=== PATIENT | male | born 1950 | race Hispanic/Latino ===

== ENCOUNTER 2017-11-09 14:18 | Emergency (ER) | payer OTHER ==
--- OUTSIDE RECORDS SUMMARY | 2017-11-09 14:24 | XMS REPORT ---
:1950 [facility] Address [address] [place] [address] [address] [place] [address] Care Team Providers Name Role Phone KYLIE LEY Unavailable Unavailable IDALIA TONY Unavailable Unavailable WILBERT, DINORAH Unavailable Unavailable Problems This patient has no known problems. Allergies, Adverse Reactions, Alerts This patient has no known allergies or adverse reactions. Medications This patient has no known medications. Results Test Description Test Time Test Comments Text Results Atomic Results Result Comments FLOW CYTOMETRY REQUISITION 2017-11-06 16:29:00 Test Item Value Reference Range Comments FLOW CYTOMETRY RESULT POINTER (SHREYAS) (test ezeo=1048) See Separate Report FLOW CYTOMETRY AP CASE # (SHREYAS) (test qast=8821) [id number] FLOW [id number] 11:02:00Flow Cytometry Report Case: [id number] Authorizing Provider: Shashi Awan MD Collected: 11/05/2017 1109 Ordering Location: [facility] Emergency Department Received: 11/05/2017 1307 Pathologist: Shashi Awan MD Specimen: Other PERIPHERAL BLOOD, FLOW CYTOMETRY:- 16% CIRCULATING MYELOBASTS-NO ABERRANT T LYMPHOCYTE POPULATION-NO MONOTYPIC B LYMPHOCYTE POPULATION-SEE COMMENTElectronically signed by Shashi Awan MD on at 11:02 AMFlow cytometric evaluation is performed on a peripheral blood sample from a 66 year old man wit history of MDS with excess blasts undergoing outpatient chemotherapy treatment per notes. Presented to ER on 11/05 from Hematology clinic with low platelets requiring platelet transfusion. Peripheral blood findings demonstrated increased blast warranting flow cytometric evaluation. Results demonstrate 16% circulating myeloblast with a subpopulation aberrantly expressing CD56. There was no evidence of an aberrant B or T lymphocyte process. Patient to follow up with Hematology for continuation of outpatient chemotherapy per EMR notes. [id number] year old man wit history of MDS with excess blasts undergoing outpatient chemotherapyPeripheral bloodCD2, CD3, CD4, CD5, CD7, CD8, CD10, CD11C, CD13, CD14, CD16, CD19, CD20, CD23, CD33, CD34, CD38, CD45, CD56, CD64, CD117, HLA-DR , KAPPA, LAMBDA, cMPO, cCD79a, nTdt, cCD79a, cCD22, cCD3, WO21eFupjuhsi Viability: 87%Abnormal myeloblast population identified (16% oftotal cellularity)POSITIVE: CD45 dim, CD34, CD117, HLA-DR, CD33, CD13(subpopulation), CD56(partial),CD11b(partial), cMPO(dim)NEGATIVE: CD2, CD3, CD4, CD5, CD7, CD8, CD10, CD11C, CD14, CD16, CD19, CD20, CD23,CD38, CD64, CD117, KAPPA, LAMBDA, cCD79a, nTdt, cCD79a, cCD22, cCD3In addition, the followingpopulations are identified:Blasts: As noted above.Lymphocytes: Bright CD45+ lymphocytes comprise 69%of total cells. T cells show a CD4:CD8 ratio of 1.8 and normal davis T cell antigen expression. B cells are polytypic with a kappa:lambda ratio of 1.6.Myeloid/monocytic populations: As identified by CD45 and light scatter characteristics, granulocytes comprise 8% of cells analyzed, and monocytes comprise 3% of total cells.The remaining events analyzed represent nonviable cells, non-hematolymphoid cells, and debrisThese tests were developed and their performance characteristics determined by [employer] They have not been cleared or approved by the U.S. Food and Drug Administration. The FDA has determined that such clearance or approval is not necessary. It should not be regarded as investigational or for research. This laboratory is certified under the Clinical Laboratory Improvement Amendments [id number] ("CLIA") as qualified to perform high-complexity clinical testing.CBC W/PLT COUNT & AUTO [id number] 07:05:00 Test Item Value Reference Range Comments WHITE BLOOD CELL COUNT 2.0 K/ L 3.5-10.5 (BEAKER) (test bgeg=017) RED BLOOD CELL COUNT (BEAKER) 2.65 M/ L 4.63-6.08 (test dbjk=537) HEMOGLOBIN (BEAKER) (test 8.4 GM/DL 13.7-17.5 msvm=802) HEMATOCRIT (BEAKER) (test 26.9 % 40.1-51.0 fbrw=519) MEAN CORPUSCULAR VOLUME 101.5 fL 79.0-92.2 (BEAKER) (test luay=253) MEAN CORPUSCULAR HEMOGLOBIN 31.7 pg 25.7-32.2 (BEAKER) (test sazr=202) MEAN CORPUSCULAR HEMOGLOBIN 31.2 GM/DL 32.3-36.5 CONC (BEAKER) (test lkkg=059) RED CELL DISTRIBUTION WIDTH 17.0 % 11.6-14.4 (BEAKER) (test dnjc=562) PLATELET COUNT (BEAKER) (test 44 K/CU MM 150-450 prtr=857) MEAN PLATELET VOLUME (BEAKER) fL 9.4-12.4 Unable to report due to (test suqc=951) abnormal Platelet population distribution. NUCLEATED RED BLOOD CELLS 2 /100 WBC 0-0 (BEAKER) (test dwgn=002) IMMATURE GRANULOCYTES-RELATIVE 3 % 0-1 PERCENT (BEAKER) (test khxb=3460) (MANUAL DIFFERENTIAL)2017-11-06 07:05:00 Test Item Value Reference Range Comments NEUTROPHILS - REL (DIFF) (BEAKER) (test cnkl=0495) 12 % LYMPHOCYTES - REL (DIFF) (BEAKER) (test xvay=2655) 75 % MONOCYTES - REL (DIFF) (BEAKER) (test xcau=2161) 10 % EOSINOPHILS - REL (DIFF) (BEAKER) (test kntx=9612) 0 % BASOPHILS - REL (DIFF) (BEAKER) (test fjes=3080) 0 % BLASTS - REL (DIFF) (BEAKER) (test fgqw=0566) 3 % 0-0 NEUTROPHILS - ABS (DIFF) (BEAKER) (test hxrp=6292) 0.24 K/ L 1.80-8.00 LYMPHOCYTES - ABS (DIFF) (BEAKER) (test mqlr=0013) 1.50 K/ L 1.48-4.50 MONOCYTES - ABS (DIFF) (BEAKER) (test nttm=7730) 0.20 K/ L 0.00-1.30 EOSINOPHILS - ABS (DIFF) (BEAKER) (test kaue=5823) 0.00 K/ L 0.00-0.50 BASOPHILS - ABS (DIFF) (BEAKER) (test mtfh=4983) 0.00 K/ L 0.00-0.20 BLASTS - ABS (DIFF) (BEAKER) (test kspf=0386) 0.06 K/ L 0.00-0.00 TOTAL COUNTED (BEAKER) (test xvgj=8279) 100 WBC MORPHOLOGY (BEAKER) (test rglh=081) Normal PLT MORPHOLOGY (BEAKER) (test tegp=390) Normal RBC MORPHOLOGY (BEAKER) (test hybj=370) Normal PERIPHERAL BLOOD SMEAR - PATH REVIEW LAB [id number] 16:46:00 Test Item Value Reference Range Comments RBC MORPHOLOGY (BEAKER) Hypochromic,macrocytic (test tnln=2321) anemia with mild anisopoikilocytosis. Occasional dacrocytes, elliptocytes and microcytes identified. Minimal polychromasia. Mild rouleaux formation. WBC MORPHOLOGY (BEAKER) Leukopenia with few blasts (test kqve=1433) identified(4% by differential count). Absolute neutrophilia. Few atypical lymphocytes present. PLT MORPHOLOGY (BEAKER) Marked thrombocytopenia. (test nzmk=5135) No platelet clumping identified. [id number] Shashi Awan MD (BEAKER) (test (electronic edkj=1430) signature) CBC W/PLT COUNT & AUTO [id number] 12:28:00 Test Item Value Reference Range Comments WHITE BLOOD CELL COUNT 2.2 K/ L 3.5-10.5 (BEAKER) (test lwlh=195) RED BLOOD CELL COUNT (BEAKER) 2.28 M/ L 4.63-6.08 (test isyg=861) HEMOGLOBIN (BEAKER) (test 7.1 GM/DL 13.7-17.5 uovn=666) HEMATOCRIT (BEAKER) (test 21.8 % 40.1-51.0 bnmg=792) MEAN CORPUSCULAR VOLUME 95.6 fL 79.0-92.2 (BEAKER) (test lsaq=958) MEAN CORPUSCULAR HEMOGLOBIN 31.1 pg 25.7-32.2 (BEAKER) (test ejka=052) MEAN CORPUSCULAR HEMOGLOBIN 32.6 GM/DL 32.3-36.5 CONC (BEAKER) (test fkgu=173) RED CELL DISTRIBUTION WIDTH 15.1 % 11.6-14.4 (BEAKER) (test qwqf=926) PLATELET COUNT (BEAKER) (test 5 K/CU MM 150-450 rzuz=545) MEAN PLATELET VOLUME (BEAKER) fL 9.4-12.4 Unable to report due to (test odgz=949) abnormal Platelet population distribution. NUCLEATED RED BLOOD CELLS 2 /100 WBC 0-0 (BEAKER) (test bkox=467) IMMATURE GRANULOCYTES-RELATIVE 1 % 0-1 PERCENT (BEAKER) (test aovk=0452) (MANUAL DIFFERENTIAL)2017-11-05 12:28:00 Test Item Value Reference Range Comments NEUTROPHILS - REL (DIFF) 9 % (BEAKER) (test wrdi=2309) LYMPHOCYTES - REL (DIFF) 80 % (BEAKER) (test ymbk=4263) MONOCYTES - REL (DIFF) 1 % (BEAKER) (test tyli=4828) BASOPHILS - REL (DIFF) % Blasts confirmed by (BEAKER) (test giey=5671) Lv BANDS - REL (DIFF) (BEAKER) 1 % 0-10 (test lgor=5906) BLASTS - REL (DIFF) (BEAKER) 4 % 0-0 (test tbry=6351) ATYPICAL LYMPHOCYTE - REL 5 % 0-0 (DIFF) (BEAKER) (test vnyn=480) NEUTROPHILS - ABS (DIFF) 0.20 K/ L 1.80-8.00 (BEAKER) (test sude=7759) LYMPHOCYTES - ABS (DIFF) 1.76 K/ L 1.48-4.50 (BEAKER) (test cage=3441) MONOCYTES - ABS (DIFF) 0.02 K/ L 0.00-1.30 (BEAKER) (test tpni=0055) BANDS-ABS (DIFF) (BEAKER) 0.0 K/ L 0.0-0.8 (test nqti=6229) BLASTS - ABS (DIFF) (BEAKER) 0.09 K/ L 0.00-0.00 (test aauf=1167) ATYPICAL LYMPHOCYTES - ABS 0.11 K/ L 0.00-0.00 (DIFF) (BEAKER) (test xypo=646) TOTAL COUNTED (BEAKER) (test 100 kvku=1438) BANDS + SEGMENTED NEUTROPHILS 0.22 (BEAKER) (test ppvb=1570) MANUAL NRBC PER 100 CELLS 1 /100 WBC 0-0 (BEAKER) (test ucom=0820) WBC MORPHOLOGY (BEAKER) (test Normal ixbq=754) PLT MORPHOLOGY (BEAKER) (test Normal dnqt=334) RBC MORPHOLOGY (BEAKER) (test Normal wwzo=079) [id number] 11:45:00 Test Item Value Reference Range Comments PROTIME (BEAKER) (test ltel=849) 16.7 seconds 11.7-14.7 INR (BEAKER) (test sezz=235) 1.4 <=5.9 PARTIAL THROMBOPLASTIN TIME (BEAKER) (test 41.3 seconds 22.5-36.0 qirg=042) RECOMMENDED COUMADIN/WARFARIN INR THERAPY RANGESSTANDARD DOSE: 2.0 - 3.0 Includes: PROPHYLAXIS forvenous thrombosis, systemic embolization; TREATMENT for venous thrombosis and/or pulmonary embolus.HIGH RISK: Target INR is 2.5-3.5 for patients with mechanical heart valves.HEPATIC FUNCTION [id number] 11:38 :00 Test Item Value Reference Range Comments TOTAL PROTEIN (BEAKER) (test ejmn=708) 8.3 gm/dL 6.0-8.3 ALBUMIN (BEAKER) (test ekxv=4609) 2.9 g/dL 3.5-5.0 BILIRUBIN TOTAL (BEAKER) (test msri=262) 0.7 mg/dL 0.2-1.2 BILIRUBIN DIRECT (BEAKER) (test wrwk=313) 0.4 mg/dL 0.1-0.5 ALKALINE PHOSPHATASE (BEAKER) (test ribi=758) 83 U/L 40-150 AST (SGOT) (BEAKER) (test upss=585) 9 U/L 5-34 ALT (SGPT) (BEAKER) (test wlja=113) 7 U/L 6-55 BASIC METABOLIC [id number] 11:38:00 Test Item Value Reference Range Comments SODIUM (BEAKER) (test 131 meq/L 136-145 hngy=893) POTASSIUM (BEAKER) (test 4.1 meq/L 3.5-5.1 qcyz=791) CHLORIDE (BEAKER) (test 97 meq/L 98-107 swxu=824) CO2 (BEAKER) (test 24 meq/L 22-29 kued=590) BLOOD UREA NITROGEN 12 mg/dL 7-21 (BEAKER) (test hily=084) CREATININE (BEAKER) (test 0.78 mg/dL 0.57-1.25 gtby=494) GLUCOSE RANDOM (BEAKER) 132 mg/dL 70-105 (test erhi=289) CALCIUM (BEAKER) (test 9.1 mg/dL 8.4-10.2 cbwt=479) EGFR (BEAKER) (test 100 mL/min/1.73 sq m ESTIMATED GFR IS NOT nljg=5059) ACCURATE CREATININE CLEARANCE IN PREDICTING GLOMERULAR FILTRATION RATE. ESTIMATED GFR IS NOT APPLICABLE FOR DIALYSIS PATIENTS. AFB CULTURE + [id number] 09:23:00 Test Item Value Reference Range Comments CULTURE (BEAKER) (test No acid-fast bacilli isolated ipdp=8881) in 42 days AFB SMEAR (BEAKER) (test No acid fast bacilli seen ddxm=119) (MANUAL DIFFERENTIAL)2017-08-17 16:00:00 Test Item Value Reference Range Comments NEUTROPHILS - REL (DIFF) (BEAKER) (test dclf=3827) 21 % LYMPHOCYTES - REL (DIFF) (BEAKER) (test xcus=0701) 75 % MONOCYTES - REL (DIFF) (BEAKER) (test bmuk=7343) 4 % NEUTROPHILS - ABS (DIFF) (BEAKER) (test uxvf=9859) 0.34 K/ L 1.80-8.00 LYMPHOCYTES - ABS (DIFF) (BEAKER) (test orry=0877) 1.20 K/ L 1.48-4.50 MONOCYTES - ABS (DIFF) (BEAKER) (test rgdq=6203) 0.06 K/ L 0.00-1.30 TOTAL COUNTED (BEAKER) (test lzni=7578) 100 WBC MORPHOLOGY (BEAKER) (test vjsn=436) Normal PLT MORPHOLOGY (BEAKER) (test zalr=088) Normal RBC MORPHOLOGY (BEAKER) (test sarc=375) Normal CBC W/PLT COUNT & AUTO [id number] 15:25:00 Test Item Value Reference Range Comments WHITE BLOOD CELL COUNT (BEAKER) (test edcn=610) 1.6 K/ L 3.5-10.5 RED BLOOD CELL COUNT (BEAKER) (test wnwv=984) 2.77 M/ L 4.63-6.08 HEMOGLOBIN (BEAKER) (test kwyq=394) 8.3 GM/DL 13.7-17.5 HEMATOCRIT (BEAKER) (test ogws=198) 25.1 % 40.1-51.0 MEAN CORPUSCULAR VOLUME (BEAKER) (test uslz=510) 90.6 fL 79.0-92.2 MEAN CORPUSCULAR HEMOGLOBIN (BEAKER) (test 30.0 pg 25.7-32.2 ygkb=030) MEAN CORPUSCULAR HEMOGLOBIN CONC (BEAKER) (test 33.1 GM/DL 32.3-36.5 ould=608) RED CELL DISTRIBUTION WIDTH (BEAKER) (test 13.5 % 11.6-14.4 wtil=978) PLATELET COUNT (BEAKER) (test oxch=851) 52 K/CU MM 150-450 MEAN PLATELET VOLUME (BEAKER) (test jbge=655) 13.4 fL 9.4-12.4 NUCLEATED RED BLOOD CELLS (BEAKER) (test 0 /100 WBC 0-0 xodj=978) NEUTROPHILS RELATIVE PERCENT (BEAKER) (test 19 % epkp=321) LYMPHOCYTES RELATIVE PERCENT (BEAKER) (test 79 % flhr=417) MONOCYTES RELATIVE PERCENT (BEAKER) (test 2 % lkxm=985) EOSINOPHILS RELATIVE PERCENT (BEAKER) (test 0 % qgrx=463) BASOPHILS RELATIVE PERCENT (BEAKER) (test 0 % kupl=179) NEUTROPHILS ABSOLUTE COUNT (BEAKER) (test 0.30 K/ L 1.78-5.38 eqqd=047) LYMPHOCYTES ABSOLUTE COUNT (BEAKER) (test 1.22 K/ L 1.32-3.57 ivcy=747) MONOCYTES ABSOLUTE COUNT (BEAKER) (test wwdu=780) 0.03 K/ L 0.30-0.82 EOSINOPHILS ABSOLUTE COUNT (BEAKER) (test 0.00 K/ L 0.04-0.54 dggo=248) BASOPHILS ABSOLUTE COUNT (BEAKER) (test bses=264) 0.00 K/ L 0.01-0.08 IMMATURE GRANULOCYTES-RELATIVE PERCENT (BEAKER) 0 % 0-1 (test gkta=7039) RAD, ABDOMEN/KUB, 1 VIEW [id number] 10:03:00Reason for exam:->abdominal painFINAL REPORT CLINICAL HISTORY: abdominal pain TECHNIQUE: Supine abdomen COMPARISON: None IMPRESSION: There is oral contrast in the colon. There are no focal distended loops of small bowel. Free air and air-fluid levels are not seen but cannot be definitively excluded on the supine view. Signed: Jyoti Rhodes MDReport Verified Date/Time: 08/16/2017 10:03:18 Reading Location: [facility] Radiology Reading Room CBC W/PLT COUNT & AUTO [id number] 08:33:00 Test Item Value Reference Range Comments WHITE BLOOD CELL COUNT (BEAKER) (test grxm=961) 1.3 K/ L 3.5-10.5 RED BLOOD CELL COUNT (BEAKER) (test dzcw=740) 2.45 M/ L 4.63-6.08 HEMOGLOBIN (BEAKER) (test yzwk=412) 7.4 GM/DL 13.7-17.5 HEMATOCRIT (BEAKER) (test zbwr=597) 21.8 % 40.1-51.0 MEAN CORPUSCULAR VOLUME (BEAKER) (test xfxb=673) 89.0 fL 79.0-92.2 MEAN CORPUSCULAR HEMOGLOBIN (BEAKER) (test 30.2 pg 25.7-32.2 idmg=236) MEAN CORPUSCULAR HEMOGLOBIN CONC (BEAKER) (test 33.9 GM/DL 32.3-36.5 kror=460) RED CELL DISTRIBUTION WIDTH (BEAKER) (test 13.8 % 11.6-14.4 pozh=475) PLATELET COUNT (BEAKER) (test xgvb=214) 40 K/CU MM 150-450 MEAN PLATELET VOLUME (BEAKER) (test xnoj=700) 13.7 fL 9.4-12.4 NUCLEATED RED BLOOD CELLS (BEAKER) (test 0 /100 WBC 0-0 hlrc=890) IMMATURE GRANULOCYTES-RELATIVE PERCENT (BEAKER) 1 % 0-1 (test dfhw=2974) (MANUAL DIFFERENTIAL)2017-08-16 08:33:00 Test Item Value Reference Range Comments NEUTROPHILS - REL (DIFF) (BEAKER) (test lpmc=4865) 23 % LYMPHOCYTES - REL (DIFF) (BEAKER) (test ledr=8736) 76 % MONOCYTES - REL (DIFF) (BEAKER) (test jvwi=0864) 1 % EOSINOPHILS - REL (DIFF) (BEAKER) (test jpbf=0810) 0 % BASOPHILS - REL (DIFF) (BEAKER) (test nlwl=8738) 0 % NEUTROPHILS - ABS (DIFF) (BEAKER) (test clyn=1526) 0.30 K/ L 1.80-8.00 LYMPHOCYTES - ABS (DIFF) (BEAKER) (test tsbo=8418) 0.99 K/ L 1.48-4.50 MONOCYTES - ABS (DIFF) (BEAKER) (test ywol=0843) 0.01 K/ L 0.00-1.30 EOSINOPHILS - ABS (DIFF) (BEAKER) (test funt=5091) 0.00 K/ L 0.00-0.50 BASOPHILS - ABS (DIFF) (BEAKER) (test mxwn=6472) 0.00 K/ L 0.00-0.20 TOTAL COUNTED (BEAKER) (test xgnm=5244) 100 PLT MORPHOLOGY (BEAKER) (test gzvk=559) Normal RBC MORPHOLOGY (BEAKER) (test ocxz=868) Normal ATYPICAL LYMPHS(BEAKER) (test ppzr=3925) Present [id number] 06:16:00 Test Item Value Reference Range Comments MAGNESIUM (BEAKER) (test lnzn=251) 1.9 mg/dL 1.6-2.6 COMPREHENSIVE METABOLIC [id number] 06:16:00 Test Item Value Reference Range Comments TOTAL PROTEIN (BEAKER) 7.2 gm/dL 6.0-8.3 (test dksx=261) ALBUMIN (BEAKER) (test 2.4 g/dL 3.5-5.0 njlw=3830) ALKALINE PHOSPHATASE 114 U/L 40-150 (BEAKER) (test yvgh=100) BILIRUBIN TOTAL (BEAKER) 1.6 mg/dL 0.2-1.2 (test zffy=930) SODIUM (BEAKER) (test 136 meq/L 136-145 mqml=116) POTASSIUM (BEAKER) (test 4.2 meq/L 3.5-5.1 xlfn=150) CHLORIDE (BEAKER) (test 106 meq/L 98-107 isjw=622) CO2 (BEAKER) (test 21 meq/L 22-29 azkk=958) BLOOD UREA NITROGEN 11 mg/dL 7-21 (BEAKER) (test nnbf=315) CREATININE (BEAKER) (test 0.55 mg/dL 0.57-1.25 bdhc=373) GLUCOSE RANDOM (BEAKER) 92 mg/dL 70-105 (test zthy=395) CALCIUM (BEAKER) (test 8.4 mg/dL 8.4-10.2 jhtg=503) AST (SGOT) (BEAKER) (test 12 U/L 5-34 cwvw=601) ALT (SGPT) (BEAKER) (test 20 U/L 6-55 rmtd=598) EGFR (BEAKER) (test 150 mL/min/1.73 sq ESTIMATED GFR IS NOT ypbz=9798) m ACCURATE CREATININE CLEARANCE IN PREDICTING GLOMERULAR FILTRATION RATE. ESTIMATED GFR IS NOT APPLICABLE FOR DIALYSIS PATIENTS. CLOSTRIDIUM DIFFICILE TOXIN [id number] 15:56:00 Test Item Value Reference Range Comments CLOSTRIDIUM DIFFICILE TOXIN, PCR (BEAKER) (test Detected Not Detected ehok=8348) This qualitative real-time polymerase chain reaction assay detects the tcdB gene , encoded on the C.difficile pathogenicity locus (PaLoc). The product of tcdB, toxin B, is a cytotoxin essential for causing C.difficile-associated disease ( CDAD) and is found in virtually all toxigenic C.difficile.This assay is performed for patients suspected of having either community-acquired or nosocomial CDAD. Accordingly, only symptomatic patients should be tested and formed stools will be rejected unless ileus is present (i.e., specified when ordering). Patients may be colonized with toxigenic C.difficile strains not causing active disease; therefore, clinical correlation is needed when deciding how to manage patients with a positive test result.The assay has not been validated as a test of cure as amplifiable nucleic acid may persist after effective treatment; therefore, follow-up testing of a positive result is not recommended.CBC W/PLT COUNT & AUTO [id number] 10:08:00 Test Item Value Reference Range Comments WHITE BLOOD CELL COUNT (BEAKER) (test yeqj=225) 1.0 K/ L 3.5-10.5 RED BLOOD CELL COUNT (BEAKER) (test xabh=233) 2.47 M/ L 4.63-6.08 HEMOGLOBIN (BEAKER) (test alyz=649) 7.4 GM/DL 13.7-17.5 HEMATOCRIT (BEAKER) (test rviq=515) 21.7 % 40.1-51.0 MEAN CORPUSCULAR VOLUME (BEAKER) (test japr=509) 87.9 fL 79.0-92.2 MEAN CORPUSCULAR HEMOGLOBIN (BEAKER) (test 30.0 pg 25.7-32.2 aifg=385) MEAN CORPUSCULAR HEMOGLOBIN CONC (BEAKER) (test 34.1 GM/DL 32.3-36.5 gwrf=396) RED CELL DISTRIBUTION WIDTH (BEAKER) (test 14.0 % 11.6-14.4 xwhr=883) PLATELET COUNT (BEAKER) (test orsa=648) 34 K/CU MM 150-450 MEAN PLATELET VOLUME (BEAKER) (test waju=539) 13.4 fL 9.4-12.4 NUCLEATED RED BLOOD CELLS (BEAKER) (test 0 /100 WBC 0-0 lmla=343) IMMATURE GRANULOCYTES-RELATIVE PERCENT (BEAKER) 0 % 0-1 (test keyc=4809) (MANUAL DIFFERENTIAL)2017-08-15 10:08:00 Test Item Value Reference Range Comments NEUTROPHILS - REL (DIFF) (BEAKER) (test nsuc=8184) 18 % LYMPHOCYTES - REL (DIFF) (BEAKER) (test nwvo=8214) 81 % MONOCYTES - REL (DIFF) (BEAKER) (test egmt=5295) 1 % EOSINOPHILS - REL (DIFF) (BEAKER) (test amve=8168) 0 % BASOPHILS - REL (DIFF) (BEAKER) (test gxdx=6564) 0 % NEUTROPHILS - ABS (DIFF) (BEAKER) (test qjsg=4752) 0.18 K/ L 1.80-8.00 LYMPHOCYTES - ABS (DIFF) (BEAKER) (test ryhi=1834) 0.81 K/ L 1.48-4.50 MONOCYTES - ABS (DIFF) (BEAKER) (test amjw=7512) 0.01 K/ L 0.00-1.30 EOSINOPHILS - ABS (DIFF) (BEAKER) (test kcbs=8970) 0.00 K/ L 0.00-0.50 BASOPHILS - ABS (DIFF) (BEAKER) (test mrle=8861) 0.00 K/ L 0.00-0.20 TOTAL COUNTED (BEAKER) (test fdoo=9549) 100 PLT MORPHOLOGY (BEAKER) (test ojsq=090) Normal RBC MORPHOLOGY (BEAKER) (test rilj=229) Normal ATYPICAL LYMPHS(BEAKER) (test ehml=7993) Present [id number] 06:53:00 Test Item Value Reference Range Comments MAGNESIUM (BEAKER) (test cllc=948) 1.9 mg/dL 1.6-2.6 BASIC METABOLIC [id number] 06:53:00 Test Item Value Reference Range Comments SODIUM (BEAKER) (test 137 meq/L 136-145 sigu=759) POTASSIUM (BEAKER) (test 4.1 meq/L 3.5-5.1 okhj=751) CHLORIDE (BEAKER) (test 103 meq/L 98-107 qhlk=008) CO2 (BEAKER) (test 25 meq/L 22-29 ttna=470) BLOOD UREA NITROGEN 10 mg/dL 7-21 (BEAKER) (test aikq=710) CREATININE (BEAKER) (test 0.54 mg/dL 0.57-1.25 onac=666) GLUCOSE RANDOM (BEAKER) 107 mg/dL 70-105 (test iqrq=752) CALCIUM (BEAKER) (test 8.3 mg/dL 8.4-10.2 efvk=470) EGFR (BEAKER) (test 153 mL/min/1.73 sq m ESTIMATED GFR IS NOT blwq=7853) ACCURATE CREATININE CLEARANCE IN PREDICTING GLOMERULAR FILTRATION RATE. ESTIMATED GFR IS NOT APPLICABLE FOR DIALYSIS PATIENTS. Specimen slightly ictericOCCULT BLOOD, [id number] 23:02:00 Test Item Value Reference Range Comments FECAL OCCULT BLOOD (BEAKER) (test qvrn=772) Negative Negative URINALYSIS W/ REFLEX URINE [id number] 21:14:00 Test Item Value Reference Range Comments COLOR (BEAKER) (test vgdh=210) Yellow CLARITY (BEAKER) (test ykzx=602) Clear SPECIFIC GRAVITY UA (BEAKER) (test ougy=414) 1.009 1.001-1.035 PH UA (BEAKER) (test danv=459) 7.5 5.0-8.0 PROTEIN UA (BEAKER) (test anoh=523) Negative Negative GLUCOSE UA (BEAKER) (test vmbt=649) Negative Negative KETONES UA (BEAKER) (test szdk=021) 10 mg/dL Negative BILIRUBIN UA (BEAKER) (test ureq=742) Negative Negative BLOOD UA (BEAKER) (test pwon=776) Negative Negative NITRITE UA (BEAKER) (test aguj=509) Negative Negative LEUKOCYTE ESTERASE UA (BEAKER) (test wkhg=946) Negative Negative UROBILINOGEN UA (BEAKER) (test oizy=113) > mg/dL 0.2-1.0 RBC UA (BEAKER) (test uhkn=814) 0 /HPF WBC UA (BEAKER) (test jxrf=472) < /HPF MUCUS (BEAKER) (test xdoo=9597) Rare SQUAMOUS EPITHELIAL (BEAKER) (test bshe=796) < /HPF SOURCE(BEAKER) (test fwxu=9682) CBC W/PLT COUNT & AUTO [id number] 12:16:00 Test Item Value Reference Range Comments WHITE BLOOD CELL COUNT 0.6 K/ L 3.5-10.5 (BEAKER) (test ugjt=464) RED BLOOD CELL COUNT (BEAKER) 2.76 M/ L 4.63-6.08 (test igpv=258) HEMOGLOBIN (BEAKER) (test 8.3 GM/DL 13.7-17.5 toct=540) HEMATOCRIT (BEAKER) (test 23.7 % 40.1-51.0 anpx=504) MEAN CORPUSCULAR VOLUME 85.9 fL 79.0-92.2 Discordant from previous (BEAKER) (test hbzq=113) results. Clinical correlation suggested. MEAN CORPUSCULAR HEMOGLOBIN 30.1 pg 25.7-32.2 (BEAKER) (test fxeg=383) MEAN CORPUSCULAR HEMOGLOBIN 35.0 GM/DL 32.3-36.5 CONC (BEAKER) (test ctcm=052) RED CELL DISTRIBUTION WIDTH 13.5 % 11.6-14.4 (BEAKER) (test brcu=882) PLATELET COUNT (BEAKER) (test 32 K/CU MM 150-450 qfab=260) MEAN PLATELET VOLUME (BEAKER) fL 9.4-12.4 Unable to report due to (test nquk=314) abnormal Platelet population distribution. NUCLEATED RED BLOOD CELLS 5 /100 WBC 0-0 (BEAKER) (test nbos=957) IMMATURE GRANULOCYTES-RELATIVE 0 % 0-1 PERCENT (BEAKER) (test hary=8201) (MANUAL DIFFERENTIAL)2017-08-14 12:16:00 Test Item Value Reference Range Comments NEUTROPHILS - REL (DIFF) (BEAKER) (test ehzz=2436) 30 % LYMPHOCYTES - REL (DIFF) (BEAKER) (test pvqx=1728) 55 % MONOCYTES - REL (DIFF) (BEAKER) (test ixrn=5385) 7 % BANDS - REL (DIFF) (BEAKER) (test vgmg=3892) 8 % 0-10 NEUTROPHILS - ABS (DIFF) (BEAKER) (test whis=4149) 0.18 K/ L 1.80-8.00 LYMPHOCYTES - ABS (DIFF) (BEAKER) (test jhlu=9117) 0.33 K/ L 1.48-4.50 MONOCYTES - ABS (DIFF) (BEAKER) (test vfpb=5946) 0.04 K/ L 0.00-1.30 BANDS-ABS (DIFF) (BEAKER) (test esmu=6469) 0.0 K/ L 0.0-0.8 TOTAL COUNTED (BEAKER) (test pcmo=2149) 100 BANDS + SEGMENTED NEUTROPHILS (BEAKER) (test 0.23 amxt=0212) WBC MORPHOLOGY (BEAKER) (test rrve=507) Normal PLT MORPHOLOGY (BEAKER) (test pggd=191) Normal RBC MORPHOLOGY (BEAKER) (test iblc=393) Normal [id number] 09:26:00 Test Item Value Reference Range Comments MAGNESIUM (BEAKER) (test xrxy=270) 1.5 mg/dL 1.6-2.6 BASIC METABOLIC [id number] 09:26:00 Test Item Value Reference Range Comments SODIUM (BEAKER) (test 135 meq/L 136-145 hesf=317) POTASSIUM (BEAKER) (test 3.0 meq/L 3.5-5.1 ruqh=588) CHLORIDE (BEAKER) (test 95 meq/L 98-107 muzn=217) CO2 (BEAKER) (test 30 meq/L 22-29 aamz=372) BLOOD UREA NITROGEN 10 mg/dL 7-21 (BEAKER) (test jent=056) CREATININE (BEAKER) (test 0.65 mg/dL 0.57-1.25 bzij=011) GLUCOSE RANDOM (BEAKER) 175 mg/dL 70-105 (test kctp=825) CALCIUM (BEAKER) (test 8.4 mg/dL 8.4-10.2 rdof=693) EGFR (BEAKER) (test 124 mL/min/1.73 sq m ESTIMATED GFR IS NOT sfgo=1946) ACCURATE CREATININE CLEARANCE IN PREDICTING GLOMERULAR FILTRATION RATE. ESTIMATED GFR IS NOT APPLICABLE FOR DIALYSIS PATIENTS. Specimen slightly ictericPOCT-GLUCOSE [id number] 23:11:00 Test Item Value Reference Range Comments POC-GLUCOSE METER (BEAKER) 130 mg/dL 70-[address] [facility] [address] [facility] (test btpq=6537) [facility] [id number] [address], BRAIN, WITHOUT [id number] 22:33:00FINAL REPORT CT, BRAIN, WITHOUT CONTRAST INDICATION: "Dizziness" TECHNIQUE: Noncontrast axial imaging was obtained from the vertex to the skull base. Axial images were reconstructed using a bone algorithm. DOSE REDUCTION: Dose modulation, iterative reconstruction, and/or weight-based adjustment of the mA/ kV was utilized to reduce the radiation dose to as low as reasonably achievable. COMPARISON: Head CT 07/17/2017 FINDINGS: Mild global volume loss commensurate with the patient's age.Midline structures and posterior fossa within normal limits.No subacute territorial infarctionor hyperdense thrombus.No acute intracranial hemorrhage.No acute hydrocephalus. Intact calvarium.Symmetric globes.The paranasal sinuses and mastoid air cells are well- aerated. IMPRESSION: No acute intracranial abnormality. Signed: William Romero MDReport Verified Date/Time: 08/13/2017 22:33:56 Reading Location: [address] Ortho Consult Reading Room CBC W/PLT COUNT & AUTO [id number] 22:31 :00 Test Item Value Reference Range Comments WHITE BLOOD CELL COUNT 0.8 K/ L 3.5-10.5 (BEAKER) (test mzwk=534) RED BLOOD CELL COUNT (BEAKER) 1.84 M/ L 4.63-6.08 (test fjzk=249) HEMOGLOBIN (BEAKER) (test 5.5 GM/DL 13.7-17.5 ppiq=986) HEMATOCRIT (BEAKER) (test 16.7 % 40.1-51.0 jvpy=493) MEAN CORPUSCULAR VOLUME 90.8 fL 79.0-92.2 (BEAKER) (test rgxw=723) MEAN CORPUSCULAR HEMOGLOBIN 29.9 pg 25.7-32.2 (BEAKER) (test ggoh=918) MEAN CORPUSCULAR HEMOGLOBIN 32.9 GM/DL 32.3-36.5 CONC (BEAKER) (test qdbn=977) RED CELL DISTRIBUTION WIDTH 13.7 % 11.6-14.4 (BEAKER) (test ehgw=605) PLATELET COUNT (BEAKER) (test 25 K/CU MM 150-450 mbjr=043) MEAN PLATELET VOLUME (BEAKER) fL 9.4-12.4 Unable to report due to (test hmrh=905) abnormal Platelet population distribution. NUCLEATED RED BLOOD CELLS 3 /100 WBC 0-0 (BEAKER) (test vxcn=747) IMMATURE GRANULOCYTES-RELATIVE 0 % 0-1 PERCENT (BEAKER) (test ssuk=6499) (MANUAL DIFFERENTIAL)2017-08-13 22:31:00 Test Item Value Reference Range Comments NEUTROPHILS - REL (DIFF) (BEAKER) (test gkkc=3701) 16 % LYMPHOCYTES - REL (DIFF) (BEAKER) (test cbaf=9564) 74 % MONOCYTES - REL (DIFF) (BEAKER) (test owjg=8489) 4 % EOSINOPHILS - REL (DIFF) (BEAKER) (test jmfa=3987) 2 % METAMYELOCYTES-REL (DIFF) (BEAKER) (test zonb=300) 1 % 0-0 BANDS - REL (DIFF) (BEAKER) (test zqqe=1791) 3 % 0-10 NEUTROPHILS - ABS (DIFF) (BEAKER) (test woxy=1351) 0.13 K/ L 1.80-8.00 LYMPHOCYTES - ABS (DIFF) (BEAKER) (test evnu=7772) 0.59 K/ L 1.48-4.50 MONOCYTES - ABS (DIFF) (BEAKER) (test ilsf=7346) 0.03 K/ L 0.00-1.30 EOSINOPHILS - ABS (DIFF) (BEAKER) (test oglg=4203) 0.02 K/ L 0.00-0.50 METAMYELOCTYES - ABS (DIFF) (BEAKER) (test 0.01 K/ L 0.00-0.00 ttcn=326) BANDS-ABS (DIFF) (BEAKER) (test wkbr=2151) 0.0 K/ L 0.0-0.8 TOTAL COUNTED (BEAKER) (test dkku=7702) 100 BANDS + SEGMENTED NEUTROPHILS (BEAKER) (test 0.15 naao=4249) WBC MORPHOLOGY (BEAKER) (test iftf=540) Normal PLT MORPHOLOGY (BEAKER) (test mlll=932) Normal RBC MORPHOLOGY (BEAKER) (test wvrn=540) Normal CT, [id number] 22:31:00FINAL REPORT HISTORY : Abd pain, fever, abscess suspected Technique: Multipleaxial images of the abdomen and pelvis were performed without the administration of IV contrast fromthe lung bases to the pubic symphysis. This exam was performed according to our departmental dose optimization program which includes automated exposure control , adjustment of the mA and/or kV according to patient size and/or use of iterative reconstructive technique. COMPARISON : 07/10/2017 COMMENT :The lung bases are clear. The visualized liver, spleen, adrenal glands, kidneys, bladder , pancreas, stomach and duodenum are within normal limits. There is no abdominal , retroperitoneal or pelvic lymphadenopathy. There is a small right-sided fat- containing inguinal hernia. No bowel contents are seen within the hernias, however. There is bilateral L5 spondylolysis. There is some grade 1 anterolisthesis of L5 over S1. There is also some significant degenerative disc changes seen most significantly at T12-L1. There is no free fluid or free air in the abdomen or pelvis. No findings of any bowel obstruction. The small bowel is within normal limits. There is colonic diverticulosis. There is a focal segment of colonic wall thickening involving the distal descending and sigmoid colon. Findings are nonspecific and could represent a focal inflammatory versus infectious versus ischemic colitis or diverticulitis. No organized pericolonic fluid collections are seen. Close CT imaging follow-up is advised after treatment to document resolution to exclude the possibility of an underlying mass. Alternatively, colonoscopy can be obtained when clinically feasible. The area is in a similar location but significantly increased as compared to the prior exam. The appendix is visualized and is within normal limits. The prostate gland is enlarged. Some calcifications are seen within the prostate gland. Impression: Marked focal thickening of the distal descending and sigmoid colon. This could represent diverticulitis or a nonspecific focal colitis. No free air is seen. No pericolonic fluid collections are seen. Please see above. Signed: Dwight Austin MDReport Verified Date/Time: 08/13/2017 22:31: 02 Reading Location: [facility] [id number] Consult Reading Room [id number] 18:59:00 Test Item Value Reference Range Comments LIPASE (BEAKER) (test qtkc=645) < U/L 8-78 [id number] 18:57:00 Test Item Value Reference Range Comments MAGNESIUM (BEAKER) (test kgfb=036) 1.7 mg/dL 1.6-2.6 BASIC METABOLIC [id number] 18:57:00 Test Item Value Reference Range Comments SODIUM (BEAKER) (test 133 meq/L 136-145 glch=752) POTASSIUM (BEAKER) (test 3.6 meq/L 3.5-5.1 pjwb=140) CHLORIDE (BEAKER) (test 97 meq/L 98-107 rnif=715) CO2 (BEAKER) (test 27 meq/L 22-29 fjpn=008) BLOOD UREA NITROGEN 10 mg/dL 7-21 (BEAKER) (test juqp=457) CREATININE (BEAKER) (test 0.58 mg/dL 0.57-1.25 kunk=875) GLUCOSE RANDOM (BEAKER) 101 mg/dL 70-105 (test vfal=079) CALCIUM (BEAKER) (test 8.6 mg/dL 8.4-10.2 vxxr=435) EGFR (BEAKER) (test 141 mL/min/1.73 sq m ESTIMATED GFR IS NOT ffsn=6637) ACCURATE CREATININE CLEARANCE IN PREDICTING GLOMERULAR FILTRATION RATE. ESTIMATED GFR IS NOT APPLICABLE FOR DIALYSIS PATIENTS. [id number] 18:57:00 Test Item Value Reference Range Comments AMYLASE (BEAKER) (test hqaj=939) 19 U/L 25-125 PROTHROMBIN [id number] 18:44:00 Test Item Value Reference Range Comments PROTIME (BEAKER) (test tgqy=556) 16.0 seconds 11.7-14.7 INR (BEAKER) (test lqhw=808) 1.3 <=5.9 RECOMMENDED COUMADIN/WARFARIN INR THERAPY RANGESSTANDARD DOSE: 2.0 - 3.0 Includes: PROPHYLAXIS forvenous thrombosis, systemic embolization; TREATMENT for venous thrombosis and/or pulmonary embolus.HIGH RISK: Target INR is 2.5-3.5 for patients with mechanical heart valves.FUNGUS CULTURE + [id number] 10: 15:00 Test Item Value Reference Range Comments CULTURE (BEAKER) (test No fungus isolated in 28 days fjrj=2156) FUNGUS SMEAR (BEAKER) (test No fungi seen ydlq=2148) BONE MARROW [id number] 15:26:00Bone Marrow Pathology Report Case: [id number] Authorizing Provider: Mauro Mukherjee MD Collected: 07/03/2017 2673 Ordering Location: [place] [address] ICU Received: 2016 1601 Pathologist: Amanda Krause MD Specimens: A) - B) - Bone Marrow, Clot: 0.4 x 0.4 x 0.2 cm. C) -Bone Marrow, Core: 1.0 x 0.2 x 0.2 cm. Classical cytogenetic studies show a complex karyotype, including abnormalities of chromosomes 5 and 7, and further support involvement by a high grade myelodysplastic syndrome (see attached report for full details of karyotype). The IPSS-R score is 10 (very high prognostic risk). The [facility] [employer] NGS Hematologic Malignancy Mutation panel does not identify any additional mutations (see attached report). Addendum electronically signed by Amanda Krause MD on 07/29/2017 at 3:26 PMPreliminary result electronically signed by Amanda Krause MD on 07/24/2017 at 1:25 PMBONE MARROW ASPIRATE, CLOT, AND DECALCIFIED BIOPSY:-HYPERCELLULAR MARROW WITH MULTILINEAGE DYSPLASIA AND INCREASED BLASTS-MODERATE TOMARKED INCREASED RETICULIN FIBROSIS-PENDING CYTOGENETIC AND MOLECULAR STUDIES-SEE COMMENT PERIPHERALBLOOD:-PANCYTOPENIA WITH OCCASIONAL CIRCULATING BLASTS Signing Pathologist Direct Phone Line: [phone] signed by Amanda Krause MD on 07/12/2017 at 4:28 PMProminent trilineage dysplasia is noted morphologically. Aspirate smears are inadequate, likely related to the increased marrow fibrosis, however approximately 14% blasts are noted on the touch imprints, and a CD34 immunostain confirms increased blasts, which comprise less than 20% of the marrow cellularity. Flow cytometry was limited by hemodilution, but does reveal a myeloblast phenotype (see [id number]). 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 Classical cytogenetic studies and molecular studies are pending, and will be of interest for further characterization. These will be reported separately, and an addendum will follow. Preliminary findings discussed with Dr. Dillon on 07/10/2017,and final results discussed with Dr. Lopez 2016. [id number]; 43262; 31664 x 2; 79815; 79219 x 2; 38254IbmmqcetntmzBxhb marrowThe specimen is received in three parts all labeled with the patient's information and site. Part A consists of several aspirate smears, including one unstained slide for Iron stain. Part B is received in formalin and consists of several fragments of blood clot measuring 0.4 x 0.4 x 0.2 cm in aggregate, submitted entirely B1. Part C is received in formalin and consists of a fragmented core measuring 1.0 x 0.2 x 0.2 cm, submitted entirely C1 for decalcification.BONE MARROWASPIRATE:QUALITY:Aspirate- InadequateTouch imprint- AdequateMARROW DIFFERENTIAL COUNT: Number of cells counted: 89410 % Blasts 5 % Promyelocytes 11 % Myelocytes/Metamyelocytes 12 % Bands/ Segmentedgranulocytes 1 % Eosinophils and precursors 0 % Basophils and precursors 34 % Erythroid precursors 17 % Lymphocytes 3 % Monocytes3 % Plasma cellsMyeloid: Erythroid Ratio: 1.4 ; DecreasedBlasts:Increased; variably sized with high nuclear:cytoplasmic ratios, fine chromatinErythropoiesis: Left shifted, megaloblastoid with complete maturation, and dyserythropoietic forms Myelopoiesis: Left shifted, complete, and dysplastic with abnormal nuclear segmentation including Pseudo-Pelger Huet forms Megakaryocytes: Present ( hypolobated dysplastic form)Stainable storage iron cannot be assessed based on an iron stain performed onthe aspirate smear due to the lack of adequate particles. There are insufficient erythroid precursors for evaluation of ring sideroblasts. BONE MARROW BIOPSY:Biopsy- AdequateClot- InadequateHypercellular ( 95 %). Cellular composition similar to aspirate smears and touch imprints. Erythropoiesis and myelopoiesis are complete. Megakaryocytes are increased and include many dysplastic forms with hypolobation , wide separation of the nuclear lobes, and/or hyperchromasia. A CD34 immunostain highlights increased blasts, focally in clusters, overall less than 20% of the marrow cellularity. Other: Reticulin stain performed on the biopsy shows a moderate to marked increase in reticulin fibrosis. Bony trabeculae: Focal osteoblastic rimmingStainable iron cannot be assessed based on an iron stain performed on the clot section due to the lack of particles.PERIPHERAL BLOOD:RBCs: Normocytic , increased anisopoikilocytosis WBCs: Occasional Pseudo-Pelguer Huet neutrophils; a few blasts with high nuclear: cytoplasmic ratios, fine chromatin Platelets: DecreasedThe following special studies were performed on this case and the interpretation is incorporated in the diagnostic report above: C1: CD34, reticulinThe immunohistochemistry test was developed and its performance characteristics determined by [facility], Pathology Laboratory. It has not been cleared or approved by the U.S. Food and Drug Administration. The FDA has determined that such clearance or approval is not necessary. The test is used for clinical purposes. It should not be regarded as investigational or forresearch. This laboratory is certified under the Clinical Laboratory Improvement Amendments of 1988 (CLIA-88) as qualified to perform high complexity clinical laboratory testing.(MANUAL DIFFERENTIAL)2017-07-24 12: 07:00 Test Item Value Reference Range Comments NEUTROPHILS - REL (DIFF) (BEAKER) (test 24 % ddkr=3968) LYMPHOCYTES - REL (DIFF) (BEAKER) (test 72 % aeyx=7706) MONOCYTES - REL (DIFF) (BEAKER) (test xjsy=5163) 2 % BANDS - REL (DIFF) (BEAKER) (test owqf=9690) 2 % 0-10 NEUTROPHILS - ABS (DIFF) (BEAKER) (test 0.31 K/ L 1.80-8.00 ygox=9949) LYMPHOCYTES - ABS (DIFF) (BEAKER) (test 0.94 K/ L 1.48-4.50 nlxg=3362) MONOCYTES - ABS (DIFF) (BEAKER) (test gsih=9676) 0.03 K/ L 0.00-1.30 BANDS-ABS (DIFF) (BEAKER) (test yyuk=1864) 0.0 K/ L 0.0-0.8 TOTAL COUNTED (BEAKER) (test ukzm=3185) 50 BANDS + SEGMENTED NEUTROPHILS (BEAKER) (test 0.34 ktdp=9111) MANUAL NRBC PER 100 CELLS (BEAKER) (test 2 /100 WBC 0-0 oymu=9050) PLT MORPHOLOGY (BEAKER) (test bdce=404) Normal RBC MORPHOLOGY (BEAKER) (test ftui=941) Normal ATYPICAL LYMPHS(BEAKER) (test uusb=8658) Present CBC W/PLT COUNT & AUTO [id number] 05:27:00 Test Item Value Reference Range Comments WHITE BLOOD CELL COUNT (BEAKER) (test ldii=714) 1.3 K/ L 3.5-10.5 RED BLOOD CELL COUNT (BEAKER) (test vpoj=505) 2.33 M/ L 4.63-6.08 HEMOGLOBIN (BEAKER) (test mgfu=167) 7.3 GM/DL 13.7-17.5 HEMATOCRIT (BEAKER) (test cjba=086) 22.0 % 40.1-51.0 MEAN CORPUSCULAR VOLUME (BEAKER) (test tjxl=151) 94.4 fL 79.0-92.2 MEAN CORPUSCULAR HEMOGLOBIN (BEAKER) (test 31.3 pg 25.7-32.2 jbrk=660) MEAN CORPUSCULAR HEMOGLOBIN CONC (BEAKER) (test 33.2 GM/DL 32.3-36.5 vgey=755) RED CELL DISTRIBUTION WIDTH (BEAKER) (test 15.3 % 11.6-14.4 xjdo=523) PLATELET COUNT (BEAKER) (test lfvw=273) 40 K/CU MM 150-450 MEAN PLATELET VOLUME (BEAKER) (test jvzw=725) 11.0 fL 9.4-12.4 NUCLEATED RED BLOOD CELLS (BEAKER) (test 2 /100 WBC 0-0 hmlv=803) IMMATURE GRANULOCYTES-RELATIVE PERCENT (BEAKER) 2 % 0-1 (test xunh=4842) CBC W/PLT COUNT & AUTO [id number] 12:57:00 Test Item Value Reference Range Comments WHITE BLOOD CELL COUNT (BEAKER) (test amrl=418) 0.9 K/ L 3.5-10.5 RED BLOOD CELL COUNT (BEAKER) (test suxa=386) 2.39 M/ L 4.63-6.08 HEMOGLOBIN (BEAKER) (test puko=664) 7.4 GM/DL 13.7-17.5 HEMATOCRIT (BEAKER) (test itia=779) 22.5 % 40.1-51.0 MEAN CORPUSCULAR VOLUME (BEAKER) (test lqth=077) 94.1 fL 79.0-92.2 MEAN CORPUSCULAR HEMOGLOBIN (BEAKER) (test 31.0 pg 25.7-32.2 oxlu=995) MEAN CORPUSCULAR HEMOGLOBIN CONC (BEAKER) (test 32.9 GM/DL 32.3-36.5 fbyo=204) RED CELL DISTRIBUTION WIDTH (BEAKER) (test 15.4 % 11.6-14.4 solk=040) PLATELET COUNT (BEAKER) (test ddwl=846) 52 K/CU MM 150-450 MEAN PLATELET VOLUME (BEAKER) (test wanz=363) 10.7 fL 9.4-12.4 NUCLEATED RED BLOOD CELLS (BEAKER) (test 0 /100 WBC 0-0 wedi=447) IMMATURE GRANULOCYTES-RELATIVE PERCENT (BEAKER) 1 % 0-1 (test nhhh=6559) (MANUAL DIFFERENTIAL)2017-07-23 12:57:00 Test Item Value Reference Range Comments NEUTROPHILS - REL (DIFF) (BEAKER) (test 8 % pyjd=6342) LYMPHOCYTES - REL (DIFF) (BEAKER) (test 89 % ygch=9767) MONOCYTES - REL (DIFF) (BEAKER) (test wzje=6852) 3 % EOSINOPHILS - REL (DIFF) (BEAKER) (test 0 % hxia=8879) BASOPHILS - REL (DIFF) (BEAKER) (test yeuf=5513) 0 % NEUTROPHILS - ABS (DIFF) (BEAKER) (test 0.07 K/ L 1.80-8.00 rktb=2296) LYMPHOCYTES - ABS (DIFF) (BEAKER) (test 0.80 K/ L 1.48-4.50 mbuo=4461) MONOCYTES - ABS (DIFF) (BEAKER) (test alrv=7128) 0.03 K/ L 0.00-1.30 EOSINOPHILS - ABS (DIFF) (BEAKER) (test 0.00 K/ L 0.00-0.50 sytz=4696) BASOPHILS - ABS (DIFF) (BEAKER) (test nqrz=9270) 0.00 K/ L 0.00-0.20 TOTAL COUNTED (BEAKER) (test cuim=8035) 100 MANUAL NRBC PER 100 CELLS (BEAKER) (test 2 /100 WBC 0-0 gjkh=6643) PLT MORPHOLOGY (BEAKER) (test ittd=143) Normal RBC MORPHOLOGY (BEAKER) (test aqco=365) Normal ATYPICAL LYMPHS(BEAKER) (test amtc=3770) Present COMPREHENSIVE METABOLIC [id number] 07:47:00 Test Item Value Reference Range Comments TOTAL PROTEIN (BEAKER) 7.9 gm/dL 6.0-8.3 (test khmm=691) ALBUMIN (BEAKER) (test 2.9 g/dL 3.5-5.0 pzqs=5073) ALKALINE PHOSPHATASE 70 U/L 40-150 (BEAKER) (test lpfq=759) BILIRUBIN TOTAL (BEAKER) 0.8 mg/dL 0.2-1.2 (test cdmh=234) SODIUM (BEAKER) (test 135 meq/L 136-145 dlfw=972) POTASSIUM (BEAKER) (test 4.3 meq/L 3.5-5.1 kfdl=465) CHLORIDE (BEAKER) (test 100 meq/L 98-107 utxm=361) CO2 (BEAKER) (test 27 meq/L 22-29 lgzx=114) BLOOD UREA NITROGEN 11 mg/dL 7-21 (BEAKER) (test xjiz=176) CREATININE (BEAKER) (test 0.74 mg/dL 0.57-1.25 znzk=116) GLUCOSE RANDOM (BEAKER) 109 mg/dL 70-105 (test uujq=418) CALCIUM (BEAKER) (test 9.1 mg/dL 8.4-10.2 bncj=339) AST (SGOT) (BEAKER) (test 10 U/L 5-34 baga=523) ALT (SGPT) (BEAKER) (test 9 U/L 6-55 gdof=591) EGFR (BEAKER) (test mL/min/1.73 sq m INSUFFICIENT CLINICAL DATA safm=2313) TO CALCULATE ESTIMATED GFR. CBC W/PLT COUNT & AUTO [id number] 15:48:00 Test Item Value Reference Range Comments WHITE BLOOD CELL COUNT (BEAKER) (test plvf=806) 0.7 K/ L 3.5-10.5 RED BLOOD CELL COUNT (BEAKER) (test zpoh=704) 2.52 M/ L 4.63-6.08 HEMOGLOBIN (BEAKER) (test ybdg=936) 7.8 GM/DL 13.7-17.5 HEMATOCRIT (BEAKER) (test mrms=299) 23.9 % 40.1-51.0 MEAN CORPUSCULAR VOLUME (BEAKER) (test fokn=785) 94.8 fL 79.0-92.2 MEAN CORPUSCULAR HEMOGLOBIN (BEAKER) (test 31.0 pg 25.7-32.2 lcao=747) MEAN CORPUSCULAR HEMOGLOBIN CONC (BEAKER) (test 32.6 GM/DL 32.3-36.5 umrl=148) RED CELL DISTRIBUTION WIDTH (BEAKER) (test 15.7 % 11.6-14.4 ignz=989) PLATELET COUNT (BEAKER) (test ycwi=776) 59 K/CU MM 150-450 MEAN PLATELET VOLUME (BEAKER) (test jezx=122) 10.3 fL 9.4-12.4 NUCLEATED RED BLOOD CELLS (BEAKER) (test 0 /100 WBC 0-0 nnun=821) NEUTROPHILS RELATIVE PERCENT (BEAKER) (test 21 % vgmv=933) LYMPHOCYTES RELATIVE PERCENT (BEAKER) (test 75 % yzmu=138) MONOCYTES RELATIVE PERCENT (BEAKER) (test 3 % qpbo=438) EOSINOPHILS RELATIVE PERCENT (BEAKER) (test 0 % rlfk=553) BASOPHILS RELATIVE PERCENT (BEAKER) (test 0 % aczs=728) NEUTROPHILS ABSOLUTE COUNT (BEAKER) (test 0.14 K/ L 1.78-5.38 iibd=026) LYMPHOCYTES ABSOLUTE COUNT (BEAKER) (test 0.51 K/ L 1.32-3.57 jfew=257) MONOCYTES ABSOLUTE COUNT (BEAKER) (test uiqo=152) 0.02 K/ L 0.30-0.82 EOSINOPHILS ABSOLUTE COUNT (BEAKER) (test 0.00 K/ L 0.04-0.54 sgap=361) BASOPHILS ABSOLUTE COUNT (BEAKER) (test zgsz=765) 0.00 K/ L 0.01-0.08 IMMATURE GRANULOCYTES-RELATIVE PERCENT (BEAKER) 2 % 0-1 (test jcax=3468) CBC W/PLT COUNT & AUTO [id number] 10:48:00 Test Item Value Reference Range Comments WHITE BLOOD CELL COUNT 1.0 K/ L 3.5-10.5 (BEAKER) (test jgya=274) RED BLOOD CELL COUNT (BEAKER) 2.84 M/ L 4.63-6.08 (test fmcx=378) HEMOGLOBIN (BEAKER) (test 8.7 GM/DL 13.7-17.5 awvv=131) HEMATOCRIT (BEAKER) (test 27.1 % 40.1-51.0 mzhn=114) MEAN CORPUSCULAR VOLUME 95.4 fL 79.0-92.2 (BEAKER) (test idgo=441) MEAN CORPUSCULAR HEMOGLOBIN 30.6 pg 25.7-32.2 (BEAKER) (test fqcc=072) MEAN CORPUSCULAR HEMOGLOBIN 32.1 GM/DL 32.3-36.5 CONC (BEAKER) (test eexg=078) RED CELL DISTRIBUTION WIDTH 15.8 % 11.6-14.4 (BEAKER) (test sacc=329) PLATELET COUNT (BEAKER) (test 6 K/CU MM 150-450 oyhv=619) MEAN PLATELET VOLUME (BEAKER) fL 9.4-12.4 Unable to report due to (test kveb=630) abnormal Platelet population distribution. NUCLEATED RED BLOOD CELLS 2 /100 WBC 0-0 (BEAKER) (test fnsn=015) IMMATURE GRANULOCYTES-RELATIVE 1 % 0-1 PERCENT (BEAKER) (test nhsw=9071) (MANUAL DIFFERENTIAL)2017-07-22 10:48:00 Test Item Value Reference Range Comments NEUTROPHILS - REL (DIFF) (BEAKER) (test 11 % hkyh=4975) LYMPHOCYTES - REL (DIFF) (BEAKER) (test 86 % axrz=4711) ATYPICAL LYMPHOCYTE - REL (DIFF) (BEAKER) (test 3 % 0-0 xcvu=772) NEUTROPHILS - ABS (DIFF) (BEAKER) (test 0.11 K/ L 1.80-8.00 qhum=7702) LYMPHOCYTES - ABS (DIFF) (BEAKER) (test 0.86 K/ L 1.48-4.50 zwuj=0165) ATYPICAL LYMPHOCYTES - ABS (DIFF) (BEAKER) (test 0.03 K/ L 0.00-0.00 unny=154) TOTAL COUNTED (BEAKER) (test wwkl=1393) 100 MANUAL NRBC PER 100 CELLS (BEAKER) (test 3 /100 WBC 0-0 demp=6166) WBC MORPHOLOGY (BEAKER) (test hzyr=195) Normal PLT MORPHOLOGY (BEAKER) (test hciq=001) Normal OVALOCYTES (BEAKER) (test qbqy=389) 1+ few POLYCHROMATOPHILLIC RBCS(BEAKER) (test tofz=126) 1+ few COMPREHENSIVE METABOLIC [id number] 08:12:00 Test Item Value Reference Range Comments TOTAL PROTEIN (BEAKER) 7.9 gm/dL 6.0-8.3 Specimen slightly (test wivt=154) hemolyzed ALBUMIN (BEAKER) (test 2.8 g/dL 3.5-5.0 Specimen slightly sntw=4114) hemolyzed ALKALINE PHOSPHATASE 60 U/L 40-150 (BEAKER) (test eqrb=427) BILIRUBIN TOTAL (BEAKER) 0.6 mg/dL 0.2-1.2 Specimen slightly (test vfym=003) hemolyzed SODIUM (BEAKER) (test 133 meq/L 136-145 bwfu=589) POTASSIUM (BEAKER) (test 4.3 meq/L 3.5-5.1 Specimen slightly elvp=831) hemolyzed CHLORIDE (BEAKER) (test 100 meq/L 98-107 lwjy=224) CO2 (BEAKER) (test 22 meq/L 22-29 exyv=010) BLOOD UREA NITROGEN 12 mg/dL 7-21 (BEAKER) (test ebry=293) CREATININE (BEAKER) (test 0.72 mg/dL 0.57-1.25 Specimen slightly imdb=035) hemolyzed GLUCOSE RANDOM (BEAKER) 92 mg/dL 70-105 (test soth=356) CALCIUM (BEAKER) (test 8.9 mg/dL 8.4-10.2 qpni=195) AST (SGOT) (BEAKER) (test 11 U/L 5-34 Specimen slightly duzd=727) hemolyzed ALT (SGPT) (BEAKER) (test 8 U/L 6-55 Specimen slightly oahz=347) hemolyzed EGFR (BEAKER) (test mL/min/1.73 sq m INSUFFICIENT CLINICAL DATA fzmd=8095) TO CALCULATE ESTIMATED GFR. [id number] 07:45:00 Test Item Value Reference Range Comments MAGNESIUM (BEAKER) (test 1.7 mg/dL 1.6-2.6 Specimen slightly hemolyzed ypas=743) [id number] 07:45:00 Test Item Value Reference Range Comments PHOSPHORUS (BEAKER) (test 3.3 mg/dL 2.3-4.7 Specimen slightly hemolyzed rpqp=213) [id number] 07:03:00 Test Item Value Reference Range Comments PROTIME (BEAKER) (test gfyt=738) 14.7 seconds 11.7-14.7 INR (BEAKER) (test tyyo=492) 1.2 <=5.9 PARTIAL THROMBOPLASTIN TIME (BEAKER) (test 34.9 seconds 22.5-36.0 xhoi=596) RECOMMENDED COUMADIN/WARFARIN INR THERAPY RANGESSTANDARD DOSE: 2.0 - 3.0 Includes: PROPHYLAXIS forvenous thrombosis, systemic embolization; TREATMENT for venous thrombosis and/or pulmonary embolus.HIGH RISK: Target INR is 2.5-3.5 for patients with mechanical heart valves.(MANUAL DIFFERENTIAL)2017-07-21 15:53: 00 Test Item Value Reference Range Comments NEUTROPHILS - REL (DIFF) (BEAKER) (test 5 % hyaf=6050) LYMPHOCYTES - REL (DIFF) (BEAKER) (test 87 % rnwo=9145) MONOCYTES - REL (DIFF) (BEAKER) (test ffna=0936) 5 % BASOPHILS - REL (DIFF) (BEAKER) (test kmkj=8457) 1 % METAMYELOCYTES-REL (DIFF) (BEAKER) (test 1 % 0-0 hotp=635) BLASTS - REL (DIFF) (BEAKER) (test sjgw=1121) 1 % 0-0 NEUTROPHILS - ABS (DIFF) (BEAKER) (test 0.06 K/ L 1.80-8.00 gxeb=4314) LYMPHOCYTES - ABS (DIFF) (BEAKER) (test 0.96 K/ L 1.48-4.50 vngu=9739) MONOCYTES - ABS (DIFF) (BEAKER) (test ukxn=9589) 0.06 K/ L 0.00-1.30 BASOPHILS - ABS (DIFF) (BEAKER) (test ibhr=1674) 0.01 K/ L 0.00-0.20 METAMYELOCTYES - ABS (DIFF) (BEAKER) (test 0.01 K/ L 0.00-0.00 hkfg=202) BLASTS - ABS (DIFF) (BEAKER) (test qgtj=5997) 0.01 K/ L 0.00-0.00 TOTAL COUNTED (BEAKER) (test bjqo=8770) 100 MANUAL NRBC PER 100 CELLS (BEAKER) (test 3 /100 WBC 0-0 muax=9894) WBC MORPHOLOGY (BEAKER) (test vlzt=383) Normal PLT MORPHOLOGY (BEAKER) (test jtly=898) Normal RBC MORPHOLOGY (BEAKER) (test otzy=824) Normal CBC W/PLT COUNT & AUTO [id number] 15:50:00 Test Item Value Reference Range Comments WHITE BLOOD CELL COUNT 1.1 K/ L 3.5-10.5 (BEAKER) (test udhd=479) RED BLOOD CELL COUNT (BEAKER) 2.77 M/ L 4.63-6.08 (test pjmk=926) HEMOGLOBIN (BEAKER) (test 8.6 GM/DL 13.7-17.5 uwki=056) HEMATOCRIT (BEAKER) (test 25.9 % 40.1-51.0 cfjo=701) MEAN CORPUSCULAR VOLUME 93.5 fL 79.0-92.2 (BEAKER) (test ymrk=312) MEAN CORPUSCULAR HEMOGLOBIN 31.0 pg 25.7-32.2 (BEAKER) (test bcwv=820) MEAN CORPUSCULAR HEMOGLOBIN 33.2 GM/DL 32.3-36.5 CONC (BEAKER) (test jikp=936) RED CELL DISTRIBUTION WIDTH 15.9 % 11.6-14.4 (BEAKER) (test fjzs=584) PLATELET COUNT (BEAKER) (test 16 K/CU MM 150-450 fmny=024) MEAN PLATELET VOLUME (BEAKER) fL 9.4-12.4 Unable to report due to (test nqen=346) abnormal Platelet population distribution. NUCLEATED RED BLOOD CELLS 4 /100 WBC 0-0 (BEAKER) (test nppp=176) IMMATURE GRANULOCYTES-RELATIVE 0 % 0-1 PERCENT (BEAKER) (test geyn=9929) COMPREHENSIVE METABOLIC [id number] 11:08:00 Test Item Value Reference Range Comments TOTAL PROTEIN (BEAKER) 8.8 gm/dL 6.0-8.3 (test uorp=713) ALBUMIN (BEAKER) (test 3.1 g/dL 3.5-5.0 kvda=4586) ALKALINE PHOSPHATASE 63 U/L 40-150 (BEAKER) (test xncp=838) BILIRUBIN TOTAL (BEAKER) 0.6 mg/dL 0.2-1.2 (test jrfn=688) SODIUM (BEAKER) (test 136 meq/L 136-145 jlnx=067) POTASSIUM (BEAKER) (test 3.6 meq/L 3.5-5.1 uwjs=147) CHLORIDE (BEAKER) (test 103 meq/L 98-107 hqdq=089) CO2 (BEAKER) (test 24 meq/L 22-29 ygcl=830) BLOOD UREA NITROGEN 11 mg/dL 7-21 (BEAKER) (test ypoa=642) CREATININE (BEAKER) (test 0.81 mg/dL 0.57-1.25 rewj=716) GLUCOSE RANDOM (BEAKER) 154 mg/dL 70-105 (test aetd=571) CALCIUM (BEAKER) (test 9.3 mg/dL 8.4-10.2 wowm=762) AST (SGOT) (BEAKER) (test 11 U/L 5-34 xsmd=390) ALT (SGPT) (BEAKER) (test 11 U/L 6-55 czkq=394) EGFR (BEAKER) (test mL/min/1.73 sq m INSUFFICIENT CLINICAL DATA onxo=7825) TO CALCULATE ESTIMATED GFR. [id number] 07:19:00 Test Item Value Reference Range Comments PROTIME (BEAKER) (test gxwn=627) 15.7 seconds 11.7-14.7 INR (BEAKER) (test esay=141) 1.3 <=5.9 PARTIAL THROMBOPLASTIN TIME (BEAKER) (test 32.1 seconds 22.5-36.0 mzpq=231) RECOMMENDED COUMADIN/WARFARIN INR THERAPY RANGESSTANDARD DOSE: 2.0 - 3.0 Includes: PROPHYLAXIS forvenous thrombosis, systemic embolization; TREATMENT for venous thrombosis and/or pulmonary embolus.HIGH RISK: Target INR is 2.5-3.5 for patients with mechanical heart valves.BLOOD [id number] 10:00:00 Test Item Value Reference Range Comments CULTURE (BEAKER) (test czbp=1278) No growth in 5 days BLOOD [id number] 10:00:00 Test Item Value Reference Range Comments CULTURE (BEAKER) (test wyiw=7021) No growth in 5 days FLOW CYTOMETRY [id number] 09:15:00 Test Item Value Reference Range Comments FLOW CYTOMETRY RESULT POINTER (BEAKER) See Separate Report (test nqiv=0294) FLOW CYTOMETRY AP CASE # (BEAKER) (test [id number] mlcc=8686) COMPREHENSIVE METABOLIC [id number] 07:04:00 Test Item Value Reference Range Comments TOTAL PROTEIN (BEAKER) 6.8 gm/dL 6.0-8.3 (test tkqv=298) ALBUMIN (BEAKER) (test 2.4 g/dL 3.5-5.0 qjin=7653) ALKALINE PHOSPHATASE 53 U/L 40-150 (BEAKER) (test ttsu=770) BILIRUBIN TOTAL (BEAKER) 0.5 mg/dL 0.2-1.2 (test hsfd=289) SODIUM (BEAKER) (test 135 meq/L 136-145 busp=336) POTASSIUM (BEAKER) (test 3.8 meq/L 3.5-5.1 dlcx=019) CHLORIDE (BEAKER) (test 105 meq/L 98-107 whbn=358) CO2 (BEAKER) (test 25 meq/L 22-29 fgwn=108) BLOOD UREA NITROGEN 9 mg/dL 7-21 (BEAKER) (test jfiu=546) CREATININE (BEAKER) (test 0.66 mg/dL 0.57-1.25 ebnq=321) GLUCOSE RANDOM (BEAKER) 111 mg/dL 70-105 (test bygo=001) CALCIUM (BEAKER) (test 8.4 mg/dL 8.4-10.2 ctnz=959) AST (SGOT) (BEAKER) (test 12 U/L 5-34 mkua=180) ALT (SGPT) (BEAKER) (test 12 U/L 6-55 wiaq=880) EGFR (BEAKER) (test mL/min/1.73 sq m INSUFFICIENT CLINICAL DATA spcf=0029) TO CALCULATE ESTIMATED GFR. CBC W/PLT COUNT & AUTO [id number] 06:04:00 Test Item Value Reference Range Comments WHITE BLOOD CELL COUNT 1.1 K/ L 3.5-10.5 (BEAKER) (test ijcd=280) RED BLOOD CELL COUNT (BEAKER) 2.45 M/ L 4.63-6.08 (test ooth=681) HEMOGLOBIN (BEAKER) (test 7.8 GM/DL 13.7-17.5 sghe=800) HEMATOCRIT (BEAKER) (test 23.0 % 40.1-51.0 nkjd=968) MEAN CORPUSCULAR VOLUME 93.9 fL 79.0-92.2 (BEAKER) (test hnzl=528) MEAN CORPUSCULAR HEMOGLOBIN 31.8 pg 25.7-32.2 (BEAKER) (test bnup=328) MEAN CORPUSCULAR HEMOGLOBIN 33.9 GM/DL 32.3-36.5 CONC (BEAKER) (test uyxo=810) RED CELL DISTRIBUTION WIDTH 16.8 % 11.6-14.4 (BEAKER) (test gtqn=789) PLATELET COUNT (BEAKER) (test 15 K/CU MM 150-450 vonp=672) MEAN PLATELET VOLUME (BEAKER) fL 9.4-12.4 Unable to report due to (test yqpe=598) abnormal Platelet population distribution. NUCLEATED RED BLOOD CELLS 2 /100 WBC 0-0 (BEAKER) (test ejgp=021) NEUTROPHILS RELATIVE PERCENT 19 % (BEAKER) (test xtba=225) LYMPHOCYTES RELATIVE PERCENT 75 % (BEAKER) (test jssg=538) MONOCYTES RELATIVE PERCENT 6 % (BEAKER) (test kmjv=872) EOSINOPHILS RELATIVE PERCENT 0 % (BEAKER) (test xtno=809) BASOPHILS RELATIVE PERCENT 0 % (BEAKER) (test gnaj=128) NEUTROPHILS ABSOLUTE COUNT 0.21 K/ L 1.78-5.38 (BEAKER) (test monf=785) LYMPHOCYTES ABSOLUTE COUNT 0.82 K/ L 1.32-3.57 (BEAKER) (test bvlr=210) MONOCYTES ABSOLUTE COUNT 0.06 K/ L 0.30-0.82 (BEAKER) (test dxdi=084) EOSINOPHILS ABSOLUTE COUNT 0.00 K/ L 0.04-0.54 (BEAKER) (test bqry=352) BASOPHILS ABSOLUTE COUNT 0.00 K/ L 0.01-0.08 (BEAKER) (test dxue=507) IMMATURE GRANULOCYTES-RELATIVE 1 % 0-1 PERCENT (BEAKER) (test yrdd=5936) CBC W/PLT COUNT & AUTO [id number] 08:52:00 Test Item Value Reference Range Comments WHITE BLOOD CELL COUNT 1.2 K/ L 3.5-10.5 (BEAKER) (test acrp=096) RED BLOOD CELL COUNT (BEAKER) 2.35 M/ L 4.63-6.08 (test neab=754) HEMOGLOBIN (BEAKER) (test 7.3 GM/DL 13.7-17.5 ltsi=756) HEMATOCRIT (BEAKER) (test 22.3 % 40.1-51.0 wvdy=188) MEAN CORPUSCULAR VOLUME 94.9 fL 79.0-92.2 (BEAKER) (test styh=511) MEAN CORPUSCULAR HEMOGLOBIN 31.1 pg 25.7-32.2 (BEAKER) (test bhjw=312) MEAN CORPUSCULAR HEMOGLOBIN 32.7 GM/DL 32.3-36.5 CONC (BEAKER) (test dtsn=343) RED CELL DISTRIBUTION WIDTH 17.3 % 11.6-14.4 (BEAKER) (test ybpb=082) PLATELET COUNT (BEAKER) (test 17 K/CU MM 150-450 yhao=572) MEAN PLATELET VOLUME (BEAKER) fL 9.4-12.4 Unable to report due to (test tegr=264) abnormal Platelet population distribution. NUCLEATED RED BLOOD CELLS 2 /100 WBC 0-0 (BEAKER) (test kley=115) IMMATURE GRANULOCYTES-RELATIVE 1 % 0-1 PERCENT (BEAKER) (test blpa=8230) (MANUAL DIFFERENTIAL)2017-07-18 08:52:00 Test Item Value Reference Range Comments NEUTROPHILS - REL (DIFF) (BEAKER) (test 14 % jzkm=8404) LYMPHOCYTES - REL (DIFF) (BEAKER) (test 74 % lqck=4458) MONOCYTES - REL (DIFF) (BEAKER) (test erut=5599) 2 % EOSINOPHILS - REL (DIFF) (BEAKER) (test 1 % nyxv=5060) BASOPHILS - REL (DIFF) (BEAKER) (test qymq=5423) 1 % METAMYELOCYTES-REL (DIFF) (BEAKER) (test 1 % 0-0 hxbk=249) BANDS - REL (DIFF) (BEAKER) (test nswv=4991) 1 % 0-10 BLASTS - REL (DIFF) (BEAKER) (test qjvz=5178) 6 % 0-0 NEUTROPHILS - ABS (DIFF) (BEAKER) (test 0.17 K/ L 1.80-8.00 ipgz=5579) LYMPHOCYTES - ABS (DIFF) (BEAKER) (test 0.89 K/ L 1.48-4.50 aecv=5398) MONOCYTES - ABS (DIFF) (BEAKER) (test jdjh=0171) 0.02 K/ L 0.00-1.30 EOSINOPHILS - ABS (DIFF) (BEAKER) (test 0.01 K/ L 0.00-0.50 nlpk=1918) BASOPHILS - ABS (DIFF) (BEAKER) (test qyho=6971) 0.01 K/ L 0.00-0.20 METAMYELOCTYES - ABS (DIFF) (BEAKER) (test 0.01 K/ L 0.00-0.00 mfrt=816) BANDS-ABS (DIFF) (BEAKER) (test rfux=6993) 0.0 K/ L 0.0-0.8 BLASTS - ABS (DIFF) (BEAKER) (test ohot=5019) 0.07 K/ L 0.00-0.00 TOTAL COUNTED (BEAKER) (test xkow=2904) 100 BANDS + SEGMENTED NEUTROPHILS (BEAKER) (test 0.18 camz=8694) MANUAL NRBC PER 100 CELLS (BEAKER) (test 2 /100 WBC 0-0 jdlk=8211) PLT MORPHOLOGY (BEAKER) (test vqht=454) Normal ATYPICAL LYMPHS(BEAKER) (test alqc=8838) Present SCHISTOCYTES (BEAKER) (test qbyn=566) 1+ few ANISOCYTOSIS (BEAKER) (test wqmh=639) 1+ few OVALOCYTES (BEAKER) (test acqd=348) 1+ few TEAR DROP CELLS (BEAKER) (test gfis=568) 1+ few COMPREHENSIVE METABOLIC [id number] 07:07:00 Test Item Value Reference Range Comments TOTAL PROTEIN (BEAKER) 6.6 gm/dL 6.0-8.3 (test gotg=072) ALBUMIN (BEAKER) (test 2.4 g/dL 3.5-5.0 ilaz=2732) ALKALINE PHOSPHATASE 43 U/L 40-150 (BEAKER) (test nxum=438) BILIRUBIN TOTAL (BEAKER) 0.5 mg/dL 0.2-1.2 (test hssj=580) SODIUM (BEAKER) (test 135 meq/L 136-145 ozyc=544) POTASSIUM (BEAKER) (test 4.1 meq/L 3.5-5.1 auyt=875) CHLORIDE (BEAKER) (test 105 meq/L 98-107 vltd=643) CO2 (BEAKER) (test 24 meq/L 22-29 huzs=866) BLOOD UREA NITROGEN 10 mg/dL 7-21 (BEAKER) (test kvkd=671) CREATININE (BEAKER) (test 0.64 mg/dL 0.57-1.25 cwma=236) GLUCOSE RANDOM (BEAKER) 97 mg/dL 70-105 (test phqi=123) CALCIUM (BEAKER) (test 8.2 mg/dL 8.4-10.2 oydk=827) AST (SGOT) (BEAKER) (test 12 U/L 5-34 afmi=871) ALT (SGPT) (BEAKER) (test 13 U/L 6-55 tfet=349) EGFR (BEAKER) (test mL/min/1.73 sq m INSUFFICIENT CLINICAL DATA sipn=6110) TO CALCULATE ESTIMATED GFR. CT, BRAIN, WITHOUT [id number] 15:53:00FINAL REPORT CT head without contrast 07/17/2017 3:46 PM CLINICAL HISTORY: headache following a fall 2 weeks ago, pancytopenic TECHNIQUE: Axial noncontrast CT images through the head were obtained. This examination was performed according to our departmental dose optimization program, which includes automated exposure control, adjustment of the mA and/or kV according to patientsize, and/ or use of iterated reconstruction technique. COMPARISON: None available FINDINGS : There isno hemorrhage, extra-axial collection, mass, hydrocephalus, or midline shift. There are rare chronicmicrovascular changes in the supratentorial white matter. There is generalized parenchymal volume loss. The visualized paranasal sinuses and mastoid air cells are well aerated. The skull is intact. 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 IMPRESSION: No intracranial hemorrhageor mass effect. If concern for acute pathology persists, further evaluation with MRI is recommended. Signed: Jacob Villarrealeport Verified Date/Time: 07/17/2017 15:53:13 Reading Location: [facility] Radiology Reading Room CBC W/PLT COUNT & AUTO [id number] 09:35:00 Test Item Value Reference Range Comments WHITE BLOOD CELL COUNT 1.7 K/ L 3.5-10.5 (BEAKER) (test daux=624) RED BLOOD CELL COUNT (BEAKER) 2.47 M/ L 4.63-6.08 (test rynb=824) HEMOGLOBIN (BEAKER) (test 7.6 GM/DL 13.7-17.5 hnnu=128) HEMATOCRIT (BEAKER) (test 22.7 % 40.1-51.0 iwtj=437) MEAN CORPUSCULAR VOLUME 91.9 fL 79.0-92.2 (BEAKER) (test ytzr=776) MEAN CORPUSCULAR HEMOGLOBIN 30.8 pg 25.7-32.2 (BEAKER) (test rlau=671) MEAN CORPUSCULAR HEMOGLOBIN 33.5 GM/DL 32.3-36.5 CONC (BEAKER) (test wkub=292) RED CELL DISTRIBUTION WIDTH 17.5 % 11.6-14.4 (BEAKER) (test rpvu=062) PLATELET COUNT (BEAKER) (test 19 K/CU MM 150-450 rprt=097) MEAN PLATELET VOLUME (BEAKER) fL 9.4-12.4 Unable to report due to (test tcuh=361) abnormal Platelet population distribution. NUCLEATED RED BLOOD CELLS 2 /100 WBC 0-0 (BEAKER) (test losl=853) IMMATURE GRANULOCYTES-RELATIVE 2 % 0-1 PERCENT (BEAKER) (test etpa=6894) (MANUAL DIFFERENTIAL)2017-07-17 09:35:00 Test Item Value Reference Range Comments NEUTROPHILS - REL (DIFF) (BEAKER) (test 26 % omhp=4851) LYMPHOCYTES - REL (DIFF) (BEAKER) (test 57 % buij=6380) MONOCYTES - REL (DIFF) (BEAKER) (test uzxj=4956) 7 % BASOPHILS - REL (DIFF) (BEAKER) (test fryl=8009) 1 % BANDS - REL (DIFF) (BEAKER) (test cssu=5296) 5 % 0-10 BLASTS - REL (DIFF) (BEAKER) (test lvqp=6746) 2 % 0-0 ATYPICAL LYMPHOCYTE - REL (DIFF) (BEAKER) (test 2 % 0-0 fdys=239) NEUTROPHILS - ABS (DIFF) (BEAKER) (test 0.44 K/ L 1.80-8.00 hlwe=7004) LYMPHOCYTES - ABS (DIFF) (BEAKER) (test 0.97 K/ L 1.48-4.50 upjw=9329) MONOCYTES - ABS (DIFF) (BEAKER) (test lfkf=4954) 0.12 K/ L 0.00-1.30 BASOPHILS - ABS (DIFF) (BEAKER) (test feyk=6260) 0.02 K/ L 0.00-0.20 BANDS-ABS (DIFF) (BEAKER) (test onem=9510) 0.1 K/ L 0.0-0.8 BLASTS - ABS (DIFF) (BEAKER) (test titf=3235) 0.03 K/ L 0.00-0.00 ATYPICAL LYMPHOCYTES - ABS (DIFF) (BEAKER) (test 0.03 K/ L 0.00-0.00 grti=358) TOTAL COUNTED (BEAKER) (test jnxh=7201) 100 BANDS + SEGMENTED NEUTROPHILS (BEAKER) (test 0.53 qbap=5841) MANUAL NRBC PER 100 CELLS (BEAKER) (test 2 /100 WBC 0-0 squp=6648) WBC MORPHOLOGY (BEAKER) (test cbyn=310) Normal LARGE PLT(BEAKER) (test zbig=3892) Present SCHISTOCYTES (BEAKER) (test crkp=579) 1+ few OVALOCYTES (BEAKER) (test gwal=784) 1+ few POLYCHROMATOPHILLIC RBCS(BEAKER) (test kwvc=615) 1+ few COMPREHENSIVE METABOLIC [id number] 07:53:00 Test Item Value Reference Range Comments TOTAL PROTEIN (BEAKER) 6.5 gm/dL 6.0-8.3 (test lkxl=663) ALBUMIN (BEAKER) (test 2.3 g/dL 3.5-5.0 amud=7348) ALKALINE PHOSPHATASE 45 U/L 40-150 (BEAKER) (test rlbc=320) BILIRUBIN TOTAL (BEAKER) 0.7 mg/dL 0.2-1.2 (test hsge=949) SODIUM (BEAKER) (test 135 meq/L 136-145 spcj=641) POTASSIUM (BEAKER) (test 3.3 meq/L 3.5-5.1 khld=164) CHLORIDE (BEAKER) (test 103 meq/L 98-107 kbgm=167) CO2 (BEAKER) (test 24 meq/L 22-29 rimq=958) BLOOD UREA NITROGEN 12 mg/dL 7-21 (BEAKER) (test ilpl=200) CREATININE (BEAKER) (test 0.66 mg/dL 0.57-1.25 jnbf=053) GLUCOSE RANDOM (BEAKER) 110 mg/dL 70-105 (test khyk=836) CALCIUM (BEAKER) (test 8.2 mg/dL 8.4-10.2 sgfg=388) AST (SGOT) (BEAKER) (test 17 U/L 5-34 iuxi=885) ALT (SGPT) (BEAKER) (test 19 U/L 6-55 xskb=787) EGFR (BEAKER) (test mL/min/1.73 sq m INSUFFICIENT CLINICAL DATA lohl=1885) TO CALCULATE ESTIMATED GFR. [id number] 07:37:00 Test Item Value Reference Range Comments PHOSPHORUS (BEAKER) (test bydl=434) 2.3 mg/dL 2.3-4.7 [id number] 07:37:00 Test Item Value Reference Range Comments MAGNESIUM (BEAKER) (test hpaw=832) 1.6 mg/dL 1.6-2.6 PROTHROMBIN [id number] 07:05:00 Test Item Value Reference Range Comments PROTIME (BEAKER) (test dwch=376) 15.3 seconds 11.7-14.7 INR (BEAKER) (test yygp=789) 1.2 <=5.9 RECOMMENDED COUMADIN/WARFARIN INR THERAPY RANGESSTANDARD DOSE: 2.0 - 3.0 Includes: PROPHYLAXIS forvenous thrombosis, systemic embolization; TREATMENT for venous thrombosis and/or pulmonary embolus.HIGH RISK: Target INR is 2.5-3.5 for patients with mechanical heart valves.CBC W/PLT COUNT & AUTO [id number] 09:58:00 Test Item Value Reference Range Comments WHITE BLOOD CELL COUNT 1.3 K/ L 3.5-10.5 (BEAKER) (test cemk=687) RED BLOOD CELL COUNT (BEAKER) 2.14 M/ L 4.63-6.08 (test hmqu=283) HEMOGLOBIN (BEAKER) (test 6.8 GM/DL 13.7-17.5 sryh=802) HEMATOCRIT (BEAKER) (test 20.2 % 40.1-51.0 kwis=492) MEAN CORPUSCULAR VOLUME 94.4 fL 79.0-92.2 (BEAKER) (test tbbv=010) MEAN CORPUSCULAR HEMOGLOBIN 31.8 pg 25.7-32.2 (BEAKER) (test vptk=379) MEAN CORPUSCULAR HEMOGLOBIN 33.7 GM/DL 32.3-36.5 CONC (BEAKER) (test ksfo=825) RED CELL DISTRIBUTION WIDTH 16.2 % 11.6-14.4 (BEAKER) (test oojo=329) PLATELET COUNT (BEAKER) (test 22 K/CU MM 150-450 msjg=352) MEAN PLATELET VOLUME (BEAKER) fL 9.4-12.4 Unable to report due to (test asjg=886) abnormal Platelet population distribution. NUCLEATED RED BLOOD CELLS 3 /100 WBC 0-0 (BEAKER) (test jkva=632) IMMATURE GRANULOCYTES-RELATIVE 2 % 0-1 PERCENT (BEAKER) (test vvyn=8733) (MANUAL DIFFERENTIAL)2017-07-16 09:58:00 Test Item Value Reference Range Comments NEUTROPHILS - REL (DIFF) (BEAKER) (test 33 % zvwx=7904) LYMPHOCYTES - REL (DIFF) (BEAKER) (test 46 % myws=4643) MONOCYTES - REL (DIFF) (BEAKER) (test thlw=5525) 6 % BANDS - REL (DIFF) (BEAKER) (test bofu=1199) 13 % 0-10 BLASTS - REL (DIFF) (BEAKER) (test hutg=3347) 2 % 0-0 NEUTROPHILS - ABS (DIFF) (BEAKER) (test 0.43 K/ L 1.80-8.00 jrmy=2024) LYMPHOCYTES - ABS (DIFF) (BEAKER) (test 0.60 K/ L 1.48-4.50 ncjq=5956) MONOCYTES - ABS (DIFF) (BEAKER) (test thzx=5482) 0.08 K/ L 0.00-1.30 BANDS-ABS (DIFF) (BEAKER) (test ecpm=7139) 0.2 K/ L 0.0-0.8 BLASTS - ABS (DIFF) (BEAKER) (test egtb=0619) 0.03 K/ L 0.00-0.00 TOTAL COUNTED (BEAKER) (test ypkz=0226) 100 BANDS + SEGMENTED NEUTROPHILS (BEAKER) (test 0.60 mjfm=9109) MANUAL NRBC PER 100 CELLS (BEAKER) (test 5 /100 WBC 0-0 xxnr=5790) WBC MORPHOLOGY (BEAKER) (test bvyn=050) Normal PLT MORPHOLOGY (BEAKER) (test ziiv=312) Normal SCHISTOCYTES (BEAKER) (test rdmt=532) 1+ few ANISOCYTOSIS (BEAKER) (test kkiv=908) 1+ few POLYCHROMATOPHILLIC RBCS(BEAKER) (test arat=590) 1+ few BASIC METABOLIC [id number] 08:52:00 Test Item Value Reference Range Comments SODIUM (BEAKER) (test 133 meq/L 136-145 pyvo=756) POTASSIUM (BEAKER) (test 3.4 meq/L 3.5-5.1 jnaf=309) CHLORIDE (BEAKER) (test 103 meq/L 98-107 jdok=838) CO2 (BEAKER) (test 21 meq/L 22-29 cxjh=361) BLOOD UREA NITROGEN 9 mg/dL 7-21 (BEAKER) (test skbu=427) CREATININE (BEAKER) (test 0.73 mg/dL 0.57-1.25 nnqm=264) GLUCOSE RANDOM (BEAKER) 115 mg/dL 70-105 (test sdfu=606) CALCIUM (BEAKER) (test 8.0 mg/dL 8.4-10.2 avvw=831) EGFR (BEAKER) (test mL/min/1.73 sq m INSUFFICIENT CLINICAL DATA jite=4660) TO CALCULATE ESTIMATED GFR. [id number] 08:44:00 Test Item Value Reference Range Comments MAGNESIUM (BEAKER) (test kpxx=992) 1.1 mg/dL 1.6-2.6 HEPATIC FUNCTION [id number] 08:44:00 Test Item Value Reference Range Comments TOTAL PROTEIN (BEAKER) (test ndwf=505) 6.5 gm/dL 6.0-8.3 ALBUMIN (BEAKER) (test otpg=0612) 2.4 g/dL 3.5-5.0 BILIRUBIN TOTAL (BEAKER) (test hyqs=198) 1.1 mg/dL 0.2-1.2 BILIRUBIN DIRECT (BEAKER) (test plqj=035) 0.6 mg/dL 0.1-0.5 ALKALINE PHOSPHATASE (BEAKER) (test fwiz=593) 47 U/L 40-150 AST (SGOT) (BEAKER) (test hinw=968) 24 U/L 5-34 ALT (SGPT) (BEAKER) (test ryrz=195) 20 U/L 6-55 CBC W/PLT COUNT & AUTO [id number] 10:19:00 Test Item Value Reference Range Comments WHITE BLOOD CELL COUNT 1.4 K/ L 3.5-10.5 (BEAKER) (test cxcz=400) RED BLOOD CELL COUNT (BEAKER) 2.30 M/ L 4.63-6.08 (test pzpc=713) HEMOGLOBIN (BEAKER) (test 7.2 GM/DL 13.7-17.5 ejsq=869) HEMATOCRIT (BEAKER) (test 22.1 % 40.1-51.0 ojzr=432) MEAN CORPUSCULAR VOLUME 96.1 fL 79.0-92.2 (BEAKER) (test mlfu=071) MEAN CORPUSCULAR HEMOGLOBIN 31.3 pg 25.7-32.2 (BEAKER) (test haat=953) MEAN CORPUSCULAR HEMOGLOBIN 32.6 GM/DL 32.3-36.5 CONC (BEAKER) (test ciyc=884) RED CELL DISTRIBUTION WIDTH 16.3 % 11.6-14.4 (BEAKER) (test llot=118) PLATELET COUNT (BEAKER) (test 30 K/CU MM 150-450 ovfv=900) MEAN PLATELET VOLUME (BEAKER) fL 9.4-12.4 Unable to report due to (test dhmb=776) abnormal Platelet population distribution. NUCLEATED RED BLOOD CELLS 3 /100 WBC 0-0 (BEAKER) (test awke=585) NEUTROPHILS RELATIVE PERCENT 25 % (BEAKER) (test fukf=025) LYMPHOCYTES RELATIVE PERCENT 66 % (BEAKER) (test ciom=536) MONOCYTES RELATIVE PERCENT 7 % (BEAKER) (test sbrr=063) EOSINOPHILS RELATIVE PERCENT 0 % (BEAKER) (test hiyu=071) BASOPHILS RELATIVE PERCENT 0 % (BEAKER) (test xoqz=193) NEUTROPHILS ABSOLUTE COUNT 0.34 K/ L 1.78-5.38 (BEAKER) (test ykfl=823) LYMPHOCYTES ABSOLUTE COUNT 0.90 K/ L 1.32-3.57 (BEAKER) (test ykao=943) MONOCYTES ABSOLUTE COUNT 0.09 K/ L 0.30-0.82 (BEAKER) (test uuvo=440) EOSINOPHILS ABSOLUTE COUNT 0.00 K/ L 0.04-0.54 (BEAKER) (test mnft=288) BASOPHILS ABSOLUTE COUNT 0.00 K/ L 0.01-0.08 (BEAKER) (test uwes=109) IMMATURE GRANULOCYTES-RELATIVE 2 % 0-1 PERCENT (BEAKER) (test dukl=6881) (MANUAL DIFFERENTIAL)2017-07-15 10:19:00 Test Item Value Reference Range Comments TOTAL COUNTED (BEAKER) (test jzjo=3513) WBC MORPHOLOGY (BEAKER) (test fpqo=804) Normal PLT MORPHOLOGY (BEAKER) (test gfkk=824) Normal RBC MORPHOLOGY (BEAKER) (test poaw=370) Normal [id number] 07:26:00 Test Item Value Reference Range Comments MAGNESIUM (BEAKER) (test tojq=491) 1.6 mg/dL 1.6-2.6 BASIC METABOLIC [id number] 07:26:00 Test Item Value Reference Range Comments SODIUM (BEAKER) (test 133 meq/L 136-145 wick=635) POTASSIUM (BEAKER) (test 3.7 meq/L 3.5-5.1 vqbn=680) CHLORIDE (BEAKER) (test 103 meq/L 98-107 gxvl=997) CO2 (BEAKER) (test 23 meq/L 22-29 jnsd=198) BLOOD UREA NITROGEN 8 mg/dL 7-21 (BEAKER) (test utej=963) CREATININE (BEAKER) (test 0.67 mg/dL 0.57-1.25 mqoc=540) GLUCOSE RANDOM (BEAKER) 105 mg/dL 70-105 (test cesf=778) CALCIUM (BEAKER) (test 8.0 mg/dL 8.4-10.2 rgxf=234) EGFR (BEAKER) (test mL/min/1.73 sq m INSUFFICIENT CLINICAL DATA giyt=2157) TO CALCULATE ESTIMATED GFR. BLOOD [id number] 05:02:00 Test Item Value Reference Range Comments CULTURE (BEAKER) (test xoqr=6823) No growth in 5 days BLOOD [id number] 05:02:00 Test Item Value Reference Range Comments CULTURE (BEAKER) (test owgg=2311) No growth in 5 days CBC W/PLT COUNT & AUTO [id number] 04:26:00 Test Item Value Reference Range Comments WHITE BLOOD CELL COUNT 1.3 K/ L 3.5-10.5 (BEAKER) (test btqv=717) RED BLOOD CELL COUNT (BEAKER) 2.45 M/ L 4.63-6.08 (test kuac=310) HEMOGLOBIN (BEAKER) (test 7.9 GM/DL 13.7-17.5 bgaq=550) HEMATOCRIT (BEAKER) (test 22.8 % 40.1-51.0 qbrd=025) MEAN CORPUSCULAR VOLUME 93.1 fL 79.0-92.2 (BEAKER) (test vgsf=483) MEAN CORPUSCULAR HEMOGLOBIN 32.2 pg 25.7-32.2 (BEAKER) (test okfc=375) MEAN CORPUSCULAR HEMOGLOBIN 34.6 GM/DL 32.3-36.5 CONC (BEAKER) (test bzhb=182) RED CELL DISTRIBUTION WIDTH 16.5 % 11.6-14.4 (BEAKER) (test bfhr=407) PLATELET COUNT (BEAKER) (test 33 K/CU MM 150-450 txlu=793) MEAN PLATELET VOLUME (BEAKER) fL 9.4-12.4 Unable to report due to (test wpsh=154) abnormal Platelet population distribution. NUCLEATED RED BLOOD CELLS 2 /100 WBC 0-0 (BEAKER) (test xenl=342) IMMATURE GRANULOCYTES-RELATIVE 1 % 0-1 PERCENT (BEAKER) (test ntgd=5589) (MANUAL DIFFERENTIAL)2017-07-14 04:26:00 Test Item Value Reference Range Comments NEUTROPHILS - REL (DIFF) (BEAKER) (test mfte=9115) 25 % LYMPHOCYTES - REL (DIFF) (BEAKER) (test tudp=3942) 63 % MONOCYTES - REL (DIFF) (BEAKER) (test vfvq=4161) 12 % NEUTROPHILS - ABS (DIFF) (BEAKER) (test ifko=0000) 0.33 K/ L 1.80-8.00 LYMPHOCYTES - ABS (DIFF) (BEAKER) (test prnq=7340) 0.82 K/ L 1.48-4.50 MONOCYTES - ABS (DIFF) (BEAKER) (test xged=8658) 0.16 K/ L 0.00-1.30 TOTAL COUNTED (BEAKER) (test qwtk=4747) 100 PLT MORPHOLOGY (BEAKER) (test cgzz=726) Normal SMUDGE CELLS (BEAKER) (test tooa=7214) Present ANISOCYTOSIS (BEAKER) (test zrna=334) 1+ few MICROCYTES (BEAKER) (test jcjm=641) 1+ few BASIC METABOLIC [id number] 02:41:00 Test Item Value Reference Range Comments SODIUM (BEAKER) (test 133 meq/L 136-145 ogvh=967) POTASSIUM (BEAKER) (test 3.8 meq/L 3.5-5.1 dzkt=700) CHLORIDE (BEAKER) (test 103 meq/L 98-107 hilm=225) CO2 (BEAKER) (test 23 meq/L 22-29 czay=711) BLOOD UREA NITROGEN 8 mg/dL 7-21 (BEAKER) (test hhur=572) CREATININE (BEAKER) (test 0.63 mg/dL 0.57-1.25 ogtb=147) GLUCOSE RANDOM (BEAKER) 97 mg/dL 70-105 (test akru=762) CALCIUM (BEAKER) (test 8.1 mg/dL 8.4-10.2 nsfy=521) EGFR (BEAKER) (test mL/min/1.73 sq m INSUFFICIENT CLINICAL DATA gauc=7123) TO CALCULATE ESTIMATED GFR. [id number] 01:51:00 Test Item Value Reference Range Comments MAGNESIUM (BEAKER) (test wwkw=756) 1.6 mg/dL 1.6-2.6 CBC W/PLT COUNT & AUTO [id number] 10:33:00 Test Item Value Reference Range Comments WHITE BLOOD CELL COUNT 1.5 K/ L 3.5-10.5 (BEAKER) (test wcew=997) RED BLOOD CELL COUNT (BEAKER) 2.43 M/ L 4.63-6.08 (test goff=354) HEMOGLOBIN (BEAKER) (test 7.8 GM/DL 13.7-17.5 xxlt=615) HEMATOCRIT (BEAKER) (test 22.8 % 40.1-51.0 kbog=810) MEAN CORPUSCULAR VOLUME 93.8 fL 79.0-92.2 (BEAKER) (test eudr=467) MEAN CORPUSCULAR HEMOGLOBIN 32.1 pg 25.7-32.2 (BEAKER) (test aywn=453) MEAN CORPUSCULAR HEMOGLOBIN 34.2 GM/DL 32.3-36.5 CONC (BEAKER) (test nger=090) RED CELL DISTRIBUTION WIDTH 17.0 % 11.6-14.4 (BEAKER) (test brwa=366) PLATELET COUNT (BEAKER) (test 31 K/CU MM 150-450 nisj=373) MEAN PLATELET VOLUME (BEAKER) fL 9.4-12.4 Unable to report due to (test ynpu=164) abnormal Platelet population distribution. NUCLEATED RED BLOOD CELLS 1 /100 WBC 0-0 (BEAKER) (test fmds=260) IMMATURE GRANULOCYTES-RELATIVE 1 % 0-1 PERCENT (BEAKER) (test yqyr=2729) (MANUAL DIFFERENTIAL)2017-07-13 10:33:00 Test Item Value Reference Range Comments NEUTROPHILS - REL (DIFF) (BEAKER) (test 25 % uvdb=2474) LYMPHOCYTES - REL (DIFF) (BEAKER) (test 55 % olxi=3048) MONOCYTES - REL (DIFF) (BEAKER) (test jybt=6096) 7 % BANDS - REL (DIFF) (BEAKER) (test zpqg=4330) 13 % 0-10 NEUTROPHILS - ABS (DIFF) (BEAKER) (test 0.38 K/ L 1.80-8.00 fajk=9865) LYMPHOCYTES - ABS (DIFF) (BEAKER) (test 0.83 K/ L 1.48-4.50 frzv=9193) MONOCYTES - ABS (DIFF) (BEAKER) (test oadk=3905) 0.11 K/ L 0.00-1.30 BANDS-ABS (DIFF) (BEAKER) (test tbdk=7813) 0.2 K/ L 0.0-0.8 TOTAL COUNTED (BEAKER) (test ytvw=9309) 100 BANDS + SEGMENTED NEUTROPHILS (BEAKER) (test 0.57 iapt=8701) MANUAL NRBC PER 100 CELLS (BEAKER) (test 1 /100 WBC 0-0 zueu=2364) WBC MORPHOLOGY (BEAKER) (test vmpl=504) Normal PLT MORPHOLOGY (BEAKER) (test piru=412) Normal RBC MORPHOLOGY (BEAKER) (test wose=792) Normal COMPREHENSIVE METABOLIC [id number] 08:55:00 Test Item Value Reference Range Comments TOTAL PROTEIN (BEAKER) 6.1 gm/dL 6.0-8.3 (test lqzk=745) ALBUMIN (BEAKER) (test 2.4 g/dL 3.5-5.0 xdbj=2798) ALKALINE PHOSPHATASE 42 U/L 40-150 (BEAKER) (test ganr=066) BILIRUBIN TOTAL (BEAKER) 0.9 mg/dL 0.2-1.2 (test sgjk=197) SODIUM (BEAKER) (test 135 meq/L 136-145 tljq=700) POTASSIUM (BEAKER) (test 3.6 meq/L 3.5-5.1 teij=096) CHLORIDE (BEAKER) (test 106 meq/L 98-107 henv=495) CO2 (BEAKER) (test 25 meq/L 22-29 xqom=372) BLOOD UREA NITROGEN 8 mg/dL 7-21 (BEAKER) (test fymq=039) CREATININE (BEAKER) (test 0.61 mg/dL 0.57-1.25 ujue=075) GLUCOSE RANDOM (BEAKER) 97 mg/dL 70-105 (test txiy=621) CALCIUM (BEAKER) (test 8.0 mg/dL 8.4-10.2 raui=593) AST (SGOT) (BEAKER) (test 21 U/L 5-34 ekud=837) ALT (SGPT) (BEAKER) (test 13 U/L 6-55 rqea=901) EGFR (BEAKER) (test mL/min/1.73 sq m INSUFFICIENT CLINICAL DATA zrep=[id number]) TO CALCULATE ESTIMATED GFR. PROTHROMBIN [id number] 06:42:00 Test Item Value Reference Range Comments PROTIME (BEAKER) (test zubg=809) 16.0 seconds 11.7-14.7 INR (BEAKER) (test sboh=417) 1.3 <=5.9 RECOMMENDED COUMADIN/WARFARIN INR THERAPY RANGESSTANDARD DOSE: 2.0 - 3.0 Includes: PROPHYLAXIS forvenous thrombosis, systemic embolization; TREATMENT for venous thrombosis and/or pulmonary embolus.HIGH RISK: Target INR is 2.5-3.5 for patients with mechanical heart valves.BONE MARROW [id number] 06:36:00 Test Item Value Reference Range Comments CULTURE (BEAKER) (test ctxr=8180) No growth GRAM STAIN RESULT (BEAKER) (test <1+ WBCs narl=5829) GRAM STAIN RESULT (BEAKER) (test No organisms seen gfzc=72354) ANTI-NUCLEAR ANTIBODY (RANJANA)2017-07-12 14:27:00 Test Item Value Reference Range Comments ANTI-NUCLEAR ANTIBODY (RANJANA) (BEAKER) (test Negative Negative auvj=437) CBC W/PLT COUNT & AUTO [id number] 11:32:00 Test Item Value Reference Range Comments WHITE BLOOD CELL COUNT 1.5 K/ L 3.5-10.5 (BEAKER) (test iqcy=287) RED BLOOD CELL COUNT (BEAKER) 2.43 M/ L 4.63-6.08 (test iqwe=904) HEMOGLOBIN (BEAKER) (test 7.7 GM/DL 13.7-17.5 tkrc=305) HEMATOCRIT (BEAKER) (test 22.3 % 40.1-51.0 yoes=614) MEAN CORPUSCULAR VOLUME 91.8 fL 79.0-92.2 (BEAKER) (test uiel=383) MEAN CORPUSCULAR HEMOGLOBIN 31.7 pg 25.7-32.2 (BEAKER) (test rvoo=676) MEAN CORPUSCULAR HEMOGLOBIN 34.5 GM/DL 32.3-36.5 CONC (BEAKER) (test kxue=000) RED CELL DISTRIBUTION WIDTH 17.2 % 11.6-14.4 (BEAKER) (test onrj=117) PLATELET COUNT (BEAKER) (test 40 K/CU MM 150-450 ejac=606) MEAN PLATELET VOLUME (BEAKER) fL 9.4-12.4 Unable to report due to (test clmg=667) abnormal Platelet population distribution. NUCLEATED RED BLOOD CELLS 3 /100 WBC 0-0 (BEAKER) (test merl=884) IMMATURE GRANULOCYTES-RELATIVE 3 % 0-1 PERCENT (BEAKER) (test iicy=9507) (MANUAL DIFFERENTIAL)2017-07-12 11:32:00 Test Item Value Reference Range Comments NEUTROPHILS - REL (DIFF) (BEAKER) (test mvyc=1772) 45 % LYMPHOCYTES - REL (DIFF) (BEAKER) (test sfjy=7912) 37 % MONOCYTES - REL (DIFF) (BEAKER) (test vcja=0106) 7 % BANDS - REL (DIFF) (BEAKER) (test reot=8053) 9 % 0-10 BLASTS - REL (DIFF) (BEAKER) (test ydoo=5356) 2 % 0-0 NEUTROPHILS - ABS (DIFF) (BEAKER) (test zjls=2328) 0.68 K/ L 1.80-8.00 LYMPHOCYTES - ABS (DIFF) (BEAKER) (test eyas=8150) 0.56 K/ L 1.48-4.50 MONOCYTES - ABS (DIFF) (BEAKER) (test olxe=2722) 0.11 K/ L 0.00-1.30 BANDS-ABS (DIFF) (BEAKER) (test vudm=2687) 0.1 K/ L 0.0-0.8 BLASTS - ABS (DIFF) (BEAKER) (test uydr=6789) 0.03 K/ L 0.00-0.00 TOTAL COUNTED (BEAKER) (test bbwm=8537) 100 BANDS + SEGMENTED NEUTROPHILS (BEAKER) (test 0.81 pfxp=5442) WBC MORPHOLOGY (BEAKER) (test aubj=672) Normal PLT MORPHOLOGY (BEAKER) (test uomz=892) Normal SCHISTOCYTES (BEAKER) (test qmku=187) 1+ few ANISOCYTOSIS (BEAKER) (test xxgi=437) 1+ few POLYCHROMATOPHILLIC RBCS(BEAKER) (test jgxy=787) 1+ few FLOW [id number] 11:18:00Flow Cytometry Report Case: [id number] Authorizing Provider: Diana Dillon MD Collected: 07/10/20171535 Ordering Location: [place] [address] ICU Received: 2016 Pathologist: Amanda Krause MD Specimen: Other BONE MARROW, FLOW CYTOMETRY:-LIMITED BY HEMODILUTION-4% MYELOBLASTS-NO MONOTYPIC B CELL POPULATION -NO ABERRANT T CELL POPULATION-SEE COMMENT As the blast count may be underestimated by peripheral blood hemodilution, these results should be correlated with the morphologic and other features -- see [id number]. 87205ofwcepdwsxsxFeif marrow CD2, CD3, CD4, CD5, CD7, CD8, CD10, CD11c, CD13, CD14, CD16, CD19, CD20, CD23, CD33, CD34, CD38, CD45, CD56, CD64, CD117, HLA-DR , [place], Lambda.Specimen Viability: 89%Myeloblast population identified (4% of total cellularity)POSITIVE: dim CD45, CD34, CD117, HLA-DR, CD13, VU14UCXLSNOX: CD20, CD19, CD10, CD3, CD64, CD16In addition, the following populations are identified:Blasts: The myeloblast population is described aboveLymphocytes: Bright CD45+ lymphocytes comprise 59% of total cells. T cells show a CD4:CD8 ratio of 5.3 and normal davis T cell antigen expression. B cells are polytypic with a kappa:lambda ratio of 1.4. Myeloid/monocytic populations: As identified by CD45 and light scatter characteristics, granulocytes comprise 15% of cells analyzed, and CD14 positive monocytes comprise 4% of total cells. The pattern of maturation based on CD13, and CD16 is compatible with mature granulocytes and a hemodilute aspirate sample. The remaining events analyzed represent nonviable cells, non-hematolymphoid cells, and debrisThese tests were developed and their performance characteristics determined by [employer]. They have not been cleared or approved by the U.S. Food and Drug Administration. The FDA has determined that such clearance or approval is not necessary. It should not be regarded as investigational or for research. This laboratory is certified under the Clinical Laboratory Improvement Amendments of 1988 ("CLIA") as qualified to perform high-complexity clinical testing.HEMOGLOBIN AND [id number] 08: 14:00 Test Item Value Reference Range Comments HEMOGLOBIN (BEAKER) (test owjb=246) 7.9 GM/DL 13.7-17.5 HEMATOCRIT (BEAKER) (test nnvr=437) 22.7 % 40.1-51.0 COMPREHENSIVE METABOLIC [id number] 05:14:00 Test Item Value Reference Range Comments TOTAL PROTEIN (BEAKER) 6.1 gm/dL 6.0-8.3 (test tyzq=791) ALBUMIN (BEAKER) (test 2.4 g/dL 3.5-5.0 vkma=6211) ALKALINE PHOSPHATASE 46 U/L 40-150 (BEAKER) (test rkqn=676) BILIRUBIN TOTAL (BEAKER) 1.1 mg/dL 0.2-1.2 (test tvrc=153) SODIUM (BEAKER) (test 135 meq/L 136-145 dgpn=836) POTASSIUM (BEAKER) (test 3.5 meq/L 3.5-5.1 raat=790) CHLORIDE (BEAKER) (test 105 meq/L 98-107 qnnf=081) CO2 (BEAKER) (test 22 meq/L 22-29 xgrg=690) BLOOD UREA NITROGEN 9 mg/dL 7-21 (BEAKER) (test fled=712) CREATININE (BEAKER) (test 0.62 mg/dL 0.57-1.25 vvjf=001) GLUCOSE RANDOM (BEAKER) 111 mg/dL 70-105 (test sazz=251) CALCIUM (BEAKER) (test 8.2 mg/dL 8.4-10.2 suqj=353) AST (SGOT) (BEAKER) (test 14 U/L 5-34 mttl=962) ALT (SGPT) (BEAKER) (test 10 U/L 6-55 rnob=121) EGFR (BEAKER) (test mL/min/1.73 sq m INSUFFICIENT CLINICAL DATA rqqp=0034) TO CALCULATE ESTIMATED GFR. [id number] 04:50:00 Test Item Value Reference Range Comments PHOSPHORUS (BEAKER) (test pytf=773) 2.2 mg/dL 2.3-4.7 [id number] 04:50:00 Test Item Value Reference Range Comments MAGNESIUM (BEAKER) (test zdfm=841) 1.7 mg/dL 1.6-2.6 HEPATIC FUNCTION [id number] 04:50:00 Test Item Value Reference Range Comments TOTAL PROTEIN (BEAKER) (test ywfd=547) 6.1 gm/dL 6.0-8.3 ALBUMIN (BEAKER) (test pmdz=0508) 2.4 g/dL 3.5-5.0 BILIRUBIN TOTAL (BEAKER) (test xqvs=034) 1.1 mg/dL 0.2-1.2 BILIRUBIN DIRECT (BEAKER) (test efym=382) 0.6 mg/dL 0.1-0.5 ALKALINE PHOSPHATASE (BEAKER) (test qhvz=112) 46 U/L 40-150 AST (SGOT) (BEAKER) (test mqao=996) 14 U/L 5-34 ALT (SGPT) (BEAKER) (test ewfm=259) 10 U/L 6-55 PROTHROMBIN [id number] 04:45:00 Test Item Value Reference Range Comments PROTIME (BEAKER) (test icxh=949) 17.6 seconds 11.7-14.7 INR (BEAKER) (test gnnj=277) 1.5 <=5.9 RECOMMENDED COUMADIN/WARFARIN INR THERAPY RANGESSTANDARD DOSE: 2.0 - 3.0 Includes: PROPHYLAXIS forvenous thrombosis, systemic embolization; TREATMENT for venous thrombosis and/or pulmonary embolus.HIGH RISK: Target INR is 2.5-3.5 for patients with mechanical heart valves.HEMOGLOBIN AND [id number] 23 :30:00 Test Item Value Reference Range Comments HEMOGLOBIN (BEAKER) (test obqs=865) 8.5 GM/DL 13.7-17.5 HEMATOCRIT (BEAKER) (test nnmu=234) 24.0 % 40.1-51.0 [id number] 16:35:00 Test Item Value Reference Range Comments POTASSIUM (BEAKER) (test raiv=789) 3.4 meq/L 3.5-5.1 VANCOMYCIN LEVEL, [id number] 16:17:00 Test Item Value Reference Range Comments VANCOMYCIN TROUGH (BEAKER) (test lsdf=231) 13.7 ug/mL 10.0-20.0 HEMOGLOBIN AND [id number] 15:40:00 Test Item Value Reference Range Comments HEMOGLOBIN (BEAKER) (test ypsz=979) 7.6 GM/DL 13.7-17.5 HEMATOCRIT (BEAKER) (test yasf=401) 21.5 % 40.1-51.0 HEMOGLOBIN AND [id number] 13:00:00 Test Item Value Reference Range Comments HEMOGLOBIN (BEAKER) (test tqwh=249) 7.6 GM/DL 13.7-17.5 HEMATOCRIT (BEAKER) (test dyfg=832) 21.6 % 40.1-51.0 CBC W/PLT COUNT & AUTO [id number] 09:14:00 Test Item Value Reference Range Comments WHITE BLOOD CELL COUNT 1.7 K/ L 3.5-10.5 (BEAKER) (test vsxp=454) RED BLOOD CELL COUNT (BEAKER) 2.36 M/ L 4.63-6.08 (test tnan=232) HEMOGLOBIN (BEAKER) (test 7.6 GM/DL 13.7-17.5 vzyu=397) HEMATOCRIT (BEAKER) (test 21.6 % 40.1-51.0 evbv=955) MEAN CORPUSCULAR VOLUME 91.5 fL 79.0-92.2 (BEAKER) (test ewbf=728) MEAN CORPUSCULAR HEMOGLOBIN 32.2 pg 25.7-32.2 (BEAKER) (test ubfq=606) MEAN CORPUSCULAR HEMOGLOBIN 35.2 GM/DL 32.3-36.5 CONC (BEAKER) (test jmwf=292) RED CELL DISTRIBUTION WIDTH 17.5 % 11.6-14.4 (BEAKER) (test ywat=374) PLATELET COUNT (BEAKER) (test 49 K/CU MM 150-450 dnpe=982) MEAN PLATELET VOLUME (BEAKER) fL 9.4-12.4 Unable to report due to (test fpay=879) abnormal Platelet population distribution. NUCLEATED RED BLOOD CELLS 1 /100 WBC 0-0 (BEAKER) (test bdwb=190) IMMATURE GRANULOCYTES-RELATIVE 1 % 0-1 PERCENT (BEAKER) (test kqbp=9399) (MANUAL DIFFERENTIAL)2017-07-11 09:14:00 Test Item Value Reference Range Comments NEUTROPHILS - REL (DIFF) (BEAKER) (test 18 % jftl=4000) LYMPHOCYTES - REL (DIFF) (BEAKER) (test 54 % oshu=3598) MONOCYTES - REL (DIFF) (BEAKER) (test lqxk=8531) 0 % EOSINOPHILS - REL (DIFF) (BEAKER) (test 0 % ueby=9104) BASOPHILS - REL (DIFF) (BEAKER) (test vefj=2239) 0 % METAMYELOCYTES-REL (DIFF) (BEAKER) (test 4 % 0-0 wvyq=371) MYELOCYTES-REL (DIFF) (BEAKER) (test fdpd=9844) 1 % 0-0 BANDS - REL (DIFF) (BEAKER) (test anue=3278) 22 % 0-10 BLASTS - REL (DIFF) (BEAKER) (test cesr=8634) 1 % 0-0 NEUTROPHILS - ABS (DIFF) (BEAKER) (test 0.31 K/ L 1.80-8.00 kepc=0561) LYMPHOCYTES - ABS (DIFF) (BEAKER) (test 0.92 K/ L 1.48-4.50 djow=9600) MONOCYTES - ABS (DIFF) (BEAKER) (test akrt=6203) 0.00 K/ L 0.00-1.30 EOSINOPHILS - ABS (DIFF) (BEAKER) (test 0.00 K/ L 0.00-0.50 mpmg=6823) BASOPHILS - ABS (DIFF) (BEAKER) (test jrsa=8321) 0.00 K/ L 0.00-0.20 METAMYELOCTYES - ABS (DIFF) (BEAKER) (test 0.07 K/ L 0.00-0.00 ospc=814) BANDS-ABS (DIFF) (BEAKER) (test nneu=5272) 0.4 K/ L 0.0-0.8 BLASTS - ABS (DIFF) (BEAKER) (test qbcq=7239) 0.02 K/ L 0.00-0.00 MYELOCYTES-ABS (DIFF) (BEAKER) (test qrjf=5124) 0.02 K/ L 0.00-0.00 TOTAL COUNTED (BEAKER) (test grab=4417) 100 BANDS + SEGMENTED NEUTROPHILS (BEAKER) (test 0.68 avvt=9724) MANUAL NRBC PER 100 CELLS (BEAKER) (test 3 /100 WBC 0-0 yyyj=0659) PLT MORPHOLOGY (BEAKER) (test lhir=939) Normal DOHLE BODIES (BEAKER) (test ugvz=276) Present TOXIC GRANULATION (BEAKER) (test ygwt=514) Present VACUOLATED NEUTROPHILS (BEAKER) (test ymus=712) Present SCHISTOCYTES (BEAKER) (test nemy=279) 1+ few POLYCHROMATOPHILLIC RBCS(BEAKER) (test svxj=421) 1+ few COMPREHENSIVE METABOLIC [id number] 05:48:00 Test Item Value Reference Range Comments TOTAL PROTEIN (BEAKER) 6.0 gm/dL 6.0-8.3 (test qhxh=792) ALBUMIN (BEAKER) (test 2.4 g/dL 3.5-5.0 cmzi=0596) ALKALINE PHOSPHATASE 43 U/L 40-150 (BEAKER) (test lmbn=814) BILIRUBIN TOTAL (BEAKER) 1.6 mg/dL 0.2-1.2 (test bmel=701) SODIUM (BEAKER) (test 136 meq/L 136-145 iffm=731) POTASSIUM (BEAKER) (test 3.0 meq/L 3.5-5.1 xllg=412) CHLORIDE (BEAKER) (test 106 meq/L 98-107 rfvj=725) CO2 (BEAKER) (test 22 meq/L 22-29 gwpa=519) BLOOD UREA NITROGEN 10 mg/dL 7-21 (BEAKER) (test mhgq=349) CREATININE (BEAKER) (test 0.67 mg/dL 0.57-1.25 czld=774) GLUCOSE RANDOM (BEAKER) 109 mg/dL 70-105 (test pxnh=776) CALCIUM (BEAKER) (test 8.0 mg/dL 8.4-10.2 fwku=730) AST (SGOT) (BEAKER) (test 10 U/L 5-34 fluc=861) ALT (SGPT) (BEAKER) (test 9 U/L 6-55 ahuz=944) EGFR (BEAKER) (test mL/min/1.73 sq m INSUFFICIENT CLINICAL DATA iwtk=5350) TO CALCULATE ESTIMATED GFR. [id number] 05:33:00 Test Item Value Reference Range Comments PHOSPHORUS (BEAKER) (test nbzo=518) 2.4 mg/dL 2.3-4.7 [id number] 05:33:00 Test Item Value Reference Range Comments MAGNESIUM (BEAKER) (test vvrb=945) 2.2 mg/dL 1.6-2.6 HEPATIC FUNCTION [id number] 05:33:00 Test Item Value Reference Range Comments TOTAL PROTEIN (BEAKER) (test klus=375) 6.0 gm/dL 6.0-8.3 ALBUMIN (BEAKER) (test uuto=3848) 2.4 g/dL 3.5-5.0 BILIRUBIN TOTAL (BEAKER) (test cqkf=610) 1.6 mg/dL 0.2-1.2 BILIRUBIN DIRECT (BEAKER) (test ncsq=417) 0.8 mg/dL 0.1-0.5 ALKALINE PHOSPHATASE (BEAKER) (test ercg=945) 43 U/L 40-150 AST (SGOT) (BEAKER) (test fwkr=328) 10 U/L 5-34 ALT (SGPT) (BEAKER) (test kcgt=820) 9 U/L 6-55 PROTHROMBIN [id number] 05:19:00 Test Item Value Reference Range Comments PROTIME (BEAKER) (test oplx=029) 16.2 seconds 11.7-14.7 INR (BEAKER) (test pdar=547) 1.3 <=5.9 RECOMMENDED COUMADIN/WARFARIN INR THERAPY RANGESSTANDARD DOSE: 2.0 - 3.0 Includes: PROPHYLAXIS forvenous thrombosis, systemic embolization; TREATMENT for venous thrombosis and/or pulmonary embolus.HIGH RISK: Target INR is 2.5-3.5 for patients with mechanical heart valves.[id number] 02:10:00 Test Item Value Reference Range Comments FERRITIN (BEAKER) (test zxej=008) 1208 ng/mL 5-275 VITAMIN B12 AND [id number] 01:10:00 Test Item Value Reference Range Comments VITAMIN B12 (BEAKER) (test ssgw=772) 1071 pg/mL 213-816 FOLATE (BEAKER) (test koqi=097) 12.3 ng/mL >=7.0 HEMOGLOBIN AND [id number] 00:35:00 Test Item Value Reference Range Comments HEMOGLOBIN (BEAKER) (test hkda=948) 7.6 GM/DL 13.7-17.5 HEMATOCRIT (BEAKER) (test ygfw=205) 21.5 % 40.1-51.0 IRON, TIBC, % SAT. (WITHOUT FERRITIN)2017-07-11 00:35:00 Test Item Value Reference Range Comments IRON (BEAKER) (test vmfo=095) 56 ug/dL 40-160 TOTAL IRON BINDING CAPACITY (BEAKER) (test 179 ug/dL 250-450 qqea=450) IRON % SATURATION (2) (BEAKER) (test icib=7408) 31 % 20-55 RHEUMATOID FACTOR AB, REFLEX TO [id number] 00:25:00 Test Item Value Reference Range Comments RHEUMATOID FACTOR (BEAKER) (test disy=339) Negative OCCULT BLOOD, [id number] 20:30:00 Test Item Value Reference Range Comments FECAL OCCULT BLOOD (BEAKER) (test oheb=527) Negative Negative BASIC METABOLIC [id number] 19:48:00 Test Item Value Reference Range Comments SODIUM (BEAKER) (test 137 meq/L 136-145 smus=658) POTASSIUM (BEAKER) (test 3.3 meq/L 3.5-5.1 hxnj=519) CHLORIDE (BEAKER) (test 108 meq/L 98-107 sopm=006) CO2 (BEAKER) (test 19 meq/L 22-29 kyvi=694) BLOOD UREA NITROGEN 10 mg/dL 7-21 (BEAKER) (test ypdr=347) CREATININE (BEAKER) (test 0.63 mg/dL 0.57-1.25 zqrs=451) GLUCOSE RANDOM (BEAKER) 100 mg/dL 70-105 (test qfps=146) CALCIUM (BEAKER) (test 8.1 mg/dL 8.4-10.2 ofmx=779) EGFR (BEAKER) (test mL/min/1.73 sq m INSUFFICIENT CLINICAL DATA dcjw=6387) TO CALCULATE ESTIMATED GFR. [id number] 19:46:00 Test Item Value Reference Range Comments MAGNESIUM (BEAKER) (test mpow=407) 1.8 mg/dL 1.6-2.6 HEMOGLOBIN AND [id number] 19:32:00 Test Item Value Reference Range Comments HEMOGLOBIN (BEAKER) (test qweo=197) 8.2 GM/DL 13.7-17.5 HEMATOCRIT (BEAKER) (test ffbw=676) 24.4 % 40.1-51.0 CLOSTRIDIUM DIFFICILE TOXIN [id number] 17:44:00 Test Item Value Reference Range Comments CLOSTRIDIUM DIFFICILE TOXIN, PCR (BEAKER) (test Not Detected Not Detected xwpl=1204) This qualitative real-time polymerase chain reaction assay detects the tcdB gene , encoded on the C.difficile pathogenicity locus (PaLoc). The product of tcdB, toxin B, is a cytotoxin essential for causing C.difficile-associated disease ( CDAD) and is found in virtually all toxigenic C.difficile.This assay is performed for patients suspected of having either community-acquired or nosocomial CDAD. Accordingly, only symptomatic patients should be tested and formed stools will be rejected unless ileus is present (i.e., specified when ordering). Patients may be colonized with toxigenic C.difficile strains not causing active disease; therefore, clinical correlation is needed when deciding how to manage patients with a positive test result.The assay has not been validated as a test of cure as amplifiable nucleic acid may persist after effective treatment; therefore, follow-up testing of a positive result is not recommended.RAD, CHEST, 1 VIEW, NON [id number] 17:19:00Reason for exam:-> neutropenic feverShould this be performed at the bedside?->YesFINAL REPORT EXAM: AP portable chest radiograph HISTORY PROVIDED: Neutropenicfever COMPARISON: None available IMPRESSION:There is bilateral perihilar interstitial indistinctnesscompatible with mild central pulmonary vascular congestion. Minimal bibasilar opacities likely represent subsegmental atelectasis. No pneumothorax or significant pleural fluid is identified. The cardiomediastinal silhouette appears mildly enlarged. No acute osseous abnormality. Signed: Payton Ruth MDReport Verified Date/Time: 2016 17:19:53 Reading Location: [facility] Mammo Reading Room BONE MARROW PROCESS.2017-07-10 16:20 :00 Test Item Value Reference Range Comments ANATOMIC CASE# (SHREYAS) (test wjfk=6136) [id number] ORDERED BY DOCTOR# (SHREYAS) (test tljo=4429) [place] PERFORMED BY DOCTOR# (SHREYAS) (test idhn=6879) [place] CLOT RECEIVED? (SHREYAS) (test ajra=6668) Yes BIOPSY RECEIVED? (BEESTEFANI) (test pqzy=5183) Yes CULTURE RECEIVED? (SHREYAS) (test yiwr=2375) Yes FLOW RECEIVED? (SHREYAS) (test hnpb=9640) Yes CYTOGENICS? (SHREYAS) (test sijx=3896) Yes MOLECULAR GENETICS? (BEESTEFANI) (test lztz=8121) Hold CMV PCR, [id number] 14:56:00 Test Item Value Reference Range Comments CMV VIRAL LOAD - NEGATIVE Negative or below the linear (BEAKER) (test pkag=0336) range of the assay (<375 copies/mL) Cytomegalovirus (CMV) infection can cause significant disease in immunosuppressed patients. However,it is common for CMV to manifest as a limited infection which is of no clinical significance in immunosuppressed patients or in healthy individuals.Viral load measurements are helpful to identify clinical CMV infection and to guide the pre-emptive management of antiviral therapy. For treatment of CMVinfection due to reactivation in transplant recipients, a threshold between 4,000 and 5,000 copies/mL is suggested. For treatment of primary CMV infection, a lower threshold can be used.CMV infection may also be monitored using weekly serial measurements. Serial measurements of CMV DNA viral load canbe evaluated by identifying a 10- fold change, as well as assessing the CMV DNA viral load and the clinical context for each patient.The plasma CMV DNA viral load was detected using quantitative polymerase chain reaction and fluorescent monitoring of a specific hybridized probe. Genetic variation and other factors can affect the accuracy of nucleic acid testing. Therefore, the results should be interpreted in light of clinical data. A negative result may not exclude the presence of CMV disease.This test was developed and its performance characteristics determined by the [facility] Pathology Department, Section of Molecular Pathology. It has not been cleared or approved by the U.S. Food and Drug Administration (FDA), since FDA approval is not required for clinical use of the test. Validation was done as required by The Clinical Laboratory Improvement Amendments of 1988.EBV VIRAL [id number] 14:52:00 Test Item Value Reference Range Comments EBV VIRAL LOAD - NEGATIVE Negative or below the linear (BEAKER) (test rsgp=9086) range of the assay (<500 copies/mL) This assay was performed by real-time PCR for the detection of the Rhiannon-Landa virus (EBV) gene EBNA-1. The test is composed of (1) DNA extraction from patient specimen, and (2) real-time PCR amplification and detection with EBNA-1- specific primers and probes. A well-conserved region of the EBNA-1 gene is targeted, along with an internal control sequence used to confirm PCR amplification. Asymptomatic carriers and viral genetic variation, among other factors, can affect the accuracy of nucleic acid testing; therefore, results should be interpreted in light of clinical data.This test was developedand its performance characteristics determined by the [facility] Pathology Department, Section of Molecular Pathology. It has not been cleared or approved by the U.S. Food and Drug Administration (FDA), since FDA approval is not required for clinical use of the test. Validation was doneas required by The Clinical Laboratory Improvement Amendments of 1988.CT, [id number] 14: 00:00Reason for exam:->abdominal pain What is the patient's sedation requirement?->No SedationFINAL REPORT INDICATION:66- year-old male with abdominal pain. COMPARISON: None. TECHNIQUE: CT of the Abdomen and Pelvis WITH intravenous contrast. Enteric contrast was used. The exam was performed according to our department dose-optimization protocol, which includes automated exposure control, adjustments of mA and kV according to patient size. Iterative reconstructions are also sometimes employed. FINDINGS :In the distal left colon and proximal sigmoid colon and associated with diverticuli is stranding of the pericolic fat representing acute diverticulitis. No wall abscess or extraluminal gas is demonstrated. Stomach and small bowel are unremarkable. Appendix is normal. Small amount of free fluid in the left pelvis is noted. Liver, gallbladder, pancreas, and spleen are unremarkable. Kidneys enhance symmetrically and there is no suspicious renal lesion. There is no hydronephrosis. Bladder is mildly distended and no bladder wall abnormality demonstrated. Prostate gland is mildly enlarged and coarse calcifications of the central gland are noted. Abdominal aorta and IVC areunremarkable. Small fat-containing right inguinal hernias noted. Osseous structures are notable for grade 1 spondylolytic spondylolisthesis at L5-S1 and multilevel disc space and endplate degenerative change severe at T12-L1. Partial imaging of the lower thorax is unremarkable. IMPRESSION: Acute uncomplicated diverticulitis of the distal left colon and proximal sigmoid colon. Mild prostatomegaly. L5-S1 grade 1 spondylolytic spondylolisthesis and T12-L1 severe endplate degenerative spurring resultingin spinal stenosis. Signed : Vinny Diaz MDReport Verified Date/Time: 07/10/2017 14:00:49 Reading Location: [address] Consult Reading Room HEPATITIS B [id number] 13:16:00 Test Item Value Reference Range Comments HEPATITIS B CORE TOTAL ANTIBODY (BEAKER) (test Nonreactive Nonreactive txml=524) HEPATITIS B SURFACE ANTIBODY (BEAKER) (test < mIU/mL <8.0 mjss=296) HEPATITIS B SURFACE ANTIGEN (2) (BEAKER) (test Nonreactive Nonreactive yuwd=3545) HEPATITIS C [id number] 12:20:00 Test Item Value Reference Range Comments HEPATITIS C ANTIBODY (BEAKER) (test nxoh=702) Nonreactive Nonreactive HIV-1 ANTIGEN WITH HIV-1/2 [id number] 12:20:00 Test Item Value Reference Range Comments HIV-1 ANTIGEN WITH HIV 1\\T\\2 ANTIBODY (2) Nonreactive Nonreactive (BEAKER) (test ksaq=0114) LACTIC ACID, VENOUS, WHOLE [id number] 12:09:00 Test Item Value Reference Range Comments LACTATE BLOOD VENOUS (2) (BEAKER) (test 1.0 mmol/L 0.5-2.2 bkhv=5962) Effective 12/21/2015: Units/Reference Range ChangeNew: 0.5-2.2 mmol/L Previous: 5 -20 mg/dLCOMPREHENSIVE METABOLIC [id number] 10:11:00 Test Item Value Reference Range Comments TOTAL PROTEIN (BEAKER) 6.4 gm/dL 6.0-8.3 (test vsbl=372) ALBUMIN (BEAKER) (test 2.5 g/dL 3.5-5.0 ncxa=6647) ALKALINE PHOSPHATASE 48 U/L 40-150 (BEAKER) (test cjer=220) BILIRUBIN TOTAL (BEAKER) 1.3 mg/dL 0.2-1.2 (test tici=085) SODIUM (BEAKER) (test 137 meq/L 136-145 udyh=252) POTASSIUM (BEAKER) (test 3.0 meq/L 3.5-5.1 exlm=199) CHLORIDE (BEAKER) (test 107 meq/L 98-107 wrht=671) CO2 (BEAKER) (test 22 meq/L 22-29 skie=398) BLOOD UREA NITROGEN 11 mg/dL 7-21 (BEAKER) (test umdb=518) CREATININE (BEAKER) (test 0.66 mg/dL 0.57-1.25 wryt=770) GLUCOSE RANDOM (BEAKER) 122 mg/dL 70-105 (test knnx=518) CALCIUM (BEAKER) (test 8.0 mg/dL 8.4-10.2 nvcf=975) AST (SGOT) (BEAKER) (test 12 U/L 5-34 jrpe=241) ALT (SGPT) (BEAKER) (test 9 U/L 6-55 uuvf=005) EGFR (BEAKER) (test mL/min/1.73 sq m INSUFFICIENT CLINICAL DATA rmzr=9139) TO CALCULATE ESTIMATED GFR. CBC W/PLT COUNT & AUTO [id number] 10:08:00 Test Item Value Reference Range Comments WHITE BLOOD CELL COUNT 1.9 K/ L 3.5-10.5 (BEAKER) (test pwzt=072) RED BLOOD CELL COUNT (BEAKER) 1.96 M/ L 4.63-6.08 (test xduu=969) HEMOGLOBIN (BEAKER) (test 6.5 GM/DL 13.7-17.5 luvo=508) HEMATOCRIT (BEAKER) (test 18.5 % 40.1-51.0 vyin=245) MEAN CORPUSCULAR VOLUME 94.4 fL 79.0-92.2 (BEAKER) (test lpny=980) MEAN CORPUSCULAR HEMOGLOBIN 33.2 pg 25.7-32.2 (BEAKER) (test fmlj=628) MEAN CORPUSCULAR HEMOGLOBIN 35.1 GM/DL 32.3-36.5 CONC (BEAKER) (test kxsd=158) RED CELL DISTRIBUTION WIDTH 17.5 % 11.6-14.4 (BEAKER) (test kana=972) PLATELET COUNT (BEAKER) (test 36 K/CU MM 150-450 This is a corrected result. hsil=713) Previous result was 23 K/CU MM on 07/10/2017 at 0718 BICYCLE COURIER MEAN PLATELET VOLUME (BEAKER) fL 9.4-12.4 Unable to report due to (test crwo=005) abnormal Platelet population distribution. NUCLEATED RED BLOOD CELLS 3 /100 WBC 0-0 (BEAKER) (test fjeh=512) IMMATURE GRANULOCYTES-RELATIVE 2 % 0-1 PERCENT (BEAKER) (test tfwf=1994) (MANUAL DIFFERENTIAL)2017-07-10 10:08:00 Test Item Value Reference Range Comments NEUTROPHILS - REL (DIFF) (BEAKER) (test 32 % bwyy=5530) LYMPHOCYTES - REL (DIFF) (BEAKER) (test 38 % zzkl=2130) MONOCYTES - REL (DIFF) (BEAKER) (test rwox=4747) 6 % MYELOCYTES-REL (DIFF) (BEAKER) (test apgt=3291) 1 % 0-0 BANDS - REL (DIFF) (BEAKER) (test dneh=3573) 21 % 0-10 BLASTS - REL (DIFF) (BEAKER) (test mytx=6305) 2 % 0-0 NEUTROPHILS - ABS (DIFF) (BEAKER) (test 0.61 K/ L 1.80-8.00 vmlg=8311) LYMPHOCYTES - ABS (DIFF) (BEAKER) (test 0.72 K/ L 1.48-4.50 wdlp=5091) MONOCYTES - ABS (DIFF) (BEAKER) (test vemy=4345) 0.11 K/ L 0.00-1.30 BANDS-ABS (DIFF) (BEAKER) (test lwii=0935) 0.4 K/ L 0.0-0.8 BLASTS - ABS (DIFF) (BEAKER) (test aktg=3418) 0.04 K/ L 0.00-0.00 MYELOCYTES-ABS (DIFF) (BEAKER) (test bfzz=3344) 0.02 K/ L 0.00-0.00 TOTAL COUNTED (BEAKER) (test gdov=4890) 100 BANDS + SEGMENTED NEUTROPHILS (BEAKER) (test 1.01 fskw=2502) MANUAL NRBC PER 100 CELLS (BEAKER) (test 1 /100 WBC 0-0 ilju=9052) VACUOLATED NEUTROPHILS (BEAKER) (test fpyx=181) Present LARGE PLT(BEAKER) (test akad=4856) Present SCHISTOCYTES (BEAKER) (test dllp=464) 1+ few OVALOCYTES (BEAKER) (test vloq=747) 1+ few POLYCHROMATOPHILLIC RBCS(BEAKER) (test uwqo=060) 1+ few TEAR DROP CELLS (BEAKER) (test mtyi=428) 1+ few URIC [id number] 10:02:00 Test Item Value Reference Range Comments URIC ACID (BEAKER) (test mccq=121) 3.1 mg/dL 2.6-7.2 LACTATE DEHYDROGENASE (LDH)2017-07-10 10:02:00 Test Item Value Reference Range Comments LACTATE DEHYDROGENASE (BEAKER) (test sgvr=016) 300 U/L 125-220 [id number] 09:44:00 Test Item Value Reference Range Comments D-DIMER QUANTITATIVE (BEAKER) (test lbcl=415) 3.50 MG/L FEU <0.50 Intended Use: The D-Dimer Assay can be used to aid in the diagnosis of Deep Vein Thrombosis (DVT) and Pulmonary Embolism Disease (PED).In patients with low pre-test probability, various studies concerning STA Liatest D-dimer test have reported that with a cutoff value of 0.50 MG/L FEU, the Negative Predictive Value (NPV) regarding the exclusion of thrombosis is within 95-100% range.PT/ [id number] 09:43:00 Test Item Value Reference Range Comments PROTIME (BEAKER) (test gamu=391) 15.8 seconds 11.7-14.7 INR (BEAKER) (test cqva=626) 1.3 <=5.9 PARTIAL THROMBOPLASTIN TIME (BEAKER) (test 40.7 seconds 22.5-36.0 zaqk=701) RECOMMENDED COUMADIN/WARFARIN INR THERAPY RANGESSTANDARD DOSE: 2.0 - 3.0 Includes: PROPHYLAXIS forvenous thrombosis, systemic embolization; TREATMENT for venous thrombosis and/or pulmonary embolus.HIGH RISK: Target INR is 2.5-3.5 for patients with mechanical heart valves.[id number] 09:42:00 Test Item Value Reference Range Comments FIBRINOGEN LEVEL (BEAKER) (test ulca=756) 562 mg/dl 225-434 RETICULOCYTE [id number] 09:30:00 Test Item Value Reference Range Comments RETICULOCYTE COUNT PCT (BEAKER) (test rrxe=265) 0.6 % 0.5-1.8 BASIC METABOLIC [id number] 09:11:00 Test Item Value Reference Range Comments SODIUM (BEAKER) (test 136 meq/L 136-145 xbtu=720) POTASSIUM (BEAKER) (test 2.9 meq/L 3.5-5.1 pmch=573) CHLORIDE (BEAKER) (test 107 meq/L 98-107 tvtz=644) CO2 (BEAKER) (test 19 meq/L 22-29 frre=165) BLOOD UREA NITROGEN 10 mg/dL 7-21 (BEAKER) (test jenl=310) CREATININE (BEAKER) (test 0.68 mg/dL 0.57-1.25 bevx=881) GLUCOSE RANDOM (BEAKER) 116 mg/dL 70-105 (test xjmh=416) CALCIUM (BEAKER) (test 8.0 mg/dL 8.4-10.2 xihv=515) EGFR (BEAKER) (test mL/min/1.73 sq m INSUFFICIENT CLINICAL DATA yoya=5952) TO CALCULATE ESTIMATED GFR. [id number] 08:57:00 Test Item Value Reference Range Comments PHOSPHORUS (BEAKER) (test syqb=069) 2.3 mg/dL 2.3-4.7 [id number] 08:57:00 Test Item Value Reference Range Comments MAGNESIUM (BEAKER) (test kdro=200) 1.7 mg/dL 1.6-2.6 HEPATIC FUNCTION [id number] 08:57:00 Test Item Value Reference Range Comments TOTAL PROTEIN (BEAKER) (test ldao=004) 6.2 gm/dL 6.0-8.3 ALBUMIN (BEAKER) (test nbvg=0387) 2.5 g/dL 3.5-5.0 BILIRUBIN TOTAL (BEAKER) (test leon=504) 1.4 mg/dL 0.2-1.2 BILIRUBIN DIRECT (BEAKER) (test hjwg=611) 0.6 mg/dL 0.1-0.5 ALKALINE PHOSPHATASE (BEAKER) (test xcae=325) 46 U/L 40-150 AST (SGOT) (BEAKER) (test hhcy=376) 11 U/L 5-34 ALT (SGPT) (BEAKER) (test oylh=603) 9 U/L 6-55 URINALYSIS W/ [id number] 03:15:00 Test Item Value Reference Range Comments COLOR (BEAKER) (test mila=085) Yellow CLARITY (BEAKER) (test zcdx=119) Clear SPECIFIC GRAVITY UA (BEAKER) (test rlos=536) 1.011 1.001-1.035 PH UA (BEAKER) (test fzcm=356) 5.5 5.0-8.0 PROTEIN UA (BEAKER) (test fyzd=611) 30 mg/dL Negative GLUCOSE UA (BEAKER) (test totr=318) Negative Negative KETONES UA (BEAKER) (test euyp=580) Negative Negative BILIRUBIN UA (BEAKER) (test rtun=724) Negative Negative BLOOD UA (BEAKER) (test ieeh=459) Negative Negative NITRITE UA (BEAKER) (test kxcf=988) Negative Negative LEUKOCYTE ESTERASE UA (BEAKER) (test sdlw=262) Negative Negative UROBILINOGEN UA (BEAKER) (test tmrc=527) 0.2 mg/dL 0.2-1.0 RBC UA (BEAKER) (test zdnl=593) 0 /HPF WBC UA (BEAKER) (test yuis=668) 1 /HPF MUCUS (BEAKER) (test epre=7459) Rare SOURCE(BEAKER) (test wink=6115)
[2017-11-09 15:31] LABS: Absolute Lymphocytes (CBC) 0.6 K/uL (0.7-4.9); Absolute Monocytes 0.1 K/uL (0.1-1.3); Absolute Neutrophil 0.2 K/uL (1.8-8.0); Basophils % 0.2 % (0-1.3); Eosinophils % 0.3 % (0-4.4); MCV 93.4 fL (80-100); MPV 10.2 fL (7.6-11.3); Monocytes % 7.8 % (3.3-12.3); RBC Red Blood Cell Count 1.92 M/uL (4.33-5.43)
[2017-11-09 16:18] LABS: Platelet Estimate DECR; Urine White Blood Cell Casts OK
[2017-11-09 16:19] LABS: Blood Morphology Comment NOT SEEN (NOT SEEN)
[2017-11-09] MEDS ORDERED: HYDROCODONE/APAP 7.5/325 MG TAB ONE (16:34)
--- NOTE | 2017-11-09 19:18 | EDPHYS ---
Physician Documentation [facility] Name: Dani Combs Age: 66 yrs Sex: Male : 1950 Arrival Date: 11/09/2017 Time: 14:21 Bed 6 Private MD: ED Physician Adam Duron HPI: 11/09 15:30 This 66 yrs old Male presents to ER via Wheelchair with complaints of Abnormal kb Lab Results, Weakness. 15:32 Pt states "Dr De La Torre told me to come to get a blood transfusion.". Onset: The kb symptoms/episode began/occurred this morning. Severity of symptoms: At their worst the symptoms were moderate in the emergency department the symptoms are unchanged. The patient has experienced similar episodes in the past, multiple times. The patient has been recently seen by a physician:. Historical: - Allergies: 14:30 NKA; hb - Home Meds: 14:30 [place] 7.5-325 mg Oral tab [Active]; hb - PMHx: 14:30 Anemia; Hypertension; Leukemia; Myocardial infarction; hb - Immunization history:: Adult Immunizations up to date. - Social history:: Smoking status: Patient/guardian denies using tobacco. ROS: 15:30 Constitutional: Negative for fever, chills, and weight loss, Cardiovascular: Negative kb for chest pain, palpitations, and edema, Respiratory: Negative for shortness of breath, cough, wheezing, and pleuritic chest pain, Abdomen/GI: Negative for abdominal pain, nausea, vomiting, diarrhea, and constipation, MS/Extremity: Negative for injury and deformity, Skin: Negative for injury, rash, and discoloration, Neuro: Negative for headache, weakness, numbness, tingling, and seizure. Exam: 15:30 Head/Face: Normocephalic, atraumatic. Chest/axilla: Normal chest wall appearance and kb motion. Nontender with no deformity. No lesions are appreciated. Cardiovascular: Regular rate and rhythm with a normal S1 and S2. No gallops, murmurs, or rubs. Normal PMI, no JVD. No pulse deficits. Respiratory: Lungs have equal breath sounds bilaterally, clear to auscultation and percussion. No rales, rhonchi or wheezes noted. No increased work of breathing, no retractions or nasal flaring. Abdomen/GI: Soft, non-tender, with normal bowel sounds. No distension or tympany. No guarding or rebound. No evidence of tenderness throughout. Skin: Warm, dry with normal turgor. Normal color with no rashes, no lesions, and no evidence of cellulitis. MS/ Extremity: Pulses equal, no cyanosis. Neurovascular intact. Full, normal range of motion. Neuro: Awake and alert, GCS 15, oriented to person, place, time, and situation. Cranial nerves II-XII grossly intact. Motor strength 5/5 in all extremities. Sensory grossly intact. Cerebellar exam normal. Normal gait. 15:30 Constitutional: The patient appears alert, awake, pale. Vital Signs: 14:29 BP 103 / 56; Pulse 112; Resp 16; Temp 98; Pulse Ox 97% on R/A; Pain 10/10; hb 16:00 BP 109 / 68; Pulse 95; Resp 16; Pulse Ox 98% on R/A; ph 17:10 BP 111 / 63; Pulse 92; Resp 18; Pulse Ox 99% on R/A; aj 18:00 BP 107 / 64; Pulse 96; Resp 20; Pulse Ox 98% on R/A; ph MDM: 14:38 Patient medically screened. kb 15:25 Data reviewed: vital signs, nurses notes. Data interpreted: Pulse oximetry: on room air kb is 97 %. Interpretation: normal. ED course: Pt states he is here to get a blood transfusion and go home. States he has done this in the past. 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 They asked if he could come to this [facility] to get the transfusions when needed so they didn't have to make the extra trip to [place] and they told them that was ok. Got a call from Dr De La Torre today and told to come have a transfusion because his hgb was low again. . 16:42 ED course: Discussed plan of care with pt. Pt is in agreement. States he just came for kb the transfusion, does not want to stay in the hospital. . ED course: Spoke with Dr De La Torre regarding pt's condition, lab results and recommendation. Dr De La Torre requests that we transfuse PRBCs and PLTs then discharge home to follow up with him for his scheduled chemo. States "if he was at my facility I would transfuse him and send him home as well." . 16:56 Counseling: I had a detailed discussion with the patient and/or guardian regarding: the kb historical points, exam findings, and any diagnostic results supporting the discharge/admit diagnosis, lab results, the need for outpatient follow up, Britt, to return to the emergency department if symptoms worsen or persist or if there are any questions or concerns that arise at home. 18:00 Awaiting: blood transfusion. Refusal of service: The patient/guardian displays adequate snw decision making capability and despite a detailed discussion of alternatives, benefits, risks, and consequences refuses: blood, remaining in this ED. Special discussion: Based on the history and exam findings, there is no indication for further emergent testing or inpatient evaluation. I discussed with the patient/guardian the need to see the primary care provider for further evaluation of the symptoms. 11/09 14:45 Order name: CBC with Diff kb 11/09 14:45 Order name: Type And Screen kb 11/09 15:48 Order name: CBC with Automated Diff; Complete Time: 16:28 EDMS 11/09 16:07 Order name: Type and Screen EDMS 11/09 16:09 Order name: EKG; Complete Time: 16:10 kb 11/09 16:09 Order name: Cardiac monitoring; Complete Time: 19:00 kb 11/09 16:09 Order name: EKG - Nurse/Tech; Complete Time: 18:59 kb 11/09 16:09 Order name: IV Saline Lock; Complete Time: 17:06 kb 11/09 16:09 Order name: Labs collected and sent; Complete Time: 17:06 kb 11/09 16:09 Order name: O2 Per Protocol; Complete Time: 17:06 kb 11/09 16:09 Order name: O2 Sat Monitoring; Complete Time: 17:06 kb 11/09 16:19 Order name: CBC Smear Scan; Complete Time: 16:28 EDMS 11/09 16:23 Order name: Bb Add On bd 11/09 17:03 Order name: Bb Add On bd 11/09 17:41 Order name: Blood Culture EDMS Administered Medications: 16:19 Drug: Hilger (7.5 mg-325 mg) 1 tabs Route: PO; ss 19:03 Follow up: Response: No adverse reaction ph 19:25 Not Given (Patient Refused): Tylenol 650 mg PO once ph Disposition: 11/09/17 19:17 Patient has left against medical advice. Impression: Anemia in neoplastic disease. - Patients states they are going to Home. - Condition is Fair. - Discharge Instructions: Anemia, Nonspecific. Follow up: Private Physician; When: Upon discharge from the Emergency Department; Reason: Recheck today's complaints, Continuance of care, Re-evaluation by your physician. - Problem is an acute exacerbation. - Symptoms are unchanged. Addendum: 11/11/2017 07:57 Co-signature as Attending Physician, Adam Duron MD I agree with the assessment and c crawford plan of care. Signatures: Dispatcher [employer] EDMS Magaly Mccain, FACE WORKER-C FACE WORKER-Adam Varela MD MD cha Therrien, Shelly, FACE WORKER-C FACE WORKER-Collinw Anu Lewis RN RN ss Angella Gilmore RN RN Betty Gudino RN ph Corrections: (The following items were deleted from the chart) 11/09 16:57 16:42 ED course: Spoke with Dr De La Torre regarding pt's condition, lab results and kb recommendation. Dr De La Torre requests that we transfuse PRBCs and PLTs then discharge home to follow up with him. States "if he was at my facility I would transfuse him and send him home as well." . kb
--- NOTE | 2017-11-09 19:18 | ER ---
Nurse's Notes [facility] Name: Dani Combs Age: 66 yrs Sex: Male : 1950 Arrival Date: 11/09/2017 Time: 14:21 Bed 6 Private MD: Diagnosis: Anemia in neoplastic disease Presentation: 11/09 14:28 Presenting complaint: Patient states: Sent by Dr. De La Torre for HGB 6.8, HCT 20.9. hb Transition of care: patient was not received from another setting of care. 14:28 Method Of Arrival: Wheelchair hb 14:28 Onset of symptoms is unknown. hb 14:28 Care prior to arrival: None. hb 14:28 Acuity: RAEGAN 2 hb Historical: - Allergies: 14:30 NKA; hb - Home Meds: 14:30 [place] 7.5-325 mg Oral tab [Active]; hb - PMHx: 14:30 Anemia; Hypertension; Leukemia; Myocardial infarction; hb - Immunization history:: Adult Immunizations up to date. - Social history:: Smoking status: Patient/guardian denies using tobacco. Screenin:22 Abuse screen: Denies threats or abuse. Denies injuries from another. Nutritional ph screening: No deficits noted. Tuberculosis screening: No symptoms or risk factors identified. Fall Risk No fall in past 12 months (0 pts). No secondary diagnosis (0 pts). IV access (20 points). Ambulatory Aid- None/Bed Rest/Nurse Assist (0 pts). Gait- Weak (10 pts.). Mental Status- Oriented to own ability (0 pts). Total Mccarthy Fall Scale indicates Low Risk Score (25-44 pts). Fall prevention measures have been instituted. Side Rails Up X 2 Frequent Obs/Assesments occuring Family Present and informed to notify staff if they need to leave bedside As available Patient and Family Educated on Fall Prevention Program and strategies. Assessment: 14:45 General: Appears in no apparent distress. uncomfortable, slender, Behavior is calm, ph cooperative, appropriate for age, Reports fatigue for >3 days, Denies fever. Pain: Complains of pain in abdomen. Neuro: Level of Consciousness is awake, alert, obeys commands, Oriented to person, place, time, situation, Reports dizziness, general weakness. Cardiovascular: Reports fatigue, lightheadedness, shortness of breath, Denies chest pain, nausea, syncope, vomiting, Capillary refill is sluggish in bilateral fingers Patient's skin is warm and dry. Respiratory: Reports shortness of breath at rest Airway is patent Respiratory effort is even, unlabored, Respiratory pattern is regular, symmetrical. GI: No signs and/or symptoms were reported involving the gastrointestinal system. : No signs and/or symptoms were reported regarding the genitourinary system. Derm: Skin is intact, Skin is dry, Skin is pale, Skin temperature is warm. Musculoskeletal: Circulation, motion, and sensation intact. Range of motion: intact in all extremities. 16:00 Reassessment: Patient appears in no apparent distress at this time. Patient and/or ph family updated on plan of care and expected duration. Pain level reassessed. Patient is alert, oriented x 3, equal unlabored respirations, skin warm/dry/pink. Pt requesting pain medication for abdominal pain r/t hernia, ERP notified, see MAR. 17:28 Reassessment: Patient appears in no apparent distress at this time. Patient and/or ph family updated on plan of care and expected duration. Pain level reassessed. Patient is alert, oriented x 3, equal unlabored respirations, skin warm/dry/pink. Pt resting quietly, awaiting blood and platelets from lab for transfusion, family at bedside. 19:00 Reassessment: Had detailed discussion with patient and family about risks of leaving ss AMA. Pt and family member verbalize understanding of potential risks involved, but still insist that they go to [place] to receive blood transfusion. AMA form signed. Vital Signs: 14:29 BP 103 / 56; Pulse 112; Resp 16; Temp 98; Pulse Ox 97% on R/A; Pain 10/10; hb 16:00 BP 109 / 68; Pulse 95; Resp 16; Pulse Ox 98% on R/A; ph 17:10 BP 111 / 63; Pulse 92; Resp 18; Pulse Ox 99% on R/A; aj 18:00 BP 107 / 64; Pulse 96; Resp 20; Pulse Ox 98% on R/A; ph ED Course: 14:21 Patient arrived in ED. as 14:29 Arm band placed on right wrist. hb 14:36 Triage completed. hb 14:37 Magaly Mccain FNP-C is PHCP. kb 14:37 Adam Duron MD is Attending Physician. kb 15:01 Inserted saline lock: 22 gauge in right forearm, using aseptic technique. Blood ss collected. 17:05 Betty Guidno, RN is Primary Nurse. ph 17:23 Patient has correct armband on for positive identification. Bed in low position. Call ph light in reach. Side rails up X 1. Pulse ox on. NIBP on. Warm blanket given. Pillow given. 17:54 PHCP role handed off by Magaly Mccain FNP-C kb 17:54 Irena Jackson FNP-C is PHCP. kb 19:10 No provider procedures requiring assistance completed. IV discontinued, intact, ss bleeding controlled, No redness/swelling at site. Pressure dressing applied. Administered Medications: 16:19 Drug: [place] (7.5 mg-325 mg) 1 tabs Route: PO; ss 19:03 Follow up: Response: No adverse reaction ph 19:25 Not Given (Patient Refused): Tylenol 650 mg PO once ph Outcome: 19:10 AMA AMA form signed ss 19:10 Condition: good 19:10 Discharge instructions given to patient, family, Instructed on follow up and referral plans. Demonstrated understanding of follow-up care. 19:25 Patient left the ED. ss Signatures: Magaly Mccain FNP-C FNP-Ckb Myers, Amanda, RN RN aj Martinez, Amelia as Smirch, Shelby, RN RN Betty Gudino RN RN ph Baxter, Heather, RN RN hb Corrections: (The following items were deleted from the chart) 14:37 14:28 Acuity: RAEGAN 3 hb hb 16:47 16:46 Reassessment: SPENCER Funes updating pt's mother and father on plan of care. Pt ss in CT at this time. ss
[2017-11-09 19:32] VITALS: TEMP 98
[2017-11-09 19:35] VITALS: BP 111/63; O2SAT 99
== END 2017-11-09 19:25 | disposition left against medical advice (07) ==
LOC: ER 14:18
DX: D61.1 Drug-induced aplastic anemia (principal); D63.8 Anemia in other chronic diseases classified elsewhere; C95.90 Leukemia, unspecified not having achieved remission; I10 Essential (primary) hypertension; I25.2 Old myocardial infarction
CPT/HCPCS: 36415; 85025; 86850; 86900; 86901; 99284

== ENCOUNTER 2017-12-16 15:25 | Emergency (ER) | payer OTHER ==
--- OUTSIDE RECORDS SUMMARY | 2017-12-16 15:28 | XMS REPORT | Clinical Summary ---
:1950 Author Organization [facility] Address [address] [place] [address] Phone Care Team Providers Name Role Phone Unavailable Primary Care Provider Unavailable Allergies No Known Allergies Current Medications Prescription Sig. Disp. Refills Start Date End Date Status pantoprazole Take 40 mg by Active (PROTONIX) 40 MG mouth daily. tablet magnesium oxide Take 400 mg Active (MAG-OX) 400 mg by mouth tablet daily. polyethylene glycol Take 17 g by 510 g 0 11/16/2017 12/16/2017 Active (GLYCOLAX) 17 mouth daily gram/dose powder for 30 days. HYDROcodone-acetami Take 1 tablet 0 09/23/2017 Active nophen (NORCO by mouth 3 7.5-325) 7.5-325 mg (three) times per tablet daily as needed FOR PAIN. albuterol HFA Inhale 1 puff Active (VENTOLIN HFA) 90 by mouth via mcg/actuation inhaler every inhaler 6 (six) hours as needed for Wheezing. losartan (COZAAR) Take 50 mg by 08/02/2017 Discontinued 50 MG tablet mouth daily. prednisoLONE Place 1 drop 07/24/2017 Discontinued acetate (PRED MILD) into the left 0.12 % ophthalmic eye 4 (four) suspension times daily. docusate sodium Take 1 10 capsule 0 07/24/2017 08/02/2017 Discontinued (COLACE) 100 MG capsule (100 capsule mg total) by mouth nightly for 10 days. magnesium oxide Take 1 tablet 10 tablet 0 07/25/2017 08/04/2017 (MAG-OX) 400 mg (400 mg tablet total) by mouth daily for 10 days. dorzolamide-timolol Place 1 drop 10 mL 0 07/24/2017 07/31/2017 (COSOPT) 22.3-6.8 into the left mg/mL ophthalmic eye 2 (two) solution times daily for [address] 1 drop 1 mL 0 07/24/2017 07/31/2017 (XALATAN) 0.005 % into the left ophthalmic solution eye nightly for 7 days. Magic Mouthwash (NO Swish and 200 mL 0 07/24/2017 08/03/2017 steroid) oral spit 10 mLs suspension every 6 (six) hours as needed for up to 10 days. valACYclovir Take 1 tablet 28 tablet 0 07/24/2017 08/07/2017 (VALTREX) 500 MG (500 mg tablet total) by mouth every 12 (twelve) hours for 14 days. levoFLOXacin Take 1 tablet 10 tablet 0 07/25/2017 08/04/2017 (LEVAQUIN) 250 MG (250 mg tablet total) by mouth daily for 10 days. phytonadione, Take 1 tablet 5 tablet 0 07/24/2017 07/24/2017 vitamin K1, (5 mg total) (MEPHYTON) 5 mg by mouth once tablet for 1 dose. pantoprazole Take 1 tablet 14 tablet 0 07/24/2017 08/07/2017 (PROTONIX) 40 MG (40 mg total) tablet by mouth daily for 14 days. valACYclovir Take 500 mg 11/23/2017 Discontinued (VALTREX) 500 MG by mouth. tablet dorzolamide-timolol 1 drop 2 11/29/2017 Discontinued (COSOPT) 22.3-6.8 (two) times mg/mL ophthalmic daily. solution latanoprost 1 drop 11/29/2017 Discontinued (XALATAN) 0.005 % nightly. ophthalmic solution levoFLOXacin Take 250 mg 08/17/2017 Discontinued (LEVAQUIN) 250 MG by mouth tablet daily. LIDOCAINE HCL Take 10 mLs 11/29/2017 Discontinued (MAGIC MOUTHWASH by mouth W/NYSTATIN, WITHOUT every 6 (six) STEROID & hours as BENADRYL,) needed. suspension PHYTONADIONE, VIT Place under 08/17/2017 Discontinued K1, (PHYTONADIONE, the tongue. VITAMIN K1,) 500 mcg Subl acetaminophen Take 2 30 tablet 0 08/17/2017 08/27/2017 (TYLENOL) 325 MG tablets (650 tablet mg total) by mouth every 6 (six) hours as needed for Pain for up to 10 days. ciprofloxacin HCl Take 1 tablet 20 tablet 0 08/17/2017 08/27/2017 (CIPRO) 500 MG (500 mg tablet total) by mouth 2 (two) times daily for 10 days. metroNIDAZOLE Take 1 tablet 30 tablet 0 08/17/2017 08/27/2017 (FLAGYL) 500 MG (500 mg tablet total) by mouth every 8 (eight) hours for 10 days. amoxicillin-clavula Take 1 tablet 10 tablet 0 11/16/2017 11/23/2017 Discontinued sanchez (AUGMENTIN) by mouth 2 875-125 mg per (two) times tablet daily for 5 days. levoFLOXacin Take 1 tablet 10 tablet 0 11/22/2017 11/23/2017 Discontinued (LEVAQUIN) 250 MG (250 mg tablet total) by mouth daily for 10 days. albuterol-ipratropi Inhale 2 1 Inhaler 1 11/16/2017 11/30/2017 um (COMBIVENT puffs by RESPIMAT) 20-100 mouth via mcg/actuation Mist inhaler 4 inhaler (four) times daily for 14 days. levoFLOXacin Take 1 tablet 14 tablet 0 11/23/2017 12/06/2017 Discontinued (LEVAQUIN) 250 MG (250 mg tablet total) by mouth daily for 14 days. valACYclovir Take 1 tablet 30 tablet 0 11/23/2017 12/06/2017 Discontinued (VALTREX) 500 MG (500 mg tablet total) by mouth daily. Hospital, Clinic, or Ordered Dose Route Frequency Start Date End Date Status Other Facility Administered Medication acetaminophen 650 MG Oral Once 12/12/2017 12/12/2017 Ended (TYLENOL) tablet 650 mg diphenhydrAMINE 25 MG Oral Once 12/12/2017 12/12/2017 Discontinued (BENADRYL) capsule 25 mg diphenhydrAMINE 25 MG IV Once 12/12/2017 12/12/2017 Ended (BENADRYL) injection 25 mg diphenhydrAMINE 25 MG IV Once 12/13/2017 12/13/2017 Ended (BENADRYL) injection 25 mg acetaminophen 650 MG Oral Once 12/13/2017 12/13/2017 Ended (TYLENOL) tablet 650 mg Active Problems Problem Noted Date Tachycardia 12/08/2017 Sinus tachycardia 12/06/2017 Gingival bleeding 11/29/2017 MDS (myelodysplastic syndrome), high grade (HCC) 11/29/2017 Hyponatremia 11/22/2017 Hypokalemia 11/22/2017 Thrombocytopenia (HCC) 11/05/2017 Physical deconditioning 11/05/2017 CAD (coronary artery disease) 11/05/2017 Pancytopenia ([facility]LY [facility]) 08/23/2017 Overview: Pancytopenia probably due to history of MDS 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 2016 ([facility]) Neutropenic fever ([facility]) 07/11/2017 Diverticulitis 07/11/2017 GIB (gastrointestinal bleeding) 07/11/2017 Sepsis ([facility]) 07/11/2017 Pancytopenia ([facility]) 07/10/2017 Myelodysplastic syndrome ([facility]) 06/19/2017 Resolved Problems Problem Noted Date Resolved Date 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 07/10/2017 Encounters Date Type Specialty Care Team Description 12/13/2017 Procedure visit Oncology Luis Alberto De La Torre Symptomatic anemia MD Baljinder (Primary Dx) Pura Rueda RN 12/12/2017 Procedure visit Oncology Luis Alberto De La Torre MDS (myelodysplastic MD Baljinder syndrome), high grade Florencio De Anda ([facility]) (Primary Dx) RN 12/06/2017 - Hospital Oncology Meir Hernandez Pancytopenia ([facility]) 12/08/2017 Encounter MD Art (Primary Sterling Noel Dx);Mayelin Kaur MD ([facility]);Physical Gadicherla, deconditioning;Hyponatrem Sommer ia;MDS (myelodysplastic MD Chacorta syndrome), high grade ([facility]);Sinus tachycardia 11/29/2017 - Hospital Cardiology Pallavi Cheung Gingival bleeding 11/30/2017 Encounter MD Art (Primary Gavin, Be Dx);Thrombocytopenia MD Ashwin ([facility]);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 ([facility]);MDS (myelodysplastic syndrome) ([facility]);Myelodysplastic syndrome ([facility]);Pancytopenia ([facility]);Coronary artery disease involving saxman coronary artery of saxman heart without angina pectoris;Physical deconditioning 11/22/2017 - Emergency Oncology Daniel Yo Thrombocytopenia ([facility]) 11/23/2017 MD Antwon (Primary Dx);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, having achieved Kathleen Clinton MD remission, unspecified leukemia type (HCC);Hypokalemia;Anemia, unspecified type;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 (HCC);Coronary artery disease involving saxman coronary artery of saxman heart without angina pectoris;Hyponatremia;Mye lodysplastic syndrome (HCC);Pancytopenia (HCC);Chemotherapy-induce d neutropenia (HCC) 11/11/2017 - Hospital Cardiology Reynolds, Pancytopenia (HCC) 11/16/2017 Encounter Josafat Meyer MD (Primary [facility], Dx);Myelodysplastic MD syndrome (HCC);Coronary Ming, [place] artery disease involving MD Ada saxman coronary artery of saxman heart without angina pectoris;Neutropenic fever (HCC);Thrombocytopenia (HCC);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 (HCC);Febrile neutropenia (HCC);Fatigue, unspecified type;Physical deconditioning 11/11/2017 Orders Only General Internal Medicine 11/05/2017 Emergency Emergency Daniel Yo Thrombocytopenia (HCC) Medicine MD Antwon (Primary Celena, Dx);Myelodysplastic [place], syndrome (HCC);MD Martina unspecified type;Weakness 08/13/2017 - Hospital Oncology Tania Ontiveros Anemia assoc with 08/17/2017 Encounter MD Sara myeloproliferative Gavin, Be disorder txd with MD Ashwin erythropoietin ([facility]) (Primary Dx);Immunosuppressed status (HCC);Left lower quadrant pain;Coronary artery disease involving saxman coronary artery of saxman heart without angina pectoris;History of pancytopenia;Weakness;H/O visual disturbance;MDS (myelodysplastic syndrome) (HCC);Clostridium enterocolitis 08/01/2017 - Hospital Oncology Luis Alberto De La Torre 08/02/2017 Encounter MD Baljinder 08/01/2017 Orders Only Oncology Luis Alberto De La Torre MD 07/10/2017 Outside Orders Lab Robbi Zepeda 07/09/2017 - [facility] Oncology [facility], Acute leukemia not having 07/24/2017 Encounter achieved remission Shiekh ([facility]);Diverticulitis of Deysi Nathaly intestine without MD Kim perforation or abscess Tacho, Marcelino, without bleedingMD unspecified part of [place], intestinal tract;Anemia, MD Isidoro unspecified [place], type;Pancytopenia MD Vi ([facility]);Neutropenic fever ([facility]);Generalized abdominal pain;MDS (myelodysplastic syndrome) ([facility]) after 12/15/2016 Immunizations Name Dates Previously Given Next Due Influenza Three-TIV PF 5+ YR 07/14/2017 Pneumococcal Polysaccharide (Pneumovax) 07/14/2017 Social History Tobacco Use Types Packs/Day Years Used Date Never Smoker Smokeless Tobacco: Never Used Alcohol Use Drinks/Week oz/Week Comments No Sex Assigned at Date Recorded Not on file Last Filed Vital Signs Vital Sign Reading Time Taken Blood Pressure 122/64 12/13/2017 3:02 PM CDT Pulse 113 12/13/2017 3:02 PM CDT Temperature 36.6 C (97.9 F) 12/13/2017 3:02 PM CDT Respiratory Rate 18 12/13/2017 3:02 PM CDT Oxygen Saturation 100% 12/13/2017 3:02 PM CDT Inhaled Oxygen Concentration - - Weight 67.6 kg (149 lb) 12/06/2017 11:20 AM CDT Height 175.3 cm (5' 9") 12/06/2017 11:18 AM CDT Body Mass Index 22 12/06/2017 11:20 AM CDT Plan of Treatment Health Maintenance Due Date Last Done Comments INFLUENZA VACCINE 05/19/2018 07/14/2017 Procedures Procedure Name Priority Date/Time Associated Diagnosis Comments CRITICAL CARE Routine 11/27/2017 12:47 AM Results for this CDT procedure are in the results section. after 12/15/2016 Results TRANSFUSION SERVICE REPORT - SCAN (12/15/2017 5:41 PM)Only the most recent of30 resultswithin the time period is included.Prepare Leuko-Red RBC (2017 11:54 PM)Only the most recent of4 resultswithin the time period is included. Component Value Ref Range CROSSMATCH COMPATIBLE Unit ABO A Pos UNIT NUMBER [id number] Status TRANSFUSED Blood Bank Product RED BLOOD CELLS PRODUCT CODE [id number] Specimen Performing Laboratory Blood [place] Prepare Leuko-Red PLT (12/13/2017 11:54 PM)Only the most recent of6 resultswithin the time period is included. Component Value Ref Range Unit ABO A Pos UNIT NUMBER [id number] Status TRANSFUSED Blood Bank Product PLATELETS PRODUCT CODE E8721I52 Unit ABO A Pos UNIT NUMBER [id number] Status TRANSFUSED Blood Bank Product PLATELETS PRODUCT CODE [id number] Specimen Performing Laboratory Blood [place] Manual Differential (12/12/2017 5:29 PM)Only the most recent of4 resultswithin the time period is included. Component Value Ref Range % Neutros 12 % % Lymphs 70 % % Monos 10 % % Bands 1 0 - 10 % % Blasts 5 (H) 0 - 0 % # Neutros 0.14 (L) 1.78 - 5.38 K/ul # Lymphs 0.84 (L) 1.32 - 3.57 K/ul # Monos 0.12 (L) 0.30 - 0.82 K/uL # Bands 0.01 0.00 - 0.80 K/uL # Blasts 0.06 (H) 0.00 - 0.00 K/uL Total Counted 100 Smudge Cells Present Giant Platelet Present Plasmacytoid Lymphs Present Anisocytosis 1+ few Macrocytes 1+ few Poikilocytes 1+ few Elliptocytes 1+ few Artifact Present Platelet Conc Decreased Specimen [place] [address] Narrative Received comment: User comments: Slide comments: CBC with platelet count + automated diff (12/12/2017 5:29 PM)Only the most recent of37 resultswithin the time period is included. Component Value Ref Range WBC 1.2 (L) 3.5 - 10.5 K/L RBC 2.73 (L) 4.63 - 6.08 M/L Hemoglobin 8.1 (L) 13.7 - 17.5 GM/DL Hematocrit 23.6 (L) 40.1 - 51.0 % MCV 86.4 79.0 - 92.2 fL MCH 29.7 25.7 - 32.2 pg MCHC 34.3 32.3 - 36.5 GM/DL RDW 13.8 11.6 - 14.4 % Platelets 76 (L) 150 - 450 K/CU MM MPV 10.8 9.4 - 12.4 fL nRBC 0 0 - 0 /100 WBC Specimen Performing Laboratory Blood [place] [id number] CBC with platelet count + automated diff (12/12/2017 5:29 PM)Only the most recent of37 resultswithin the time period is included. Specimen Performing Laboratory Blood Narrative The following orders were created for panel order CBC with platelet count + automated diff. Procedure Abnormality Status --------- ------ CBC with platelet count ...[[id number]]AbnormalFinal result Please view results for these tests on the individual orders. Type and screen, automated (For the [facility] Lab Only) (12/12/2017 1:15 PM)Only the most recent of11 resultswithin the time period is included. Component Value Ref Range ABO/RH AUTOMATED (BEAKER) A POSITIVE Ab Scrn NEGATIVE Specimen Performing Laboratory Blood [facility] [address] [address] Prepare Leuko-Red & Irrad RBC (12/08/2017 11:54 PM)Only the most recent of9 resultswithin the time period is included. Component Value Ref Range CROSSMATCH COMPATIBLE Unit ABO A Pos UNIT NUMBER [id number] Status TRANSFUSED Blood Bank Product RED BLOOD CELLS PRODUCT CODE [id number] Specimen Performing Laboratory Other [place] Prepare Leuko-Red & Irrad PLT (12/07/2017 11:55 PM)Only the most recent of6 resultswithin the time period is included. Component Value Ref Range Unit ABO A Pos UNIT NUMBER [id number] Status TRANSFUSED Blood Bank Product PLATELETS PRODUCT CODE [id number] Specimen Performing Laboratory Blood [place] Transfuse Leuko-Red & Irrad RBC (12/07/2017 8:19 PM)Only the most recent of19 resultswithin the time period is included.Manual Differential (12/07/2017 4:33 AM)Only the most recent of33 resultswithin the time period is included. Component Value Ref Range % Neutros (manual) 8 % % Lymphs (manual) 81 % % Monos (manual) 3 % % Bands (manual) 2 0 - 10 % % Blasts (manual) 6 (H) 0 - 0 % # Neutros (manual) 0.04 (L) 1.80 - 8.00 K/L # Lymphs (manual) 0.41 (L) 1.48 - 4.50 K/L # Monos (manual) 0.02 0.00 - 1.30 K/L # Bands (manual) 0.0 0.0 - 0.8 K/L # Blasts (manual) 0.03 (H) 0.00 - 0.00 K/L Total Counted 100 Bands plus Segmented Neutrophils 0.05 WBC Morphology Normal Platelet Morphology Normal Anisocytosis 1+ few Hypochromia 2+ moderate Poikilocytes 1+ few Specimen Performing Laboratory Blood - Arm, [address] [address] PT/aPTT (12/07/2017 4:33 AM)Only the most recent of9 resultswithin the time period is included. Component Value Ref Range Protime 15.9 (H) 11.7 - 14.7 seconds INR 1.3 <=5.9 PTT 44.6 (H) 22.5 - 36.0 seconds Specimen Performing Laboratory Blood - Arm, [address] [address] Narrative RECOMMENDED COUMADIN/WARFARIN INR THERAPY RANGES STANDARD DOSE: 2.0 - 3.0 Includes: PROPHYLAXIS for venous thrombosis, systemic embolization; TREATMENT for venous thrombosis and/or pulmonary embolus. HIGH RISK: Target INR is 2.5-3.5 for patients with mechanical heart valves. Lactic acid, venous, whole blood (12/07/2017 4:33 AM)Only the most recent of2 resultswithin the time period is included. Component Value Ref Range Lactate, Venous 1.0 0.5 - 2.2 mmol/L Specimen Performing Laboratory Blood - Arm, [address] [address] Narrative Effective 12/21/2015: Units/Reference Range Change New: 0.5-2.2 mmol/LPrevious: 5-20 mg/dL Fibrinogen (12/07/2017 4:33 AM)Only the most recent of2 resultswithin the time period is included. Component Value Ref Range Fibrinogen 679 (H) 225 - 434 mg/dl Specimen Performing Laboratory Blood - Arm, [address] [address] D-dimer (12/07/2017 4:33 AM)Only the most recent of2 resultswithin the time period is included. Component Value Ref Range D-Dimer, Quant 1.18 (H) <0.50 MG/L FEU Specimen Performing Laboratory Blood - Arm, [address] [address] Narrative Intended Use: The D-Dimer Assay can be used to aid in the diagnosis of Deep Vein Thrombosis (DVT) and Pulmonary Embolism Disease (PED). In patients with low pre-test probability, various studies concerning STA Liatest D-dimer test have reported that with a cutoff value of 0.50 MG/L FEU, the Negative Predictive Value (NPV) regarding the exclusion of thrombosis is within 95-100% range. Magnesium (12/07/2017 4:33 AM)Only the most recent of20 resultswithin the time period is included. Component Value Ref Range Magnesium 1.5 (L) 1.6 - 2.6 mg/dL Specimen Performing Laboratory Blood - Arm, [address] [address] Hepatic function panel (12/07/2017 4:33 AM)Only the most recent of6 resultswithin the time period is included. Component Value Ref Range Protein, Total 6.3 6.0 - 8.3 gm/dL Albumin 2.3 (L) 3.5 - 5.0 g/dL Total Bilirubin 2.5 (H) 0.2 - 1.2 mg/dL Bilirubin, Direct 1.6 (H) 0.1 - 0.5 mg/dL Alkaline Phosphatase 148 40 - 150 U/L AST 21 5 - 34 U/L ALT 12 6 - 55 U/L Specimen Performing Laboratory Blood - Arm, [address] [address] Narrative Specimen slightly icteric Comprehensive metabolic panel (12/07/2017 4:33 AM)Only the most recent of15 resultswithin the time period is included. Component Value Ref Range Protein, Total 6.3 6.0 - 8.3 gm/dL Albumin 2.3 (L) 3.5 - 5.0 g/dL Alkaline Phosphatase 149 40 - 150 U/L Total Bilirubin 2.5 (H) 0.2 - 1.2 mg/dL Sodium 127 (L) 136 - 145 meq/L Potassium 3.5 3.5 - 5.1 meq/L Chloride 93 (L) 98 - 107 meq/L CO2 26 22 - 29 meq/L BUN 11 7 - 21 mg/dL Creatinine 0.58 0.57 - 1.25 mg/dL Glucose 105 70 - 105 mg/dL Calcium 8.6 8.4 - 10.2 mg/dL AST 21 5 - 34 U/L ALT 12 6 - 55 U/L EGFR 141Comment: ESTIMATED GFR IS NOT ACCURATE mL/min/1.73 sq m CREATININE CLEARANCE IN PREDICTING GLOMERULAR FILTRATION RATE. ESTIMATED GFR IS NOT APPLICABLE FOR DIALYSIS PATIENTS. Specimen Performing Laboratory Blood - Arm, Left [address] [address] Narrative Specimen slightly icteric Transfuse Leuko-Red & Irrad PLT (12/06/2017 5:46 PM)Only the most recent of13 resultswithin the time period is included.POC-Glucose meter (12/06/2017 11: 59 AM)Only the most recent of3 resultswithin the time period is included. Component Value Ref Range POC-Glucose Meter 94Comment: TESTED AT [address] 70 - 110 mg/dL [id number] Specimen Performing Laboratory Blood [address] [address] POC-Lactic Acid, Venous (12/06/2017 11:56 AM)Only the most recent of3 resultswithin the time period is included. Component Value Ref Range POC-Lactic Acid, Venous 1.2Comment: TESTED AT [address] 0.9 - 1.7 mmol/L [facility] [address] Specimen Performing Laboratory Blood [address] [address] Prepare PLT (11/30/2017 11:54 PM) Component Value Ref Range Unit ABO B Pos UNIT NUMBER [id number] Status TRANSFUSED Blood Bank Product PLATELETS PRODUCT CODE [id number] Specimen Performing Laboratory [facility] Basic metabolic panel (11/30/2017 5:43 AM)Only the most recent of17 resultswithin the time period is included. Component Value Ref Range Sodium 133 (L) 136 - 145 meq/L Potassium 4.2 3.5 - 5.1 meq/L Chloride 101 98 - 107 meq/L CO2 24 22 - 29 meq/L BUN 7 7 - 21 mg/dL Creatinine 0.61 0.57 - 1.25 mg/dL Glucose 108 (H) 70 - 105 mg/dL Calcium 8.6 8.4 - 10.2 mg/dL EGFR 133Comment: ESTIMATED GFR IS NOT ACCURATE mL/min/1.73 sq m CREATININE CLEARANCE IN PREDICTING GLOMERULAR FILTRATION RATE. ESTIMATED GFR IS NOT APPLICABLE FOR DIALYSIS PATIENTS. Specimen Performing Laboratory Blood [address] [address] Transfuse Leuko-Red PLT (11/29/2017 6:08 PM)Only the most recent of9 resultswithin the time period is included.ED ECG Interpretation (11/29/2017 4: 27 PM) Narrative Pallavi Cheung MD 11/29/20174:27 PM ECG/EKG Interpretation Date/Time: 11/29/2017 10:19 AM Performed by: PALLAVI CHEUNG Authorized by: PALLAVI CHEUNG The ECG was interpreted by ED physician. This ECG was compared with previous ECG(s).The ECG is interpreted as sinus tachycardia. Rate is tachycardic. Heart rate is 105 BPM. Clarence is normal. Clinical Impression: non-specific ECGECG reviewed and does not meet STEMI criteria. Patient tolerance: Patient tolerated the procedure well with no immediate complications Urine culture (11/29/2017 10:10 AM)Only the most recent of2 resultswithin the time period is included. Component Value Ref Range Result No growth Specimen Performing Laboratory Urine - Urine, Unspecified Source [address] [address] ECG 12 lead (11/29/2017 10:08 AM)Only the most recent of2 resultswithin the time period is included. Specimen Performing Laboratory GE MUSE Narrative Ventricular Rate 105 BPM Atrial Rate 105 BPM P-R Interval 132 ms QRS Duration 84 ms Q-T Interval 332 ms QTC Calculation(Bazett) 438 ms P Clarence 58 degrees R Clarence 52 degrees T Clarence 35 degrees Sinus tachycardia T wave abnormality, consider anterior ischemia Abnormal ECG When compared with ECG of 11-NOV-2017 19:04, T wave inversion now evident in Anterior leads Confirmed by MD LILLIAM, DAYNE Bishop ([id number]) on 11/30/2017 7:43:38 AM Procedure Note Interface, External Ris In - 11/30/2017 7:43 AM CDT Ventricular Rate 105 BPM Atrial Rate 105 BPM P-R Interval 132 ms QRS Duration 84 ms Q-T Interval 332 ms QTC Calculation(Bazett) 438 ms P Clarence 58 degrees R Clarence 52 degrees T Clarence 35 degrees Sinus tachycardia T wave abnormality, consider anterior ischemia Abnormal ECG When compared with ECG of 11-NOV-2017 19:04, T wave inversion now evident in Anterior leads Confirmed by MD LILLIAM, DAYNE Bishop ([id number]) on 11/30/2017 7:43:38 AM Urinalysis w/ Microscopic (11/29/2017 10:02 AM)Only the most recent of3 resultswithin the time period is included. Component Value Ref Range Color, UA Yellow Clarity, UA Clear Specific Adrian, UA 1.029 1.001 - 1.035 pH, UA 6.0 5.0 - 8.0 Protein, UA 30 mg/dL (A) Negative Glucose, UA Negative Negative Ketones, UA Negative Negative Bilirubin, UA Negative Negative Blood, UA Negative Negative Nitrite, UA Negative Negative Leukocytes, UA Negative Negative Urobilinogen, UA 6.0 (H) 0.2 - 1.0 mg/dL RBC, UA <1 /HPF WBC, UA 2 /HPF Mucus Many Specimen Source Urine, Clean Catch Specimen Performing Laboratory Urine - Urine, Clean Catch [address] [address] Peripheral Blood Smear - Path Review (11/29/2017 9:52 AM) Component Value Ref Range Pathologist Review Blasts confirmed. Results discussed with Dr. De La Torre 11/29/2017. Pathologist: Amanda Krause M.D. (electronic signature) Specimen Performing Laboratory Blood - Arm, Right [address] [address] Critical Care (11/27/2017 12:47 AM) Narrative Josafat Javier MD 11/27/2017 12:47 AM Critical Care Performed by: JOSAFAT JAVIER Authorized by: DINORAH ATKINS Total critical care time: 60 minutes Critical care time was exclusive of separately billable procedures and treating other patients and teaching time. Critical care was necessary to treat or prevent imminent or life-threatening deterioration of the following conditions: pancytopenia requiring transfusion. Critical care was time spent personally by me on the following activities: blood draw for specimens, development of treatment plan with patient or surrogate, discussions with consultants, interpretation of cardiac output measurements, evaluation of patient's response to treatment, examination of patient, obtaining history from patient or surrogate, ordering and performing treatments and interventions, ordering and review of radiographic studies, re-evaluation of patient's condition, pulse oximetry, ordering and review of laboratory studies and review of old charts. RHYTHM STRIP - SCAN (11/26/2017 8:51 AM)Only the most recent of4 resultswithin the time period is included.CBC (Hemogram only) (11/23/2017 6:41 AM)Only the most recent of2 resultswithin the time period is included. Component Value Ref Range WBC 1.0 (LL) 3.5 - 10.5 K/L RBC 2.72 (L) 4.63 - 6.08 M/L Hemoglobin 7.9 (L) 13.7 - 17.5 GM/DL Hematocrit 23.8 (L) 40.1 - 51.0 % MCV 87.5 79.0 - 92.2 fL MCH 29.0 25.7 - 32.2 pg MCHC 33.2 32.3 - 36.5 GM/DL RDW 15.5 (H) 11.6 - 14.4 % Platelets 45 (L) 150 - 450 K/CU MM MPV 9.0 (L) 9.4 - 12.4 fL nRBC 2 (H) 0 - 0 /100 WBC Specimen Performing Laboratory Blood - Arm, Left [address] [address] Vancomycin level, trough (11/16/2017 9:43 AM)Only the most recent of4 resultswithin the time period is included. Component Value Ref Range Vancomycin Tr 16.8 10.0 - 20.0 ug/mL Specimen Performing Laboratory Blood - Arm, [address] [address] Narrative Draw immediately prior to next vancomycin dose. Beta-1,3-D-Glucan (11/14/2017 7:27 AM)Only the most recent of2 resultswithin the time period is included. Component Value Ref Range Scan Result Specimen Performing Laboratory Blood - Arm, Right [facility] NON-INTERFACED LAB [address] [place], [place] Aspergillus galactomannan antigen (11/14/2017 5:12 AM) Component Value Ref Range Aspergillus Index Value <0.50 Aspergillus Antigen NOT DETECTED Comment: REFERENCE RANGE: <0.50, NOT DETECTED A negative result does not exclude invasive aspergillosis. Follow-up testing may be indicated for high-risk patients. Specimen Performing Laboratory Blood [facility] [address] [place] [address] Narrative Performing Lab *[facility] [id number] [place] [id number] Antony Miramontes MD Prothrombin time/INR (11/14/2017 5:12 AM)Only the most recent of8 resultswithin the time period is included. Component Value Ref Range Protime 15.5 (H) 11.7 - 14.7 seconds INR 1.2 <=5.9 Specimen [place] [address] Narrative RECOMMENDED COUMADIN/WARFARIN INR THERAPY RANGES STANDARD DOSE: 2.0 - 3.0 Includes: PROPHYLAXIS for venous thrombosis, systemic embolization; TREATMENT for venous thrombosis and/or pulmonary embolus. HIGH RISK: Target INR is 2.5-3.5 for patients with mechanical heart valves. Phosphorus (11/14/2017 5:12 AM)Only the most recent of8 resultswithin the time period is included. Component Value Ref Range Phosphorus 2.4 2.3 - 4.7 mg/dL Specimen Performing Laboratory Blood [place] [id number] CT chest for pulmonary embolus (11/13/2017 8:01 PM) Specimen Performing Laboratory [employer] Narrative FINAL REPORT CT scan of the chest with pulmonary embolism protocol. Clinical History: pulmonary hemorrhage vs infiltarte seen on CT abdome. ? pul infarct. Comparison Study: Chest x-ray dated November 13, [address] scan of the abdomen and pelvis dated November 13, 2017. Technique: Pre-intravenous contrast localization images were acquired followed by contiguous helical slices through the thorax post administration of intravenous contrast using a timed bolus fashion. This exam was performed according to our department dose optimization program which includes automated exposure control, adjustment of the mA and/or kV according to the patient's size and/or use of iterative reconstruction technique. Findings: There is no evidence of pulmonary embolism. The mediastinum is unremarkable with no suspicious masses or adenopathy. The pleural spaces are clear. The visualized portions of the upper abdomen are unremarkable. The tracheobronchial tree is clear with no endobronchial lesions. The pulmonary parenchyma demonstrates multifocal opacities including a 2.3 x 1.7 cm wedge-shaped opacity in the lingula on image 36, 5.0 x 2.3 cm opacity in the right costophrenic angle region, 1.6 cm opacity in the right lung base abutting the right hemidiaphragm on image 41, 1.8 cm nodule in the left lower lobe on image 37, multiple reticulonodular markings in both the lower lobes and the lingula, 7 mm nodule in the right lower lobe on image 32, 5 mm nodule in the left lower lobe on image 28 and two nodules in the left lower lobe on image 29 measuring 7 mm and 4 mm in size. Other scattered nodules are seen throughout. Bone windows demonstrate degenerative changes. IMPRESSION: 1. No evidence of pulmonary embolism 2. Multifocal pulmonary opacities and nodules. This could represent a multifocal pneumonia including an atypical pneumonia. However, close calycle follow-up is recommended to exclude malignancy. Signed: Timothy Malone MD Report Verified Date/Time:11/13/2017 20:27:00 Reading Location: [address] Consult Reading Room Procedure Note Interface, External Ris In - 11/13/2017 8:29 PM CDT FINAL REPORT CT scan of the chest with pulmonary embolism protocol. Clinical History: pulmonary hemorrhage vs infiltarte seen on CT abdome. ? pul infarct. Comparison Study: Chest x-ray dated November 13, [address] scan of the abdomen and pelvis dated November 13, 2017. Technique: Pre-intravenous contrast localization images were acquired followed by contiguous helical slices through the thorax post administration of intravenous contrast using a timed bolus fashion. This exam was performed according to our department dose optimization program which includes automated exposure control, adjustment of the mA and/or kV according to the patient's size and/or use of iterative reconstruction technique. Findings: There is no evidence of pulmonary embolism. The mediastinum is unremarkable with no suspicious masses or adenopathy. The pleural spaces are clear. The visualized portions of the upper abdomen are unremarkable. The tracheobronchial tree is clear with no endobronchial lesions. The pulmonary parenchyma demonstrates multifocal opacities including a 2.3 x 1.7 cm wedge-shaped opacity in the lingula on image 36, 5.0 x 2.3 cm opacity in the right costophrenic angle region, 1.6 cm opacity in the right lung base abutting the right hemidiaphragm on image 41, 1.8 cm nodule in the left lower lobe on image 37, multiple reticulonodular markings in both the lower lobes and the lingula, 7 mm nodule in the right lower lobe on image 32, 5 mm nodule in the left lower lobe on image 28 and two nodules in the left lower lobe on image 29 measuring 7 mm and 4 mm in size. Other scattered nodules are seen throughout. Bone windows demonstrate degenerative changes. IMPRESSION: 1. No evidence of pulmonary embolism 2. Multifocal pulmonary opacities and nodules. This could represent a multifocal pneumonia including an atypical pneumonia. However, close calycle follow-up is recommended to exclude malignancy. Signed: Timothy Malone MD Report Verified Date/Time: 11/13/2017 20:27:00 Reading Location: [id number] Consult Reading Room Respiratory Panel [facility] (11/13/2017 11:06 AM) Component Value Ref Range Human Metapneumovirus Not detected Not detected, Inconclusive Rhinovirus Not detected Not detected, Inconclusive Influenza A Not detected Not detected, Inconclusive Influenza A subtype H1 Not detected Not detected, Inconclusive Influenza A Subtype H3 Not detected Not detected, Inconclusive Influenza A Subtype H1-2009 Not detected Not detected, Inconclusive Influenza B Not detected Not detected, Inconclusive Respiratory Syncytial Virus Not detected Not detected, Inconclusive Parainfluenza Virus 1 Not detected Not detected, Inconclusive Parainfluenza Virus 2 Not detected Not detected, Inconclusive Parainfluenza virus 3 Not detected Not detected, Inconclusive Parainfluenza Virus 4 Not detected Not detected, Inconclusive Adenovirus Not detected Not detected, Inconclusive Coronavirus 229E Not detected Not detected, Inconclusive Coronavirus HKU1 Not detected Not detected, Inconclusive Coronavirus NL63 Not detected Not detected, Inconclusive Coronavirus OC43 Not detected Not detected, Inconclusive Bordetella Pertussis Not detected Not detected, Inconclusive Chlamydophila Pneumoniae Not detected Not detected, Inconclusive Mycoplasma Pneumoniae Not detected Not detected, Inconclusive Specimen Performing Laboratory Nasopharyngeal - Nasopharyngeal Swab [facility] [address] [address] XR chest 1 view portable / bedside (11/13/2017 6:51 AM)Only the most recent of3 resultswithin the time period is included. Specimen Performing Laboratory [facility] Narrative FINAL REPORT Chest one view INDICATION: Neutropenic fever COMPARISON: 11/11/2017 IMPRESSION: Reticulonodular interstitial opacities are slightly increased, including conspicuous 2.8 cm left lower lung nodular opacity. Basilar airspace opacities are mildly increased. Given the history, findings are suspicious for multifocal pneumonitis. Advise short term radiographic follow up or chest CT. There is no pneumothorax or pleural effusion. The cardiac silhouette is enlarged. Osseous degenerative changes are again noted. Signed: Estefania Chicas MD Report Verified Date/Time:11/13/2017 07:11:31 Reading Location: [facility] Radiology Reading Room Procedure Note Interface, External Ris In - 11/13/2017 7:20 AM CDT FINAL REPORT Chest one view INDICATION: Neutropenic fever COMPARISON: 11/11/2017 IMPRESSION: Reticulonodular interstitial opacities are slightly increased, including conspicuous 2.8 cm left lower lung nodular opacity. Basilar airspace opacities are mildly increased. Given the history, findings are suspicious for multifocal pneumonitis. Advise short term radiographic follow up or chest CT. There is no pneumothorax or pleural effusion. The cardiac silhouette is enlarged. Osseous degenerative changes are again noted. Signed: Estefania Chicas MD Report Verified Date/Time: 11/13/2017 07:11:31 Reading Location: [facility] Radiology Reading Room Sputum Culture + Gram Stain (11/13/2017 6:00 AM) Component Value Ref Range Result 3+ Normal respiratory nacho present Gram Stain Result <1+ White blood cells seen Gram Stain Result >25 epithelial cells Gram Stain Result 4+ gram positive cocci in chains, pairs and clusters Specimen Performing Laboratory Sputum - Induced [facility] [address] [address] [address] abdomen/pelvis with IV contrast (11/13/2017 3:16 AM)Only the most recent of2 resultswithin the time period is included. Specimen Performing Laboratory [employer] [facility] Narrative FINAL REPORT EXAMINATION:CT SCAN OF THE ABDOMEN AND PELVIS CLINICAL HISTORY:Abdominal pain, neutropenic fever COMPARISON EXAM: 08/13/2017. TECHNIQUE: Following the administration of IV contrast, axial tomographic images were acquired through the abdomen and pelvis. The exam was performed according to our departmental dose optimization program which includes automated exposure control, adjustment of the mA and/or kV according to patient's size and/or use of iterative reconstructive technique. FINDINGS: New patchy and nodular opacities are noted in both lung bases with a smaller satellite nodules and groundglass opacities in the adjacent lung parenchyma. Findings are concerning for a possible multifocal pneumonia. Although infection is favored, pulmonary infarct/hemorrhage would also be included in the differential diagnosis given the morphology and subpleural distribution. A neoplastic process cannot be excluded. The heart is mildly enlarged. No evidence of a pericardial effusion. The distal esophagus is decompressed. No significant pleural effusion. The liver and spleen demonstrate relatively homogeneous contrast-enhancement. The gallbladder and bile ducts are decompressed. The pancreas is atrophic with fatty infiltration. The adrenal glands are normal in size and shape. No evidence of renal obstruction or nephrolithiasis. There is mild bladder wall thickening as well as mild uroepithelial thickening. The prostate gland is mild to moderately enlarged. The stomach is grossly unremarkable. The loops of small bowel are normal in caliber. The segments of the colon are also normal in caliber. As before, the proximal sigmoid colon demonstrates mild focal wall thickening. Subtle inflammatory changes are again noted in the adjacent mesenteric adipose tissue. Trace fluid is noted in the paracolic gutters, left greater than right. Further characterization of the bowel is limited by the absence of contrast. However no definite evidence of high-grade mechanical bowel obstruction, pneumatosis, pneumoperitoneum or appendicitis. The abdominal aorta is normal in caliber. Contrast also opacifies the mesenteric arteries, renal vessels and the iliac arteries. Evaluation of the portal venous system, IVC and the iliac veins is limited by timing of the contrast bolus. No definite evidence of an acute osseous abnormality. IMPRESSION: Bilateral patchy and nodular basilar lung opacities, new compared with chest CT 08/13/2017 and worrisome for multifocal infection given the provided clinical presentation. Pulmonary infarct -hemorrhage would also be consideration. Neoplastic process cannot be excluded. Dedicated chest CT would be beneficial in further characterization as only the lung bases are imaged on today study. Focal wall thickening of the proximal sigmoid colon is again noted with infiltration of the adjacent soft tissues. Although chronic changes cannot be excluded, an active colitis or diverticulitis should also be considered. A mucosal mass lesion would also be consideration. Consider direct endoscopic visualization if clinically appropriate. Mild bladder wall and uroepithelial thickening, nonspecific and possibly related to chronic changes from the enlarged prostate gland. However a cystitis - pyelitis should also be considered. Correlation with patient's urinalysis recommended. Results discussed with the nurse caring for the patient at time of dictation. She will notify the appropriate on-call clinician. Signed: Binu Edgar MD Report Verified Date/Time:11/13/2017 03:38:59 Reading Location: [address] Reading Room Procedure Note Interface, External Ris In - 11/13/2017 3:41 AM CDT FINAL REPORT EXAMINATION: CT SCAN OF THE ABDOMEN AND PELVIS CLINICAL HISTORY:Abdominal pain, neutropenic fever COMPARISON EXAM: 08/13/2017. TECHNIQUE: Following the administration of IV contrast, axial tomographic images were acquired through the abdomen and pelvis. The exam was performed according to our departmental dose optimization program which includes automated exposure control, adjustment of the mA and/or kV according to patient's size and/or use of iterative reconstructive technique. FINDINGS: New patchy and nodular opacities are noted in both lung bases with a smaller satellite nodules and groundglass opacities in the adjacent lung parenchyma. Findings are concerning for a possible multifocal pneumonia. Although infection is favored, pulmonary infarct/hemorrhage would also be included in the differential diagnosis given the morphology and subpleural distribution. A neoplastic process cannot be excluded. The heart is mildly enlarged. No evidence of a pericardial effusion. The distal esophagus is decompressed. No significant pleural effusion. The liver and spleen demonstrate relatively homogeneous contrast-enhancement. The gallbladder and bile ducts are decompressed. The pancreas is atrophic with fatty infiltration. The adrenal glands are normal in size and shape. No evidence of renal obstruction or nephrolithiasis. There is mild bladder wall thickening as well as mild uroepithelial thickening. The prostate gland is mild to moderately enlarged. The stomach is grossly unremarkable. The loops of small bowel are normal in caliber. The segments of the colon are also normal in caliber. As before, the proximal sigmoid colon demonstrates mild focal wall thickening. Subtle inflammatory changes are again noted in the adjacent mesenteric adipose tissue. Trace fluid is noted in the paracolic gutters, left greater than right. Further characterization of the bowel is limited by the absence of contrast. However no definite evidence of high-grade mechanical bowel obstruction, pneumatosis, pneumoperitoneum or appendicitis. The abdominal aorta is normal in caliber. Contrast also opacifies the mesenteric arteries, renal vessels and the iliac arteries. Evaluation of the portal venous system, IVC and the iliac veins is limited by timing of the contrast bolus. No definite evidence of an acute osseous abnormality. IMPRESSION: Bilateral patchy and nodular basilar lung opacities, new compared with chest CT 08/13/2017 and worrisome for multifocal infection given the provided clinical presentation. Pulmonary infarct -hemorrhage would also be consideration. Neoplastic process cannot be excluded. Dedicated chest CT would be beneficial in further characterization as only the lung bases are imaged on today study. Focal wall thickening of the proximal sigmoid colon is again noted with infiltration of the adjacent soft tissues. Although chronic changes cannot be excluded, an active colitis or diverticulitis should also be considered. A mucosal mass lesion would also be consideration. Consider direct endoscopic visualization if clinically appropriate. Mild bladder wall and uroepithelial thickening, nonspecific and possibly related to chronic changes from the enlarged prostate gland. However a cystitis - pyelitis should also be considered. Correlation with patient's urinalysis recommended. Results discussed with the nurse caring for the patient at time of dictation. She will notify the appropriate on-call clinician. Signed: Binu Edgar MD Report Verified Date/Time: 11/13/2017 03:38:59 Reading Location: [address] Reading Room Transfuse Leuko-Red RBC (11/13/2017 1:04 AM)Only the most recent of3 resultswithin the time period is included.Rapid influenza A&B screen (2017 8:45 PM) Component Value Ref Range Rapid Influenza A Antigen Negative Negative, Inconclusive Rapid influenza B Antigen Negative Negative, Inconclusive Specimen Performing Laboratory Nasal - Nasal Mucosa [address] [address] Blood culture #2 (11/11/2017 8:44 PM)Only the most recent of6 resultswithin the time period is included. Component Value Ref Range Result No growth in 5 days Specimen Performing Laboratory Blood - Arm, Left [address] [address] Hemoglobin and hematocrit (11/11/2017 6:57 PM)Only the most recent of7 resultswithin the time period is included. Component Value Ref Range Hemoglobin 5.2 (LL) 13.7 - 17.5 GM/DL Hematocrit 15.2 (L) 40.1 - 51.0 % Specimen Performing Laboratory Blood [address] [address] Narrative Post transfusion Troponin I (11/11/2017 6:57 PM) Component Value Ref Range Troponin I <0.01 0.00 - 0.03 ng/mL Specimen Performing Laboratory Blood [address] [address] Narrative Troponin I (TnI) levels must be interpreted in the context of the presenting symptoms and the clinical findings. Elevated TnI levels indicate myocardial damage, but are not specific for ischemic heart disease. Elevated TnI levels are seen in patients with other cardiac conditions (including myocarditis and congestive heart failure), and slight TnI elevations occur in patients with other conditions, including sepsis, renal failure, acidosis, acute neurological disease, and persistent tachyarrhythmia. B-type Natriuretic Factor (BNP) (11/11/2017 6:57 PM) Component Value Ref Range BNP 133 (H) 0 - 100 pg/mL Specimen Performing Laboratory Blood [address] [address] Lipase (11/11/2017 6:57 PM)Only the most recent of2 resultswithin the time period is included. Component Value Ref Range Lipase 42 8 - 78 U/L Specimen Performing Laboratory Blood [address] [address] Ammonia (11/11/2017 6:57 PM) Component Value Ref Range Ammonia 23 18 - 72 mol/L Specimen Performing Laboratory Blood [address] [address] EKG-SCANNED (11/07/2017 10:31 AM)Flow Cytometry Requisition (11/05/2017 11:09 AM )Only the most recent of2 resultswithin the time period is included. Component Value Ref Range Flow Cytometry See Separate Report Case # [id number] Specimen Performing Laboratory Blood [address] [address] Peripheral Blood Smear - Path Review (11/05/2017 11:09 AM) Component Value Ref Range RBC Morphology Comment: Hypochromic,macrocytic anemia with mild anisopoikilocytosis. Occasional dacrocytes, elliptocytes and microcytes identified. Minimal polychromasia. Mild rouleaux formation. WBC Morphology Comment: Leukopenia with few blasts identified(4% by differential count). Absolute neutrophilia. Few atypical lymphocytes present. Platelet Morphology Comment: Marked thrombocytopenia. No platelet clumping identified. Pathologist Shashi Awan MD (electronic signature) Specimen Performing Laboratory Blood [address] [address] Flow Cytometry (11/05/2017 11:09 AM)Only the most recent of2 resultswithin the time period is included. Component Value Ref Range Case Report Flow Cytometry Report Case: [id number] Authorizing Provider:Shashi Awan MDCollected: 11/05/2017 1109 Ordering Location: [facility] Received: 11/05/2017 1307 Pathologist: Shashi Awan MD Specimen:Other Flow Interpretation PERIPHERAL BLOOD, FLOW CYTOMETRY: -16% CIRCULATING MYELOBASTS -NO ABERRANT T LYMPHOCYTE POPULATION -NO MONOTYPIC B LYMPHOCYTE POPULATION -SEE COMMENT Flow Interpretation Comment Flow cytometric evaluation is performed on a peripheral blood sample from a 66 year old man wit history of MDS with excess blasts undergoing outpatient chemotherapy treatment per notes. Presented to ER on 11/05/17 from Hematology clinic with low platelets requiring platelet transfusion. Peripheral blood findings demonstrated increased blast warranting flow cytometric evaluation. Results demonstrate 16% circulating myeloblast with a subpopulation aberrantly expressing CD56. There was no evidence of an aberrant B or T lymphocyte process. Patient to follow up with Hematology for continuation of outpatient chemotherapy per EMR notes. CPT Code(s) 35043 CLINICAL HISTORY 66 year old man wit history of MDS with excess blasts undergoing outpatient chemotherapy SPECIMEN SOURCE Peripheral blood CELLULAR BIOMARKER ANALYSIS CD2, CD3, CD4, CD5, CD7, CD8, CD10, CD11C, CD13, CD14, CD16, CD19, CD20, CD23, CD33, CD34, CD38, CD45, CD56, CD64, CD117, HLA-DR, KAPPA, LAMBDA, cMPO, cCD79a, nTdt, cCD79a, cCD22, cCD3, CD11b IMMUNOPHENOTYPIC FINDINGS Specimen Viability: 87% Abnormal myeloblast population identified(16% of total cellularity) POSITIVE: CD45 dim, CD34, CD117, HLA-DR, CD33, CD13(subpopulation), CD56( partial), CD11b(partial), cMPO(dim) NEGATIVE: CD2, CD3, CD4, CD5, CD7, CD8, CD10, CD11C,CD14, CD16, CD19, CD20, CD23,CD38, CD64, CD117, KAPPA, LAMBDA, cCD79a, nTdt, cCD79a, cCD22, cCD3 In addition, the following populations are identified: Blasts: As noted above. Lymphocytes: Bright CD45+ lymphocytes comprise 69% of total cells. T cells show a CD4:CD8 ratio of 1.8 and normal davis T cell antigen expression.B cells are polytypic with a kappa:lambda ratio of 1.6. Myeloid/monocytic populations: As identified by CD45 and light scatter characteristics, granulocytes comprise 8% of cells analyzed, and monocytes comprise 3% of total cells. The remaining events analyzed represent nonviable cells, non-hematolymphoid cells, and debris DISCLAIMER These tests were developed and their performance characteristics determined by [employer] They have not been cleared or approved by the U.S. Food and Drug Administration. The FDA has determined that such clearance or approval is not necessary. It should not be regarded as investigational or for research. This laboratory is certified under the Clinical Laboratory Improvement Amendments of 1988 ("CLIA") as qualified to perform high-complexity clinical testing. Specimen Performing Laboratory Other [facility] [address] [address] XR abdomen / KUB 1 view (08/16/2017 9:46 AM) Specimen Performing Laboratory [facility] Narrative FINAL REPORT CLINICAL HISTORY: abdominal pain TECHNIQUE: Supine abdomen COMPARISON: None IMPRESSION: There is oral contrast in the colon. There are no focal distended loops of small bowel. Free air and air-fluid levels are not seen but cannot be definitively excluded on the supine view. Signed: Jyoti Rhodes MD Report Verified Date/Time:08/16/2017 10:03:18 Reading Location: [facility] [facility] Reading Room Procedure Note Interface, External Ris In - 08/16/2017 10:05 AM MACHINE LEAD BURNER FINAL REPORT CLINICAL HISTORY: abdominal pain TECHNIQUE: Supine abdomen COMPARISON: None IMPRESSION: There is oral contrast in the colon. There are no focal distended loops of small bowel. Free air and air-fluid levels are not seen but cannot be definitively excluded on the supine view. Signed: Jyoti Rhodes MD Report Verified Date/Time: 08/16/2017 10:03:18 Reading Location: [facility] Radiology Reading Room Urinalysis w/Microscopic + Reflex to Culture (08/14/2017 8:57 PM) Component Value Ref Range Color, UA Yellow Clarity, UA Clear Specific Adrian, UA 1.009 1.001 - 1.035 pH, UA 7.5 5.0 - 8.0 Protein, UA Negative Negative Glucose, UA Negative Negative Ketones, UA 10 mg/dL (A) Negative Bilirubin, UA Negative Negative Blood, UA Negative Negative Nitrite, UA Negative Negative Leukocytes, UA Negative Negative Urobilinogen, UA >12.0 (H) 0.2 - 1.0 mg/dL RBC, UA 0 /HPF WBC, UA <1 /HPF Mucus Rare Squam Epithel, UA <1 /HPF Specimen Source Specimen Performing Laboratory Urine - Urine, Clean Catch [address] [address] Clostridium difficile Toxin PCR (08/14/2017 3:15 PM)Only the most recent of2 resultswithin the time period is included. Component Value Ref Range C.Diff Toxin, PCR Detected (A) Not Detected Specimen Performing Laboratory Stool [address] [address] Narrative This qualitative real-time polymerase chain reaction assay detects the tcdB gene, encoded on the C.difficile pathogenicity locus (PaLoc).The product of tcdB , toxin B, is a cytotoxin essential for causing C.difficile-associated disease (CDAD) and is found in virtually all toxigenic C.difficile. This assay is performed for patients suspected of having either community- acquired or nosocomial CDAD.Accordingly, only symptomatic patients should be tested and formed stools will be rejected unless ileus is present (i.e., specified when ordering).Patients may be colonized with toxigenic C.difficile strains not causing active disease; therefore, clinical correlation is needed when deciding how to manage patients with a positive test result. The assay has not been validated as a test of cure as amplifiable nucleic acid may persist after effective treatment; therefore, follow-up testing of a positive result is not recommended. Occult blood, stool (08/14/2017 3:15 PM)Only the most recent of2 resultswithin the time period is included. Component Value Ref Range Occult blood Negative Negative Specimen Performing Laboratory Stool [address] [address] [address] brain without IV contrast (08/13/2017 10:31 PM)Only the most recent of2 resultswithin the time period is included. Specimen Performing Laboratory RIS Narrative FINAL REPORT CT, BRAIN, WITHOUT CONTRAST INDICATION: "Dizziness" TECHNIQUE: Noncontrast axial imaging was obtained from the vertex to the skull base. Axial images were reconstructed using a bone algorithm. DOSE REDUCTION: Dose modulation, iterative reconstruction, and/or weight-based adjustment of the mA/kV was utilized to reduce the radiation dose to as low as reasonably achievable. COMPARISON: Head CT 07/17/2017 FINDINGS: Mild global volume loss commensurate with the patient's age. Midline structures and posterior fossa within normal limits. No subacute territorial infarction or hyperdense thrombus. No acute intracranial hemorrhage. No acute hydrocephalus. Intact calvarium. Symmetric globes. The paranasal sinuses and mastoid air cells are well-aerated. IMPRESSION: No acute intracranial abnormality. Signed: William Romero MD Report Verified Date/Time:08/13/2017 22:33:56 Reading Location: [facility] [id number] Ortho Consult Reading Room Procedure Note Interface, External Ris In - 08/13/2017 10:36 PM MACHINE LEAD BURNER FINAL REPORT CT, BRAIN, WITHOUT CONTRAST INDICATION: "Dizziness" TECHNIQUE: Noncontrast axial imaging was obtained from the vertex to the skull base. Axial images were reconstructed using a bone algorithm. DOSE REDUCTION: Dose modulation, iterative reconstruction, and/or weight-based adjustment of the mA/kV was utilized to reduce the radiation dose to as low as reasonably achievable. COMPARISON: Head CT 07/17/2017 FINDINGS: Mild global volume loss commensurate with the patient's age. Midline structures and posterior fossa within normal limits. No subacute territorial infarction or hyperdense thrombus. No acute intracranial hemorrhage. No acute hydrocephalus. Intact calvarium. Symmetric globes. The paranasal sinuses and mastoid air cells are well-aerated. IMPRESSION: No acute intracranial abnormality. Signed: William Romero MD Report Verified Date/Time: 08/13/2017 22:33:56 Reading Location: [facility] [id number] Ortho Consult Reading Room abdomen/pelvis without iv contrast (08/13/2017 10:31 PM) Specimen Performing Laboratory GE RIS Narrative FINAL REPORT HISTORY : Abd pain, fever, abscess suspected Technique: Multiple axial images of the abdomen and pelvis were performed without the administration of IV contrast from the lung bases to the pubic symphysis. This exam was performed according to our departmental dose optimization program which includes automated exposure control, adjustment of the mA and/or kV according to patient size and/or use of iterative reconstructive technique. COMPARISON : 07/10/2017 COMMENT : The lung bases are clear. The visualized liver, spleen, adrenal glands, kidneys, bladder, pancreas, stomach and duodenum are within normal limits. There is no abdominal, retroperitoneal or pelvic lymphadenopathy. There is a small right-sided fat-containing inguinal hernia. No bowel contents are seen [...] are seen. Please see above. Signed: Dwight Kelly MD Report Verified Date/Time:08/13/2017 22:31:02 Reading Location: [address] Consult Reading Room Procedure Note Interface, External Ris In - 08/13/2017 10:33 PM MACHINE LEAD BURNER FINAL REPORT HISTORY : Abd pain, fever, abscess suspected Technique: Multiple axial images of the abdomen and pelvis were performed without the administration of IV contrast from the lung bases to the pubic symphysis. This exam was performed according to our departmental dose optimization program which includes automated exposure control, adjustment of the mA and/or kV according to patient size and/or use of iterative reconstructive technique. COMPARISON : 07/10/2017 COMMENT : The lung bases are clear. The visualized liver, spleen, adrenal glands, kidneys, bladder, pancreas, stomach and duodenum are within normal limits. There is no abdominal, retroperitoneal or pelvic lymphadenopathy. There is a small right-sided fat-containing inguinal hernia. No bowel contents are seen [...] are seen. Please see above. Signed: Dwight Kelly MD Report Verified Date/Time: 08/13/2017 22:31:02 Reading Location: [address] Consult Reading Room Amylase (08/13/2017 6:10 PM) Component Value Ref Range Amylase 19 (L) 25 - 125 U/L Specimen Performing Laboratory Blood - Arm, Left [address] [address] Potassium (07/11/2017 3:55 PM) Component Value Ref Range Potassium 3.4 (L) 3.5 - 5.1 meq/L Specimen Performing Laboratory Blood - Arm, Right [address] [address] Vitamin B12 and Folate (07/10/2017 7:03 PM) Component Value Ref Range Vitamin B12 1071 (H) 213 - 816 pg/mL Folate 12.3 >=7.0 ng/mL Specimen Performing Laboratory Blood - Arm, [address] [address] Iron, TIBC, % sat. (without ferritin) (07/10/2017 7:03 PM) Component Value Ref Range Iron 56 40 - 160 ug/dL TIBC 179 (L) 250 - 450 ug/dL Iron % Saturation 31 20 - 55 % Specimen Performing Laboratory Blood - Arm, [address] [address] Rheumatoid factor Ab, reflex to titer (07/10/2017 7:03 PM) Component Value Ref Range Rheumatoid Factor Negative Specimen Performing Laboratory Blood - Arm, [address] [address] Anti-Nuclear Antibody (RANJANA) (07/10/2017 7:03 PM) Component Value Ref Range RANJANA Negative Negative Specimen Performing Laboratory Blood - Arm, [address] [address] Ferritin (07/10/2017 7:03 PM) Component Value Ref Range Ferritin 1208 (H) 5 - 275 ng/mL Specimen Performing Laboratory Blood - Arm, [address] [address] Bone Marrow Culture (07/10/2017 4:04 PM) Component Value Ref Range Result No growth Gram Stain Result <1+ WBCs Gram Stain Result No organisms seen Specimen Performing Laboratory Bone Marrow [address] [address] AFB culture + smear (07/10/2017 4:04 PM) Component Value Ref Range Result No acid-fast bacilli isolated in 42 days AFB Smear No acid fast bacilli seen Specimen Performing Laboratory Bone Marrow [address] [address] Chromosomes Cancer Study (07/10/2017 4:04 PM) Component Value Ref Range Scan Result Specimen Performing Laboratory [facility] [address] [facility] [place] [address] Virus culture (07/10/2017 4:04 PM) Specimen Performing Laboratory Bone Marrow [address] [address] Narrative See Scanned Results. Fungus culture + smear (07/10/2017 4:04 PM) Component Value Ref Range Result No fungus isolated in 28 days Fungus Smear No fungi seen Specimen Performing Laboratory Bone Marrow [address] [address] Biopsy Bone Marrow (07/10/2017 3:30 PM) Component Value Ref Range Anatomic Case# [id number] Ordering Physician Escudier Performing Physician Escudier Clot Rec'd? Yes Biopsy Rec'd? Yes Rec'd for Culture? Yes Rec'd for Flow? Yes Rec'd for Cytogenetics? Yes Rec'd for Molecular Genetics? Hold Specimen Performing Laboratory Bone Marrow [address] [address] EBV Viral Load (07/10/2017 9:16 AM) Component Value Ref Range EBV Viral Load Negative or below the linear range of the assay (<500 copies/mL) Specimen Performing Laboratory Blood [address] [address] Narrative This assay was performed by real-time PCR for the detection of the Rhiannon- Landa virus (EBV) gene EBNA-1.The test is composed of (1) DNA extraction [...] be interpreted in light of clinical data. This test was developed and its performance characteristics determined by the [facility] Pathology Department, Section of Molecular Pathology. It has not been cleared or approved by the U.S. Food and Drug Administration (FDA), since FDA approval is not required for clinical use of the test. Validation was done as required by The Clinical Laboratory Improvement Amendments of 1988. HIV-1 Antigen with HIV-1/2 Antibody (07/10/2017 9:16 AM) Component Value Ref Range HIV-1 Antigen with HIV 1&2 Antibody Nonreactive Nonreactive Specimen Performing Laboratory Blood [address] [address] Hepatitis B Panel (07/10/2017 9:16 AM) Component Value Ref Range Hep B Core Total Ab Nonreactive Nonreactive Hep B S Ab <8.0 <8.0 mIU/mL hepatitis B Surface Ag Nonreactive Nonreactive Specimen Performing Laboratory Blood [address] [address] CMV PCR, quantitative (07/10/2017 9:16 AM) Component Value Ref Range CMV DNA Viral Load Negative or below the linear range of the assay (<375 copies/mL) Specimen Performing Laboratory Blood [address] [address] Narrative Cytomegalovirus (CMV) infection can cause significant disease in immunosuppressed patients. However, it is common for CMV to manifest as a limited infection which is of no clinical significance in immunosuppressed patients or in healthy individuals. Viral load measurements are helpful to identify clinical CMV infection and to guide the pre-emptive management of antiviral therapy.For treatment of CMV infection due to reactivation in transplant recipients, a threshold between 4,000 and 5, 000 copies/mL is suggested.For treatment of primary CMV infection, a lower threshold can be used. CMV infection may also be monitored using weekly serial measurements. Serial measurements of CMV DNA viral load can be evaluated by identifying a 10-fold change, as well as assessing the CMV DNA viral load and the clinical context for each patient. The plasma CMV DNA viral load was detected using quantitative polymerase chain reaction and fluorescent monitoring of a specific hybridized probe. Genetic variation and other factors can affect the accuracy of nucleic acid testing. Therefore, the results should be interpreted in light of clinical data. A negative result may not exclude the presence of CMV disease. This test was developed and its performance characteristics determined by the [facility] Pathology Department, Section of Molecular Pathology. It has not been cleared or approved by the U.S. Food and Drug Administration (FDA), since FDA approval is not required for clinical use of the test. Validation was done as required by The Clinical Laboratory Improvement Amendments of 1988. Hepatitis C antibody (07/10/2017 9:16 AM) Component Value Ref Range Hepatitis C Ab Nonreactive Nonreactive Specimen Performing Laboratory Blood [address] [address] Reticulocyte count (07/10/2017 9:16 AM) Component Value Ref Range % Retic 0.6 0.5 - 1.8 % Specimen Performing Laboratory [address] [address] Uric acid (07/10/2017 9:16 AM) Component Value Ref Range Uric Acid 3.1 2.6 - 7.2 mg/dL Specimen Performing Laboratory [address] [address] Lactate dehydrogenase (LDH) (07/10/2017 9:16 AM) Component Value Ref Range LDH 300 (H) 125 - 220 U/L Specimen Performing Laboratory Blood [facility] [address] [place] [address] Bone Marrow Exam (07/03/2017 3:30 PM) Component Value Ref Range Case Report Bone Marrow Pathology Report Case: [id number] Authorizing Provider:Mauro uMkherjee MD Collected: 07/03/2017 1533 Ordering Location: [place] [address] ICUReceived: 07/10/2017 1605 Pathologist: Amanda Krause MD Specimens: A) - B) - Bone Marrow, Clot: 0.4 x 0.4 x0.2 cm. C) - Bone Marrow, Core: 1.0 x 0.2 x 0.2 cm. ADDENDUM Classical cytogenetic studies show a complex karyotype, including abnormalities of chromosomes 5 and 7, and further support involvement by a high grade myelodysplastic syndrome (see attached report for full details of karyotype). The IPSS-R score is 10 (very high prognostic risk). The [facility] [employer] NGS Hematologic Malignancy Mutation panel does not identify any additional mutations (see attached report). 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 Classical cytogenetic studies and molecula r studies are pending, and will be of interest for further characterization. These will be reported separately, and an addendum will follow. Preliminary findings discussed with Dr. Dillon on , and final results discussed with Dr. Lopez 07/12/2017. CPT Code(s) 19952; 43028; 30445 x 2; 39716; 78134 x 2; 06366 CLINICAL HISTORY Pancytopenia SPECIMEN SOURCE Bone marrow GROSS DESCRIPTION The specimen is received in three parts all [...] x 0.2 cm, submitted entirely C1 for decalcification. MICROSCOPIC DESCRIPTION BONE MARROW ASPIRATE: QUALITY: Aspirate-Inadequate Touch imprint- Adequate MARROW DIFFERENTIAL COUNT: Number of cells counted: 300 14% Blasts 5% Promyelocytes 11% Myelocytes/Metamyelocytes 12% Bands/Segmented granulocytes 1% Eosinophils and precursors 0% Basophils and precursors 34% Erythroid precursors 17% Lymphocytes 3% Monocytes 3% Plasma cells Myeloid: Erythroid Ratio:1.4 ; Decreased Blasts:Increased; variably sized with high nuclear:cytoplasmic ratios, fine chromatin Erythropoiesis: Left shifted, megaloblastoid with complete maturation, and dyserythropoietic forms Myelopoiesis: Left shifted, complete, and dysplastic with abnormal nuclear segmentation including Pseudo-[place] forms Megakaryocytes:Present (hypolobated dysplastic form) Stainable storage iron cannot be assessed based on an iron stain performed on the aspirate smear due to the lack of adequate particles.There are insufficient erythroid precursors for evaluation of ring sideroblasts. BONE MARROW BIOPSY: Biopsy- Adequate Clot- Inadequate Hypercellular ( 95 %). Cellular composition similar to aspirate smears and touch imprints. Erythropoiesis and myelopoiesis are complete. Megakaryocytes are increased and include many dysplastic f orms with hypolobation, wide separation of the nuclear lobes, and/or hyperchromasia.A CD34 immunostain highlights increased blasts, focally in clusters, overall less than 20% of the marrow cellularity. Other: Reticulin stain performed on the biopsy shows a moderate to marked increase in reticulin fibrosis. Bony trabeculae: Focal osteoblastic rimming Stainable iron cannot be assessedbased on an iron stain performed on the clot section due to the lack of particles. PERIPHERAL BLOOD: RBCs:Normocytic, increased anisopoikilocytosis WBCs: Occasional Pseudo-[place] neutrophils; a few blasts with high nuclear:cytoplasmic ratios, fine chromatin Platelets: Decreased SPECIAL STUDIES The following special studies were performed on this case and the interpretation is incorporated in the diagnostic report above: C1: CD34, reticulin The immunohistochemistry test was developed and its performance characteristics determined by [facility], Pathology Laboratory. It has not been cleared [...] qualified to perform high complexity clinical laboratory testing. Specimen Performing Laboratory Bone Marrow [address] [address] after 12/15/2016
--- OUTSIDE RECORDS SUMMARY | 2017-12-16 15:33 | XMS REPORT ---
:1950 [facility] Address [address] [place] [address] Care Team Providers Name Role Phone CLAUDIA MATTHEW Unavailable Unavailable SHALONDA CASTANEDA Unavailable Unavailable SHALONDA CHEUNG Unavailable Unavailable KYLIE LEY Unavailable Unavailable PALLAVI KAPOOR Unavailable Unavailable IDALIA TONY Unavailable Unavailable DINORAH ATKINS Unavailable Unavailable Problems This patient has no known problems. Allergies, Adverse Reactions, Alerts This patient has no known allergies or adverse reactions. Medications This patient has no known medications. Results Test Description Test Time Test Comments Text Results Atomic Results Result Comments CBC W/PLT COUNT & AUTO DIFFERENTIAL 2017-12-12 18:43:00 Test Item Value Reference Range Comments WHITE BLOOD CELL COUNT (BEAKER) (test ices=504) 1.2 K/ L 3.5-10.5 RED BLOOD CELL COUNT (BEAKER) (test bhlf=446) 2.73 M/ L 4.63-6.08 HEMOGLOBIN (BEAKER) (test ippo=920) 8.1 GM/DL 13.7-17.5 HEMATOCRIT (BEAKER) (test txct=547) 23.6 % 40.1-51.0 MEAN CORPUSCULAR VOLUME (BEAKER) (test zbnn=340) 86.4 fL 79.0-92.2 MEAN CORPUSCULAR HEMOGLOBIN (BEAKER) (test yzyw=015) 29.7 pg 25.7-32.2 MEAN CORPUSCULAR HEMOGLOBIN CONC (BEAKER) (test rhoo=380) 34.3 GM/DL 32.3- 36.5 RED CELL DISTRIBUTION WIDTH (BEAKER) (test lxjf=275) 13.8 % 11.6-14.4 PLATELET COUNT (BEAKER) (test wzha=011) 76 K/CU MM 150-450 MEAN PLATELET VOLUME (BEAKER) (test nkpj=777) 10.8 fL 9.4-12.4 NUCLEATED RED BLOOD CELLS (BEAKER) (test kirw=281) 0 /100 WBC 0-0 CBC W/PLT COUNT & AUTO [id number] 17:00:00 Test Item Value Reference Range Comments WHITE BLOOD CELL COUNT (BEAKER) (test tfrg=092) 1.1 K/ L 3.5-10.5 RED BLOOD CELL COUNT (BEAKER) (test lppw=033) 3.15 M/ L 4.63-6.08 HEMOGLOBIN (BEAKER) (test kwpr=320) 9.1 GM/DL 13.7-17.5 HEMATOCRIT (BEAKER) (test koac=418) 27.1 % 40.1-51.0 MEAN CORPUSCULAR VOLUME (BEAKER) (test pyie=132) 86.0 fL 79.0-92.2 MEAN CORPUSCULAR HEMOGLOBIN (BEAKER) (test 28.9 pg 25.7-32.2 igoq=951) MEAN CORPUSCULAR HEMOGLOBIN CONC (BEAKER) (test 33.6 GM/DL 32.3-36.5 nsxh=721) RED CELL DISTRIBUTION WIDTH (BEAKER) (test 13.6 % 11.6-14.4 bzof=728) PLATELET COUNT (BEAKER) (test aysd=803) 4 K/CU MM 150-450 MEAN PLATELET VOLUME (BEAKER) (test qhes=711) 12.0 fL 9.4-12.4 NUCLEATED RED BLOOD CELLS (BEAKER) (test 0 /100 WBC 0-0 qrcr=252) CBC W/PLT COUNT & AUTO [id number] 14:45:00 Test Item Value Reference Range Comments WHITE BLOOD CELL COUNT (BEAKER) (test 0.6 K/ L 3.5-10.5 vrko=701) RED BLOOD CELL COUNT (BEAKER) (test 2.96 M/ L 4.63-6.08 swjo=792) HEMOGLOBIN (BEAKER) (test uorq=483) 8.6 GM/DL 13.7-17.5 HEMATOCRIT (BEAKER) (test gits=520) 25.8 % 40.1-51.0 Patient transfused MEAN CORPUSCULAR VOLUME (BEAKER) (test 87.2 fL 79.0-92.2 aveh=486) MEAN CORPUSCULAR HEMOGLOBIN (BEAKER) 29.1 pg 25.7-32.2 (test ozjp=474) MEAN CORPUSCULAR HEMOGLOBIN CONC 33.3 GM/DL 32.3-36.5 (BEAKER) (test pmdg=415) RED CELL DISTRIBUTION WIDTH (BEAKER) 13.8 % 11.6-14.4 (test wwrp=270) PLATELET COUNT (BEAKER) (test wqbb=084) 24 K/CU MM 150-450 MEAN PLATELET VOLUME (BEAKER) (test 9.0 fL 9.4-12.4 lwxb=041) NUCLEATED RED BLOOD CELLS (BEAKER) 0 /100 WBC 0-0 (test tpdw=350) CBC W/PLT COUNT & AUTO [id number] 12:24:00 Test Item Value Reference Range Comments WHITE BLOOD CELL COUNT (BEAKER) (test qwqy=072) 0.5 K/ L 3.5-10.5 RED BLOOD CELL COUNT (BEAKER) (test ydwj=666) 2.35 M/ L 4.63-6.08 HEMOGLOBIN (BEAKER) (test dkpt=717) 6.9 GM/DL 13.7-17.5 HEMATOCRIT (BEAKER) (test qryf=893) 20.0 % 40.1-51.0 MEAN CORPUSCULAR VOLUME (BEAKER) (test aslk=698) 85.1 fL 79.0-92.2 MEAN CORPUSCULAR HEMOGLOBIN (BEAKER) (test 29.4 pg 25.7-32.2 hhxo=634) MEAN CORPUSCULAR HEMOGLOBIN CONC (BEAKER) (test 34.5 GM/DL 32.3-36.5 pjll=252) RED CELL DISTRIBUTION WIDTH (BEAKER) (test 14.3 % 11.6-14.4 jiud=753) PLATELET COUNT (BEAKER) (test fofi=677) 28 K/CU MM 150-450 MEAN PLATELET VOLUME (BEAKER) (test fimk=714) 8.7 fL 9.4-12.4 NUCLEATED RED BLOOD CELLS (BEAKER) (test 0 /100 WBC 0-0 rpjv=860) (MANUAL DIFFERENTIAL)2017-12-07 12:24:00 Test Item Value Reference Range Comments NEUTROPHILS - REL (DIFF) (BEAKER) (test 8 % plrk=9953) LYMPHOCYTES - REL (DIFF) (BEAKER) (test 81 % kaup=0055) MONOCYTES - REL (DIFF) (BEAKER) (test kaam=1772) 3 % BANDS - REL (DIFF) (BEAKER) (test ojpy=3462) 2 % 0-10 BLASTS - REL (DIFF) (BEAKER) (test wysx=4444) 6 % 0-0 NEUTROPHILS - ABS (DIFF) (BEAKER) (test 0.04 K/ L 1.80-8.00 bxhw=6118) LYMPHOCYTES - ABS (DIFF) (BEAKER) (test 0.41 K/ L 1.48-4.50 fvlq=1836) MONOCYTES - ABS (DIFF) (BEAKER) (test ikll=6124) 0.02 K/ L 0.00-1.30 BANDS-ABS (DIFF) (BEAKER) (test jvdf=3408) 0.0 K/ L 0.0-0.8 BLASTS - ABS (DIFF) (BEAKER) (test vqmp=3502) 0.03 K/ L 0.00-0.00 TOTAL COUNTED (BEAKER) (test djut=1550) 100 BANDS + SEGMENTED NEUTROPHILS (BEAKER) (test 0.05 suzk=9496) WBC MORPHOLOGY (BEAKER) (test sxit=062) Normal PLT MORPHOLOGY (BEAKER) (test iydx=504) Normal ANISOCYTOSIS (BEAKER) (test wjgc=329) 1+ few HYPOCHROMIA (BEAKER) (test wstg=428) 2+ moderate POIKILOCYTES (BEAKER) (test ddzp=580) 1+ few [id number] 06:53:00 Test Item Value Reference Range Comments MAGNESIUM (BEAKER) (test wyha=686) 1.5 mg/dL 1.6-2.6 COMPREHENSIVE METABOLIC [id number] 06:53:00 Test Item Value Reference Range Comments TOTAL PROTEIN (BEAKER) 6.3 gm/dL 6.0-8.3 (test wdnj=065) ALBUMIN (BEAKER) (test 2.3 g/dL 3.5-5.0 eqcd=7744) ALKALINE PHOSPHATASE 149 U/L 40-150 (BEAKER) (test sqsa=155) BILIRUBIN TOTAL (BEAKER) 2.5 mg/dL 0.2-1.2 (test dhsa=135) SODIUM (BEAKER) (test 127 meq/L 136-145 rpoq=826) POTASSIUM (BEAKER) (test 3.5 meq/L 3.5-5.1 omfd=120) CHLORIDE (BEAKER) (test 93 meq/L 98-107 arlj=718) CO2 (BEAKER) (test 26 meq/L 22-29 nums=736) BLOOD UREA NITROGEN 11 mg/dL 7-21 (BEAKER) (test azjq=976) CREATININE (BEAKER) (test 0.58 mg/dL 0.57-1.25 uceh=375) GLUCOSE RANDOM (BEAKER) 105 mg/dL 70-105 (test dpso=145) CALCIUM (BEAKER) (test 8.6 mg/dL 8.4-10.2 xspc=066) AST (SGOT) (BEAKER) (test 21 U/L 5-34 arji=997) ALT (SGPT) (BEAKER) (test 12 U/L 6-55 qsay=615) EGFR (BEAKER) (test 141 mL/min/1.73 sq ESTIMATED GFR IS NOT fyvs=1955) m ACCURATE CREATININE CLEARANCE IN PREDICTING GLOMERULAR FILTRATION RATE. ESTIMATED GFR IS NOT APPLICABLE FOR DIALYSIS PATIENTS. Specimen slightly ictericHEPATIC FUNCTION [id number] 06:29:00 Test Item Value Reference Range Comments TOTAL PROTEIN (BEAKER) (test wszn=822) 6.3 gm/dL 6.0-8.3 ALBUMIN (BEAKER) (test xmjm=1253) 2.3 g/dL 3.5-5.0 BILIRUBIN TOTAL (BEAKER) (test dsgh=633) 2.5 mg/dL 0.2-1.2 BILIRUBIN DIRECT (BEAKER) (test sakb=116) 1.6 mg/dL 0.1-0.5 ALKALINE PHOSPHATASE (BEAKER) (test zamo=548) 148 U/L 40-150 AST (SGOT) (BEAKER) (test jjgb=574) 21 U/L 5-34 ALT (SGPT) (BEAKER) (test szgu=182) 12 U/L 6-55 Specimen slightly ictericLACTIC ACID, VENOUS, WHOLE [id number] 05:32:00 Test Item Value Reference Range Comments LACTATE BLOOD VENOUS (2) (BEAKER) (test 1.0 mmol/L 0.5-2.2 gwgs=7828) Effective 12/21/2015: Units/Reference Range ChangeNew: 0.5-2.2 mmol/L Previous: 5 -20 mg/dLPT/[id number] 05:26:00 Test Item Value Reference Range Comments PROTIME (BEAKER) (test plhs=066) 15.9 seconds 11.7-14.7 INR (BEAKER) (test xftq=350) 1.3 <=5.9 PARTIAL THROMBOPLASTIN TIME (BEAKER) (test 44.6 seconds 22.5-36.0 inoe=139) RECOMMENDED COUMADIN/WARFARIN INR THERAPY RANGESSTANDARD DOSE: 2.0 - 3.0 Includes: PROPHYLAXIS forvenous thrombosis, systemic embolization; TREATMENT for venous thrombosis and/or pulmonary embolus.HIGH RISK: Target INR is 2.5-3.5 for patients with mechanical heart valves.[id number] 05:25:00 Test Item Value Reference Range Comments FIBRINOGEN LEVEL (BEAKER) (test vqcu=823) 679 mg/dl 225-434 [id number] 05:24:00 Test Item Value Reference Range Comments D-DIMER QUANTITATIVE (BEAKER) (test drua=907) 1.18 MG/L FEU <0.50 Intended Use: The D-Dimer Assay can be used to aid in the diagnosis of Deep Vein Thrombosis (DVT) and Pulmonary Embolism Disease (PED).In patients with low pre-test probability, various studies concerning STA Liatest D-dimer test have reported that with a cutoff value of 0.50 MG/L FEU, the Negative Predictive Value (NPV) regarding the exclusion of thrombosis is within 95-100% range.CBC W/ PLT COUNT & AUTO [id number] 14:11:00 Test Item Value Reference Range Comments WHITE BLOOD CELL COUNT 1.0 K/ L 3.5-10.5 (BEAKER) (test anjc=904) RED BLOOD CELL COUNT (BEAKER) 2.34 M/ L 4.63-6.08 (test dtmy=309) HEMOGLOBIN (BEAKER) (test 6.6 GM/DL 13.7-17.5 nnbd=023) HEMATOCRIT (BEAKER) (test 20.6 % 40.1-51.0 usyo=822) MEAN CORPUSCULAR VOLUME 88.0 fL 79.0-92.2 (BEAKER) (test hwos=879) MEAN CORPUSCULAR HEMOGLOBIN 28.2 pg 25.7-32.2 (BEAKER) (test rrpr=602) MEAN CORPUSCULAR HEMOGLOBIN 32.0 GM/DL 32.3-36.5 CONC (BEAKER) (test wmom=594) RED CELL DISTRIBUTION WIDTH 13.7 % 11.6-14.4 (BEAKER) (test nttd=640) PLATELET COUNT (BEAKER) (test 3 K/CU MM 150-450 rdge=719) MEAN PLATELET VOLUME (BEAKER) fL 9.4-12.4 Unable to report due to (test yvyi=404) abnormal Platelet population distribution. NUCLEATED RED BLOOD CELLS 0 /100 WBC 0-0 (BEAKER) (test qriz=936) COMPREHENSIVE METABOLIC [id number] 12:30:00 Test Item Value Reference Range Comments TOTAL PROTEIN (BEAKER) 7.4 gm/dL 6.0-8.3 (test vbla=781) ALBUMIN (BEAKER) (test 2.5 g/dL 3.5-5.0 xbqv=8518) ALKALINE PHOSPHATASE 153 U/L 40-150 (BEAKER) (test crbl=955) BILIRUBIN TOTAL (BEAKER) 1.9 mg/dL 0.2-1.2 (test ymel=725) SODIUM (BEAKER) (test 124 meq/L 136-145 nyjr=536) POTASSIUM (BEAKER) (test 3.7 meq/L 3.5-5.1 oicy=307) CHLORIDE (BEAKER) (test 89 meq/L 98-107 ovji=193) CO2 (BEAKER) (test 24 meq/L 22-29 zdst=460) BLOOD UREA NITROGEN 14 mg/dL 7-21 (BEAKER) (test jeev=476) CREATININE (BEAKER) (test 0.63 mg/dL 0.57-1.25 ldtk=268) GLUCOSE RANDOM (BEAKER) 91 mg/dL 70-105 (test csdc=643) CALCIUM (BEAKER) (test 9.4 mg/dL 8.4-10.2 gbfz=356) AST (SGOT) (BEAKER) (test 21 U/L 5-34 voto=710) ALT (SGPT) (BEAKER) (test 12 U/L 6-55 wvrn=327) EGFR (BEAKER) (test 128 mL/min/1.73 sq ESTIMATED GFR IS NOT zjvf=7365) m ACCURATE CREATININE CLEARANCE IN PREDICTING GLOMERULAR FILTRATION RATE. ESTIMATED GFR IS NOT APPLICABLE FOR DIALYSIS PATIENTS. [id number] 12:14:00 Test Item Value Reference Range Comments PROTIME (BEAKER) (test mxag=158) 17.1 seconds 11.7-14.7 INR (BEAKER) (test lmsq=247) 1.4 <=5.9 PARTIAL THROMBOPLASTIN TIME (BEAKER) (test 43.7 seconds 22.5-36.0 otou=946) RECOMMENDED COUMADIN/WARFARIN INR THERAPY RANGESSTANDARD DOSE: 2.0 - 3.0 Includes: PROPHYLAXIS forvenous thrombosis, systemic embolization; TREATMENT for venous thrombosis and/or pulmonary embolus.HIGH RISK: Target INR is 2.5-3.5 for patients with mechanical heart valves.POCT-LACTIC ACID, [id number] 12: 01:00 Test Item Value Reference Range Comments POC-LACTIC ACID, VENOUS 1.2 mmol/L 0.9-1.7 TESTED AT [address] ([facility] [place]) (test ltgz=4763) [facility] [address] POCT-GLUCOSE [id number] 12:00:00 Test Item Value Reference Range Comments POC-GLUCOSE METER ([facility] [place]) 94 mg/dL 70-110 TESTED AT [address] (test hdxk=4021) [facility] [address] URINE [id number] 10:39:00 Test Item Value Reference Range Comments CULTURE ([facility] [place]) (test pxns=9645) No growth CBC W/PLT COUNT & AUTO [id number] 09:44:00 Test Item Value Reference Range Comments WHITE BLOOD CELL COUNT (AKER) (test nnei=316) 1.4 K/ L 3.5-10.5 RED BLOOD CELL COUNT (BEAKER) (test iarn=058) 2.68 M/ L 4.63-6.08 HEMOGLOBIN (BEAKER) (test atwh=786) 7.7 GM/DL 13.7-17.5 HEMATOCRIT (BEAKER) (test chrf=390) 23.9 % 40.1-51.0 MEAN CORPUSCULAR VOLUME (BEAKER) (test pmmp=766) 89.2 fL 79.0-92.2 MEAN CORPUSCULAR HEMOGLOBIN (BEAKER) (test 28.7 pg 25.7-32.2 gxhb=897) MEAN CORPUSCULAR HEMOGLOBIN CONC (BEAKER) (test 32.2 GM/DL 32.3-36.5 fwar=216) RED CELL DISTRIBUTION WIDTH (BEAKER) (test 14.2 % 11.6-14.4 oyff=207) PLATELET COUNT (BEAKER) (test ugmd=149) 73 K/CU MM 150-450 MEAN PLATELET VOLUME (BEAKER) (test vraf=784) 10.2 fL 9.4-12.4 NUCLEATED RED BLOOD CELLS (BEAKER) (test 0 /100 WBC 0-0 kmff=723) IMMATURE GRANULOCYTES-RELATIVE PERCENT (BEAKER) 1 % 0-1 (test vazp=2445) (MANUAL DIFFERENTIAL)2017-11-30 09:44:00 Test Item Value Reference Range Comments NEUTROPHILS - REL (DIFF) (BEAKER) (test tbfp=4967) 1 % LYMPHOCYTES - REL (DIFF) (BEAKER) (test oadb=6931) 87 % MONOCYTES - REL (DIFF) (BEAKER) (test kqda=3993) 3 % EOSINOPHILS - REL (DIFF) (BEAKER) (test xsez=4776) 0 % BASOPHILS - REL (DIFF) (BEAKER) (test tgdy=2107) 0 % BLASTS - REL (DIFF) (BEAKER) (test djty=1750) 9 % 0-0 NEUTROPHILS - ABS (DIFF) (BEAKER) (test qblr=2355) 0.01 K/ L 1.80-8.00 LYMPHOCYTES - ABS (DIFF) (BEAKER) (test kltt=8926) 1.22 K/ L 1.48-4.50 MONOCYTES - ABS (DIFF) (BEAKER) (test ispg=8750) 0.04 K/ L 0.00-1.30 EOSINOPHILS - ABS (DIFF) (BEAKER) (test mpnj=8137) 0.00 K/ L 0.00-0.50 BASOPHILS - ABS (DIFF) (BEAKER) (test jdro=1997) 0.00 K/ L 0.00-0.20 BLASTS - ABS (DIFF) (BEAKER) (test unod=4428) 0.13 K/ L 0.00-0.00 TOTAL COUNTED (BEAKER) (test qrxm=7001) 100 WBC MORPHOLOGY (BEAKER) (test wpid=574) Normal PLT MORPHOLOGY (BEAKER) (test skxc=248) Normal RBC MORPHOLOGY (BEAKER) (test avan=005) Normal [id number] 07:21:00 Test Item Value Reference Range Comments MAGNESIUM (BEAKER) (test hxxk=846) 1.6 mg/dL 1.6-2.6 BASIC METABOLIC [id number] 07:21:00 Test Item Value Reference Range Comments SODIUM (BEAKER) (test 133 meq/L 136-145 quxt=129) POTASSIUM (BEAKER) (test 4.2 meq/L 3.5-5.1 ampo=614) CHLORIDE (BEAKER) (test 101 meq/L 98-107 jlof=175) CO2 (BEAKER) (test 24 meq/L 22-29 fkjz=618) BLOOD UREA NITROGEN 7 mg/dL 7-21 (BEAKER) (test zpvg=522) CREATININE (BEAKER) (test 0.61 mg/dL 0.57-1.25 fnlb=640) GLUCOSE RANDOM (BEAKER) 108 mg/dL 70-105 (test qhpw=163) CALCIUM (BEAKER) (test 8.6 mg/dL 8.4-10.2 fvib=005) EGFR (BEAKER) (test 133 mL/min/1.73 sq m ESTIMATED GFR IS NOT rors=4887) ACCURATE CREATININE CLEARANCE IN PREDICTING GLOMERULAR FILTRATION RATE. ESTIMATED GFR IS NOT APPLICABLE FOR DIALYSIS PATIENTS. POCT-GLUCOSE [id number] 20:56:00 Test Item Value Reference Range Comments POC-GLUCOSE METER (BEAKER) 132 mg/dL 70-110 TESTED AT [facility] [address] [facility] (test gnfp=4131) [facility] [address] PERIPHERAL BLOOD SMEAR - PATHOLOGIST [id number] 15:58:00 Test Item Value Reference Range Comments PERIPHERAL SMR REVIEW (BEAKER) Blasts confirmed. Results (test orgy=9672) discussed with Dr. Matthew 11/29/2017. [id number] (BEAKER) mAanda Krause M.D. (test xlhc=6653) (electronic signature) CBC W/PLT COUNT & AUTO [id number] 14:34:00 Test Item Value Reference Range Comments WHITE BLOOD CELL COUNT 1.0 K/ L 3.5-10.5 (BEAKER) (test ajhu=915) RED BLOOD CELL COUNT (BEAKER) 3.04 M/ L 4.63-6.08 (test tmxh=452) HEMOGLOBIN (BEAKER) (test 8.8 GM/DL 13.7-17.5 ufcf=885) HEMATOCRIT (BEAKER) (test 27.0 % 40.1-51.0 yqrx=265) MEAN CORPUSCULAR VOLUME 88.8 fL 79.0-92.2 (BEAKER) (test kqsh=589) MEAN CORPUSCULAR HEMOGLOBIN 28.9 pg 25.7-32.2 (BEAKER) (test kcym=990) MEAN CORPUSCULAR HEMOGLOBIN 32.6 GM/DL 32.3-36.5 CONC (BEAKER) (test gvyu=752) RED CELL DISTRIBUTION WIDTH 14.2 % 11.6-14.4 (BEAKER) (test snuk=509) PLATELET COUNT (BEAKER) (test 6 K/CU MM 150-450 vffr=977) MEAN PLATELET VOLUME (BEAKER) fL 9.4-12.4 Unable to report due to (test mtcl=280) abnormal Platelet population distribution. NUCLEATED RED BLOOD CELLS 2 /100 WBC 0-0 (BEAKER) (test ctcm=704) IMMATURE GRANULOCYTES-RELATIVE 1 % 0-1 PERCENT (BEAKER) (test leeu=0327) (MANUAL DIFFERENTIAL)2017-11-29 14:34:00 Test Item Value Reference Range Comments NEUTROPHILS - REL (DIFF) (BEAKER) (test cjss=5445) 4 % LYMPHOCYTES - REL (DIFF) (BEAKER) (test wvch=5608) 78 % MONOCYTES - REL (DIFF) (BEAKER) (test nzrc=1992) 2 % BANDS - REL (DIFF) (BEAKER) (test kqkn=0116) 4 % 0-10 BLASTS - REL (DIFF) (BEAKER) (test oubu=8240) 12 % 0-0 NEUTROPHILS - ABS (DIFF) (BEAKER) (test oewc=9708) 0.04 K/ L 1.80-8.00 LYMPHOCYTES - ABS (DIFF) (BEAKER) (test jwzt=1951) 0.78 K/ L 1.48-4.50 MONOCYTES - ABS (DIFF) (BEAKER) (test qrug=3447) 0.02 K/ L 0.00-1.30 BANDS-ABS (DIFF) (BEAKER) (test wifp=7516) 0.0 K/ L 0.0-0.8 BLASTS - ABS (DIFF) (BEAKER) (test pnpt=7530) 0.12 K/ L 0.00-0.00 TOTAL COUNTED (BEAKER) (test whck=6616) 100 BANDS + SEGMENTED NEUTROPHILS (BEAKER) (test 0.08 qhts=9835) WBC MORPHOLOGY (BEAKER) (test nutq=217) Normal PLT MORPHOLOGY (BEAKER) (test wywi=030) Normal RBC MORPHOLOGY (BEAKER) (test jxlx=549) Normal [id number] 10:54:00 Test Item Value Reference Range Comments PROTIME (BEAKER) (test leay=898) 15.7 seconds 11.7-14.7 INR (BEAKER) (test khun=214) 1.3 <=5.9 PARTIAL THROMBOPLASTIN TIME (BEAKER) (test 28.1 seconds 22.5-36.0 wptz=004) RECOMMENDED COUMADIN/WARFARIN INR THERAPY RANGESSTANDARD DOSE: 2.0 - 3.0 Includes: PROPHYLAXIS forvenous thrombosis, systemic embolization; TREATMENT for venous thrombosis and/or pulmonary embolus.HIGH RISK: Target INR is 2.5-3.5 for patients with mechanical heart valves.BASIC METABOLIC [id number] 10:47: 00 Test Item Value Reference Range Comments SODIUM (BEAKER) (test 134 meq/L 136-145 euwo=061) POTASSIUM (BEAKER) (test 4.3 meq/L 3.5-5.1 Specimen slightly tziq=960) hemolyzed CHLORIDE (BEAKER) (test 100 meq/L 98-107 xams=711) CO2 (BEAKER) (test 24 meq/L 22-29 dsnl=700) BLOOD UREA NITROGEN 13 mg/dL 7-21 (BEAKER) (test ibtk=845) CREATININE (BEAKER) (test 0.68 mg/dL 0.57-1.25 Specimen slightly oyai=113) hemolyzed GLUCOSE RANDOM (BEAKER) 130 mg/dL 70-105 (test yluq=291) CALCIUM (BEAKER) (test 8.9 mg/dL 8.4-10.2 qrbg=671) EGFR (BEAKER) (test 117 mL/min/1.73 sq m ESTIMATED GFR IS NOT ixqb=3259) ACCURATE CREATININE CLEARANCE IN PREDICTING GLOMERULAR FILTRATION RATE. ESTIMATED GFR IS NOT APPLICABLE FOR DIALYSIS PATIENTS. URINALYSIS W/ [id number] 10:32:00 Test Item Value Reference Range Comments COLOR (BEAKER) (test wcww=417) Yellow CLARITY (BEAKER) (test bflc=578) Clear SPECIFIC GRAVITY UA (BEAKER) (test 1.029 1.001-1.035 pvct=586) PH UA (BEAKER) (test rafx=384) 6.0 5.0-8.0 PROTEIN UA (BEAKER) (test edqi=491) 30 mg/dL Negative GLUCOSE UA (BEAKER) (test nzmd=653) Negative Negative KETONES UA (BEAKER) (test ajel=890) Negative Negative BILIRUBIN UA (BEAKER) (test vxbc=977) Negative Negative BLOOD UA (BEAKER) (test sqtj=055) Negative Negative NITRITE UA (BEAKER) (test fqhj=965) Negative Negative LEUKOCYTE ESTERASE UA (BEAKER) (test Negative Negative odux=726) UROBILINOGEN UA (BEAKER) (test eyhz=666) 6.0 mg/dL 0.2-1.0 RBC UA (BEAKER) (test syto=704) < /HPF WBC UA (BEAKER) (test qkrd=635) 2 /HPF MUCUS (BEAKER) (test hiwg=4170) Many SOURCE(BEAKER) (test tlic=9461) Urine, Clean Catch BASIC METABOLIC [id number] 08:21:00 Test Item Value Reference Range Comments SODIUM (BEAKER) (test 131 meq/L 136-145 fnwm=404) POTASSIUM (BEAKER) (test 3.8 meq/L 3.5-5.1 fpre=860) CHLORIDE (BEAKER) (test 96 meq/L 98-107 dhuy=238) CO2 (BEAKER) (test 27 meq/L 22-29 nlha=536) BLOOD UREA NITROGEN 9 mg/dL 7-21 (BEAKER) (test sfjc=107) CREATININE (BEAKER) (test 0.61 mg/dL 0.57-1.25 kyys=924) GLUCOSE RANDOM (BEAKER) 105 mg/dL 70-105 (test mlej=148) CALCIUM (BEAKER) (test 8.3 mg/dL 8.4-10.2 lrhh=747) EGFR (BEAKER) (test 133 mL/min/1.73 sq m ESTIMATED GFR IS NOT iqbu=9766) ACCURATE CREATININE CLEARANCE IN PREDICTING GLOMERULAR FILTRATION RATE. ESTIMATED GFR IS NOT APPLICABLE FOR DIALYSIS PATIENTS. CBC (HEMOGRAM ONLY)2017-11-23 07:17:00 Test Item Value Reference Range Comments WHITE BLOOD CELL COUNT (BEAKER) (test vodo=630) 1.0 K/ L 3.5-10.5 RED BLOOD CELL COUNT (BEAKER) (test imjx=743) 2.72 M/ L 4.63-6.08 HEMOGLOBIN (BEAKER) (test taje=696) 7.9 GM/DL 13.7-17.5 HEMATOCRIT (BEAKER) (test nhkr=365) 23.8 % 40.1-51.0 MEAN CORPUSCULAR VOLUME (BEAKER) (test qfyn=939) 87.5 fL 79.0-92.2 MEAN CORPUSCULAR HEMOGLOBIN (BEAKER) (test 29.0 pg 25.7-32.2 gsjl=194) MEAN CORPUSCULAR HEMOGLOBIN CONC (BEAKER) (test 33.2 GM/DL 32.3-36.5 fxdh=672) RED CELL DISTRIBUTION WIDTH (BEAKER) (test 15.5 % 11.6-14.4 nwpz=547) PLATELET COUNT (BEAKER) (test bywo=784) 45 K/CU MM 150-450 MEAN PLATELET VOLUME (BEAKER) (test auqf=923) 9.0 fL 9.4-12.4 NUCLEATED RED BLOOD CELLS (BEAKER) (test 2 /100 WBC 0-0 jmfx=464) CBC (HEMOGRAM ONLY)2017-11-22 15:13:00 Test Item Value Reference Range Comments WHITE BLOOD CELL COUNT (BEAKER) (test efjj=917) 1.5 K/ L 3.5-10.5 RED BLOOD CELL COUNT (BEAKER) (test fmsu=032) 2.15 M/ L 4.63-6.08 HEMOGLOBIN (BEAKER) (test zcnz=037) 6.3 GM/DL 13.7-17.5 HEMATOCRIT (BEAKER) (test uwyi=423) 19.3 % 40.1-51.0 MEAN CORPUSCULAR VOLUME (BEAKER) (test cwqb=147) 89.8 fL 79.0-92.2 MEAN CORPUSCULAR HEMOGLOBIN (BEAKER) (test 29.3 pg 25.7-32.2 vkwz=650) MEAN CORPUSCULAR HEMOGLOBIN CONC (BEAKER) (test 32.6 GM/DL 32.3-36.5 ajes=112) RED CELL DISTRIBUTION WIDTH (BEAKER) (test 14.6 % 11.6-14.4 vftw=504) PLATELET COUNT (BEAKER) (test tlbh=355) 62 K/CU MM 150-450 MEAN PLATELET VOLUME (BEAKER) (test ahss=834) 9.2 fL 9.4-12.4 NUCLEATED RED BLOOD CELLS (BEAKER) (test 2 /100 WBC 0-0 diey=016) CBC W/PLT COUNT & AUTO [id number] 14:17:00 Test Item Value Reference Range Comments WHITE BLOOD CELL COUNT 1.5 K/ L 3.5-10.5 (BEAKER) (test hgue=389) RED BLOOD CELL COUNT (BEAKER) 2.46 M/ L 4.63-6.08 (test fkgj=204) HEMOGLOBIN (BEAKER) (test 7.1 GM/DL 13.7-17.5 hnce=378) HEMATOCRIT (BEAKER) (test 22.0 % 40.1-51.0 zlqf=334) MEAN CORPUSCULAR VOLUME 89.4 fL 79.0-92.2 (BEAKER) (test qaxy=186) MEAN CORPUSCULAR HEMOGLOBIN 28.9 pg 25.7-32.2 (BEAKER) (test ihym=879) MEAN CORPUSCULAR HEMOGLOBIN 32.3 GM/DL 32.3-36.5 CONC (BEAKER) (test icba=960) RED CELL DISTRIBUTION WIDTH 14.6 % 11.6-14.4 (BEAKER) (test ienf=911) PLATELET COUNT (BEAKER) (test 1 K/CU MM 150-450 jvuz=243) MEAN PLATELET VOLUME (BEAKER) fL 9.4-12.4 Unable to report due to (test aiqw=684) abnormal Platelet population distribution. NUCLEATED RED BLOOD CELLS 2 /100 WBC 0-0 (BEAKER) (test ceyu=266) NEUTROPHILS RELATIVE PERCENT 5 % (BEAKER) (test zgog=461) LYMPHOCYTES RELATIVE PERCENT 87 % (BEAKER) (test fhyd=428) MONOCYTES RELATIVE PERCENT 7 % (BEAKER) (test airt=091) EOSINOPHILS RELATIVE PERCENT 0 % (BEAKER) (test ckje=384) BASOPHILS RELATIVE PERCENT 0 % (BEAKER) (test kxja=961) NEUTROPHILS ABSOLUTE COUNT 0.08 K/ L 1.78-5.38 (BEAKER) (test csbh=446) LYMPHOCYTES ABSOLUTE COUNT 1.30 K/ L 1.32-3.57 (BEAKER) (test egxn=858) MONOCYTES ABSOLUTE COUNT 0.10 K/ L 0.30-0.82 (BEAKER) (test dszv=760) EOSINOPHILS ABSOLUTE COUNT 0.00 K/ L 0.04-0.54 (BEAKER) (test ttqp=907) BASOPHILS ABSOLUTE COUNT 0.00 K/ L 0.01-0.08 (BEAKER) (test suyg=605) IMMATURE GRANULOCYTES-RELATIVE 1 % 0-1 PERCENT (BEAKER) (test pnaf=5166) (MANUAL DIFFERENTIAL)2017-11-22 14:17:00 Test Item Value Reference Range Comments TOTAL COUNTED (BEAKER) (test xpeo=2296) WBC MORPHOLOGY (BEAKER) (test saeu=533) Normal PLT MORPHOLOGY (BEAKER) (test nggo=515) Normal RBC MORPHOLOGY (BEAKER) (test xcje=802) Normal BASIC METABOLIC [id number] 12:03:00 Test Item Value Reference Range Comments SODIUM (BEAKER) (test 132 meq/L 136-145 kdle=883) POTASSIUM (BEAKER) (test 3.3 meq/L 3.5-5.1 ppdi=510) CHLORIDE (BEAKER) (test 94 meq/L 98-107 mvse=859) CO2 (BEAKER) (test 30 meq/L 22-29 nabv=090) BLOOD UREA NITROGEN 10 mg/dL 7-21 (BEAKER) (test suuc=425) CREATININE (BEAKER) (test 0.63 mg/dL 0.57-1.25 dcvl=897) GLUCOSE RANDOM (BEAKER) 85 mg/dL 70-105 (test soax=698) CALCIUM (BEAKER) (test 9.1 mg/dL 8.4-10.2 rikd=144) EGFR (BEAKER) (test 128 mL/min/1.73 sq m ESTIMATED GFR IS NOT pioj=0367) ACCURATE CREATININE CLEARANCE IN PREDICTING GLOMERULAR FILTRATION RATE. ESTIMATED GFR IS NOT APPLICABLE FOR DIALYSIS PATIENTS. [id number] 11:44:00 Test Item Value Reference Range Comments PROTIME (BEAKER) (test yzsz=145) 17.0 seconds 11.7-14.7 INR (BEAKER) (test xmul=217) 1.4 <=5.9 PARTIAL THROMBOPLASTIN TIME (BEAKER) (test 43.0 seconds 22.5-36.0 kfdf=225) RECOMMENDED COUMADIN/WARFARIN INR THERAPY RANGESSTANDARD DOSE: 2.0 - 3.0 Includes: PROPHYLAXIS forvenous thrombosis, systemic embolization; TREATMENT for venous thrombosis and/or pulmonary embolus.HIGH RISK: Target INR is 2.5-3.5 for patients with mechanical heart valves.BLOOD [id number] 06:00:00 Test Item Value Reference Range Comments CULTURE (BEAKER) (test srha=0505) No growth in 5 days BLOOD [id number] 06:00:00 Test Item Value Reference Range Comments CULTURE (BEAKER) (test nluf=4997) No growth in 5 days CBC W/PLT COUNT & AUTO [id number] 13:23:00 Test Item Value Reference Range Comments WHITE BLOOD CELL COUNT (BEAKER) (test zhwx=167) 1.4 K/ L 3.5-10.5 RED BLOOD CELL COUNT (BEAKER) (test seym=907) 2.62 M/ L 4.63-6.08 HEMOGLOBIN (BEAKER) (test agbh=979) 7.8 GM/DL 13.7-17.5 HEMATOCRIT (BEAKER) (test equb=150) 23.5 % 40.1-51.0 MEAN CORPUSCULAR VOLUME (BEAKER) (test rnrf=594) 89.7 fL 79.0-92.2 MEAN CORPUSCULAR HEMOGLOBIN (BEAKER) (test 29.8 pg 25.7-32.2 axtu=719) MEAN CORPUSCULAR HEMOGLOBIN CONC (BEAKER) (test 33.2 GM/DL 32.3-36.5 ulqn=556) RED CELL DISTRIBUTION WIDTH (BEAKER) (test 16.0 % 11.6-14.4 kcpm=397) PLATELET COUNT (BEAKER) (test zhdl=031) 32 K/CU MM 150-450 MEAN PLATELET VOLUME (BEAKER) (test ququ=160) 9.7 fL 9.4-12.4 NUCLEATED RED BLOOD CELLS (BEAKER) (test 0 /100 WBC 0-0 cney=535) NEUTROPHILS RELATIVE PERCENT (BEAKER) (test 7 % wwvk=010) LYMPHOCYTES RELATIVE PERCENT (BEAKER) (test 89 % giee=261) MONOCYTES RELATIVE PERCENT (BEAKER) (test 4 % iqfq=734) EOSINOPHILS RELATIVE PERCENT (BEAKER) (test 0 % ivfz=846) BASOPHILS RELATIVE PERCENT (BEAKER) (test 0 % lbzt=349) NEUTROPHILS ABSOLUTE COUNT (BEAKER) (test 0.09 K/ L 1.78-5.38 wpns=202) LYMPHOCYTES ABSOLUTE COUNT (BEAKER) (test 1.23 K/ L 1.32-3.57 jwdt=385) MONOCYTES ABSOLUTE COUNT (BEAKER) (test upfa=067) 0.05 K/ L 0.30-0.82 EOSINOPHILS ABSOLUTE COUNT (BEAKER) (test 0.00 K/ L 0.04-0.54 lfpy=570) BASOPHILS ABSOLUTE COUNT (BEAKER) (test pfcl=161) 0.00 K/ L 0.01-0.08 IMMATURE GRANULOCYTES-RELATIVE PERCENT (BEAKER) 1 % 0-1 (test qhof=7842) (MANUAL DIFFERENTIAL)2017-11-16 13:23:00 Test Item Value Reference Range Comments TOTAL COUNTED (BEAKER) (test vifb=1681) WBC MORPHOLOGY (BEAKER) (test rcnn=622) Normal PLT MORPHOLOGY (BEAKER) (test jhmc=963) Normal RBC MORPHOLOGY (BEAKER) (test ffqi=207) Normal VANCOMYCIN LEVEL, [id number] 10:21:00 Test Item Value Reference Range Comments VANCOMYCIN TROUGH (BEAKER) (test esmy=016) 16.8 ug/mL 10.0-20.0 Draw immediately prior to next vancomycin dose.COMPREHENSIVE METABOLIC [id number] 05:53:00 Test Item Value Reference Range Comments TOTAL PROTEIN (BEAKER) 6.3 gm/dL 6.0-8.3 Specimen slightly (test dcvm=642) hemolyzed ALBUMIN (BEAKER) (test 2.1 g/dL 3.5-5.0 Specimen slightly vcek=6690) hemolyzed ALKALINE PHOSPHATASE 85 U/L 40-150 (BEAKER) (test zbyv=075) BILIRUBIN TOTAL (BEAKER) 0.7 mg/dL 0.2-1.2 Specimen slightly (test xsuf=331) hemolyzed SODIUM (BEAKER) (test 133 meq/L 136-145 vtgz=123) POTASSIUM (BEAKER) (test 3.9 meq/L 3.5-5.1 Specimen slightly yhsx=010) hemolyzed CHLORIDE (BEAKER) (test 103 meq/L 98-107 fuoy=153) CO2 (BEAKER) (test 21 meq/L 22-29 rexv=382) BLOOD UREA NITROGEN 7 mg/dL 7-21 (BEAKER) (test oupn=237) CREATININE (BEAKER) (test 0.54 mg/dL 0.57-1.25 Specimen slightly hhxz=842) hemolyzed GLUCOSE RANDOM (BEAKER) 101 mg/dL 70-105 (test wtfr=871) CALCIUM (BEAKER) (test 8.2 mg/dL 8.4-10.2 iqxs=217) AST (SGOT) (BEAKER) (test 15 U/L 5-34 Specimen slightly eomd=349) hemolyzed ALT (SGPT) (BEAKER) (test 8 U/L 6-55 Specimen slightly xdhb=158) hemolyzed EGFR (BEAKER) (test 153 mL/min/1.73 sq ESTIMATED GFR IS NOT hlqr=8818) m ACCURATE CREATININE CLEARANCE IN PREDICTING GLOMERULAR FILTRATION RATE. ESTIMATED GFR IS NOT APPLICABLE FOR DIALYSIS PATIENTS. VANCOMYCIN LEVEL, [id number] 12:24:00 Test Item Value Reference Range Comments VANCOMYCIN TROUGH (BEAKER) (test wuhk=938) 9.9 ug/mL 10.0-20.0 CBC W/PLT COUNT & AUTO [id number] 11:18:00 Test Item Value Reference Range Comments WHITE BLOOD CELL COUNT (BEAKER) (test qxei=452) 1.4 K/ L 3.5-10.5 RED BLOOD CELL COUNT (BEAKER) (test kotx=452) 2.69 M/ L 4.63-6.08 HEMOGLOBIN (BEAKER) (test qnnr=811) 8.0 GM/DL 13.7-17.5 HEMATOCRIT (BEAKER) (test vabp=029) 24.0 % 40.1-51.0 MEAN CORPUSCULAR VOLUME (BEAKER) (test fxrf=416) 89.2 fL 79.0-92.2 MEAN CORPUSCULAR HEMOGLOBIN (BEAKER) (test 29.7 pg 25.7-32.2 txeg=018) MEAN CORPUSCULAR HEMOGLOBIN CONC (BEAKER) (test 33.3 GM/DL 32.3-36.5 egxm=775) RED CELL DISTRIBUTION WIDTH (BEAKER) (test 16.5 % 11.6-14.4 emhs=018) PLATELET COUNT (BEAKER) (test oezm=848) 34 K/CU MM 150-450 MEAN PLATELET VOLUME (BEAKER) (test kihl=372) 10.8 fL 9.4-12.4 NUCLEATED RED BLOOD CELLS (BEAKER) (test 0 /100 WBC 0-0 loux=719) NEUTROPHILS RELATIVE PERCENT (BEAKER) (test 8 % tatm=102) LYMPHOCYTES RELATIVE PERCENT (BEAKER) (test 85 % rokd=561) MONOCYTES RELATIVE PERCENT (BEAKER) (test 6 % omtl=450) EOSINOPHILS RELATIVE PERCENT (BEAKER) (test 0 % dmeu=914) BASOPHILS RELATIVE PERCENT (BEAKER) (test 0 % xmev=198) NEUTROPHILS ABSOLUTE COUNT (BEAKER) (test 0.11 K/ L 1.78-5.38 fzud=624) LYMPHOCYTES ABSOLUTE COUNT (BEAKER) (test 1.17 K/ L 1.32-3.57 kbxp=802) MONOCYTES ABSOLUTE COUNT (BEAKER) (test becn=164) 0.08 K/ L 0.30-0.82 EOSINOPHILS ABSOLUTE COUNT (BEAKER) (test 0.00 K/ L 0.04-0.54 gyyr=856) BASOPHILS ABSOLUTE COUNT (BEAKER) (test gzex=572) 0.00 K/ L 0.01-0.08 IMMATURE GRANULOCYTES-RELATIVE PERCENT (BEAKER) 1 % 0-1 (test xvul=0665) (MANUAL DIFFERENTIAL)2017-11-15 11:18:00 Test Item Value Reference Range Comments TOTAL COUNTED (BEAKER) (test pyus=8944) WBC MORPHOLOGY (BEAKER) (test xwin=307) Normal PLT MORPHOLOGY (BEAKER) (test rayg=414) Normal POLYCHROMATOPHILLIC RBCS(BEAKER) (test awbi=660) 1+ few SPUTUM CULTURE + GRAM [id number] 08:15:00 Test Item Value Reference Range Comments CULTURE (BEAKER) (test 3+ Normal respiratory nacho ugha=6411) present GRAM STAIN RESULT (BEAKER) <1+ White blood cells seen (test enzp=8058) GRAM STAIN RESULT (BEAKER) >25 epithelial cells (test xyts=34520) GRAM STAIN RESULT (BEAKER) 4+ gram positive cocci in (test imls=83304) chains, pairs and clusters [id number] 07:51:00 Test Item Value Reference Range Comments MAGNESIUM (BEAKER) (test 2.0 mg/dL 1.6-2.6 Specimen slightly hemolyzed mpav=612) BASIC METABOLIC [id number] 07:51:00 Test Item Value Reference Range Comments SODIUM (BEAKER) (test 131 meq/L 136-145 shvq=062) POTASSIUM (BEAKER) (test 4.0 meq/L 3.5-5.1 Specimen slightly kgxe=097) hemolyzed CHLORIDE (BEAKER) (test 102 meq/L 98-107 omca=182) CO2 (BEAKER) (test 22 meq/L 22-29 bnai=479) BLOOD UREA NITROGEN 7 mg/dL 7-21 (BEAKER) (test fvap=327) CREATININE (BEAKER) (test 0.52 mg/dL 0.57-1.25 Specimen slightly yvii=406) hemolyzed GLUCOSE RANDOM (BEAKER) 98 mg/dL 70-105 (test vlos=495) CALCIUM (BEAKER) (test 8.4 mg/dL 8.4-10.2 iqaj=480) EGFR (BEAKER) (test 160 mL/min/1.73 sq m ESTIMATED GFR IS NOT yzid=6293) ACCURATE CREATININE CLEARANCE IN PREDICTING GLOMERULAR FILTRATION RATE. ESTIMATED GFR IS NOT APPLICABLE FOR DIALYSIS PATIENTS. CBC W/PLT COUNT & AUTO [id number] 14:21:00 Test Item Value Reference Range Comments WHITE BLOOD CELL COUNT (BEAKER) (test edsl=072) 1.2 K/ L 3.5-10.5 RED BLOOD CELL COUNT (BEAKER) (test mnwc=736) 2.83 M/ L 4.63-6.08 HEMOGLOBIN (BEAKER) (test yzlm=589) 8.4 GM/DL 13.7-17.5 HEMATOCRIT (BEAKER) (test nopk=051) 24.7 % 40.1-51.0 MEAN CORPUSCULAR VOLUME (BEAKER) (test nslt=208) 87.3 fL 79.0-92.2 MEAN CORPUSCULAR HEMOGLOBIN (BEAKER) (test 29.7 pg 25.7-32.2 znzv=237) MEAN CORPUSCULAR HEMOGLOBIN CONC (BEAKER) (test 34.0 GM/DL 32.3-36.5 knzn=317) RED CELL DISTRIBUTION WIDTH (BEAKER) (test 16.8 % 11.6-14.4 snnn=996) PLATELET COUNT (BEAKER) (test ohly=170) 42 K/CU MM 150-450 MEAN PLATELET VOLUME (BEAKER) (test oytn=590) 9.1 fL 9.4-12.4 NUCLEATED RED BLOOD CELLS (BEAKER) (test 0 /100 WBC 0-0 vzgm=132) NEUTROPHILS RELATIVE PERCENT (BEAKER) (test 11 % ekkb=919) LYMPHOCYTES RELATIVE PERCENT (BEAKER) (test 80 % awja=728) MONOCYTES RELATIVE PERCENT (BEAKER) (test 8 % muok=634) EOSINOPHILS RELATIVE PERCENT (BEAKER) (test 0 % xuiu=585) BASOPHILS RELATIVE PERCENT (BEAKER) (test 0 % ckaj=225) NEUTROPHILS ABSOLUTE COUNT (BEAKER) (test 0.13 K/ L 1.78-5.38 wlse=235) LYMPHOCYTES ABSOLUTE COUNT (BEAKER) (test 0.93 K/ L 1.32-3.57 xlla=123) MONOCYTES ABSOLUTE COUNT (BEAKER) (test bfmh=329) 0.09 K/ L 0.30-0.82 EOSINOPHILS ABSOLUTE COUNT (BEAKER) (test 0.00 K/ L 0.04-0.54 fvwv=492) BASOPHILS ABSOLUTE COUNT (BEAKER) (test lrol=663) 0.00 K/ L 0.01-0.08 IMMATURE GRANULOCYTES-RELATIVE PERCENT (BEAKER) 1 % 0-1 (test zoli=4453) (MANUAL DIFFERENTIAL)2017-11-14 14:21:00 Test Item Value Reference Range Comments TOTAL COUNTED (BEAKER) (test sjih=6081) WBC MORPHOLOGY (BEAKER) (test rkyy=350) Normal PLT MORPHOLOGY (BEAKER) (test ykhn=525) Normal RBC MORPHOLOGY (BEAKER) (test fqww=098) Normal [id number] 07:09:00 Test Item Value Reference Range Comments PHOSPHORUS (BEAKER) (test dcuo=255) 2.4 mg/dL 2.3-4.7 [id number] 07:09:00 Test Item Value Reference Range Comments MAGNESIUM (BEAKER) (test rhha=652) 1.7 mg/dL 1.6-2.6 BASIC METABOLIC [id number] 07:09:00 Test Item Value Reference Range Comments SODIUM (BEAKER) (test 133 meq/L 136-145 iplw=339) POTASSIUM (BEAKER) (test 3.1 meq/L 3.5-5.1 rcsi=081) CHLORIDE (BEAKER) (test 101 meq/L 98-107 qlqv=281) CO2 (BEAKER) (test 24 meq/L 22-29 ufrm=098) BLOOD UREA NITROGEN 8 mg/dL 7-21 (BEAKER) (test alwg=126) CREATININE (BEAKER) (test 0.50 mg/dL 0.57-1.25 qjvp=717) GLUCOSE RANDOM (BEAKER) 109 mg/dL 70-105 (test rwti=653) CALCIUM (BEAKER) (test 8.4 mg/dL 8.4-10.2 qkef=820) EGFR (BEAKER) (test 167 mL/min/1.73 sq m ESTIMATED GFR IS NOT nkuv=3149) ACCURATE CREATININE CLEARANCE IN PREDICTING GLOMERULAR FILTRATION RATE. ESTIMATED GFR IS NOT APPLICABLE FOR DIALYSIS PATIENTS. PROTHROMBIN [id number] 06:39:00 Test Item Value Reference Range Comments PROTIME (BEAKER) (test mkkx=835) 15.5 seconds 11.7-14.7 INR (BEAKER) (test oeyt=858) 1.2 <=5.9 RECOMMENDED COUMADIN/WARFARIN INR THERAPY RANGESSTANDARD DOSE: 2.0 - 3.0 Includes: PROPHYLAXIS forvenous thrombosis, systemic embolization; TREATMENT for venous thrombosis and/or pulmonary embolus.HIGH RISK: Target INR is 2.5-3.5 for patients with mechanical heart valves.VANCOMYCIN LEVEL, [id number] 21: 53:00 Test Item Value Reference Range Comments VANCOMYCIN TROUGH (BEAKER) (test dibj=715) 8.7 ug/mL 10.0-20.0 Draw immediately prior to next vancomycin dose.CT, CHEST WITH IV CONTRAST- PE TEST [id number] 20:27:00FINAL REPORT CT scan of the chest with pulmonary embolism protocol. Clinical History: pulmonary hemorrhage vs infiltarte seen on CT abdome. ? pul infarct. Comparison Study: Chestx-ray dated November 13, [address] scan [...] pleural spaces are clear. The visualized portions ofthe upper abdomen are unremarkable. The tracheobronchial tree is clear with no endobronchial lesions. The pulmonary parenchyma demonstrates multifocal opacities including a 2.3 x 1.7 cm wedge- shaped opacity in the lingula on image 36, 5.0 x 2.3 cm opacity in the right costophrenic angle region, 1.6 cmopacity in the right lung base abutting the right hemidiaphragm on image 41, 1.8 cm nodule in the left lower lobe on image 37, multiple reticulonodular markings in both the lower lobes and the lingula,7 mm nodule in the right lower lobe on image 32, 5 mm nodule in the left lower lobe on image 28 and two nodules in the left lower lobe on image 29 measuring 7 mm and 4 mm in size. Other scattered nodules are seen throughout. Bone windows demonstrate degenerative changes. IMPRESSION:1. No evidence of pulmonary embolism2. Multifocal pulmonary opacities and nodules. This could represent a multifocal pneumonia including an atypical pneumonia. However, close calycle follow-up is recommended to exclude malignancy. Signed: Timothy Malone MDReport Verified Date/Time: 11/13/2017 20:27:00 Reading Location:[facility] [id number] Consult Reading Room Electronically signed by: TIMOTHY MALONE M.D. on 08:27 PMRESPIRATORY PANEL [id number] 14:09:00 Test Item Value Reference Range Comments HUMAN METAPNEUMOVIRUS (BEAKER) (test Not detected Not detected, Inconclusive viya=9823) RHINOVIRUS (BEAKER) (test gaei=8889) Not detected Not detected, Inconclusive INFLUENZA A (BEAKER) (test Not detected Not detected, Inconclusive fddl=6570) INFLUENZA A SUBTYPE H1 (BEAKER) Not detected Not detected, Inconclusive (test scqe=3538) INFLUENZA A SUBTYPE H3 (BEAKER) Not detected Not detected, Inconclusive (test wgts=4256) INFLUENZA A SUBTYPE H1-2009 (BEAKER) Not detected Not detected, Inconclusive (test fzbk=6189) INFLUENZA B (BEAKER) (test Not detected Not detected, Inconclusive ktcl=1669) RESPIRATORY SYNCYTIAL VIRUS (BEAKER) Not detected Not detected, Inconclusive (test oenr=6207) PARAINFLUENZA VIRUS 1 (BEAKER) (test Not detected Not detected, Inconclusive hdmv=5444) PARAINFLUENZA VIRUS 2 (BEAKER) (test Not detected Not detected, Inconclusive qzhd=7994) PARAINFLUENZA VIRUS 3 (BEAKER) (test Not detected Not detected, Inconclusive ipqe=7092) PARAINFLUENZA VIRUS 4 (BEAKER) (test Not detected Not detected, Inconclusive rkzm=7902) ADENOVIRUS (BEAKER) (test hkza=2619) Not detected Not detected, Inconclusive CORONAVIRUS 229E (BEAKER) (test Not detected Not detected, Inconclusive itxj=0889) CORONAVIRUS HKU1 (BEAKER) (test Not detected Not detected, Inconclusive zdxi=2225) CORONAVIRUS NL63 (BEAKER) (test Not detected Not detected, Inconclusive dcvy=1620) CORONAVIRUS OC43 (BEAKER) (test Not detected Not detected, Inconclusive pwkw=8688) BORDETELLA PERTUSSIS (BEAKER) (test Not detected Not detected, Inconclusive cuca=0067) CHLAMYDOPHILA PNEUMONIAE (BEAKER) Not detected Not detected, Inconclusive (test tuwc=9315) MYCOPLASMA PNEUMONIAE (BEAKER) (test Not detected Not detected, Inconclusive uaqg=5069) CBC W/PLT COUNT & AUTO [id number] 14:03:00 Test Item Value Reference Range Comments WHITE BLOOD CELL COUNT (BEAKER) (test pjuf=859) 0.9 K/ L 3.5-10.5 RED BLOOD CELL COUNT (BEAKER) (test uedd=073) 2.24 M/ L 4.63-6.08 HEMOGLOBIN (BEAKER) (test llmw=393) 6.7 GM/DL 13.7-17.5 HEMATOCRIT (BEAKER) (test ogpi=151) 19.7 % 40.1-51.0 MEAN CORPUSCULAR VOLUME (BEAKER) (test dyfi=099) 87.9 fL 79.0-92.2 MEAN CORPUSCULAR HEMOGLOBIN (BEAKER) (test 29.9 pg 25.7-32.2 vsxq=794) MEAN CORPUSCULAR HEMOGLOBIN CONC (BEAKER) (test 34.0 GM/DL 32.3-36.5 srnr=669) RED CELL DISTRIBUTION WIDTH (BEAKER) (test 16.3 % 11.6-14.4 ybml=012) PLATELET COUNT (BEAKER) (test nwss=512) 68 K/CU MM 150-450 MEAN PLATELET VOLUME (BEAKER) (test cuxd=019) 10.5 fL 9.4-12.4 NUCLEATED RED BLOOD CELLS (BEAKER) (test 0 /100 WBC 0-0 zsvg=260) IMMATURE GRANULOCYTES-RELATIVE PERCENT (BEAKER) 0 % 0-1 (test tvuq=1622) (MANUAL DIFFERENTIAL)2017-11-13 14:03:00 Test Item Value Reference Range Comments NEUTROPHILS - REL (DIFF) (BEAKER) (test dqsf=5934) 6 % LYMPHOCYTES - REL (DIFF) (BEAKER) (test lypy=4998) 85 % MONOCYTES - REL (DIFF) (BEAKER) (test pxpf=0047) 3 % BASOPHILS - REL (DIFF) (BEAKER) (test mjcu=3355) 1 % BLASTS - REL (DIFF) (BEAKER) (test lduk=2586) 5 % 0-0 NEUTROPHILS - ABS (DIFF) (BEAKER) (test kxwj=0078) 0.05 K/ L 1.80-8.00 LYMPHOCYTES - ABS (DIFF) (BEAKER) (test zosp=7624) 0.77 K/ L 1.48-4.50 MONOCYTES - ABS (DIFF) (BEAKER) (test wvnl=9332) 0.03 K/ L 0.00-1.30 BASOPHILS - ABS (DIFF) (BEAKER) (test wriv=2576) 0.01 K/ L 0.00-0.20 BLASTS - ABS (DIFF) (BEAKER) (test qhjq=9297) 0.05 K/ L 0.00-0.00 TOTAL COUNTED (BEAKER) (test mqpv=4179) 100 WBC MORPHOLOGY (BEAKER) (test phui=205) Normal PLT MORPHOLOGY (BEAKER) (test bhfe=327) Normal SCHISTOCYTES (BEAKER) (test ikvf=171) 1+ few ANISOCYTOSIS (BEAKER) (test jpkq=543) 1+ few URINE [id number] 13:14:00 Test Item Value Reference Range Comments CULTURE (BEAKER) (test vpve=0057) See comment <10,000 col/mL Beta-hemolytic tysvygkufsqlf74-25,000 col/mL skin floraRAD, CHEST, 1 VIEW, NON [id number] 07:11:00Reason for exam:->Neutropenic feverShould this be performed at the bedside?->YesFINAL REPORT Chest one view INDICATION: Neutropenic fever COMPARISON: 11/11/2017 IMPRESSION: Reticulonodular interstitial opacities are slightly increased, including conspicuous 2.8 cm left lower lung nodular opacity. Basilar airspace opacities are mildly increased. Given the history, findings are suspicious for multifocal pneumonitis. Advise short term radiographic follow up orchest CT. There is no pneumothorax or pleural effusion. The cardiac silhouette is enlarged. Osseous degenerative changes are again noted. Signed: Estefania Chicas Verified Date/Time: 11/13/2017 07:11:31 Reading Location: [facility] Radiology Reading Room [id number] 06:33:00 Test Item Value Reference Range Comments MAGNESIUM (BEAKER) (test 2.1 mg/dL 1.6-2.6 Specimen slightly hemolyzed crpo=051) [id number] 06:33:00 Test Item Value Reference Range Comments PHOSPHORUS (BEAKER) (test 2.8 mg/dL 2.3-4.7 Specimen slightly hemolyzed drxz=124) BASIC METABOLIC [id number] 06:33:00 Test Item Value Reference Range Comments SODIUM (BEAKER) (test 132 meq/L 136-145 kbns=661) POTASSIUM (BEAKER) (test 3.7 meq/L 3.5-5.1 Specimen slightly fyhb=217) hemolyzed CHLORIDE (BEAKER) (test 98 meq/L 98-107 zjbk=122) CO2 (BEAKER) (test 25 meq/L 22-29 wxuq=243) BLOOD UREA NITROGEN 10 mg/dL 7-21 (BEAKER) (test trik=909) CREATININE (BEAKER) (test 0.49 mg/dL 0.57-1.25 Specimen slightly wdia=036) hemolyzed GLUCOSE RANDOM (BEAKER) 129 mg/dL 70-105 (test wnpy=962) CALCIUM (BEAKER) (test 8.4 mg/dL 8.4-10.2 ujox=255) EGFR (BEAKER) (test 171 mL/min/1.73 sq m ESTIMATED GFR IS NOT rmrc=4165) ACCURATE CREATININE CLEARANCE IN PREDICTING GLOMERULAR FILTRATION RATE. ESTIMATED GFR IS NOT APPLICABLE FOR DIALYSIS PATIENTS. PROTHROMBIN [id number] 06:00:00 Test Item Value Reference Range Comments PROTIME (BEAKER) (test kyif=850) 17.4 seconds 11.7-14.7 INR (BEAKER) (test dcnf=864) 1.4 <=5.9 RECOMMENDED COUMADIN/WARFARIN INR THERAPY RANGESSTANDARD DOSE: 2.0 - 3.0 Includes: PROPHYLAXIS forvenous thrombosis, systemic embolization; TREATMENT for venous thrombosis and/or pulmonary embolus.HIGH RISK: Target INR is 2.5-3.5 for patients with mechanical heart valves.CT, [id number] 03:38:00FINAL REPORT EXAMINATION: CT SCAN OF THE ABDOMEN AND PELVIS CLINICAL HISTORY:Abdominal pain, neutropenic fever COMPARISON EXAM: 08/13/2017. TECHNIQUE: Following the administration of IV contrast, axial tomographic images were acquired through the abdomen and pelvis. The exam was performed according to our departmental dose optimization program which includes automated exposure control, adjustment of the mA and/or kV according to patient' s size and/or use of iterative reconstructive technique. [...] gland is mild to moderately enlarged. The stomachis grossly unremarkable. The loops of small bowel are normal in caliber. The segments of the colon are also normal in caliber. As before, the proximal sigmoid colon demonstrates mild focal wall thickening. Subtle inflammatory changes are again noted in the adjacent mesenteric adipose tissue. Trace fluid is noted in the paracolic gutters, left greater than right. Further characterization of the bowelis limited by the absence of contrast. However no definite evidence of high -grade mechanical bowel obstruction, pneumatosis, pneumoperitoneum or appendicitis. The abdominal aorta is normal in caliber. Contrast also opacifies the mesenteric arteries, renal vessels and the iliac arteries. Evaluation of the portal venous system, IVC and the iliac veins is limited by timing of the contrast bolus. No definite evidence of an acute osseous abnormality. IMPRESSION : Bilateral patchy and nodular basilar lungopacities, new compared with chest CT 08/13/2017 and worrisome for multifocal infection given the provided clinical presentation. Pulmonary infarct -hemorrhage would also be consideration. Neoplastic process cannot be excluded. Dedicated chest CT would be beneficial in further characterization as onlythe lung bases are imaged on today study. Focal wall thickening of the proximal sigmoid colon is again noted with infiltration of the adjacent soft tissues. Although chronic changes cannot be excluded,an active colitis or diverticulitis should also be [...] notify the appropriate on-call clinician. Signed: Binu Edgareport Verified Date/Time: 11/13/2017 03:38:59 Reading Location: [address] Reading Room Electronically signed by: BINU EDGAR M.D. on 03:38 AMCBC W/PLT COUNT & AUTO [id number] 21:58:00 Test Item Value Reference Range Comments WHITE BLOOD CELL COUNT (BEAKER) (test kzlb=238) 0.8 K/ L 3.5-10.5 RED BLOOD CELL COUNT (BEAKER) (test migh=890) 1.81 M/ L 4.63-6.08 HEMOGLOBIN (BEAKER) (test ovtp=131) 5.6 GM/DL 13.7-17.5 HEMATOCRIT (BEAKER) (test opeb=781) 16.5 % 40.1-51.0 MEAN CORPUSCULAR VOLUME (BEAKER) (test encb=974) 91.2 fL 79.0-92.2 MEAN CORPUSCULAR HEMOGLOBIN (BEAKER) (test 30.9 pg 25.7-32.2 lpdo=945) MEAN CORPUSCULAR HEMOGLOBIN CONC (BEAKER) (test 33.9 GM/DL 32.3-36.5 vpdg=675) RED CELL DISTRIBUTION WIDTH (BEAKER) (test 16.1 % 11.6-14.4 xpah=789) PLATELET COUNT (BEAKER) (test uohl=422) 71 K/CU MM 150-450 MEAN PLATELET VOLUME (BEAKER) (test nwkg=160) 11.2 fL 9.4-12.4 NUCLEATED RED BLOOD CELLS (BEAKER) (test 0 /100 WBC 0-0 drjg=185) IMMATURE GRANULOCYTES-RELATIVE PERCENT (BEAKER) 6 % 0-1 (test qscb=8326) (MANUAL DIFFERENTIAL)2017-11-12 21:58:00 Test Item Value Reference Range Comments NEUTROPHILS - REL (DIFF) (BEAKER) (test 13 % iexq=9979) LYMPHOCYTES - REL (DIFF) (BEAKER) (test 75 % lfmd=9869) MONOCYTES - REL (DIFF) (BEAKER) (test lmsp=4369) 6 % BLASTS - REL (DIFF) (BEAKER) (test gnnt=6474) 6 % 0-0 NEUTROPHILS - ABS (DIFF) (BEAKER) (test 0.10 K/ L 1.80-8.00 imua=0154) LYMPHOCYTES - ABS (DIFF) (BEAKER) (test 0.60 K/ L 1.48-4.50 nqve=1142) MONOCYTES - ABS (DIFF) (BEAKER) (test cyxr=5274) 0.05 K/ L 0.00-1.30 BLASTS - ABS (DIFF) (BEAKER) (test phwx=9092) 0.05 K/ L 0.00-0.00 TOTAL COUNTED (BEAKER) (test wftf=3668) 100 MANUAL NRBC PER 100 CELLS (BEAKER) (test 1 /100 WBC 0-0 qizk=7422) WBC MORPHOLOGY (BEAKER) (test oajq=167) Normal PLT MORPHOLOGY (BEAKER) (test waaq=474) Normal RBC MORPHOLOGY (BEAKER) (test qxqu=675) Normal CBC W/PLT COUNT & AUTO [id number] 07:40:00 Test Item Value Reference Range Comments WHITE BLOOD CELL COUNT 0.8 K/ L 3.5-10.5 (BEAKER) (test ialp=269) RED BLOOD CELL COUNT (BEAKER) 2.07 M/ L 4.63-6.08 (test onnj=928) HEMOGLOBIN (BEAKER) (test 6.3 GM/DL 13.7-17.5 wdtm=655) HEMATOCRIT (BEAKER) (test 18.6 % 40.1-51.0 jvhc=303) MEAN CORPUSCULAR VOLUME 89.9 fL 79.0-92.2 (BEAKER) (test ofoy=569) MEAN CORPUSCULAR HEMOGLOBIN 30.4 pg 25.7-32.2 (BEAKER) (test hckd=118) MEAN CORPUSCULAR HEMOGLOBIN 33.9 GM/DL 32.3-36.5 CONC (BEAKER) (test qgpi=154) RED CELL DISTRIBUTION WIDTH 16.0 % 11.6-14.4 (BEAKER) (test wpqf=213) PLATELET COUNT (BEAKER) (test 1 K/CU MM 150-450 cqdp=755) MEAN PLATELET VOLUME (BEAKER) fL 9.4-12.4 Unable to report due to (test myfx=746) abnormal Platelet population distribution. NUCLEATED RED BLOOD CELLS 0 /100 WBC 0-0 (BEAKER) (test afnp=431) IMMATURE GRANULOCYTES-RELATIVE 8 % 0-1 PERCENT (BEAKER) (test nbyi=4560) (MANUAL DIFFERENTIAL)2017-11-12 07:40:00 Test Item Value Reference Range Comments NEUTROPHILS - REL (DIFF) (BEAKER) (test vuuw=1304) 10 % LYMPHOCYTES - REL (DIFF) (BEAKER) (test rpvc=9077) 71 % MONOCYTES - REL (DIFF) (BEAKER) (test qvyg=0989) 8 % BANDS - REL (DIFF) (BEAKER) (test okki=2000) 3 % 0-10 BLASTS - REL (DIFF) (BEAKER) (test gxff=4481) 2 % 0-0 ATYPICAL LYMPHOCYTE - REL (DIFF) (BEAKER) (test 6 % 0-0 ogaw=053) NEUTROPHILS - ABS (DIFF) (BEAKER) (test coxr=4454) 0.08 K/ L 1.80-8.00 LYMPHOCYTES - ABS (DIFF) (BEAKER) (test yeto=2491) 0.57 K/ L 1.48-4.50 MONOCYTES - ABS (DIFF) (BEAKER) (test wzgp=5034) 0.06 K/ L 0.00-1.30 BANDS-ABS (DIFF) (BEAKER) (test vjcr=5572) 0.0 K/ L 0.0-0.8 BLASTS - ABS (DIFF) (BEAKER) (test clfh=5983) 0.02 K/ L 0.00-0.00 ATYPICAL LYMPHOCYTES - ABS (DIFF) (BEAKER) (test 0.05 K/ L 0.00-0.00 qazq=570) TOTAL COUNTED (BEAKER) (test pqnb=9267) 100 BANDS + SEGMENTED NEUTROPHILS (BEAKER) (test 0.10 biin=0607) PLT MORPHOLOGY (BEAKER) (test fltv=715) Normal RBC MORPHOLOGY (BEAKER) (test ukjw=869) Normal VACUOLATED NEUTROPHILS (BEAKER) (test klpq=159) Present [id number] 05:55:00 Test Item Value Reference Range Comments PHOSPHORUS (BEAKER) (test zvla=897) 3.3 mg/dL 2.3-4.7 [id number] 05:55:00 Test Item Value Reference Range Comments MAGNESIUM (BEAKER) (test xfrq=843) 1.5 mg/dL 1.6-2.6 BASIC METABOLIC [id number] 05:55:00 Test Item Value Reference Range Comments SODIUM (BEAKER) (test 125 meq/L 136-145 kmnw=716) POTASSIUM (BEAKER) (test 3.4 meq/L 3.5-5.1 wpra=633) CHLORIDE (BEAKER) (test 93 meq/L 98-107 pupg=724) CO2 (BEAKER) (test 24 meq/L 22-29 vida=408) BLOOD UREA NITROGEN 9 mg/dL 7-21 (BEAKER) (test soxi=981) CREATININE (BEAKER) (test 0.52 mg/dL 0.57-1.25 mtkj=443) GLUCOSE RANDOM (BEAKER) 89 mg/dL 70-105 (test xsip=739) CALCIUM (BEAKER) (test 8.7 mg/dL 8.4-10.2 hrbo=897) EGFR (BEAKER) (test 160 mL/min/1.73 sq m ESTIMATED GFR IS NOT sdrj=9247) ACCURATE CREATININE CLEARANCE IN PREDICTING GLOMERULAR FILTRATION RATE. ESTIMATED GFR IS NOT APPLICABLE FOR DIALYSIS PATIENTS. PROTHROMBIN TIME/[id number] 05:52:00 Test Item Value Reference Range Comments PROTIME (BEAKER) (test dgif=469) 16.3 seconds 11.7-14.7 INR (BEAKER) (test cjer=072) 1.3 <=5.9 RECOMMENDED COUMADIN/WARFARIN INR THERAPY RANGESSTANDARD DOSE: 2.0 - 3.0 Includes: PROPHYLAXIS forvenous thrombosis, systemic embolization; TREATMENT for venous thrombosis and/or pulmonary embolus.HIGH RISK: Target INR is 2.5-3.5 for patients with mechanical heart valves.URINALYSIS W/ [id number] 22 :11:00 Test Item Value Reference Range Comments COLOR (BEAKER) (test kskk=119) Yellow CLARITY (BEAKER) (test mafi=467) Clear SPECIFIC GRAVITY UA (BEAKER) (test iwvo=493) 1.014 1.001-1.035 PH UA (BEAKER) (test gbqx=930) 6.0 5.0-8.0 PROTEIN UA (BEAKER) (test lnjk=725) 20 mg/dL Negative GLUCOSE UA (BEAKER) (test qqsl=705) Negative Negative KETONES UA (BEAKER) (test vtfb=797) Negative Negative BILIRUBIN UA (BEAKER) (test umol=025) Negative Negative BLOOD UA (BEAKER) (test zlmy=648) Negative Negative NITRITE UA (BEAKER) (test aulz=785) Negative Negative LEUKOCYTE ESTERASE UA (BEAKER) (test wkrl=516) Negative Negative UROBILINOGEN UA (BEAKER) (test thch=725) 6.0 mg/dL 0.2-1.0 RBC UA (BEAKER) (test rbzv=434) < /HPF WBC UA (BEAKER) (test jglb=235) 4 /HPF MUCUS (BEAKER) (test tnic=7816) Rare SOURCE(BEAKER) (test jwdu=0592) Urine, Voided RAPID INFLUENZA A&B [id number] 21:56:00 Test Item Value Reference Range Comments RAPID INFLUENZA A AG (BEAKER) (test Negative Negative, Inconclusive lhnp=1495) RAPID INFLUENZA B AG (BEAKER) (test Negative Negative, Inconclusive xtbs=3609) POCT-LACTIC ACID, [id number] 21:00:00 Test Item Value Reference Range Comments POC-LACTIC ACID, VENOUS 0.8 mmol/L 0.9-1.7 TESTED AT [facility] [address] (BEAKER) (test nvbw=5961) [facility] [address] RAD, CHEST, 1 VIEW, NON [id number] 19:49:00Reason for exam:->chest painShould this be performed at the bedside?->YesFINAL REPORT Portable chest. HISTORY: Chest pain. COMPARISON STUDY: July 10, 2017. FINDINGS: The cardiac silhouette is enlarged. There are mild interstitial markings but no focal opacity, pleural effusion or pneumothorax. Degenerative changes are seen. IMPRESSION: No significant change. Signed: Timothy Malone MDReport Verified Date/Time: 11/11/2017 19:49:33 Reading Location: [address] Consult Reading Room TROPONIN [id number] 19:44:00 Test Item Value Reference Range Comments TROPONIN I (BEAKER) (test jkpc=187) < ng/mL 0.00-0.03 Troponin I (TnI) levels must be interpreted [...] failure, acidosis, acute neurological disease, and persistent tachyarrhythmia.CBC W/PLT COUNT & AUTO [id number] 19:42:00 Test Item Value Reference Range Comments WHITE BLOOD CELL COUNT 1.1 K/ L 3.5-10.5 (BEAKER) (test hsnh=375) RED BLOOD CELL COUNT (BEAKER) 1.78 M/ L 4.63-6.08 (test bjia=352) HEMOGLOBIN (BEAKER) (test 5.6 GM/DL 13.7-17.5 vikd=613) HEMATOCRIT (BEAKER) (test 16.9 % 40.1-51.0 kqbi=855) MEAN CORPUSCULAR VOLUME 94.9 fL 79.0-92.2 (BEAKER) (test mlaa=972) MEAN CORPUSCULAR HEMOGLOBIN 31.5 pg 25.7-32.2 (BEAKER) (test pgyy=841) MEAN CORPUSCULAR HEMOGLOBIN 33.1 GM/DL 32.3-36.5 CONC (BEAKER) (test hqcm=142) RED CELL DISTRIBUTION WIDTH 14.4 % 11.6-14.4 (BEAKER) (test qnbh=557) PLATELET COUNT (BEAKER) (test 6 K/CU MM 150-450 noix=743) MEAN PLATELET VOLUME (BEAKER) fL 9.4-12.4 Unable to report due to (test epdr=041) abnormal Platelet population distribution. NUCLEATED RED BLOOD CELLS 0 /100 WBC 0-0 (BEAKER) (test kpvx=564) IMMATURE GRANULOCYTES-RELATIVE 4 % 0-1 PERCENT (BEAKER) (test oxhh=6577) (MANUAL DIFFERENTIAL)2017-11-11 19:42:00 Test Item Value Reference Range Comments NEUTROPHILS - REL (DIFF) (BEAKER) (test sdwi=5789) 12 % LYMPHOCYTES - REL (DIFF) (BEAKER) (test rzws=0212) 79 % MONOCYTES - REL (DIFF) (BEAKER) (test cavp=3284) 4 % METAMYELOCYTES-REL (DIFF) (BEAKER) (test kwle=370) 1 % 0-0 BANDS - REL (DIFF) (BEAKER) (test oaum=0564) 4 % 0-10 NEUTROPHILS - ABS (DIFF) (BEAKER) (test izmt=3128) 0.13 K/ L 1.80-8.00 LYMPHOCYTES - ABS (DIFF) (BEAKER) (test uxbz=4386) 0.87 K/ L 1.48-4.50 MONOCYTES - ABS (DIFF) (BEAKER) (test grph=5921) 0.04 K/ L 0.00-1.30 METAMYELOCTYES - ABS (DIFF) (BEAKER) (test 0.01 K/ L 0.00-0.00 rwez=829) BANDS-ABS (DIFF) (BEAKER) (test dnum=5460) 0.0 K/ L 0.0-0.8 TOTAL COUNTED (BEAKER) (test yzns=6584) 100 BANDS + SEGMENTED NEUTROPHILS (BEAKER) (test 0.18 jioh=7638) PLT MORPHOLOGY (BEAKER) (test ofno=638) Normal ATYPICAL LYMPHS(BEAKER) (test zfqq=4857) Present PLASMACYTOID LYMPHS(BEAKER) (test wesb=5170) Present VACUOLATED NEUTROPHILS (BEAKER) (test shvz=865) Present ANISOCYTOSIS (BEAKER) (test bkej=816) 1+ few POLYCHROMATOPHILLIC RBCS(BEAKER) (test euxs=792) 1+ few B-TYPE NATRIURETIC FACTOR (BNP)2017-11-11 19:41:00 Test Item Value Reference Range Comments B-TYPE NATRIURETIC PEPTIDE (BEAKER) (test 133 pg/mL 0-100 kwuz=739) [id number] 19:38:00 Test Item Value Reference Range Comments MAGNESIUM (BEAKER) (test jpzm=965) 1.5 mg/dL 1.6-2.6 [id number] 19:38:00 Test Item Value Reference Range Comments LIPASE (BEAKER) (test nkil=484) 42 U/L 8-78 [id number] 19:30:00 Test Item Value Reference Range Comments AMMONIA (BEAKER) (test rktl=208) 23 mol/L 18-72 HEMOGLOBIN AND [id number] 19:14:00 Test Item Value Reference Range Comments HEMOGLOBIN (BEAKER) (test hpte=254) 5.2 GM/DL 13.7-17.5 HEMATOCRIT (BEAKER) (test xvbi=732) 15.2 % 40.1-51.0 Post [id number] 19:13:00 Test Item Value Reference Range Comments PROTIME (BEAKER) (test jakw=892) 16.8 seconds 11.7-14.7 INR (BEAKER) (test hjqh=600) 1.4 <=5.9 PARTIAL THROMBOPLASTIN TIME (BEAKER) (test 40.5 seconds 22.5-36.0 mcua=835) RECOMMENDED COUMADIN/WARFARIN INR THERAPY RANGESSTANDARD DOSE: 2.0 - 3.0 Includes: PROPHYLAXIS forvenous thrombosis, systemic embolization; TREATMENT for venous thrombosis and/or pulmonary embolus.HIGH RISK: Target INR is 2.5-3.5 for patients with mechanical heart valves.COMPREHENSIVE METABOLIC [id number] 18:18:00 Test Item Value Reference Range Comments TOTAL PROTEIN (BEAKER) 7.5 gm/dL 6.0-8.3 (test qmwq=679) ALBUMIN (BEAKER) (test 2.5 g/dL 3.5-5.0 zyts=9824) ALKALINE PHOSPHATASE 96 U/L 40-150 (BEAKER) (test oepz=411) BILIRUBIN TOTAL (BEAKER) 1.1 mg/dL 0.2-1.2 (test swko=920) SODIUM (BEAKER) (test 122 meq/L 136-145 jquw=182) POTASSIUM (BEAKER) (test 3.6 meq/L 3.5-5.1 qpec=090) CHLORIDE (BEAKER) (test 90 meq/L 98-107 rvpa=648) CO2 (BEAKER) (test 22 meq/L 22-29 vumi=620) BLOOD UREA NITROGEN 11 mg/dL 7-21 (BEAKER) (test kbra=512) CREATININE (BEAKER) (test 0.60 mg/dL 0.57-1.25 hxps=771) GLUCOSE RANDOM (BEAKER) 115 mg/dL 70-105 (test ehen=812) CALCIUM (BEAKER) (test 9.3 mg/dL 8.4-10.2 awgj=390) AST (SGOT) (BEAKER) (test 19 U/L 5-34 oxkl=591) ALT (SGPT) (BEAKER) (test 12 U/L 6-55 fulu=722) EGFR (SHREYAS) (test 136 mL/min/1.73 sq ESTIMATED GFR IS NOT blqg=9868) m ACCURATE CREATININE CLEARANCE IN PREDICTING GLOMERULAR FILTRATION RATE. ESTIMATED GFR IS NOT APPLICABLE FOR DIALYSIS PATIENTS. POCT-LACTIC ACID, [id number] 17:56:00 Test Item Value Reference Range Comments POC-LACTIC ACID, VENOUS 1.3 mmol/L 0.9-1.7 TESTED AT [facility] [address] (SHREYAS) (test hamp=2335) [facility] [address] FLOW CYTOMETRY [id number] 16:29:00 Test Item Value Reference Range Comments FLOW CYTOMETRY RESULT POINTER (SHREYAS) See Separate Report (test zdpa=1887) FLOW CYTOMETRY AP CASE # (SHREYAS) (test [id number] gbmj=4290) FLOW [id number] 11:02:00Flow Cytometry Report Case: [id number] Authorizing Provider: Shashi Awan MD Collected: 11/05/2017 1109 Ordering Location: [facility] Emergency Department Received: 11/05/2017 1307 Pathologist: Shashi [...] continuation of outpatient chemotherapy per EMR notes. [id number] year old man wit history of MDS with excess blasts undergoing outpatient chemotherapyPeripheral bloodCD2, CD3, CD4, CD5, CD7, CD8, CD10, CD11C, CD13, CD14, CD16, CD19, CD20, CD23, CD33, CD34, CD38, CD45, CD56, CD64, CD117, HLA-DR , KAPPA, LAMBDA, cMPO, cCD79a, nTdt, cCD79a, cCD22, cCD3, PS87mZkswkfdm Viability: 87%Abnormal myeloblast population identified (16% oftotal [...] developed and their performance characteristics determined by [facility] They have not been cleared or approved by the U.S. Food and Drug Administration. The FDA has determined that such clearance or approval is not necessary. It should not be regarded as investigational or for research. This laboratory is certified under the Clinical Laboratory Improvement Amendments dk3090 ("CLIA") as qualified to perform high-complexity clinical testing.CBC W/PLT COUNT & AUTO [id number] 07:05:00 Test Item Value Reference Range Comments WHITE BLOOD CELL COUNT 2.0 K/ L 3.5-10.5 (BEAKER) (test pway=214) RED BLOOD CELL COUNT (BEAKER) 2.65 M/ L 4.63-6.08 (test fovl=566) HEMOGLOBIN (BEAKER) (test 8.4 GM/DL 13.7-17.5 xmty=286) HEMATOCRIT (BEAKER) (test 26.9 % 40.1-51.0 hvfr=861) MEAN CORPUSCULAR VOLUME 101.5 fL 79.0-92.2 (BEAKER) (test uujs=898) MEAN CORPUSCULAR HEMOGLOBIN 31.7 pg 25.7-32.2 (BEAKER) (test wren=876) MEAN CORPUSCULAR HEMOGLOBIN 31.2 GM/DL 32.3-36.5 CONC (BEAKER) (test rzeg=462) RED CELL DISTRIBUTION WIDTH 17.0 % 11.6-14.4 (BEAKER) (test nvwy=937) PLATELET COUNT (BEAKER) (test 44 K/CU MM 150-450 mdoz=669) MEAN PLATELET VOLUME (BEAKER) fL 9.4-12.4 Unable to report due to (test vycd=345) abnormal Platelet population distribution. NUCLEATED RED BLOOD CELLS 2 /100 WBC 0-0 (BEAKER) (test bmez=455) IMMATURE GRANULOCYTES-RELATIVE 3 % 0-1 PERCENT (BEAKER) (test brnb=2791) (MANUAL DIFFERENTIAL)2017-11-06 07:05:00 Test Item Value Reference Range Comments NEUTROPHILS - REL (DIFF) (BEAKER) (test atcl=9705) 12 % LYMPHOCYTES - REL (DIFF) (BEAKER) (test oaar=7701) 75 % MONOCYTES - REL (DIFF) (BEAKER) (test ulfo=4155) 10 % EOSINOPHILS - REL (DIFF) (BEAKER) (test tmxs=2494) 0 % BASOPHILS - REL (DIFF) (BEAKER) (test pcwx=8055) 0 % BLASTS - REL (DIFF) (BEAKER) (test kjca=1074) 3 % 0-0 NEUTROPHILS - ABS (DIFF) (BEAKER) (test bjoz=0244) 0.24 K/ L 1.80-8.00 LYMPHOCYTES - ABS (DIFF) (BEAKER) (test ofwq=1504) 1.50 K/ L 1.48-4.50 MONOCYTES - ABS (DIFF) (BEAKER) (test rhcs=9877) 0.20 K/ L 0.00-1.30 EOSINOPHILS - ABS (DIFF) (BEAKER) (test yyne=5303) 0.00 K/ L 0.00-0.50 BASOPHILS - ABS (DIFF) (BEAKER) (test uwii=4425) 0.00 K/ L 0.00-0.20 BLASTS - ABS (DIFF) (BEAKER) (test raxq=9750) 0.06 K/ L 0.00-0.00 TOTAL COUNTED (BEAKER) (test erge=4661) 100 WBC MORPHOLOGY (BEAKER) (test nwer=008) Normal PLT MORPHOLOGY (BEAKER) (test qvgl=117) Normal RBC MORPHOLOGY (BEAKER) (test xxae=986) Normal PERIPHERAL BLOOD SMEAR - PATH REVIEW LAB [id number] 16:46:00 Test Item Value Reference Range Comments RBC MORPHOLOGY (BEAKER) Hypochromic,macrocytic (test jsxo=9831) anemia with mild anisopoikilocytosis. Occasional dacrocytes, elliptocytes and microcytes identified. Minimal polychromasia. Mild rouleaux formation. WBC MORPHOLOGY (BEAKER) Leukopenia with few blasts (test sxro=9500) identified(4% by differential count). Absolute neutrophilia. Few atypical lymphocytes present. PLT MORPHOLOGY (BEAKER) Marked thrombocytopenia. (test dftx=7946) No platelet clumping identified. [id number] Shashi Awan MD (BEAKER) (test (electronic tfcv=4537) signature) CBC W/PLT COUNT & AUTO [id number] 12:28:00 Test Item Value Reference Range Comments WHITE BLOOD CELL COUNT 2.2 K/ L 3.5-10.5 (BEAKER) (test rfbu=139) RED BLOOD CELL COUNT (BEAKER) 2.28 M/ L 4.63-6.08 (test xdpu=477) HEMOGLOBIN (BEAKER) (test 7.1 GM/DL 13.7-17.5 qhkb=003) HEMATOCRIT (BEAKER) (test 21.8 % 40.1-51.0 hlso=916) MEAN CORPUSCULAR VOLUME 95.6 fL 79.0-92.2 (BEAKER) (test wlxn=799) MEAN CORPUSCULAR HEMOGLOBIN 31.1 pg 25.7-32.2 (BEAKER) (test hojo=677) MEAN CORPUSCULAR HEMOGLOBIN 32.6 GM/DL 32.3-36.5 CONC (BEAKER) (test krxi=826) RED CELL DISTRIBUTION WIDTH 15.1 % 11.6-14.4 (BEAKER) (test mczc=286) PLATELET COUNT (BEAKER) (test 5 K/CU MM 150-450 byoa=416) MEAN PLATELET VOLUME (BEAKER) fL 9.4-12.4 Unable to report due to (test ctbg=857) abnormal Platelet population distribution. NUCLEATED RED BLOOD CELLS 2 /100 WBC 0-0 (BEAKER) (test yyum=066) IMMATURE GRANULOCYTES-RELATIVE 1 % 0-1 PERCENT (BEAKER) (test rzzj=8346) (MANUAL DIFFERENTIAL)2017-11-05 12:28:00 Test Item Value Reference Range Comments NEUTROPHILS - REL (DIFF) 9 % (BEAKER) (test uhsa=6585) LYMPHOCYTES - REL (DIFF) 80 % (BEAKER) (test segn=9636) MONOCYTES - REL (DIFF) 1 % (BEAKER) (test jwdl=3134) BASOPHILS - REL (DIFF) % Blasts confirmed by (BEAKER) (test onlg=2326) Lv BANDS - REL (DIFF) (BEAKER) 1 % 0-10 (test sdot=9467) BLASTS - REL (DIFF) (BEAKER) 4 % 0-0 (test eajb=1718) ATYPICAL LYMPHOCYTE - REL 5 % 0-0 (DIFF) (BEAKER) (test qnns=991) NEUTROPHILS - ABS (DIFF) 0.20 K/ L 1.80-8.00 (BEAKER) (test fmlo=8301) LYMPHOCYTES - ABS (DIFF) 1.76 K/ L 1.48-4.50 (BEAKER) (test fgvs=2863) MONOCYTES - ABS (DIFF) 0.02 K/ L 0.00-1.30 (BEAKER) (test ixkh=9444) BANDS-ABS (DIFF) (BEAKER) 0.0 K/ L 0.0-0.8 (test adap=6004) BLASTS - ABS (DIFF) (BEAKER) 0.09 K/ L 0.00-0.00 (test brre=0490) ATYPICAL LYMPHOCYTES - ABS 0.11 K/ L 0.00-0.00 (DIFF) (BEAKER) (test jspo=388) TOTAL COUNTED (BEAKER) (test 100 epch=4020) BANDS + SEGMENTED NEUTROPHILS 0.22 (BEAKER) (test wjrh=5638) MANUAL NRBC PER 100 CELLS 1 /100 WBC 0-0 (BEAKER) (test wtdp=0567) WBC MORPHOLOGY (BEAKER) (test Normal qnoe=909) PLT MORPHOLOGY (BEAKER) (test Normal mvwk=233) RBC MORPHOLOGY (BEAKER) (test Normal vota=057) [id number] 11:45:00 Test Item Value Reference Range Comments PROTIME (BEAKER) (test kzyp=975) 16.7 seconds 11.7-14.7 INR (BEAKER) (test jmvk=911) 1.4 <=5.9 PARTIAL THROMBOPLASTIN TIME (BEAKER) (test 41.3 seconds 22.5-36.0 udwp=325) RECOMMENDED COUMADIN/WARFARIN INR THERAPY RANGESSTANDARD DOSE: 2.0 - 3.0 Includes: PROPHYLAXIS forvenous thrombosis, systemic embolization; TREATMENT for venous thrombosis and/or pulmonary embolus.HIGH RISK: Target INR is 2.5-3.5 for patients with mechanical heart valves.HEPATIC FUNCTION [id number] 11:38 :00 Test Item Value Reference Range Comments TOTAL PROTEIN (BEAKER) (test vgrt=986) 8.3 gm/dL 6.0-8.3 ALBUMIN (BEAKER) (test anqy=3466) 2.9 g/dL 3.5-5.0 BILIRUBIN TOTAL (BEAKER) (test xjjy=307) 0.7 mg/dL 0.2-1.2 BILIRUBIN DIRECT (BEAKER) (test mkzn=311) 0.4 mg/dL 0.1-0.5 ALKALINE PHOSPHATASE (BEAKER) (test qovi=351) 83 U/L 40-150 AST (SGOT) (BEAKER) (test suvy=883) 9 U/L 5-34 ALT (SGPT) (BEAKER) (test wzms=462) 7 U/L 6-55 BASIC METABOLIC [id number] 11:38:00 Test Item Value Reference Range Comments SODIUM (BEAKER) (test 131 meq/L 136-145 ibrn=263) POTASSIUM (BEAKER) (test 4.1 meq/L 3.5-5.1 agxf=817) CHLORIDE (BEAKER) (test 97 meq/L 98-107 tvwu=020) CO2 (BEAKER) (test 24 meq/L 22-29 zrhq=086) BLOOD UREA NITROGEN 12 mg/dL 7-21 (BEAKER) (test eyrb=001) CREATININE (BEAKER) (test 0.78 mg/dL 0.57-1.25 bics=413) GLUCOSE RANDOM (BEAKER) 132 mg/dL 70-105 (test zhrh=792) CALCIUM (BEAKER) (test 9.1 mg/dL 8.4-10.2 gode=800) EGFR (BEAKER) (test 100 mL/min/1.73 sq m ESTIMATED GFR IS NOT blvn=0952) ACCURATE CREATININE CLEARANCE IN PREDICTING GLOMERULAR FILTRATION RATE. ESTIMATED GFR IS NOT APPLICABLE FOR DIALYSIS PATIENTS. AFB CULTURE + [id number] 09:23:00 Test Item Value Reference Range Comments CULTURE (BEAKER) (test No acid-fast bacilli isolated vnft=1765) in 42 days AFB SMEAR (BEAKER) (test No acid fast bacilli seen stsr=393) (MANUAL DIFFERENTIAL)2017-08-17 16:00:00 Test Item Value Reference Range Comments NEUTROPHILS - REL (DIFF) (BEAKER) (test bbsf=7654) 21 % LYMPHOCYTES - REL (DIFF) (BEAKER) (test tjfr=4168) 75 % MONOCYTES - REL (DIFF) (BEAKER) (test mcic=0319) 4 % NEUTROPHILS - ABS (DIFF) (BEAKER) (test iqxq=0912) 0.34 K/ L 1.80-8.00 LYMPHOCYTES - ABS (DIFF) (BEAKER) (test slzl=0641) 1.20 K/ L 1.48-4.50 MONOCYTES - ABS (DIFF) (BEAKER) (test sogd=9900) 0.06 K/ L 0.00-1.30 TOTAL COUNTED (BEAKER) (test gatt=0183) 100 WBC MORPHOLOGY (BEAKER) (test fbga=993) Normal PLT MORPHOLOGY (BEAKER) (test rjsz=707) Normal RBC MORPHOLOGY (BEAKER) (test uhyr=542) Normal CBC W/PLT COUNT & AUTO [id number] 15:25:00 Test Item Value Reference Range Comments WHITE BLOOD CELL COUNT (BEAKER) (test xaqe=633) 1.6 K/ L 3.5-10.5 RED BLOOD CELL COUNT (BEAKER) (test tvtz=789) 2.77 M/ L 4.63-6.08 HEMOGLOBIN (BEAKER) (test ywjl=281) 8.3 GM/DL 13.7-17.5 HEMATOCRIT (BEAKER) (test egdx=831) 25.1 % 40.1-51.0 MEAN CORPUSCULAR VOLUME (BEAKER) (test ifov=614) 90.6 fL 79.0-92.2 MEAN CORPUSCULAR HEMOGLOBIN (BEAKER) (test 30.0 pg 25.7-32.2 wnax=887) MEAN CORPUSCULAR HEMOGLOBIN CONC (BEAKER) (test 33.1 GM/DL 32.3-36.5 cibv=821) RED CELL DISTRIBUTION WIDTH (BEAKER) (test 13.5 % 11.6-14.4 skgc=244) PLATELET COUNT (BEAKER) (test vogg=290) 52 K/CU MM 150-450 MEAN PLATELET VOLUME (BEAKER) (test vwjp=951) 13.4 fL 9.4-12.4 NUCLEATED RED BLOOD CELLS (BEAKER) (test 0 /100 WBC 0-0 mvuz=362) NEUTROPHILS RELATIVE PERCENT (BEAKER) (test 19 % tjev=278) LYMPHOCYTES RELATIVE PERCENT (BEAKER) (test 79 % xjsj=234) MONOCYTES RELATIVE PERCENT (BEAKER) (test 2 % eqlo=180) EOSINOPHILS RELATIVE PERCENT (BEAKER) (test 0 % jgez=203) BASOPHILS RELATIVE PERCENT (BEAKER) (test 0 % cgao=158) NEUTROPHILS ABSOLUTE COUNT (BEAKER) (test 0.30 K/ L 1.78-5.38 dmmu=634) LYMPHOCYTES ABSOLUTE COUNT (BEAKER) (test 1.22 K/ L 1.32-3.57 hdza=440) MONOCYTES ABSOLUTE COUNT (BEAKER) (test izme=825) 0.03 K/ L 0.30-0.82 EOSINOPHILS ABSOLUTE COUNT (BEAKER) (test 0.00 K/ L 0.04-0.54 ldum=368) BASOPHILS ABSOLUTE COUNT (BEAKER) (test ipln=289) 0.00 K/ L 0.01-0.08 IMMATURE GRANULOCYTES-RELATIVE PERCENT (BEAKER) 0 % 0-1 (test zrpl=3700) RAD, ABDOMEN/KUB, 1 VIEW [id number] 10:03:00Reason for exam:->abdominal painFINAL REPORT CLINICAL HISTORY: abdominal pain TECHNIQUE: Supine abdomen COMPARISON: None IMPRESSION: There is oral contrast in the colon. There are no focal distended loops of small bowel. Free air and air-fluid levels are not seen but cannot be definitively excluded on the supine view. Signed: Jyoti Rhodes MDReport Verified Date/Time: 08/16/2017 10:03:18 Reading Location: [facility] Radiology Reading Room CBC W/PLT COUNT & AUTO [id number] 08:33:00 Test Item Value Reference Range Comments WHITE BLOOD CELL COUNT (BEAKER) (test blba=491) 1.3 K/ L 3.5-10.5 RED BLOOD CELL COUNT (BEAKER) (test rjcr=027) 2.45 M/ L 4.63-6.08 HEMOGLOBIN (BEAKER) (test ddvc=158) 7.4 GM/DL 13.7-17.5 HEMATOCRIT (BEAKER) (test tnxs=370) 21.8 % 40.1-51.0 MEAN CORPUSCULAR VOLUME (BEAKER) (test cjni=612) 89.0 fL 79.0-92.2 MEAN CORPUSCULAR HEMOGLOBIN (BEAKER) (test 30.2 pg 25.7-32.2 afcb=252) MEAN CORPUSCULAR HEMOGLOBIN CONC (BEAKER) (test 33.9 GM/DL 32.3-36.5 igms=847) RED CELL DISTRIBUTION WIDTH (BEAKER) (test 13.8 % 11.6-14.4 zqqb=409) PLATELET COUNT (BEAKER) (test dwtz=398) 40 K/CU MM 150-450 MEAN PLATELET VOLUME (BEAKER) (test ltvg=456) 13.7 fL 9.4-12.4 NUCLEATED RED BLOOD CELLS (BEAKER) (test 0 /100 WBC 0-0 azqi=089) IMMATURE GRANULOCYTES-RELATIVE PERCENT (BEAKER) 1 % 0-1 (test jwqr=8393) (MANUAL DIFFERENTIAL)2017-08-16 08:33:00 Test Item Value Reference Range Comments NEUTROPHILS - REL (DIFF) (BEAKER) (test kksw=3038) 23 % LYMPHOCYTES - REL (DIFF) (BEAKER) (test ukdh=8964) 76 % MONOCYTES - REL (DIFF) (BEAKER) (test dqcg=6977) 1 % EOSINOPHILS - REL (DIFF) (BEAKER) (test rvdm=6794) 0 % BASOPHILS - REL (DIFF) (BEAKER) (test yqbe=5249) 0 % NEUTROPHILS - ABS (DIFF) (BEAKER) (test fhpt=0326) 0.30 K/ L 1.80-8.00 LYMPHOCYTES - ABS (DIFF) (BEAKER) (test exxa=3637) 0.99 K/ L 1.48-4.50 MONOCYTES - ABS (DIFF) (BEAKER) (test ewum=8395) 0.01 K/ L 0.00-1.30 EOSINOPHILS - ABS (DIFF) (BEAKER) (test mbtt=6331) 0.00 K/ L 0.00-0.50 BASOPHILS - ABS (DIFF) (BEAKER) (test hppq=2426) 0.00 K/ L 0.00-0.20 TOTAL COUNTED (BEAKER) (test nnar=3568) 100 PLT MORPHOLOGY (BEAKER) (test yvxg=128) Normal RBC MORPHOLOGY (BEAKER) (test luvg=481) Normal ATYPICAL LYMPHS(BEAKER) (test ohwr=4399) Present [id number] 06:16:00 Test Item Value Reference Range Comments MAGNESIUM (BEAKER) (test xkob=526) 1.9 mg/dL 1.6-2.6 COMPREHENSIVE METABOLIC [id number] 06:16:00 Test Item Value Reference Range Comments TOTAL PROTEIN (BEAKER) 7.2 gm/dL 6.0-8.3 (test itdg=742) ALBUMIN (BEAKER) (test 2.4 g/dL 3.5-5.0 wean=7591) ALKALINE PHOSPHATASE 114 U/L 40-150 (BEAKER) (test hqim=750) BILIRUBIN TOTAL (BEAKER) 1.6 mg/dL 0.2-1.2 (test ekha=348) SODIUM (BEAKER) (test 136 meq/L 136-145 gexh=546) POTASSIUM (BEAKER) (test 4.2 meq/L 3.5-5.1 zeel=444) CHLORIDE (BEAKER) (test 106 meq/L 98-107 graa=080) CO2 (BEAKER) (test 21 meq/L 22-29 ovsp=331) BLOOD UREA NITROGEN 11 mg/dL 7-21 (BEAKER) (test vazd=034) CREATININE (BEAKER) (test 0.55 mg/dL 0.57-1.25 hijq=219) GLUCOSE RANDOM (BEAKER) 92 mg/dL 70-105 (test jvpm=215) CALCIUM (BEAKER) (test 8.4 mg/dL 8.4-10.2 aydn=406) AST (SGOT) (BEAKER) (test 12 U/L 5-34 qtiw=106) ALT (SGPT) (BEAKER) (test 20 U/L 6-55 oqvd=044) EGFR (BEAKER) (test 150 mL/min/1.73 sq ESTIMATED GFR IS NOT lldv=1177) m ACCURATE CREATININE CLEARANCE IN PREDICTING GLOMERULAR FILTRATION RATE. ESTIMATED GFR IS NOT APPLICABLE FOR DIALYSIS PATIENTS. CLOSTRIDIUM DIFFICILE TOXIN [id number] 15:56:00 Test Item Value Reference Range Comments CLOSTRIDIUM DIFFICILE TOXIN, PCR (BEAKER) (test Detected Not Detected frpr=8501) This qualitative real-time polymerase chain reaction assay [...] is not recommended.CBC W/PLT COUNT & AUTO [id number] 10:08:00 Test Item Value Reference Range Comments WHITE BLOOD CELL COUNT (BEAKER) (test awwk=967) 1.0 K/ L 3.5-10.5 RED BLOOD CELL COUNT (BEAKER) (test fcsf=959) 2.47 M/ L 4.63-6.08 HEMOGLOBIN (BEAKER) (test qiqg=576) 7.4 GM/DL 13.7-17.5 HEMATOCRIT (BEAKER) (test eqfn=350) 21.7 % 40.1-51.0 MEAN CORPUSCULAR VOLUME (BEAKER) (test ndva=267) 87.9 fL 79.0-92.2 MEAN CORPUSCULAR HEMOGLOBIN (BEAKER) (test 30.0 pg 25.7-32.2 avjy=201) MEAN CORPUSCULAR HEMOGLOBIN CONC (BEAKER) (test 34.1 GM/DL 32.3-36.5 ihvk=823) RED CELL DISTRIBUTION WIDTH (BEAKER) (test 14.0 % 11.6-14.4 scde=928) PLATELET COUNT (BEAKER) (test smyd=264) 34 K/CU MM 150-450 MEAN PLATELET VOLUME (BEAKER) (test bpkp=397) 13.4 fL 9.4-12.4 NUCLEATED RED BLOOD CELLS (BEAKER) (test 0 /100 WBC 0-0 bgys=332) IMMATURE GRANULOCYTES-RELATIVE PERCENT (BEAKER) 0 % 0-1 (test ozyk=0639) (MANUAL DIFFERENTIAL)2017-08-15 10:08:00 Test Item Value Reference Range Comments NEUTROPHILS - REL (DIFF) (BEAKER) (test peik=8828) 18 % LYMPHOCYTES - REL (DIFF) (BEAKER) (test sagt=4153) 81 % MONOCYTES - REL (DIFF) (BEAKER) (test qbcp=0279) 1 % EOSINOPHILS - REL (DIFF) (BEAKER) (test yzew=8060) 0 % BASOPHILS - REL (DIFF) (BEAKER) (test rfgj=7048) 0 % NEUTROPHILS - ABS (DIFF) (BEAKER) (test rqhr=7620) 0.18 K/ L 1.80-8.00 LYMPHOCYTES - ABS (DIFF) (BEAKER) (test vizy=9872) 0.81 K/ L 1.48-4.50 MONOCYTES - ABS (DIFF) (BEAKER) (test jfad=1843) 0.01 K/ L 0.00-1.30 EOSINOPHILS - ABS (DIFF) (BEAKER) (test nsdc=2949) 0.00 K/ L 0.00-0.50 BASOPHILS - ABS (DIFF) (BEAKER) (test fqnw=6194) 0.00 K/ L 0.00-0.20 TOTAL COUNTED (BEAKER) (test jyjg=9700) 100 PLT MORPHOLOGY (BEAKER) (test kmom=489) Normal RBC MORPHOLOGY (BEAKER) (test ybpv=057) Normal ATYPICAL LYMPHS(BEAKER) (test cpas=9580) Present [id number] 06:53:00 Test Item Value Reference Range Comments MAGNESIUM (BEAKER) (test aswe=434) 1.9 mg/dL 1.6-2.6 BASIC METABOLIC [id number] 06:53:00 Test Item Value Reference Range Comments SODIUM (BEAKER) (test 137 meq/L 136-145 xowj=762) POTASSIUM (BEAKER) (test 4.1 meq/L 3.5-5.1 ymdj=818) CHLORIDE (BEAKER) (test 103 meq/L 98-107 zubt=415) CO2 (BEAKER) (test 25 meq/L 22-29 osex=573) BLOOD UREA NITROGEN 10 mg/dL 7-21 (BEAKER) (test mkkg=816) CREATININE (BEAKER) (test 0.54 mg/dL 0.57-1.25 xeqc=178) GLUCOSE RANDOM (BEAKER) 107 mg/dL 70-105 (test hjfg=325) CALCIUM (BEAKER) (test 8.3 mg/dL 8.4-10.2 lclr=042) EGFR (BEAKER) (test 153 mL/min/1.73 sq m ESTIMATED GFR IS NOT orjd=6889) ACCURATE CREATININE CLEARANCE IN PREDICTING GLOMERULAR FILTRATION RATE. ESTIMATED GFR IS NOT APPLICABLE FOR DIALYSIS PATIENTS. Specimen slightly ictericOCCULT BLOOD, [id number] 23:02:00 Test Item Value Reference Range Comments FECAL OCCULT BLOOD (BEAKER) (test bxzz=246) Negative Negative URINALYSIS W/ REFLEX URINE [id number] 21:14:00 Test Item Value Reference Range Comments COLOR (BEAKER) (test wwjy=413) Yellow CLARITY (BEAKER) (test qxqn=158) Clear SPECIFIC GRAVITY UA (BEAKER) (test abmn=259) 1.009 1.001-1.035 PH UA (BEAKER) (test mqmn=771) 7.5 5.0-8.0 PROTEIN UA (BEAKER) (test lhpw=784) Negative Negative GLUCOSE UA (BEAKER) (test clzn=128) Negative Negative KETONES UA (BEAKER) (test fqpo=447) 10 mg/dL Negative BILIRUBIN UA (BEAKER) (test bdzr=559) Negative Negative BLOOD UA (BEAKER) (test hrvj=834) Negative Negative NITRITE UA (BEAKER) (test rqar=679) Negative Negative LEUKOCYTE ESTERASE UA (BEAKER) (test hgtm=313) Negative Negative UROBILINOGEN UA (BEAKER) (test nwbo=608) > mg/dL 0.2-1.0 RBC UA (BEAKER) (test bewi=388) 0 /HPF WBC UA (BEAKER) (test qqfc=733) < /HPF MUCUS (BEAKER) (test zthw=7492) Rare SQUAMOUS EPITHELIAL (BEAKER) (test vcph=009) < /HPF SOURCE(BEAKER) (test rzgm=4111) CBC W/PLT COUNT & AUTO [id number] 12:16:00 Test Item Value Reference Range Comments WHITE BLOOD CELL COUNT 0.6 K/ L 3.5-10.5 (BEAKER) (test qqzi=725) RED BLOOD CELL COUNT (BEAKER) 2.76 M/ L 4.63-6.08 (test sczr=945) HEMOGLOBIN (BEAKER) (test 8.3 GM/DL 13.7-17.5 wuzm=629) HEMATOCRIT (BEAKER) (test 23.7 % 40.1-51.0 fmle=332) MEAN CORPUSCULAR VOLUME 85.9 fL 79.0-92.2 Discordant from previous (BEAKER) (test lbph=800) results. Clinical correlation suggested. MEAN CORPUSCULAR HEMOGLOBIN 30.1 pg 25.7-32.2 (BEAKER) (test iznu=032) MEAN CORPUSCULAR HEMOGLOBIN 35.0 GM/DL 32.3-36.5 CONC (BEAKER) (test ccjj=270) RED CELL DISTRIBUTION WIDTH 13.5 % 11.6-14.4 (BEAKER) (test tsgk=533) PLATELET COUNT (BEAKER) (test 32 K/CU MM 150-450 znhe=255) MEAN PLATELET VOLUME (BEAKER) fL 9.4-12.4 Unable to report due to (test fbuo=190) abnormal Platelet population distribution. NUCLEATED RED BLOOD CELLS 5 /100 WBC 0-0 (BEAKER) (test uzbb=615) IMMATURE GRANULOCYTES-RELATIVE 0 % 0-1 PERCENT (BEAKER) (test uche=2913) (MANUAL DIFFERENTIAL)2017-08-14 12:16:00 Test Item Value Reference Range Comments NEUTROPHILS - REL (DIFF) (BEAKER) (test bdep=0684) 30 % LYMPHOCYTES - REL (DIFF) (BEAKER) (test qixp=2018) 55 % MONOCYTES - REL (DIFF) (BEAKER) (test tote=8595) 7 % BANDS - REL (DIFF) (BEAKER) (test jggc=2380) 8 % 0-10 NEUTROPHILS - ABS (DIFF) (BEAKER) (test gkvn=7506) 0.18 K/ L 1.80-8.00 LYMPHOCYTES - ABS (DIFF) (BEAKER) (test heav=4380) 0.33 K/ L 1.48-4.50 MONOCYTES - ABS (DIFF) (BEAKER) (test eyxk=1281) 0.04 K/ L 0.00-1.30 BANDS-ABS (DIFF) (BEAKER) (test vmfa=8838) 0.0 K/ L 0.0-0.8 TOTAL COUNTED (BEAKER) (test cahr=1890) 100 BANDS + SEGMENTED NEUTROPHILS (BEAKER) (test 0.23 moxi=0690) WBC MORPHOLOGY (BEAKER) (test sdtf=322) Normal PLT MORPHOLOGY (BEAKER) (test ugqq=005) Normal RBC MORPHOLOGY (BEAKER) (test gzeq=011) Normal [id number] 09:26:00 Test Item Value Reference Range Comments MAGNESIUM (BEAKER) (test xxah=547) 1.5 mg/dL 1.6-2.6 BASIC METABOLIC [id number] 09:26:00 Test Item Value Reference Range Comments SODIUM (BEAKER) (test 135 meq/L 136-145 ahem=597) POTASSIUM (BEAKER) (test 3.0 meq/L 3.5-5.1 hxng=422) CHLORIDE (BEAKER) (test 95 meq/L 98-107 eqly=735) CO2 (BEAKER) (test 30 meq/L 22-29 fvtg=307) BLOOD UREA NITROGEN 10 mg/dL 7-21 (BEAKER) (test nffw=953) CREATININE (BEAKER) (test 0.65 mg/dL 0.57-1.25 fjqx=907) GLUCOSE RANDOM (BEAKER) 175 mg/dL 70-105 (test vyep=865) CALCIUM (BEAKER) (test 8.4 mg/dL 8.4-10.2 axjm=391) EGFR (BEAKER) (test 124 mL/min/1.73 sq m ESTIMATED GFR IS NOT nema=7281) ACCURATE CREATININE CLEARANCE IN PREDICTING GLOMERULAR FILTRATION RATE. ESTIMATED GFR IS NOT APPLICABLE FOR DIALYSIS PATIENTS. Specimen slightly ictericPOCT-GLUCOSE [id number] 23:11:00 Test Item Value Reference Range Comments POC-GLUCOSE METER (BEAKER) 130 mg/dL 70-110 TESTED AT [facility] [address] (test gjvs=0784) [facility] [address] [address], BRAIN, WITHOUT [id number] 22:33:00FINAL REPORT CT, BRAIN, WITHOUT CONTRAST INDICATION: [...] MDReport Verified Date/Time: 08/13/2017 22:33:56 Reading Location: [address] Ortho Consult Reading Room CBC W/PLT COUNT & AUTO [id number] 22:31 :00 Test Item Value Reference Range Comments WHITE BLOOD CELL COUNT 0.8 K/ L 3.5-10.5 (BEAKER) (test ocqh=079) RED BLOOD CELL COUNT (BEAKER) 1.84 M/ L 4.63-6.08 (test itef=580) HEMOGLOBIN (BEAKER) (test 5.5 GM/DL 13.7-17.5 aguo=805) HEMATOCRIT (BEAKER) (test 16.7 % 40.1-51.0 hejd=171) MEAN CORPUSCULAR VOLUME 90.8 fL 79.0-92.2 (BEAKER) (test qczv=660) MEAN CORPUSCULAR HEMOGLOBIN 29.9 pg 25.7-32.2 (BEAKER) (test tfeo=420) MEAN CORPUSCULAR HEMOGLOBIN 32.9 GM/DL 32.3-36.5 CONC (BEAKER) (test wuqa=591) RED CELL DISTRIBUTION WIDTH 13.7 % 11.6-14.4 (BEAKER) (test cmqa=883) PLATELET COUNT (BEAKER) (test 25 K/CU MM 150-450 vqcc=998) MEAN PLATELET VOLUME (BEAKER) fL 9.4-12.4 Unable to report due to (test lsop=016) abnormal Platelet population distribution. NUCLEATED RED BLOOD CELLS 3 /100 WBC 0-0 (BEAKER) (test crrb=327) IMMATURE GRANULOCYTES-RELATIVE 0 % 0-1 PERCENT (BEAKER) (test nkod=0967) (MANUAL DIFFERENTIAL)2017-08-13 22:31:00 Test Item Value Reference Range Comments NEUTROPHILS - REL (DIFF) (BEAKER) (test zslw=2844) 16 % LYMPHOCYTES - REL (DIFF) (BEAKER) (test jmhv=5475) 74 % MONOCYTES - REL (DIFF) (BEAKER) (test cvhk=1306) 4 % EOSINOPHILS - REL (DIFF) (BEAKER) (test exul=0138) 2 % METAMYELOCYTES-REL (DIFF) (BEAKER) (test xxrf=412) 1 % 0-0 BANDS - REL (DIFF) (BEAKER) (test wwxc=8528) 3 % 0-10 NEUTROPHILS - ABS (DIFF) (BEAKER) (test iuat=0624) 0.13 K/ L 1.80-8.00 LYMPHOCYTES - ABS (DIFF) (BEAKER) (test pmtk=9097) 0.59 K/ L 1.48-4.50 MONOCYTES - ABS (DIFF) (BEAKER) (test styh=1885) 0.03 K/ L 0.00-1.30 EOSINOPHILS - ABS (DIFF) (BEAKER) (test qxxx=5190) 0.02 K/ L 0.00-0.50 METAMYELOCTYES - ABS (DIFF) (BEAKER) (test 0.01 K/ L 0.00-0.00 tajc=144) BANDS-ABS (DIFF) (BEAKER) (test ahtr=6559) 0.0 K/ L 0.0-0.8 TOTAL COUNTED (BEAKER) (test txna=2228) 100 BANDS + SEGMENTED NEUTROPHILS (BEAKER) (test 0.15 gtft=0482) WBC MORPHOLOGY (BEAKER) (test bsyi=631) Normal PLT MORPHOLOGY (BEAKER) (test enmg=291) Normal RBC MORPHOLOGY (BEAKER) (test cddb=763) Normal CT, [id number] 22:31:00FINAL REPORT HISTORY : Abd pain, fever, [...] Verified Date/Time: 08/13/2017 22:31: 02 Reading Location: [address] Consult Reading Room [id number] 18:59:00 Test Item Value Reference Range Comments LIPASE (BEAKER) (test jnou=477) < U/L 8-78 [id number] 18:57:00 Test Item Value Reference Range Comments MAGNESIUM (BEAKER) (test jagn=144) 1.7 mg/dL 1.6-2.6 BASIC METABOLIC [id number] 18:57:00 Test Item Value Reference Range Comments SODIUM (BEAKER) (test 133 meq/L 136-145 sqsp=290) POTASSIUM (BEAKER) (test 3.6 meq/L 3.5-5.1 jofx=285) CHLORIDE (BEAKER) (test 97 meq/L 98-107 phgu=708) CO2 (BEAKER) (test 27 meq/L 22-29 wrzo=338) BLOOD UREA NITROGEN 10 mg/dL 7-21 (BEAKER) (test vlmq=844) CREATININE (BEAKER) (test 0.58 mg/dL 0.57-1.25 fupb=447) GLUCOSE RANDOM (BEAKER) 101 mg/dL 70-105 (test chrd=305) CALCIUM (BEAKER) (test 8.6 mg/dL 8.4-10.2 cndb=656) EGFR (BEAKER) (test 141 mL/min/1.73 sq m ESTIMATED GFR IS NOT yyie=5260) ACCURATE CREATININE CLEARANCE IN PREDICTING GLOMERULAR FILTRATION RATE. ESTIMATED GFR IS NOT APPLICABLE FOR DIALYSIS PATIENTS. [id number] 18:57:00 Test Item Value Reference Range Comments AMYLASE (BEAKER) (test jylz=284) 19 U/L 25-125 PROTHROMBIN [id number] 18:44:00 Test Item Value Reference Range Comments PROTIME (BEAKER) (test zeiu=776) 16.0 seconds 11.7-14.7 INR (BEAKER) (test qnfc=043) 1.3 <=5.9 RECOMMENDED COUMADIN/WARFARIN INR THERAPY RANGESSTANDARD DOSE: 2.0 - 3.0 Includes: PROPHYLAXIS forvenous thrombosis, systemic embolization; TREATMENT for venous thrombosis and/or pulmonary embolus.HIGH RISK: Target INR is 2.5-3.5 for patients with mechanical heart valves.FUNGUS CULTURE + [id number] 10: 15:00 Test Item Value Reference Range Comments CULTURE (BEAKER) (test No fungus isolated in 28 days lnjc=0254) FUNGUS SMEAR (BEAKER) (test No fungi seen bjgd=3278) BONE MARROW [id number] 15:26:00Bone Marrow Pathology Report Case: [id number] Authorizing Provider: Mauro Mukherjee MD Collected: 07/03/2017 1530 Ordering Location: [place] [address] ICU Received: 2016 1600 Pathologist: Amanda Krause MD Specimens: A) - [...] 10 (very high prognostic risk). [facility] [place] NGS Hematologic Malignancy Mutation panel does not [...] CIRCULATING BLASTS Signing Pathologist Direct Phone Line: [phone] signed by Amanda Krause MD on 07/12/2017 [...] but does reveal a myeloblast phenotype (see [id number]). 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 Classical cytogenetic studies and molecular studies are pending, and will be of interest for further characterization. These will be reported separately, and an addendum will follow. Preliminary findings discussed with Dr. Dillon on 07/10/2017,and final results discussed with Dr. Lopez 2016. 70187; 26662; 86614 x 2; 12059; 04506 x 2; 22098CprricuzjptyAzpu marrowThe specimen is received in three parts [...] AdequateMARROW DIFFERENTIAL COUNT: Number of cells counted: 38526 % Blasts 5 % Promyelocytes 11 % [...] developed and its performance characteristics determined by [facility], Pathology Laboratory. It has not been cleared [...] - REL (DIFF) (BEAKER) (test 24 % xpkt=4298) LYMPHOCYTES - REL (DIFF) (BEAKER) (test 72 % uagt=0340) MONOCYTES - REL (DIFF) (BEAKER) (test rkls=8959) 2 % BANDS - REL (DIFF) (BEAKER) (test fdks=1225) 2 % 0-10 NEUTROPHILS - ABS (DIFF) (BEAKER) (test 0.31 K/ L 1.80-8.00 hohd=5883) LYMPHOCYTES - ABS (DIFF) (BEAKER) (test 0.94 K/ L 1.48-4.50 afhg=5337) MONOCYTES - ABS (DIFF) (BEAKER) (test vhem=4100) 0.03 K/ L 0.00-1.30 BANDS-ABS (DIFF) (BEAKER) (test chds=0675) 0.0 K/ L 0.0-0.8 TOTAL COUNTED (BEAKER) (test wrpp=8660) 50 BANDS + SEGMENTED NEUTROPHILS (BEAKER) (test 0.34 kywp=0438) MANUAL NRBC PER 100 CELLS (BEAKER) (test 2 /100 WBC 0-0 uzzj=7757) PLT MORPHOLOGY (BEAKER) (test xqit=457) Normal RBC MORPHOLOGY (BEAKER) (test ytrg=394) Normal ATYPICAL LYMPHS(BEAKER) (test nczt=7812) Present CBC W/PLT COUNT & AUTO [id number] 05:27:00 Test Item Value Reference Range Comments WHITE BLOOD CELL COUNT (BEAKER) (test vdke=309) 1.3 K/ L 3.5-10.5 RED BLOOD CELL COUNT (BEAKER) (test nmuw=229) 2.33 M/ L 4.63-6.08 HEMOGLOBIN (BEAKER) (test ccem=437) 7.3 GM/DL 13.7-17.5 HEMATOCRIT (BEAKER) (test psfv=877) 22.0 % 40.1-51.0 MEAN CORPUSCULAR VOLUME (BEAKER) (test hdgj=542) 94.4 fL 79.0-92.2 MEAN CORPUSCULAR HEMOGLOBIN (BEAKER) (test 31.3 pg 25.7-32.2 qzjs=477) MEAN CORPUSCULAR HEMOGLOBIN CONC (BEAKER) (test 33.2 GM/DL 32.3-36.5 ubjj=224) RED CELL DISTRIBUTION WIDTH (BEAKER) (test 15.3 % 11.6-14.4 kitg=421) PLATELET COUNT (BEAKER) (test tuzq=606) 40 K/CU MM 150-450 MEAN PLATELET VOLUME (BEAKER) (test xhge=732) 11.0 fL 9.4-12.4 NUCLEATED RED BLOOD CELLS (BEAKER) (test 2 /100 WBC 0-0 utnj=523) IMMATURE GRANULOCYTES-RELATIVE PERCENT (BEAKER) 2 % 0-1 (test zwuu=9203) CBC W/PLT COUNT & AUTO [id number] 12:57:00 Test Item Value Reference Range Comments WHITE BLOOD CELL COUNT (BEAKER) (test icko=400) 0.9 K/ L 3.5-10.5 RED BLOOD CELL COUNT (BEAKER) (test rrrk=270) 2.39 M/ L 4.63-6.08 HEMOGLOBIN (BEAKER) (test imju=200) 7.4 GM/DL 13.7-17.5 HEMATOCRIT (BEAKER) (test htqs=006) 22.5 % 40.1-51.0 MEAN CORPUSCULAR VOLUME (BEAKER) (test emqt=243) 94.1 fL 79.0-92.2 MEAN CORPUSCULAR HEMOGLOBIN (BEAKER) (test 31.0 pg 25.7-32.2 bqvt=688) MEAN CORPUSCULAR HEMOGLOBIN CONC (BEAKER) (test 32.9 GM/DL 32.3-36.5 wzzy=780) RED CELL DISTRIBUTION WIDTH (BEAKER) (test 15.4 % 11.6-14.4 umqk=513) PLATELET COUNT (BEAKER) (test mlxr=443) 52 K/CU MM 150-450 MEAN PLATELET VOLUME (BEAKER) (test ymrg=838) 10.7 fL 9.4-12.4 NUCLEATED RED BLOOD CELLS (BEAKER) (test 0 /100 WBC 0-0 phhh=373) IMMATURE GRANULOCYTES-RELATIVE PERCENT (BEAKER) 1 % 0-1 (test kubx=1599) (MANUAL DIFFERENTIAL)2017-07-23 12:57:00 Test Item Value Reference Range Comments NEUTROPHILS - REL (DIFF) (BEAKER) (test 8 % cfcl=8780) LYMPHOCYTES - REL (DIFF) (BEAKER) (test 89 % pikb=0877) MONOCYTES - REL (DIFF) (BEAKER) (test pzhp=5062) 3 % EOSINOPHILS - REL (DIFF) (BEAKER) (test 0 % niul=5813) BASOPHILS - REL (DIFF) (BEAKER) (test utjh=7411) 0 % NEUTROPHILS - ABS (DIFF) (BEAKER) (test 0.07 K/ L 1.80-8.00 vhei=3088) LYMPHOCYTES - ABS (DIFF) (BEAKER) (test 0.80 K/ L 1.48-4.50 pmup=9972) MONOCYTES - ABS (DIFF) (BEAKER) (test aevm=4470) 0.03 K/ L 0.00-1.30 EOSINOPHILS - ABS (DIFF) (BEAKER) (test 0.00 K/ L 0.00-0.50 msrx=0474) BASOPHILS - ABS (DIFF) (BEAKER) (test xhjq=8019) 0.00 K/ L 0.00-0.20 TOTAL COUNTED (BEAKER) (test dfra=6598) 100 MANUAL NRBC PER 100 CELLS (BEAKER) (test 2 /100 WBC 0-0 vuhi=1319) PLT MORPHOLOGY (BEAKER) (test cjlf=070) Normal RBC MORPHOLOGY (BEAKER) (test myoz=418) Normal ATYPICAL LYMPHS(BEAKER) (test bczg=3677) Present COMPREHENSIVE METABOLIC [id number] 07:47:00 Test Item Value Reference Range Comments TOTAL PROTEIN (BEAKER) 7.9 gm/dL 6.0-8.3 (test svqo=311) ALBUMIN (BEAKER) (test 2.9 g/dL 3.5-5.0 fdlq=8068) ALKALINE PHOSPHATASE 70 U/L 40-150 (BEAKER) (test vdyw=846) BILIRUBIN TOTAL (BEAKER) 0.8 mg/dL 0.2-1.2 (test nsqa=151) SODIUM (BEAKER) (test 135 meq/L 136-145 uiyi=679) POTASSIUM (BEAKER) (test 4.3 meq/L 3.5-5.1 pmvq=519) CHLORIDE (BEAKER) (test 100 meq/L 98-107 wbmu=568) CO2 (BEAKER) (test 27 meq/L 22-29 rygw=496) BLOOD UREA NITROGEN 11 mg/dL 7-21 (BEAKER) (test wuua=721) CREATININE (BEAKER) (test 0.74 mg/dL 0.57-1.25 qvyg=465) GLUCOSE RANDOM (BEAKER) 109 mg/dL 70-105 (test nfob=688) CALCIUM (BEAKER) (test 9.1 mg/dL 8.4-10.2 nslm=353) AST (SGOT) (BEAKER) (test 10 U/L 5-34 padu=173) ALT (SGPT) (BEAKER) (test 9 U/L 6-55 nesb=754) EGFR (BEAKER) (test mL/min/1.73 sq m INSUFFICIENT CLINICAL DATA xyzw=2213) TO CALCULATE ESTIMATED GFR. CBC W/PLT COUNT & AUTO [id number] 15:48:00 Test Item Value Reference Range Comments WHITE BLOOD CELL COUNT (BEAKER) (test rzev=077) 0.7 K/ L 3.5-10.5 RED BLOOD CELL COUNT (BEAKER) (test ckai=858) 2.52 M/ L 4.63-6.08 HEMOGLOBIN (BEAKER) (test oyom=335) 7.8 GM/DL 13.7-17.5 HEMATOCRIT (BEAKER) (test qfuv=363) 23.9 % 40.1-51.0 MEAN CORPUSCULAR VOLUME (BEAKER) (test ggnw=064) 94.8 fL 79.0-92.2 MEAN CORPUSCULAR HEMOGLOBIN (BEAKER) (test 31.0 pg 25.7-32.2 aduw=956) MEAN CORPUSCULAR HEMOGLOBIN CONC (BEAKER) (test 32.6 GM/DL 32.3-36.5 suui=845) RED CELL DISTRIBUTION WIDTH (BEAKER) (test 15.7 % 11.6-14.4 gvnf=050) PLATELET COUNT (BEAKER) (test onxs=711) 59 K/CU MM 150-450 MEAN PLATELET VOLUME (BEAKER) (test hgag=418) 10.3 fL 9.4-12.4 NUCLEATED RED BLOOD CELLS (BEAKER) (test 0 /100 WBC 0-0 iegp=409) NEUTROPHILS RELATIVE PERCENT (BEAKER) (test 21 % zxov=967) LYMPHOCYTES RELATIVE PERCENT (BEAKER) (test 75 % tnsb=591) MONOCYTES RELATIVE PERCENT (BEAKER) (test 3 % vmoj=657) EOSINOPHILS RELATIVE PERCENT (BEAKER) (test 0 % nezf=663) BASOPHILS RELATIVE PERCENT (BEAKER) (test 0 % gfxw=573) NEUTROPHILS ABSOLUTE COUNT (BEAKER) (test 0.14 K/ L 1.78-5.38 anrf=671) LYMPHOCYTES ABSOLUTE COUNT (BEAKER) (test 0.51 K/ L 1.32-3.57 ccoh=622) MONOCYTES ABSOLUTE COUNT (BEAKER) (test gxws=235) 0.02 K/ L 0.30-0.82 EOSINOPHILS ABSOLUTE COUNT (BEAKER) (test 0.00 K/ L 0.04-0.54 bbcs=210) BASOPHILS ABSOLUTE COUNT (BEAKER) (test xnow=801) 0.00 K/ L 0.01-0.08 IMMATURE GRANULOCYTES-RELATIVE PERCENT (BEAKER) 2 % 0-1 (test qtlf=0929) CBC W/PLT COUNT & AUTO [id number] 10:48:00 Test Item Value Reference Range Comments WHITE BLOOD CELL COUNT 1.0 K/ L 3.5-10.5 (BEAKER) (test rchq=419) RED BLOOD CELL COUNT (BEAKER) 2.84 M/ L 4.63-6.08 (test bjdb=568) HEMOGLOBIN (BEAKER) (test 8.7 GM/DL 13.7-17.5 pyxs=544) HEMATOCRIT (BEAKER) (test 27.1 % 40.1-51.0 mrpx=857) MEAN CORPUSCULAR VOLUME 95.4 fL 79.0-92.2 (BEAKER) (test zybq=788) MEAN CORPUSCULAR HEMOGLOBIN 30.6 pg 25.7-32.2 (BEAKER) (test rccn=338) MEAN CORPUSCULAR HEMOGLOBIN 32.1 GM/DL 32.3-36.5 CONC (BEAKER) (test zfsy=442) RED CELL DISTRIBUTION WIDTH 15.8 % 11.6-14.4 (BEAKER) (test vups=714) PLATELET COUNT (BEAKER) (test 6 K/CU MM 150-450 mfil=263) MEAN PLATELET VOLUME (BEAKER) fL 9.4-12.4 Unable to report due to (test jbrf=417) abnormal Platelet population distribution. NUCLEATED RED BLOOD CELLS 2 /100 WBC 0-0 (BEAKER) (test zzka=009) IMMATURE GRANULOCYTES-RELATIVE 1 % 0-1 PERCENT (BEAKER) (test what=8044) (MANUAL DIFFERENTIAL)2017-07-22 10:48:00 Test Item Value Reference Range Comments NEUTROPHILS - REL (DIFF) (BEAKER) (test 11 % qata=7015) LYMPHOCYTES - REL (DIFF) (BEAKER) (test 86 % clch=9696) ATYPICAL LYMPHOCYTE - REL (DIFF) (BEAKER) (test 3 % 0-0 ysla=787) NEUTROPHILS - ABS (DIFF) (BEAKER) (test 0.11 K/ L 1.80-8.00 fcoe=3395) LYMPHOCYTES - ABS (DIFF) (BEAKER) (test 0.86 K/ L 1.48-4.50 fhhg=9269) ATYPICAL LYMPHOCYTES - ABS (DIFF) (BEAKER) (test 0.03 K/ L 0.00-0.00 ilye=594) TOTAL COUNTED (BEAKER) (test nerf=8210) 100 MANUAL NRBC PER 100 CELLS (BEAKER) (test 3 /100 WBC 0-0 mmvj=9620) WBC MORPHOLOGY (BEAKER) (test tnvj=145) Normal PLT MORPHOLOGY (BEAKER) (test puwt=193) Normal OVALOCYTES (BEAKER) (test actp=373) 1+ few POLYCHROMATOPHILLIC RBCS(BEAKER) (test yvos=941) 1+ few COMPREHENSIVE METABOLIC [id number] 08:12:00 Test Item Value Reference Range Comments TOTAL PROTEIN (BEAKER) 7.9 gm/dL 6.0-8.3 Specimen slightly (test vlyj=416) hemolyzed ALBUMIN (BEAKER) (test 2.8 g/dL 3.5-5.0 Specimen slightly wcqx=5249) hemolyzed ALKALINE PHOSPHATASE 60 U/L 40-150 (BEAKER) (test jrzo=294) BILIRUBIN TOTAL (BEAKER) 0.6 mg/dL 0.2-1.2 Specimen slightly (test qcni=496) hemolyzed SODIUM (BEAKER) (test 133 meq/L 136-145 qcpj=417) POTASSIUM (BEAKER) (test 4.3 meq/L 3.5-5.1 Specimen slightly wccx=295) hemolyzed CHLORIDE (BEAKER) (test 100 meq/L 98-107 vole=028) CO2 (BEAKER) (test 22 meq/L 22-29 xmlq=687) BLOOD UREA NITROGEN 12 mg/dL 7-21 (BEAKER) (test pocd=484) CREATININE (BEAKER) (test 0.72 mg/dL 0.57-1.25 Specimen slightly bkan=474) hemolyzed GLUCOSE RANDOM (BEAKER) 92 mg/dL 70-105 (test izyh=198) CALCIUM (BEAKER) (test 8.9 mg/dL 8.4-10.2 hufi=419) AST (SGOT) (BEAKER) (test 11 U/L 5-34 Specimen slightly ejhl=996) hemolyzed ALT (SGPT) (BEAKER) (test 8 U/L 6-55 Specimen slightly rnew=683) hemolyzed EGFR (BEAKER) (test mL/min/1.73 sq m INSUFFICIENT CLINICAL DATA bhjb=4305) TO CALCULATE ESTIMATED GFR. [id number] 07:45:00 Test Item Value Reference Range Comments MAGNESIUM (BEAKER) (test 1.7 mg/dL 1.6-2.6 Specimen slightly hemolyzed brtz=471) [id number] 07:45:00 Test Item Value Reference Range Comments PHOSPHORUS (BEAKER) (test 3.3 mg/dL 2.3-4.7 Specimen slightly hemolyzed ipzt=262) [id number] 07:03:00 Test Item Value Reference Range Comments PROTIME (BEAKER) (test scns=508) 14.7 seconds 11.7-14.7 INR (BEAKER) (test fqcj=022) 1.2 <=5.9 PARTIAL THROMBOPLASTIN TIME (BEAKER) (test 34.9 seconds 22.5-36.0 krkd=528) RECOMMENDED COUMADIN/WARFARIN INR THERAPY RANGESSTANDARD DOSE: 2.0 - 3.0 Includes: PROPHYLAXIS forvenous thrombosis, systemic embolization; TREATMENT for venous thrombosis and/or pulmonary embolus.HIGH RISK: Target INR is 2.5-3.5 for patients with mechanical heart valves.(MANUAL DIFFERENTIAL)[id number] 15:53: 00 Test Item Value Reference Range Comments NEUTROPHILS - REL (DIFF) (BEAKER) (test 5 % btud=1884) LYMPHOCYTES - REL (DIFF) (BEAKER) (test 87 % xbmo=0235) MONOCYTES - REL (DIFF) (BEAKER) (test mavd=4234) 5 % BASOPHILS - REL (DIFF) (BEAKER) (test yimt=6115) 1 % METAMYELOCYTES-REL (DIFF) (BEAKER) (test 1 % 0-0 xjir=614) BLASTS - REL (DIFF) (BEAKER) (test ooeu=8490) 1 % 0-0 NEUTROPHILS - ABS (DIFF) (BEAKER) (test 0.06 K/ L 1.80-8.00 bqmo=5349) LYMPHOCYTES - ABS (DIFF) (BEAKER) (test 0.96 K/ L 1.48-4.50 zzod=4281) MONOCYTES - ABS (DIFF) (BEAKER) (test ehxo=2956) 0.06 K/ L 0.00-1.30 BASOPHILS - ABS (DIFF) (BEAKER) (test lwrl=8343) 0.01 K/ L 0.00-0.20 METAMYELOCTYES - ABS (DIFF) (BEAKER) (test 0.01 K/ L 0.00-0.00 jbpj=823) BLASTS - ABS (DIFF) (BEAKER) (test ubqs=5442) 0.01 K/ L 0.00-0.00 TOTAL COUNTED (BEAKER) (test cjyv=1536) 100 MANUAL NRBC PER 100 CELLS (BEAKER) (test 3 /100 WBC 0-0 pbor=5622) WBC MORPHOLOGY (BEAKER) (test kddl=893) Normal PLT MORPHOLOGY (BEAKER) (test nfxe=266) Normal RBC MORPHOLOGY (BEAKER) (test djhm=604) Normal CBC W/PLT COUNT & AUTO [id number] 15:50:00 Test Item Value Reference Range Comments WHITE BLOOD CELL COUNT 1.1 K/ L 3.5-10.5 (BEAKER) (test kjwz=020) RED BLOOD CELL COUNT (BEAKER) 2.77 M/ L 4.63-6.08 (test dify=106) HEMOGLOBIN (BEAKER) (test 8.6 GM/DL 13.7-17.5 bbqc=549) HEMATOCRIT (BEAKER) (test 25.9 % 40.1-51.0 tbyy=069) MEAN CORPUSCULAR VOLUME 93.5 fL 79.0-92.2 (BEAKER) (test kpvc=610) MEAN CORPUSCULAR HEMOGLOBIN 31.0 pg 25.7-32.2 (BEAKER) (test pnvi=311) MEAN CORPUSCULAR HEMOGLOBIN 33.2 GM/DL 32.3-36.5 CONC (BEAKER) (test lqux=557) RED CELL DISTRIBUTION WIDTH 15.9 % 11.6-14.4 (BEAKER) (test ulbo=721) PLATELET COUNT (BEAKER) (test 16 K/CU MM 150-450 vvot=733) MEAN PLATELET VOLUME (BEAKER) fL 9.4-12.4 Unable to report due to (test jwfm=048) abnormal Platelet population distribution. NUCLEATED RED BLOOD CELLS 4 /100 WBC 0-0 (BEAKER) (test gvca=028) IMMATURE GRANULOCYTES-RELATIVE 0 % 0-1 PERCENT (BEAKER) (test sbwp=7178) COMPREHENSIVE METABOLIC [id number] 11:08:00 Test Item Value Reference Range Comments TOTAL PROTEIN (BEAKER) 8.8 gm/dL 6.0-8.3 (test cpoo=312) ALBUMIN (BEAKER) (test 3.1 g/dL 3.5-5.0 bsiu=3353) ALKALINE PHOSPHATASE 63 U/L 40-150 (BEAKER) (test lecm=999) BILIRUBIN TOTAL (BEAKER) 0.6 mg/dL 0.2-1.2 (test ehsd=379) SODIUM (BEAKER) (test 136 meq/L 136-145 bpxg=209) POTASSIUM (BEAKER) (test 3.6 meq/L 3.5-5.1 fhtz=646) CHLORIDE (BEAKER) (test 103 meq/L 98-107 qiku=404) CO2 (BEAKER) (test 24 meq/L 22-29 mmoi=652) BLOOD UREA NITROGEN 11 mg/dL 7-21 (BEAKER) (test mnvu=842) CREATININE (BEAKER) (test 0.81 mg/dL 0.57-1.25 lzmj=843) GLUCOSE RANDOM (BEAKER) 154 mg/dL 70-105 (test hoai=174) CALCIUM (BEAKER) (test 9.3 mg/dL 8.4-10.2 xzbe=593) AST (SGOT) (BEAKER) (test 11 U/L 5-34 hjdk=750) ALT (SGPT) (BEAKER) (test 11 U/L 6-55 lcwa=703) EGFR (BEAKER) (test mL/min/1.73 sq m INSUFFICIENT CLINICAL DATA hccz=1036) TO CALCULATE ESTIMATED GFR. [id number] 07:19:00 Test Item Value Reference Range Comments PROTIME (BEAKER) (test kkfc=039) 15.7 seconds 11.7-14.7 INR (BEAKER) (test xuzi=566) 1.3 <=5.9 PARTIAL THROMBOPLASTIN TIME (BEAKER) (test 32.1 seconds 22.5-36.0 ricc=826) RECOMMENDED COUMADIN/WARFARIN INR THERAPY RANGESSTANDARD DOSE: 2.0 - 3.0 Includes: PROPHYLAXIS forvenous thrombosis, systemic embolization; TREATMENT for venous thrombosis and/or pulmonary embolus.HIGH RISK: Target INR is 2.5-3.5 for patients with mechanical heart valves.BLOOD [id number] 10:00:00 Test Item Value Reference Range Comments CULTURE (BEAKER) (test nvrf=7255) No growth in 5 days BLOOD [id number] 10:00:00 Test Item Value Reference Range Comments CULTURE (BEAKER) (test wmqq=2506) No growth in 5 days FLOW CYTOMETRY [id number] 09:15:00 Test Item Value Reference Range Comments FLOW CYTOMETRY RESULT POINTER (BEAKER) See Separate Report (test ifwv=6629) FLOW CYTOMETRY AP CASE # ([id number]) (test [id number] aaok=4201) COMPREHENSIVE METABOLIC [id number] 07:04:00 Test Item Value Reference Range Comments TOTAL PROTEIN (BEAKER) 6.8 gm/dL 6.0-8.3 (test pizq=962) ALBUMIN (BEAKER) (test 2.4 g/dL 3.5-5.0 stbl=0936) ALKALINE PHOSPHATASE 53 U/L 40-150 (BEAKER) (test zqpa=855) BILIRUBIN TOTAL (BEAKER) 0.5 mg/dL 0.2-1.2 (test dzyz=555) SODIUM (BEAKER) (test 135 meq/L 136-145 fgxs=897) POTASSIUM (BEAKER) (test 3.8 meq/L 3.5-5.1 kagn=782) CHLORIDE (BEAKER) (test 105 meq/L 98-107 naft=995) CO2 (BEAKER) (test 25 meq/L 22-29 iisl=846) BLOOD UREA NITROGEN 9 mg/dL 7-21 (BEAKER) (test modb=698) CREATININE (BEAKER) (test 0.66 mg/dL 0.57-1.25 nmso=847) GLUCOSE RANDOM (BEAKER) 111 mg/dL 70-105 (test tnnq=705) CALCIUM (BEAKER) (test 8.4 mg/dL 8.4-10.2 sowo=534) AST (SGOT) (BEAKER) (test 12 U/L 5-34 bekz=082) ALT (SGPT) (BEAKER) (test 12 U/L 6-55 qjtu=017) EGFR (BEAKER) (test mL/min/1.73 sq m INSUFFICIENT CLINICAL DATA zbup=8980) TO CALCULATE ESTIMATED GFR. CBC W/PLT COUNT & AUTO [id number] 06:04:00 Test Item Value Reference Range Comments WHITE BLOOD CELL COUNT 1.1 K/ L 3.5-10.5 (BEAKER) (test ggvg=548) RED BLOOD CELL COUNT (BEAKER) 2.45 M/ L 4.63-6.08 (test tfwj=976) HEMOGLOBIN (BEAKER) (test 7.8 GM/DL 13.7-17.5 grma=615) HEMATOCRIT (BEAKER) (test 23.0 % 40.1-51.0 ocmg=657) MEAN CORPUSCULAR VOLUME 93.9 fL 79.0-92.2 (BEAKER) (test bowg=378) MEAN CORPUSCULAR HEMOGLOBIN 31.8 pg 25.7-32.2 (BEAKER) (test oedz=438) MEAN CORPUSCULAR HEMOGLOBIN 33.9 GM/DL 32.3-36.5 CONC (BEAKER) (test idwz=584) RED CELL DISTRIBUTION WIDTH 16.8 % 11.6-14.4 (BEAKER) (test inyu=482) PLATELET COUNT (BEAKER) (test 15 K/CU MM 150-450 ohrl=102) MEAN PLATELET VOLUME (BEAKER) fL 9.4-12.4 Unable to report due to (test czpx=587) abnormal Platelet population distribution. NUCLEATED RED BLOOD CELLS 2 /100 WBC 0-0 (BEAKER) (test kbzv=501) NEUTROPHILS RELATIVE PERCENT 19 % (BEAKER) (test qwfp=433) LYMPHOCYTES RELATIVE PERCENT 75 % (BEAKER) (test dukh=422) MONOCYTES RELATIVE PERCENT 6 % (BEAKER) (test uiyc=359) EOSINOPHILS RELATIVE PERCENT 0 % (BEAKER) (test yyqv=544) BASOPHILS RELATIVE PERCENT 0 % (BEAKER) (test hnuu=143) NEUTROPHILS ABSOLUTE COUNT 0.21 K/ L 1.78-5.38 (BEAKER) (test jxjh=667) LYMPHOCYTES ABSOLUTE COUNT 0.82 K/ L 1.32-3.57 (BEAKER) (test zana=470) MONOCYTES ABSOLUTE COUNT 0.06 K/ L 0.30-0.82 (BEAKER) (test ceey=099) EOSINOPHILS ABSOLUTE COUNT 0.00 K/ L 0.04-0.54 (BEAKER) (test zghq=153) BASOPHILS ABSOLUTE COUNT 0.00 K/ L 0.01-0.08 (BEAKER) (test vpow=603) IMMATURE GRANULOCYTES-RELATIVE 1 % 0-1 PERCENT (BEAKER) (test oyns=3216) CBC W/PLT COUNT & AUTO [id number] 08:52:00 Test Item Value Reference Range Comments WHITE BLOOD CELL COUNT 1.2 K/ L 3.5-10.5 (BEAKER) (test gxiu=853) RED BLOOD CELL COUNT (BEAKER) 2.35 M/ L 4.63-6.08 (test wzht=842) HEMOGLOBIN (BEAKER) (test 7.3 GM/DL 13.7-17.5 qchw=167) HEMATOCRIT (BEAKER) (test 22.3 % 40.1-51.0 pioj=803) MEAN CORPUSCULAR VOLUME 94.9 fL 79.0-92.2 (BEAKER) (test egep=477) MEAN CORPUSCULAR HEMOGLOBIN 31.1 pg 25.7-32.2 (BEAKER) (test pikf=964) MEAN CORPUSCULAR HEMOGLOBIN 32.7 GM/DL 32.3-36.5 CONC (BEAKER) (test bjtt=152) RED CELL DISTRIBUTION WIDTH 17.3 % 11.6-14.4 (BEAKER) (test xhmq=680) PLATELET COUNT (BEAKER) (test 17 K/CU MM 150-450 pqka=851) MEAN PLATELET VOLUME (BEAKER) fL 9.4-12.4 Unable to report due to (test bucl=819) abnormal Platelet population distribution. NUCLEATED RED BLOOD CELLS 2 /100 WBC 0-0 (BEAKER) (test wudi=407) IMMATURE GRANULOCYTES-RELATIVE 1 % 0-1 PERCENT (BEAKER) (test qzqm=2658) (MANUAL DIFFERENTIAL)2017-07-18 08:52:00 Test Item Value Reference Range Comments NEUTROPHILS - REL (DIFF) (BEAKER) (test 14 % gfyv=2893) LYMPHOCYTES - REL (DIFF) (BEAKER) (test 74 % mxzx=4857) MONOCYTES - REL (DIFF) (BEAKER) (test bmlv=4325) 2 % EOSINOPHILS - REL (DIFF) (BEAKER) (test 1 % dyse=2642) BASOPHILS - REL (DIFF) (BEAKER) (test fqrq=5503) 1 % METAMYELOCYTES-REL (DIFF) (BEAKER) (test 1 % 0-0 mfde=589) BANDS - REL (DIFF) (BEAKER) (test twch=3885) 1 % 0-10 BLASTS - REL (DIFF) (BEAKER) (test bisu=0820) 6 % 0-0 NEUTROPHILS - ABS (DIFF) (BEAKER) (test 0.17 K/ L 1.80-8.00 kqvx=1575) LYMPHOCYTES - ABS (DIFF) (BEAKER) (test 0.89 K/ L 1.48-4.50 meoi=3571) MONOCYTES - ABS (DIFF) (BEAKER) (test cxjr=1077) 0.02 K/ L 0.00-1.30 EOSINOPHILS - ABS (DIFF) (BEAKER) (test 0.01 K/ L 0.00-0.50 kpde=1024) BASOPHILS - ABS (DIFF) (BEAKER) (test fobu=5760) 0.01 K/ L 0.00-0.20 METAMYELOCTYES - ABS (DIFF) (BEAKER) (test 0.01 K/ L 0.00-0.00 ztfu=990) BANDS-ABS (DIFF) (BEAKER) (test wivk=3866) 0.0 K/ L 0.0-0.8 BLASTS - ABS (DIFF) (BEAKER) (test zgvy=6350) 0.07 K/ L 0.00-0.00 TOTAL COUNTED (BEAKER) (test bfou=5921) 100 BANDS + SEGMENTED NEUTROPHILS (BEAKER) (test 0.18 fxty=7383) MANUAL NRBC PER 100 CELLS (BEAKER) (test 2 /100 WBC 0-0 plrt=8052) PLT MORPHOLOGY (BEAKER) (test ztmx=299) Normal ATYPICAL LYMPHS(BEAKER) (test wdng=9772) Present SCHISTOCYTES (BEAKER) (test rvrn=125) 1+ few ANISOCYTOSIS (BEAKER) (test cdot=586) 1+ few OVALOCYTES (BEAKER) (test uzwp=137) 1+ few TEAR DROP CELLS (BEAKER) (test xxmu=087) 1+ few COMPREHENSIVE METABOLIC [id number] 07:07:00 Test Item Value Reference Range Comments TOTAL PROTEIN (BEAKER) 6.6 gm/dL 6.0-8.3 (test gqlq=604) ALBUMIN (BEAKER) (test 2.4 g/dL 3.5-5.0 ioyr=5192) ALKALINE PHOSPHATASE 43 U/L 40-150 (BEAKER) (test cpjt=036) BILIRUBIN TOTAL (BEAKER) 0.5 mg/dL 0.2-1.2 (test zfhq=639) SODIUM (BEAKER) (test 135 meq/L 136-145 dzbf=760) POTASSIUM (BEAKER) (test 4.1 meq/L 3.5-5.1 fuce=032) CHLORIDE (BEAKER) (test 105 meq/L 98-107 nudy=080) CO2 (BEAKER) (test 24 meq/L 22-29 mwij=084) BLOOD UREA NITROGEN 10 mg/dL 7-21 (BEAKER) (test oncm=499) CREATININE (BEAKER) (test 0.64 mg/dL 0.57-1.25 repq=737) GLUCOSE RANDOM (BEAKER) 97 mg/dL 70-105 (test wfml=521) CALCIUM (BEAKER) (test 8.2 mg/dL 8.4-10.2 dnmj=739) AST (SGOT) (BEAKER) (test 12 U/L 5-34 piah=377) ALT (SGPT) (BEAKER) (test 13 U/L 6-55 kvjy=976) EGFR (BEAKER) (test mL/min/1.73 sq m INSUFFICIENT CLINICAL DATA weea=6235) TO CALCULATE ESTIMATED GFR. CT, BRAIN, WITHOUT [id number] 15:53:00FINAL REPORT CT head without contrast 07/17/2017 [...] evaluation with MRI is recommended. Signed: Jacob Villarreal Verified Date/Time: 07/17/2017 15:53:13 Reading Location: [facility] Radiology Reading Room CBC W/PLT COUNT & AUTO [id number] 09:35:00 Test Item Value Reference Range Comments WHITE BLOOD CELL COUNT 1.7 K/ L 3.5-10.5 (BEAKER) (test glfr=985) RED BLOOD CELL COUNT (BEAKER) 2.47 M/ L 4.63-6.08 (test hlgv=485) HEMOGLOBIN (BEAKER) (test 7.6 GM/DL 13.7-17.5 zfte=576) HEMATOCRIT (BEAKER) (test 22.7 % 40.1-51.0 dryg=445) MEAN CORPUSCULAR VOLUME 91.9 fL 79.0-92.2 (BEAKER) (test ford=576) MEAN CORPUSCULAR HEMOGLOBIN 30.8 pg 25.7-32.2 (BEAKER) (test phxc=218) MEAN CORPUSCULAR HEMOGLOBIN 33.5 GM/DL 32.3-36.5 CONC (BEAKER) (test gwqs=977) RED CELL DISTRIBUTION WIDTH 17.5 % 11.6-14.4 (BEAKER) (test xxlp=553) PLATELET COUNT (BEAKER) (test 19 K/CU MM 150-450 nwze=413) MEAN PLATELET VOLUME (BEAKER) fL 9.4-12.4 Unable to report due to (test rner=581) abnormal Platelet population distribution. NUCLEATED RED BLOOD CELLS 2 /100 WBC 0-0 (BEAKER) (test qwmf=974) IMMATURE GRANULOCYTES-RELATIVE 2 % 0-1 PERCENT (BEAKER) (test euov=5084) (MANUAL DIFFERENTIAL)2017-07-17 09:35:00 Test Item Value Reference Range Comments NEUTROPHILS - REL (DIFF) (BEAKER) (test 26 % erua=4670) LYMPHOCYTES - REL (DIFF) (BEAKER) (test 57 % ukeo=9187) MONOCYTES - REL (DIFF) (BEAKER) (test tkzq=3652) 7 % BASOPHILS - REL (DIFF) (BEAKER) (test bqpe=0585) 1 % BANDS - REL (DIFF) (BEAKER) (test wogj=7842) 5 % 0-10 BLASTS - REL (DIFF) (BEAKER) (test rvbt=2570) 2 % 0-0 ATYPICAL LYMPHOCYTE - REL (DIFF) (BEAKER) (test 2 % 0-0 dlvk=757) NEUTROPHILS - ABS (DIFF) (BEAKER) (test 0.44 K/ L 1.80-8.00 vxze=7722) LYMPHOCYTES - ABS (DIFF) (BEAKER) (test 0.97 K/ L 1.48-4.50 coxd=6701) MONOCYTES - ABS (DIFF) (BEAKER) (test aiii=6542) 0.12 K/ L 0.00-1.30 BASOPHILS - ABS (DIFF) (BEAKER) (test laew=6706) 0.02 K/ L 0.00-0.20 BANDS-ABS (DIFF) (BEAKER) (test lrgq=4094) 0.1 K/ L 0.0-0.8 BLASTS - ABS (DIFF) (BEAKER) (test aemb=0903) 0.03 K/ L 0.00-0.00 ATYPICAL LYMPHOCYTES - ABS (DIFF) (BEAKER) (test 0.03 K/ L 0.00-0.00 iijq=008) TOTAL COUNTED (BEAKER) (test yswb=9030) 100 BANDS + SEGMENTED NEUTROPHILS (BEAKER) (test 0.53 uphv=9337) MANUAL NRBC PER 100 CELLS (BEAKER) (test 2 /100 WBC 0-0 ujtq=1950) WBC MORPHOLOGY (BEAKER) (test xjhp=321) Normal LARGE PLT(BEAKER) (test gsow=9404) Present SCHISTOCYTES (BEAKER) (test ucvt=565) 1+ few OVALOCYTES (BEAKER) (test ynpm=867) 1+ few POLYCHROMATOPHILLIC RBCS(BEAKER) (test cbck=531) 1+ few COMPREHENSIVE METABOLIC [id number] 07:53:00 Test Item Value Reference Range Comments TOTAL PROTEIN (BEAKER) 6.5 gm/dL 6.0-8.3 (test vkpc=682) ALBUMIN (BEAKER) (test 2.3 g/dL 3.5-5.0 iyli=3682) ALKALINE PHOSPHATASE 45 U/L 40-150 (BEAKER) (test pinb=918) BILIRUBIN TOTAL (BEAKER) 0.7 mg/dL 0.2-1.2 (test hruo=875) SODIUM (BEAKER) (test 135 meq/L 136-145 vnul=442) POTASSIUM (BEAKER) (test 3.3 meq/L 3.5-5.1 cpvb=953) CHLORIDE (BEAKER) (test 103 meq/L 98-107 zzxt=693) CO2 (BEAKER) (test 24 meq/L 22-29 ooan=018) BLOOD UREA NITROGEN 12 mg/dL 7-21 (BEAKER) (test mjtp=241) CREATININE (BEAKER) (test 0.66 mg/dL 0.57-1.25 nvtf=054) GLUCOSE RANDOM (BEAKER) 110 mg/dL 70-105 (test pfwc=506) CALCIUM (BEAKER) (test 8.2 mg/dL 8.4-10.2 rqkq=067) AST (SGOT) (BEAKER) (test 17 U/L 5-34 kibq=307) ALT (SGPT) (BEAKER) (test 19 U/L 6-55 porl=512) EGFR (BEAKER) (test mL/min/1.73 sq m INSUFFICIENT CLINICAL DATA denx=2808) TO CALCULATE ESTIMATED GFR. [id number] 07:37:00 Test Item Value Reference Range Comments PHOSPHORUS (BEAKER) (test obxs=641) 2.3 mg/dL 2.3-4.7 [id number] 07:37:00 Test Item Value Reference Range Comments MAGNESIUM (BEAKER) (test jtpm=764) 1.6 mg/dL 1.6-2.6 PROTHROMBIN [id number] 07:05:00 Test Item Value Reference Range Comments PROTIME (BEAKER) (test hwmn=965) 15.3 seconds 11.7-14.7 INR (BEAKER) (test zbbf=383) 1.2 <=5.9 RECOMMENDED COUMADIN/WARFARIN INR THERAPY RANGESSTANDARD DOSE: 2.0 - 3.0 Includes: PROPHYLAXIS forvenous thrombosis, systemic embolization; TREATMENT for venous thrombosis and/or pulmonary embolus.HIGH RISK: Target INR is 2.5-3.5 for patients with mechanical heart valves.CBC W/PLT COUNT & AUTO [id number] 09:58:00 Test Item Value Reference Range Comments WHITE BLOOD CELL COUNT 1.3 K/ L 3.5-10.5 (BEAKER) (test kcdx=899) RED BLOOD CELL COUNT (BEAKER) 2.14 M/ L 4.63-6.08 (test kpjs=718) HEMOGLOBIN (BEAKER) (test 6.8 GM/DL 13.7-17.5 vmmu=366) HEMATOCRIT (BEAKER) (test 20.2 % 40.1-51.0 ehmk=510) MEAN CORPUSCULAR VOLUME 94.4 fL 79.0-92.2 (BEAKER) (test yzhz=646) MEAN CORPUSCULAR HEMOGLOBIN 31.8 pg 25.7-32.2 (BEAKER) (test zeea=231) MEAN CORPUSCULAR HEMOGLOBIN 33.7 GM/DL 32.3-36.5 CONC (BEAKER) (test rndz=333) RED CELL DISTRIBUTION WIDTH 16.2 % 11.6-14.4 (BEAKER) (test hgss=410) PLATELET COUNT (BEAKER) (test 22 K/CU MM 150-450 dajf=766) MEAN PLATELET VOLUME (BEAKER) fL 9.4-12.4 Unable to report due to (test hsoy=984) abnormal Platelet population distribution. NUCLEATED RED BLOOD CELLS 3 /100 WBC 0-0 (BEAKER) (test atlt=698) IMMATURE GRANULOCYTES-RELATIVE 2 % 0-1 PERCENT (BEAKER) (test miyn=3545) (MANUAL DIFFERENTIAL)2017-07-16 09:58:00 Test Item Value Reference Range Comments NEUTROPHILS - REL (DIFF) (BEAKER) (test 33 % yykm=4143) LYMPHOCYTES - REL (DIFF) (BEAKER) (test 46 % gphb=8785) MONOCYTES - REL (DIFF) (BEAKER) (test mnlx=8485) 6 % BANDS - REL (DIFF) (BEAKER) (test cwcn=4611) 13 % 0-10 BLASTS - REL (DIFF) (BEAKER) (test maki=9063) 2 % 0-0 NEUTROPHILS - ABS (DIFF) (BEAKER) (test 0.43 K/ L 1.80-8.00 khzu=3897) LYMPHOCYTES - ABS (DIFF) (BEAKER) (test 0.60 K/ L 1.48-4.50 ridz=1278) MONOCYTES - ABS (DIFF) (BEAKER) (test rryj=9534) 0.08 K/ L 0.00-1.30 BANDS-ABS (DIFF) (BEAKER) (test jaeu=4897) 0.2 K/ L 0.0-0.8 BLASTS - ABS (DIFF) (BEAKER) (test bnqn=1510) 0.03 K/ L 0.00-0.00 TOTAL COUNTED (BEAKER) (test uqty=8570) 100 BANDS + SEGMENTED NEUTROPHILS (BEAKER) (test 0.60 enxi=7670) MANUAL NRBC PER 100 CELLS (BEAKER) (test 5 /100 WBC 0-0 rikt=4752) WBC MORPHOLOGY (BEAKER) (test itya=184) Normal PLT MORPHOLOGY (BEAKER) (test qhxe=080) Normal SCHISTOCYTES (BEAKER) (test wtdo=347) 1+ few ANISOCYTOSIS (BEAKER) (test frzn=011) 1+ few POLYCHROMATOPHILLIC RBCS(BEAKER) (test eblj=223) 1+ few BASIC METABOLIC [id number] 08:52:00 Test Item Value Reference Range Comments SODIUM (BEAKER) (test 133 meq/L 136-145 mmox=544) POTASSIUM (BEAKER) (test 3.4 meq/L 3.5-5.1 jeic=930) CHLORIDE (BEAKER) (test 103 meq/L 98-107 fwio=355) CO2 (BEAKER) (test 21 meq/L 22-29 meha=142) BLOOD UREA NITROGEN 9 mg/dL 7-21 (BEAKER) (test oxpj=330) CREATININE (BEAKER) (test 0.73 mg/dL 0.57-1.25 azkx=934) GLUCOSE RANDOM (BEAKER) 115 mg/dL 70-105 (test isef=668) CALCIUM (BEAKER) (test 8.0 mg/dL 8.4-10.2 ihrl=158) EGFR (BEAKER) (test mL/min/1.73 sq m INSUFFICIENT CLINICAL DATA eaat=2214) TO CALCULATE ESTIMATED GFR. [id number] 08:44:00 Test Item Value Reference Range Comments MAGNESIUM (BEAKER) (test mnxm=167) 1.1 mg/dL 1.6-2.6 HEPATIC FUNCTION [id number] 08:44:00 Test Item Value Reference Range Comments TOTAL PROTEIN (BEAKER) (test cfea=262) 6.5 gm/dL 6.0-8.3 ALBUMIN (BEAKER) (test aqjt=5139) 2.4 g/dL 3.5-5.0 BILIRUBIN TOTAL (BEAKER) (test zzdv=141) 1.1 mg/dL 0.2-1.2 BILIRUBIN DIRECT (BEAKER) (test orqi=982) 0.6 mg/dL 0.1-0.5 ALKALINE PHOSPHATASE (BEAKER) (test sgso=533) 47 U/L 40-150 AST (SGOT) (BEAKER) (test glgf=489) 24 U/L 5-34 ALT (SGPT) (BEAKER) (test cgrm=360) 20 U/L 6-55 CBC W/PLT COUNT & AUTO [id number] 10:19:00 Test Item Value Reference Range Comments WHITE BLOOD CELL COUNT 1.4 K/ L 3.5-10.5 (BEAKER) (test gdgq=391) RED BLOOD CELL COUNT (BEAKER) 2.30 M/ L 4.63-6.08 (test evew=679) HEMOGLOBIN (BEAKER) (test 7.2 GM/DL 13.7-17.5 isuv=810) HEMATOCRIT (BEAKER) (test 22.1 % 40.1-51.0 hxdj=937) MEAN CORPUSCULAR VOLUME 96.1 fL 79.0-92.2 (BEAKER) (test gcjb=888) MEAN CORPUSCULAR HEMOGLOBIN 31.3 pg 25.7-32.2 (BEAKER) (test snys=075) MEAN CORPUSCULAR HEMOGLOBIN 32.6 GM/DL 32.3-36.5 CONC (BEAKER) (test kmku=728) RED CELL DISTRIBUTION WIDTH 16.3 % 11.6-14.4 (BEAKER) (test eczh=155) PLATELET COUNT (BEAKER) (test 30 K/CU MM 150-450 yezt=660) MEAN PLATELET VOLUME (BEAKER) fL 9.4-12.4 Unable to report due to (test ebyk=583) abnormal Platelet population distribution. NUCLEATED RED BLOOD CELLS 3 /100 WBC 0-0 (BEAKER) (test wshy=311) NEUTROPHILS RELATIVE PERCENT 25 % (BEAKER) (test sobo=895) LYMPHOCYTES RELATIVE PERCENT 66 % (BEAKER) (test mzxi=564) MONOCYTES RELATIVE PERCENT 7 % (BEAKER) (test caon=137) EOSINOPHILS RELATIVE PERCENT 0 % (BEAKER) (test jdrv=569) BASOPHILS RELATIVE PERCENT 0 % (BEAKER) (test pstw=440) NEUTROPHILS ABSOLUTE COUNT 0.34 K/ L 1.78-5.38 (BEAKER) (test fgxt=677) LYMPHOCYTES ABSOLUTE COUNT 0.90 K/ L 1.32-3.57 (BEAKER) (test zlnw=675) MONOCYTES ABSOLUTE COUNT 0.09 K/ L 0.30-0.82 (BEAKER) (test uydm=690) EOSINOPHILS ABSOLUTE COUNT 0.00 K/ L 0.04-0.54 (BEAKER) (test wxon=352) BASOPHILS ABSOLUTE COUNT 0.00 K/ L 0.01-0.08 (BEAKER) (test dpmq=588) IMMATURE GRANULOCYTES-RELATIVE 2 % 0-1 PERCENT (BEAKER) (test cfun=1621) (MANUAL DIFFERENTIAL)2017-07-15 10:19:00 Test Item Value Reference Range Comments TOTAL COUNTED (BEAKER) (test kzvc=7357) WBC MORPHOLOGY (BEAKER) (test mvrn=028) Normal PLT MORPHOLOGY (BEAKER) (test fsdk=483) Normal RBC MORPHOLOGY (BEAKER) (test lxsr=059) Normal [id number] 07:26:00 Test Item Value Reference Range Comments MAGNESIUM (BEAKER) (test gfgh=151) 1.6 mg/dL 1.6-2.6 BASIC METABOLIC [id number] 07:26:00 Test Item Value Reference Range Comments SODIUM (BEAKER) (test 133 meq/L 136-145 sacc=834) POTASSIUM (BEAKER) (test 3.7 meq/L 3.5-5.1 ozef=118) CHLORIDE (BEAKER) (test 103 meq/L 98-107 tdpk=782) CO2 (BEAKER) (test 23 meq/L 22-29 skeo=813) BLOOD UREA NITROGEN 8 mg/dL 7-21 (BEAKER) (test ikdx=845) CREATININE (BEAKER) (test 0.67 mg/dL 0.57-1.25 axhg=400) GLUCOSE RANDOM (BEAKER) 105 mg/dL 70-105 (test pblk=587) CALCIUM (BEAKER) (test 8.0 mg/dL 8.4-10.2 laau=047) EGFR (BEAKER) (test mL/min/1.73 sq m INSUFFICIENT CLINICAL DATA aitd=5250) TO CALCULATE ESTIMATED GFR. BLOOD [id number] 05:02:00 Test Item Value Reference Range Comments CULTURE (BEAKER) (test htwe=7531) No growth in 5 days BLOOD [id number] 05:02:00 Test Item Value Reference Range Comments CULTURE (BEAKER) (test dmxp=7780) No growth in 5 days CBC W/PLT COUNT & AUTO [id number] 04:26:00 Test Item Value Reference Range Comments WHITE BLOOD CELL COUNT 1.3 K/ L 3.5-10.5 (BEAKER) (test dcto=938) RED BLOOD CELL COUNT (BEAKER) 2.45 M/ L 4.63-6.08 (test vngz=575) HEMOGLOBIN (BEAKER) (test 7.9 GM/DL 13.7-17.5 nbqx=398) HEMATOCRIT (BEAKER) (test 22.8 % 40.1-51.0 xzlq=369) MEAN CORPUSCULAR VOLUME 93.1 fL 79.0-92.2 (BEAKER) (test kcfm=413) MEAN CORPUSCULAR HEMOGLOBIN 32.2 pg 25.7-32.2 (BEAKER) (test ecnl=894) MEAN CORPUSCULAR HEMOGLOBIN 34.6 GM/DL 32.3-36.5 CONC (BEAKER) (test fccn=996) RED CELL DISTRIBUTION WIDTH 16.5 % 11.6-14.4 (BEAKER) (test snhs=679) PLATELET COUNT (BEAKER) (test 33 K/CU MM 150-450 uuzs=496) MEAN PLATELET VOLUME (BEAKER) fL 9.4-12.4 Unable to report due to (test kbnp=469) abnormal Platelet population distribution. NUCLEATED RED BLOOD CELLS 2 /100 WBC 0-0 (BEAKER) (test rcgi=365) IMMATURE GRANULOCYTES-RELATIVE 1 % 0-1 PERCENT (BEAKER) (test nnfo=5470) (MANUAL DIFFERENTIAL)2017-07-14 04:26:00 Test Item Value Reference Range Comments NEUTROPHILS - REL (DIFF) (BEAKER) (test jzbv=7040) 25 % LYMPHOCYTES - REL (DIFF) (BEAKER) (test rfdr=1532) 63 % MONOCYTES - REL (DIFF) (BEAKER) (test ofdz=5498) 12 % NEUTROPHILS - ABS (DIFF) (BEAKER) (test xgjf=6449) 0.33 K/ L 1.80-8.00 LYMPHOCYTES - ABS (DIFF) (BEAKER) (test lvqz=2444) 0.82 K/ L 1.48-4.50 MONOCYTES - ABS (DIFF) (BEAKER) (test hwtp=7701) 0.16 K/ L 0.00-1.30 TOTAL COUNTED (BEAKER) (test tzwg=5097) 100 PLT MORPHOLOGY (BEAKER) (test ospn=143) Normal SMUDGE CELLS (BEAKER) (test oain=2819) Present ANISOCYTOSIS (BEAKER) (test mzvi=204) 1+ few MICROCYTES (BEAKER) (test uvos=419) 1+ few BASIC METABOLIC [id number] 02:41:00 Test Item Value Reference Range Comments SODIUM (BEAKER) (test 133 meq/L 136-145 tvxp=537) POTASSIUM (BEAKER) (test 3.8 meq/L 3.5-5.1 gkgc=725) CHLORIDE (BEAKER) (test 103 meq/L 98-107 guwu=870) CO2 (BEAKER) (test 23 meq/L 22-29 vjqm=011) BLOOD UREA NITROGEN 8 mg/dL 7-21 (BEAKER) (test hlkj=961) CREATININE (BEAKER) (test 0.63 mg/dL 0.57-1.25 grfb=107) GLUCOSE RANDOM (BEAKER) 97 mg/dL 70-105 (test uxkx=622) CALCIUM (BEAKER) (test 8.1 mg/dL 8.4-10.2 dbdg=571) EGFR (BEAKER) (test mL/min/1.73 sq m INSUFFICIENT CLINICAL DATA tzba=4977) TO CALCULATE ESTIMATED GFR. [id number] 01:51:00 Test Item Value Reference Range Comments MAGNESIUM (BEAKER) (test fxcl=656) 1.6 mg/dL 1.6-2.6 CBC W/PLT COUNT & AUTO [id number] 10:33:00 Test Item Value Reference Range Comments WHITE BLOOD CELL COUNT 1.5 K/ L 3.5-10.5 (BEAKER) (test wqkp=262) RED BLOOD CELL COUNT (BEAKER) 2.43 M/ L 4.63-6.08 (test mlxf=152) HEMOGLOBIN (BEAKER) (test 7.8 GM/DL 13.7-17.5 ktlv=176) HEMATOCRIT (BEAKER) (test 22.8 % 40.1-51.0 kvay=182) MEAN CORPUSCULAR VOLUME 93.8 fL 79.0-92.2 (BEAKER) (test enhk=239) MEAN CORPUSCULAR HEMOGLOBIN 32.1 pg 25.7-32.2 (BEAKER) (test qnwq=620) MEAN CORPUSCULAR HEMOGLOBIN 34.2 GM/DL 32.3-36.5 CONC (BEAKER) (test eybo=048) RED CELL DISTRIBUTION WIDTH 17.0 % 11.6-14.4 (BEAKER) (test kyvm=542) PLATELET COUNT (BEAKER) (test 31 K/CU MM 150-450 pabv=989) MEAN PLATELET VOLUME (BEAKER) fL 9.4-12.4 Unable to report due to (test xtbd=057) abnormal Platelet population distribution. NUCLEATED RED BLOOD CELLS 1 /100 WBC 0-0 (BEAKER) (test kpwr=883) IMMATURE GRANULOCYTES-RELATIVE 1 % 0-1 PERCENT (BEAKER) (test fhsx=0115) (MANUAL DIFFERENTIAL)2017-07-13 10:33:00 Test Item Value Reference Range Comments NEUTROPHILS - REL (DIFF) (BEAKER) (test 25 % snwc=6901) LYMPHOCYTES - REL (DIFF) (BEAKER) (test 55 % beoq=1389) MONOCYTES - REL (DIFF) (BEAKER) (test muxn=4855) 7 % BANDS - REL (DIFF) (BEAKER) (test mmvf=8532) 13 % 0-10 NEUTROPHILS - ABS (DIFF) (BEAKER) (test 0.38 K/ L 1.80-8.00 nije=7214) LYMPHOCYTES - ABS (DIFF) (BEAKER) (test 0.83 K/ L 1.48-4.50 vraf=4797) MONOCYTES - ABS (DIFF) (BEAKER) (test misn=8128) 0.11 K/ L 0.00-1.30 BANDS-ABS (DIFF) (BEAKER) (test bqjo=6703) 0.2 K/ L 0.0-0.8 TOTAL COUNTED (BEAKER) (test ygdr=5391) 100 BANDS + SEGMENTED NEUTROPHILS (BEAKER) (test 0.57 rxul=4492) MANUAL NRBC PER 100 CELLS (BEAKER) (test 1 /100 WBC 0-0 iiqb=3272) WBC MORPHOLOGY (BEAKER) (test qxim=099) Normal PLT MORPHOLOGY (BEAKER) (test zikn=747) Normal RBC MORPHOLOGY (BEAKER) (test bejo=103) Normal COMPREHENSIVE METABOLIC [id number] 08:55:00 Test Item Value Reference Range Comments TOTAL PROTEIN (BEAKER) 6.1 gm/dL 6.0-8.3 (test jego=180) ALBUMIN (BEAKER) (test 2.4 g/dL 3.5-5.0 ygoh=5487) ALKALINE PHOSPHATASE 42 U/L 40-150 (BEAKER) (test jdoj=704) BILIRUBIN TOTAL (BEAKER) 0.9 mg/dL 0.2-1.2 (test ivha=269) SODIUM (BEAKER) (test 135 meq/L 136-145 bzsg=661) POTASSIUM (BEAKER) (test 3.6 meq/L 3.5-5.1 haaj=690) CHLORIDE (BEAKER) (test 106 meq/L 98-107 ywtv=704) CO2 (BEAKER) (test 25 meq/L 22-29 tdne=548) BLOOD UREA NITROGEN 8 mg/dL 7-21 (BEAKER) (test aqdm=271) CREATININE (BEAKER) (test 0.61 mg/dL 0.57-1.25 hcyx=006) GLUCOSE RANDOM (BEAKER) 97 mg/dL 70-105 (test fddz=463) CALCIUM (BEAKER) (test 8.0 mg/dL 8.4-10.2 zfhb=571) AST (SGOT) (BEAKER) (test 21 U/L 5-34 sucp=719) ALT (SGPT) (BEAKER) (test 13 U/L 6-55 uxhc=257) EGFR (BEAKER) (test mL/min/1.73 sq m INSUFFICIENT CLINICAL DATA dgmi=7534) TO CALCULATE ESTIMATED GFR. PROTHROMBIN [id number] 06:42:00 Test Item Value Reference Range Comments PROTIME (BEAKER) (test frta=826) 16.0 seconds 11.7-14.7 INR (BEAKER) (test coef=471) 1.3 <=5.9 RECOMMENDED COUMADIN/WARFARIN INR THERAPY RANGESSTANDARD DOSE: 2.0 - 3.0 Includes: PROPHYLAXIS forvenous thrombosis, systemic embolization; TREATMENT for venous thrombosis and/or pulmonary embolus.HIGH RISK: Target INR is 2.5-3.5 for patients with mechanical heart valves.BONE MARROW [id number] 06:36:00 Test Item Value Reference Range Comments CULTURE (BEAKER) (test hhxy=5424) No growth GRAM STAIN RESULT (BEAKER) (test <1+ WBCs adjj=9369) GRAM STAIN RESULT (BEAKER) (test No organisms seen zgnl=43946) ANTI-NUCLEAR ANTIBODY (RANJANA)2017-07-12 14:27:00 Test Item Value Reference Range Comments ANTI-NUCLEAR ANTIBODY (RANJANA) (BEAKER) (test Negative Negative sxii=323) CBC W/PLT COUNT & AUTO [id number] 11:32:00 Test Item Value Reference Range Comments WHITE BLOOD CELL COUNT 1.5 K/ L 3.5-10.5 (BEAKER) (test gsss=073) RED BLOOD CELL COUNT (BEAKER) 2.43 M/ L 4.63-6.08 (test thyx=965) HEMOGLOBIN (BEAKER) (test 7.7 GM/DL 13.7-17.5 eooe=426) HEMATOCRIT (BEAKER) (test 22.3 % 40.1-51.0 rgxt=454) MEAN CORPUSCULAR VOLUME 91.8 fL 79.0-92.2 (BEAKER) (test jmjj=980) MEAN CORPUSCULAR HEMOGLOBIN 31.7 pg 25.7-32.2 (BEAKER) (test waor=851) MEAN CORPUSCULAR HEMOGLOBIN 34.5 GM/DL 32.3-36.5 CONC (BEAKER) (test awyz=679) RED CELL DISTRIBUTION WIDTH 17.2 % 11.6-14.4 (BEAKER) (test wtqq=043) PLATELET COUNT (BEAKER) (test 40 K/CU MM 150-450 fove=852) MEAN PLATELET VOLUME (BEAKER) fL 9.4-12.4 Unable to report due to (test kwno=882) abnormal Platelet population distribution. NUCLEATED RED BLOOD CELLS 3 /100 WBC 0-0 (BEAKER) (test wnqh=237) IMMATURE GRANULOCYTES-RELATIVE 3 % 0-1 PERCENT (BEAKER) (test ixza=6695) (MANUAL DIFFERENTIAL)2017-07-12 11:32:00 Test Item Value Reference Range Comments NEUTROPHILS - REL (DIFF) (BEAKER) (test ogqm=4390) 45 % LYMPHOCYTES - REL (DIFF) (BEAKER) (test gqog=6584) 37 % MONOCYTES - REL (DIFF) (BEAKER) (test ttrg=0991) 7 % BANDS - REL (DIFF) (BEAKER) (test khou=5896) 9 % 0-10 BLASTS - REL (DIFF) (BEAKER) (test pohq=0760) 2 % 0-0 NEUTROPHILS - ABS (DIFF) (BEAKER) (test feka=4206) 0.68 K/ L 1.80-8.00 LYMPHOCYTES - ABS (DIFF) (BEAKER) (test ntis=6210) 0.56 K/ L 1.48-4.50 MONOCYTES - ABS (DIFF) (BEAKER) (test kszd=8587) 0.11 K/ L 0.00-1.30 BANDS-ABS (DIFF) (BEAKER) (test qczm=1575) 0.1 K/ L 0.0-0.8 BLASTS - ABS (DIFF) (BEAKER) (test uzev=2969) 0.03 K/ L 0.00-0.00 TOTAL COUNTED (BEAKER) (test kbsk=0813) 100 BANDS + SEGMENTED NEUTROPHILS (BEAKER) (test 0.81 ybsp=7591) WBC MORPHOLOGY (BEAKER) (test vcrv=765) Normal PLT MORPHOLOGY (BEAKER) (test sqlk=028) Normal SCHISTOCYTES (BEAKER) (test ateq=709) 1+ few ANISOCYTOSIS (BEAKER) (test hyts=782) 1+ few POLYCHROMATOPHILLIC RBCS(BEAKER) (test eyea=375) 1+ few FLOW [id number] 11:18:00Flow Cytometry Report Case: [id number] Authorizing Provider: Diana Dillon MD Collected: 07/10/2017 1536 Ordering Location: [place] [address] ICU Received: 2016 1536 Pathologist: Amanda Krause MD Specimen: Other BONE MARROW, FLOW CYTOMETRY:-LIMITED BY HEMODILUTION-4% MYELOBLASTS-NO MONOTYPIC B CELL POPULATION -NO ABERRANT T CELL POPULATION-SEE COMMENT As the blast count may be underestimated by peripheral blood hemodilution, these results should be correlated with the morphologic and other features -- see [id number]. 08195ittzgikjtwoxHfas marrow CD2, CD3, CD4, CD5, CD7, CD8, CD10, CD11c, CD13, CD14, CD16, CD19, CD20, CD23, CD33, CD34, CD38, CD45, CD56, CD64, CD117, HLA-DR , [place], Lambda.Specimen Viability: 89%Myeloblast population identified (4% of total cellularity)POSITIVE: dim CD45, CD34, CD117, HLA-DR, CD13, AV21QRZILXEW: CD20, CD19, CD10, CD3, CD64, CD16In addition, [...] developed and their performance characteristics determined by [facility]. They have not been cleared or approved by the U.S. Food and Drug Administration. The FDA has determined that such clearance or approval is not necessary. It should not be regarded as investigational or for research. This laboratory is certified under the Clinical Laboratory Improvement Amendments of 1988 ("CLIA") as qualified to perform high-complexity clinical testing.HEMOGLOBIN AND [id number] 08: 14:00 Test Item Value Reference Range Comments HEMOGLOBIN (BEAKER) (test cfgc=548) 7.9 GM/DL 13.7-17.5 HEMATOCRIT (BEAKER) (test vroo=232) 22.7 % 40.1-51.0 COMPREHENSIVE METABOLIC [id number] 05:14:00 Test Item Value Reference Range Comments TOTAL PROTEIN (BEAKER) 6.1 gm/dL 6.0-8.3 (test zjbh=410) ALBUMIN (BEAKER) (test 2.4 g/dL 3.5-5.0 xnug=1642) ALKALINE PHOSPHATASE 46 U/L 40-150 (BEAKER) (test cfab=313) BILIRUBIN TOTAL (BEAKER) 1.1 mg/dL 0.2-1.2 (test rwhd=931) SODIUM (BEAKER) (test 135 meq/L 136-145 nyta=335) POTASSIUM (BEAKER) (test 3.5 meq/L 3.5-5.1 nxxa=700) CHLORIDE (BEAKER) (test 105 meq/L 98-107 vqte=905) CO2 (BEAKER) (test 22 meq/L 22-29 fehf=178) BLOOD UREA NITROGEN 9 mg/dL 7-21 (BEAKER) (test shzs=885) CREATININE (BEAKER) (test 0.62 mg/dL 0.57-1.25 okmn=165) GLUCOSE RANDOM (BEAKER) 111 mg/dL 70-105 (test pitr=143) CALCIUM (BEAKER) (test 8.2 mg/dL 8.4-10.2 exxb=746) AST (SGOT) (BEAKER) (test 14 U/L 5-34 dugc=276) ALT (SGPT) (BEAKER) (test 10 U/L 6-55 muyl=802) EGFR (BEAKER) (test mL/min/1.73 sq m INSUFFICIENT CLINICAL DATA eqje=1221) TO CALCULATE ESTIMATED GFR. [id number] 04:50:00 Test Item Value Reference Range Comments PHOSPHORUS (BEAKER) (test qnyy=306) 2.2 mg/dL 2.3-4.7 [id number] 04:50:00 Test Item Value Reference Range Comments MAGNESIUM (BEAKER) (test uubh=308) 1.7 mg/dL 1.6-2.6 HEPATIC FUNCTION [id number] 04:50:00 Test Item Value Reference Range Comments TOTAL PROTEIN (BEAKER) (test ynow=529) 6.1 gm/dL 6.0-8.3 ALBUMIN (BEAKER) (test kvsl=4703) 2.4 g/dL 3.5-5.0 BILIRUBIN TOTAL (BEAKER) (test gwjx=211) 1.1 mg/dL 0.2-1.2 BILIRUBIN DIRECT (BEAKER) (test ptfp=708) 0.6 mg/dL 0.1-0.5 ALKALINE PHOSPHATASE (BEAKER) (test pjas=049) 46 U/L 40-150 AST (SGOT) (BEAKER) (test undp=249) 14 U/L 5-34 ALT (SGPT) (BEAKER) (test cale=374) 10 U/L 6-55 PROTHROMBIN [id number] 04:45:00 Test Item Value Reference Range Comments PROTIME (BEAKER) (test gxux=754) 17.6 seconds 11.7-14.7 INR (BEAKER) (test dnki=019) 1.5 <=5.9 RECOMMENDED COUMADIN/WARFARIN INR THERAPY RANGESSTANDARD DOSE: 2.0 - 3.0 Includes: PROPHYLAXIS forvenous thrombosis, systemic embolization; TREATMENT for venous thrombosis and/or pulmonary embolus.HIGH RISK: Target INR is 2.5-3.5 for patients with mechanical heart valves.HEMOGLOBIN AND [id number] 23 :30:00 Test Item Value Reference Range Comments HEMOGLOBIN (BEAKER) (test eynm=420) 8.5 GM/DL 13.7-17.5 HEMATOCRIT (BEAKER) (test mbof=014) 24.0 % 40.1-51.0 [id number] 16:35:00 Test Item Value Reference Range Comments POTASSIUM (BEAKER) (test scog=972) 3.4 meq/L 3.5-5.1 VANCOMYCIN LEVEL, [id number] 16:17:00 Test Item Value Reference Range Comments VANCOMYCIN TROUGH (BEAKER) (test nbtn=258) 13.7 ug/mL 10.0-20.0 HEMOGLOBIN AND [id number] 15:40:00 Test Item Value Reference Range Comments HEMOGLOBIN (BEAKER) (test epga=119) 7.6 GM/DL 13.7-17.5 HEMATOCRIT (BEAKER) (test okgq=427) 21.5 % 40.1-51.0 HEMOGLOBIN AND [id number] 13:00:00 Test Item Value Reference Range Comments HEMOGLOBIN (BEAKER) (test fdjj=971) 7.6 GM/DL 13.7-17.5 HEMATOCRIT (BEAKER) (test tvrd=617) 21.6 % 40.1-51.0 CBC W/PLT COUNT & AUTO [id number] 09:14:00 Test Item Value Reference Range Comments WHITE BLOOD CELL COUNT 1.7 K/ L 3.5-10.5 (BEAKER) (test wsyf=443) RED BLOOD CELL COUNT (BEAKER) 2.36 M/ L 4.63-6.08 (test zjhq=231) HEMOGLOBIN (BEAKER) (test 7.6 GM/DL 13.7-17.5 nmyn=976) HEMATOCRIT (BEAKER) (test 21.6 % 40.1-51.0 mvla=545) MEAN CORPUSCULAR VOLUME 91.5 fL 79.0-92.2 (BEAKER) (test caqk=455) MEAN CORPUSCULAR HEMOGLOBIN 32.2 pg 25.7-32.2 (BEAKER) (test zwmd=878) MEAN CORPUSCULAR HEMOGLOBIN 35.2 GM/DL 32.3-36.5 CONC (BEAKER) (test pviu=144) RED CELL DISTRIBUTION WIDTH 17.5 % 11.6-14.4 (BEAKER) (test nskk=941) PLATELET COUNT (BEAKER) (test 49 K/CU MM 150-450 wvnn=664) MEAN PLATELET VOLUME (BEAKER) fL 9.4-12.4 Unable to report due to (test cxoe=041) abnormal Platelet population distribution. NUCLEATED RED BLOOD CELLS 1 /100 WBC 0-0 (BEAKER) (test ezev=616) IMMATURE GRANULOCYTES-RELATIVE 1 % 0-1 PERCENT (BEAKER) (test owal=2898) (MANUAL DIFFERENTIAL)2017-07-11 09:14:00 Test Item Value Reference Range Comments NEUTROPHILS - REL (DIFF) (BEAKER) (test 18 % pxsa=4868) LYMPHOCYTES - REL (DIFF) (BEAKER) (test 54 % zdog=3911) MONOCYTES - REL (DIFF) (BEAKER) (test xdsc=1554) 0 % EOSINOPHILS - REL (DIFF) (BEAKER) (test 0 % yolz=4628) BASOPHILS - REL (DIFF) (BEAKER) (test znyg=9146) 0 % METAMYELOCYTES-REL (DIFF) (BEAKER) (test 4 % 0-0 pdpz=524) MYELOCYTES-REL (DIFF) (BEAKER) (test raiq=1521) 1 % 0-0 BANDS - REL (DIFF) (BEAKER) (test blfu=8100) 22 % 0-10 BLASTS - REL (DIFF) (BEAKER) (test mrrh=3212) 1 % 0-0 NEUTROPHILS - ABS (DIFF) (BEAKER) (test 0.31 K/ L 1.80-8.00 uknt=5756) LYMPHOCYTES - ABS (DIFF) (BEAKER) (test 0.92 K/ L 1.48-4.50 gmkt=6552) MONOCYTES - ABS (DIFF) (BEAKER) (test nydz=6644) 0.00 K/ L 0.00-1.30 EOSINOPHILS - ABS (DIFF) (BEAKER) (test 0.00 K/ L 0.00-0.50 ctpi=1000) BASOPHILS - ABS (DIFF) (BEAKER) (test gofh=8631) 0.00 K/ L 0.00-0.20 METAMYELOCTYES - ABS (DIFF) (BEAKER) (test 0.07 K/ L 0.00-0.00 pruc=271) BANDS-ABS (DIFF) (BEAKER) (test bqcw=7170) 0.4 K/ L 0.0-0.8 BLASTS - ABS (DIFF) (BEAKER) (test lvnb=2145) 0.02 K/ L 0.00-0.00 MYELOCYTES-ABS (DIFF) (BEAKER) (test amzy=7102) 0.02 K/ L 0.00-0.00 TOTAL COUNTED (BEAKER) (test llzn=6054) 100 BANDS + SEGMENTED NEUTROPHILS (BEAKER) (test 0.68 dsvk=1936) MANUAL NRBC PER 100 CELLS (BEAKER) (test 3 /100 WBC 0-0 hfty=8638) PLT MORPHOLOGY (BEAKER) (test ghxg=488) Normal DOHLE BODIES (BEAKER) (test pcrj=172) Present TOXIC GRANULATION (BEAKER) (test ebib=621) Present VACUOLATED NEUTROPHILS (BEAKER) (test wfzl=430) Present SCHISTOCYTES (BEAKER) (test dfqa=415) 1+ few POLYCHROMATOPHILLIC RBCS(BEAKER) (test qlgf=799) 1+ few COMPREHENSIVE METABOLIC [id number] 05:48:00 Test Item Value Reference Range Comments TOTAL PROTEIN (BEAKER) 6.0 gm/dL 6.0-8.3 (test hdew=249) ALBUMIN (BEAKER) (test 2.4 g/dL 3.5-5.0 uxgl=2414) ALKALINE PHOSPHATASE 43 U/L 40-150 (BEAKER) (test flcl=939) BILIRUBIN TOTAL (BEAKER) 1.6 mg/dL 0.2-1.2 (test ffwv=107) SODIUM (BEAKER) (test 136 meq/L 136-145 qmcg=156) POTASSIUM (BEAKER) (test 3.0 meq/L 3.5-5.1 fewr=751) CHLORIDE (BEAKER) (test 106 meq/L 98-107 pmmq=426) CO2 (BEAKER) (test 22 meq/L 22-29 abrn=423) BLOOD UREA NITROGEN 10 mg/dL 7-21 (BEAKER) (test vzsf=758) CREATININE (BEAKER) (test 0.67 mg/dL 0.57-1.25 cgqw=008) GLUCOSE RANDOM (BEAKER) 109 mg/dL 70-105 (test eicc=325) CALCIUM (BEAKER) (test 8.0 mg/dL 8.4-10.2 lquo=117) AST (SGOT) (BEAKER) (test 10 U/L 5-34 fadi=638) ALT (SGPT) (BEAKER) (test 9 U/L 6-55 hqyx=861) EGFR (BEAKER) (test mL/min/1.73 sq m INSUFFICIENT CLINICAL DATA bivb=0199) TO CALCULATE ESTIMATED GFR. [id number] 05:33:00 Test Item Value Reference Range Comments PHOSPHORUS (BEAKER) (test bawn=714) 2.4 mg/dL 2.3-4.7 [id number] 05:33:00 Test Item Value Reference Range Comments MAGNESIUM (BEAKER) (test mldj=444) 2.2 mg/dL 1.6-2.6 HEPATIC FUNCTION [id number] 05:33:00 Test Item Value Reference Range Comments TOTAL PROTEIN (BEAKER) (test wbdn=690) 6.0 gm/dL 6.0-8.3 ALBUMIN (BEAKER) (test hzjd=7496) 2.4 g/dL 3.5-5.0 BILIRUBIN TOTAL (BEAKER) (test ulqt=656) 1.6 mg/dL 0.2-1.2 BILIRUBIN DIRECT (BEAKER) (test wckl=384) 0.8 mg/dL 0.1-0.5 ALKALINE PHOSPHATASE (BEAKER) (test mcxb=225) 43 U/L 40-150 AST (SGOT) (BEAKER) (test wlvm=327) 10 U/L 5-34 ALT (SGPT) (BEAKER) (test vqdb=915) 9 U/L 6-55 PROTHROMBIN [id number] 05:19:00 Test Item Value Reference Range Comments PROTIME (BEAKER) (test dbqt=914) 16.2 seconds 11.7-14.7 INR (BEAKER) (test xavx=532) 1.3 <=5.9 RECOMMENDED COUMADIN/WARFARIN INR THERAPY RANGESSTANDARD DOSE: 2.0 - 3.0 Includes: PROPHYLAXIS forvenous thrombosis, systemic embolization; TREATMENT for venous thrombosis and/or pulmonary embolus.HIGH RISK: Target INR is 2.5-3.5 for patients with mechanical heart valves.[id number] 02:10:00 Test Item Value Reference Range Comments FERRITIN (BEAKER) (test rbeo=432) 1208 ng/mL 5-275 VITAMIN B12 AND [id number] 01:10:00 Test Item Value Reference Range Comments VITAMIN B12 (BEAKER) (test khcx=189) 1071 pg/mL 213-816 FOLATE (BEAKER) (test jgpn=107) 12.3 ng/mL >=7.0 HEMOGLOBIN AND [id number] 00:35:00 Test Item Value Reference Range Comments HEMOGLOBIN (BEAKER) (test phjh=561) 7.6 GM/DL 13.7-17.5 HEMATOCRIT (BEAKER) (test ocby=111) 21.5 % 40.1-51.0 IRON, TIBC, % SAT. (WITHOUT FERRITIN)2017-07-11 00:35:00 Test Item Value Reference Range Comments IRON (BEAKER) (test yylc=460) 56 ug/dL 40-160 TOTAL IRON BINDING CAPACITY (BEAKER) (test 179 ug/dL 250-450 qnpz=854) IRON % SATURATION (2) (BEAKER) (test mxcr=8293) 31 % 20-55 RHEUMATOID FACTOR AB, REFLEX TO [id number] 00:25:00 Test Item Value Reference Range Comments RHEUMATOID FACTOR (BEAKER) (test qtdy=086) Negative OCCULT BLOOD, [id number] 20:30:00 Test Item Value Reference Range Comments FECAL OCCULT BLOOD (BEAKER) (test fqhb=216) Negative Negative BASIC METABOLIC [id number] 19:48:00 Test Item Value Reference Range Comments SODIUM (BEAKER) (test 137 meq/L 136-145 vmav=491) POTASSIUM (BEAKER) (test 3.3 meq/L 3.5-5.1 tguo=375) CHLORIDE (BEAKER) (test 108 meq/L 98-107 mndz=399) CO2 (BEAKER) (test 19 meq/L 22-29 ehnl=641) BLOOD UREA NITROGEN 10 mg/dL 7-21 (BEAKER) (test vqam=675) CREATININE (BEAKER) (test 0.63 mg/dL 0.57-1.25 wtmi=392) GLUCOSE RANDOM (BEAKER) 100 mg/dL 70-105 (test lmdv=718) CALCIUM (BEAKER) (test 8.1 mg/dL 8.4-10.2 irjj=622) EGFR (BEAKER) (test mL/min/1.73 sq m INSUFFICIENT CLINICAL DATA awqw=5658) TO CALCULATE ESTIMATED GFR. [id number] 19:46:00 Test Item Value Reference Range Comments MAGNESIUM (BEAKER) (test onjn=385) 1.8 mg/dL 1.6-2.6 HEMOGLOBIN AND [id number] 19:32:00 Test Item Value Reference Range Comments HEMOGLOBIN (BEAKER) (test fmpp=374) 8.2 GM/DL 13.7-17.5 HEMATOCRIT (BEAKER) (test oajp=403) 24.4 % 40.1-51.0 CLOSTRIDIUM DIFFICILE TOXIN [id number] 17:44:00 Test Item Value Reference Range Comments CLOSTRIDIUM DIFFICILE TOXIN, PCR (BEAKER) (test Not Detected Not Detected uxva=8502) This qualitative real-time polymerase chain reaction assay [...] is not recommended.RAD, CHEST, 1 VIEW, NON [id number] 17:19:00Reason for exam:-> neutropenic feverShould this be [...] MDReport Verified Date/Time: 2016 17:19:53 Reading Location: [facility] Mammo Reading Room BONE MARROW PROCESS.2017-07-10 16:20 :00 Test Item Value Reference Range Comments ANATOMIC CASE# (SHREYAS) (test ralo=8323) [id number] ORDERED BY DOCTOR# (SHREYAS) (test kzav=2518) [place] PERFORMED BY DOCTOR# (SHREYAS) (test lhee=7300) [place] CLOT RECEIVED? (BEESTEFANI) (test hgoz=4401) Yes BIOPSY RECEIVED? (BEAKER) (test wgmc=3070) Yes CULTURE RECEIVED? (BEAKER) (test mhdl=9049) Yes FLOW RECEIVED? (BEAKER) (test hflb=4575) Yes CYTOGENICS? (BEAKER) (test guvi=6663) Yes MOLECULAR GENETICS? (BEAKER) (test jbxm=2672) Hold CMV PCR, [id number] 14:56:00 Test Item Value Reference Range Comments CMV VIRAL LOAD - NEGATIVE Negative or below the linear (BEAKER) (test xtkn=8593) range of the assay (<375 copies/mL) Cytomegalovirus [...] and its performance characteristics determined by the [facility] Pathology Department, Section of Molecular Pathology. It has not been cleared or approved by the U.S. Food and Drug Administration (FDA), since FDA approval is not required for clinical use of the test. Validation was done as required by The Clinical Laboratory Improvement Amendments of 1988.EBV VIRAL [id number] 14:52:00 Test Item Value Reference Range Comments EBV VIRAL LOAD - NEGATIVE Negative or below the linear (BEAKER) (test mjqd=4555) range of the assay (<500 copies/mL) This [...] developedand its performance characteristics determined by the [facility] Pathology Department, Section of Molecular Pathology. It has not been cleared or approved by the U.S. Food and Drug Administration (FDA), since FDA approval is not required for clinical use of the test. Validation was doneas required by The Clinical Laboratory Improvement Amendments of 1988.CT, [id number] 14: 00:00Reason for exam:->abdominal pain What is [...] MDReport Verified Date/Time: 07/10/2017 14:00:49 Reading Location: [address] Consult Reading Room HEPATITIS B [id number] 13:16:00 Test Item Value Reference Range Comments HEPATITIS B CORE TOTAL ANTIBODY (BEAKER) (test Nonreactive Nonreactive dzkw=899) HEPATITIS B SURFACE ANTIBODY (BEAKER) (test < mIU/mL <8.0 fmxe=050) HEPATITIS B SURFACE ANTIGEN (2) (BEAKER) (test Nonreactive Nonreactive eirb=5406) HEPATITIS C [id number] 12:20:00 Test Item Value Reference Range Comments HEPATITIS C ANTIBODY (BEAKER) (test ooad=998) Nonreactive Nonreactive HIV-1 ANTIGEN WITH HIV-1/2 [id number] 12:20:00 Test Item Value Reference Range Comments HIV-1 ANTIGEN WITH HIV 1\\T\\2 ANTIBODY (2) Nonreactive Nonreactive (BEAKER) (test eyxq=3455) LACTIC ACID, VENOUS, WHOLE [id number] 12:09:00 Test Item Value Reference Range Comments LACTATE BLOOD VENOUS (2) (BEAKER) (test 1.0 mmol/L 0.5-2.2 dvyf=8301) Effective 12/21/2015: Units/Reference Range ChangeNew: 0.5-2.2 mmol/L Previous: 5 -20 mg/dLCOMPREHENSIVE METABOLIC [id number] 10:11:00 Test Item Value Reference Range Comments TOTAL PROTEIN (BEAKER) 6.4 gm/dL 6.0-8.3 (test ygzq=745) ALBUMIN (BEAKER) (test 2.5 g/dL 3.5-5.0 fgxg=3446) ALKALINE PHOSPHATASE 48 U/L 40-150 (BEAKER) (test jnwh=943) BILIRUBIN TOTAL (BEAKER) 1.3 mg/dL 0.2-1.2 (test jilq=021) SODIUM (BEAKER) (test 137 meq/L 136-145 dtlw=859) POTASSIUM (BEAKER) (test 3.0 meq/L 3.5-5.1 nflx=784) CHLORIDE (BEAKER) (test 107 meq/L 98-107 gqfe=307) CO2 (BEAKER) (test 22 meq/L 22-29 uduo=155) BLOOD UREA NITROGEN 11 mg/dL 7-21 (BEAKER) (test ktzy=031) CREATININE (BEAKER) (test 0.66 mg/dL 0.57-1.25 zvkb=020) GLUCOSE RANDOM (BEAKER) 122 mg/dL 70-105 (test ahkp=200) CALCIUM (BEAKER) (test 8.0 mg/dL 8.4-10.2 jnmg=971) AST (SGOT) (BEAKER) (test 12 U/L 5-34 lino=873) ALT (SGPT) (BEAKER) (test 9 U/L 6-55 rrdl=858) EGFR (BEAKER) (test mL/min/1.73 sq m INSUFFICIENT CLINICAL DATA yown=4663) TO CALCULATE ESTIMATED GFR. CBC W/PLT COUNT & AUTO [id number] 10:08:00 Test Item Value Reference Range Comments WHITE BLOOD CELL COUNT 1.9 K/ L 3.5-10.5 (BEAKER) (test zmkt=508) RED BLOOD CELL COUNT (BEAKER) 1.96 M/ L 4.63-6.08 (test vrqm=023) HEMOGLOBIN (BEAKER) (test 6.5 GM/DL 13.7-17.5 rzcl=913) HEMATOCRIT (BEAKER) (test 18.5 % 40.1-51.0 ixnu=268) MEAN CORPUSCULAR VOLUME 94.4 fL 79.0-92.2 (BEAKER) (test nlhq=535) MEAN CORPUSCULAR HEMOGLOBIN 33.2 pg 25.7-32.2 (BEAKER) (test hchi=020) MEAN CORPUSCULAR HEMOGLOBIN 35.1 GM/DL 32.3-36.5 CONC (BEAKER) (test atuw=830) RED CELL DISTRIBUTION WIDTH 17.5 % 11.6-14.4 (BEAKER) (test pzih=976) PLATELET COUNT (BEAKER) (test 36 K/CU MM 150-450 This is a corrected result. jsvj=361) Previous result was 23 K/CU MM on 07/10/2017 at 0718 [address] MEAN PLATELET VOLUME (BEAKER) fL 9.4-12.4 Unable to report due to (test jyft=567) abnormal Platelet population distribution. NUCLEATED RED BLOOD CELLS 3 /100 WBC 0-0 (BEAKER) (test ibce=490) IMMATURE GRANULOCYTES-RELATIVE 2 % 0-1 PERCENT (BEAKER) (test zgko=3339) (MANUAL DIFFERENTIAL)2017-07-10 10:08:00 Test Item Value Reference Range Comments NEUTROPHILS - REL (DIFF) (BEAKER) (test 32 % adgo=4029) LYMPHOCYTES - REL (DIFF) (BEAKER) (test 38 % xgzy=4786) MONOCYTES - REL (DIFF) (BEAKER) (test lstz=7214) 6 % MYELOCYTES-REL (DIFF) (BEAKER) (test nsys=6164) 1 % 0-0 BANDS - REL (DIFF) (BEAKER) (test huco=5066) 21 % 0-10 BLASTS - REL (DIFF) (BEAKER) (test wlal=6755) 2 % 0-0 NEUTROPHILS - ABS (DIFF) (BEAKER) (test 0.61 K/ L 1.80-8.00 ymim=9667) LYMPHOCYTES - ABS (DIFF) (BEAKER) (test 0.72 K/ L 1.48-4.50 fzeu=0115) MONOCYTES - ABS (DIFF) (BEAKER) (test tvlg=4313) 0.11 K/ L 0.00-1.30 BANDS-ABS (DIFF) (BEAKER) (test kyzf=7160) 0.4 K/ L 0.0-0.8 BLASTS - ABS (DIFF) (BEAKER) (test ftbo=4061) 0.04 K/ L 0.00-0.00 MYELOCYTES-ABS (DIFF) (BEAKER) (test zfeu=4057) 0.02 K/ L 0.00-0.00 TOTAL COUNTED (BEAKER) (test vtgo=7131) 100 BANDS + SEGMENTED NEUTROPHILS (BEAKER) (test 1.01 ipqy=6627) MANUAL NRBC PER 100 CELLS (BEAKER) (test 1 /100 WBC 0-0 yanh=9782) VACUOLATED NEUTROPHILS (BEAKER) (test dkio=586) Present LARGE PLT(BEAKER) (test qeeb=7324) Present SCHISTOCYTES (BEAKER) (test zfgn=080) 1+ few OVALOCYTES (BEAKER) (test iaie=777) 1+ few POLYCHROMATOPHILLIC RBCS(BEAKER) (test yahs=724) 1+ few TEAR DROP CELLS (BEAKER) (test gbbx=058) 1+ few URIC [id number] 10:02:00 Test Item Value Reference Range Comments URIC ACID (BEAKER) (test qtbj=074) 3.1 mg/dL 2.6-7.2 LACTATE DEHYDROGENASE (LDH)2017-07-10 10:02:00 Test Item Value Reference Range Comments LACTATE DEHYDROGENASE (BEAKER) (test aeou=200) 300 U/L 125-220 [id number] 09:44:00 Test Item Value Reference Range Comments D-DIMER QUANTITATIVE (BEAKER) (test fmtx=985) 3.50 MG/L FEU <0.50 Intended Use: The [...] exclusion of thrombosis is within 95-100% range.PT/ [id number] 09:43:00 Test Item Value Reference Range Comments PROTIME (BEAKER) (test eavg=346) 15.8 seconds 11.7-14.7 INR (BEAKER) (test yxsl=360) 1.3 <=5.9 PARTIAL THROMBOPLASTIN TIME (BEAKER) (test 40.7 seconds 22.5-36.0 rhci=475) RECOMMENDED COUMADIN/WARFARIN INR THERAPY RANGESSTANDARD DOSE: 2.0 - 3.0 Includes: PROPHYLAXIS forvenous thrombosis, systemic embolization; TREATMENT for venous thrombosis and/or pulmonary embolus.HIGH RISK: Target INR is 2.5-3.5 for patients with mechanical heart valves.[id number] 09:42:00 Test Item Value Reference Range Comments FIBRINOGEN LEVEL (BEAKER) (test veqn=035) 562 mg/dl 225-434 RETICULOCYTE [id number] 09:30:00 Test Item Value Reference Range Comments RETICULOCYTE COUNT PCT (BEAKER) (test idun=763) 0.6 % 0.5-1.8 BASIC METABOLIC [id number] 09:11:00 Test Item Value Reference Range Comments SODIUM (BEAKER) (test 136 meq/L 136-145 mxvt=297) POTASSIUM (BEAKER) (test 2.9 meq/L 3.5-5.1 nvvf=891) CHLORIDE (BEAKER) (test 107 meq/L 98-107 igfl=012) CO2 (BEAKER) (test 19 meq/L 22-29 hzxr=171) BLOOD UREA NITROGEN 10 mg/dL 7-21 (BEAKER) (test vvjq=101) CREATININE (BEAKER) (test 0.68 mg/dL 0.57-1.25 jmvl=215) GLUCOSE RANDOM (BEAKER) 116 mg/dL 70-105 (test cfaf=857) CALCIUM (BEAKER) (test 8.0 mg/dL 8.4-10.2 jqck=717) EGFR (BEAKER) (test mL/min/1.73 sq m INSUFFICIENT CLINICAL DATA blcq=9314) TO CALCULATE ESTIMATED GFR. [id number] 08:57:00 Test Item Value Reference Range Comments PHOSPHORUS (BEAKER) (test kqau=778) 2.3 mg/dL 2.3-4.7 [id number] 08:57:00 Test Item Value Reference Range Comments MAGNESIUM (BEAKER) (test qool=761) 1.7 mg/dL 1.6-2.6 HEPATIC FUNCTION [id number] 08:57:00 Test Item Value Reference Range Comments TOTAL PROTEIN (BEAKER) (test czsm=758) 6.2 gm/dL 6.0-8.3 ALBUMIN (BEAKER) (test jrav=7596) 2.5 g/dL 3.5-5.0 BILIRUBIN TOTAL (BEAKER) (test finu=189) 1.4 mg/dL 0.2-1.2 BILIRUBIN DIRECT (BEAKER) (test arcl=789) 0.6 mg/dL 0.1-0.5 ALKALINE PHOSPHATASE (BEAKER) (test exxd=192) 46 U/L 40-150 AST (SGOT) (BEAKER) (test fclp=000) 11 U/L 5-34 ALT (SGPT) (BEAKER) (test smjp=251) 9 U/L 6-55 URINALYSIS W/ [id number] 03:15:00 Test Item Value Reference Range Comments COLOR (BEAKER) (test wdsw=193) Yellow CLARITY (BEAKER) (test rpck=320) Clear SPECIFIC GRAVITY UA (BEAKER) (test advx=502) 1.011 1.001-1.035 PH UA (BEAKER) (test borl=541) 5.5 5.0-8.0 PROTEIN UA (BEAKER) (test radx=780) 30 mg/dL Negative GLUCOSE UA (BEAKER) (test gcjs=561) Negative Negative KETONES UA (BEAKER) (test gyeg=405) Negative Negative BILIRUBIN UA (BEAKER) (test zsea=405) Negative Negative BLOOD UA (BEAKER) (test ecip=899) Negative Negative NITRITE UA (BEAKER) (test cftc=478) Negative Negative LEUKOCYTE ESTERASE UA (BEAKER) (test hjzm=910) Negative Negative UROBILINOGEN UA (BEAKER) (test rawo=176) 0.2 mg/dL 0.2-1.0 RBC UA (BEAKER) (test ftvj=566) 0 /HPF WBC UA (BEAKER) (test iblp=708) 1 /HPF MUCUS (BEAKER) (test ioky=4888) Rare SOURCE(BEAKER) (test ccum=0748)
[2017-12-16] MEDS ORDERED: NA CHLORIDE 0.9% 2,000 ML ONE (15:45)
[2017-12-16] MEDS ORDERED: CEFEPIME 1 GM/100 ML BAG IV ONE (15:58)
[2017-12-16] MEDS ORDERED: ACETAMINOPHEN 650MG/RECT SUPP PR ONE (15:58)
[2017-12-16 16:02] LABS: Arterial Blood Carboxyhemoglob 0.9 % (0-1.5); Blood Gas Oxyhemoglobin 97.3 % (94-97); Blood O2 Saturation 98.6 % (92-98.5)
[2017-12-16 16:10] LABS: Absolute Lymphocytes (CBC) 0.6 K/uL (0.7-4.9); Absolute Monocytes 0.1 K/uL (0.1-1.3); Absolute Neutrophil 0.1 K/uL (1.8-8.0); Basophils % 0.4 % (0-1.3); Eosinophils % 0.8 % (0-4.4); Hematocrit 24.7 % (39.6-49.0); Lymphocytes % 72.6 % (15.3-44.8); MCH 30.2 pg (27.0-35.0); MCV 86.4 fL (80-100); MPV 8.3 fL (7.6-11.3); Monocytes % 12.6 % (3.3-12.3); RBC Red Blood Cell Count 2.86 M/uL (4.33-5.43)
[2017-12-16 16:13] LABS: Protime INR 1.99
[2017-12-16 16:15] LABS: Glucose Level 102 mg/dL (65-120)
[2017-12-16 16:23] LABS: ALT/SGPT 14 IU/L (10-60); AST/SGOT 24 IU/L (10-42); Albumin 1.9 g/dL (3.2-5.5); Alkaline Phosphatase 128 IU/L (42-121); Amylase Level 22 U/L (28-100); BUN Blood Urea Nitrogen 25 mg/dL (6-20); Bilirubin Direct 1.5 mg/dL (0-0.2); Bilirubin Total 2.8 mg/dL (0.3-1.2); CKMB Creatine Kinase MB 0.7 ng/ml (0.3-4.0); Creatine Phosphokinase 27 IU/L (22-269); Protein, Total 6.3 g/dL (6.0-8.3)
--- NOTE | 2017-12-16 16:24 | RAD REPORT ---
EXAM DESCRIPTION: RAD - Chest Single View - 12/16/2017 3:56 pm CLINICAL HISTORY: Weakness, fall, shortness of breath COMPARISON: July 2017 TECHNIQUE: AP portable chest image was obtained 1551 hour . FINDINGS: Is interstitial markings are prominent throughout the lung spaulding accentuated by a slightl y shallow inspiration. There is patchy opacification in each lung base, left greater than right. Fail ure is not suspected. Trachea is midline. Heart and vasculature are normal. No measurable pleural eff usion and no pneumothorax. No gross bony abnormality seen. No acute aortic findings suspected. IMPRESSION: Bilateral lung base opacification suspicious for pneumonia rather than simple atelectasi s. Chronic interstitial lung disease accentuated by shallow inspiration. Interstitial edema or infiltrat e can be masked.
[2017-12-16 16:30] LABS: Bicarbonate 26 mEq/L (21-31); Lipase < 10 U/L (22-51); Sodium Level 128 mEq/L (135-145)
[2017-12-16] MEDS ORDERED: KCL 20 MEQ/100 mL IVPB 20 MEQ/100 ML BAG IV ONE (16:40)
[2017-12-16 16:42] LABS: C-Reactive Protein > 200.0 mg/L (<10.0)
[2017-12-16 16:43] LABS: Blood Morphology Comment NOT SEEN (NOT SEEN); Platelet Estimate DECR; Urine White Blood Cell Casts OK
[2017-12-16] MEDS ORDERED: NA CHLORIDE 0.9% 1,000 ML ONE (16:45)
[2017-12-16 17:12] LABS: Urine Blood 1+ (NEG); Urine Glucose TRACE (NEG); Urine Protein 1+ (NEG)
[2017-12-16] MEDS ORDERED: VANCOMYCIN/NS 1 gm 1 GM/250 ML BAG ONE (17:23)
--- NOTE | 2017-12-16 17:48 | EDPHYS ---
Physician Documentation [facility] Name: Dani Combs Age: 66 yrs Sex: Male : 1950 Arrival Date: 12/16/2017 Time: 15:28 Bed 2 Private MD: ED Physician Shakeel Hinojosa HPI: 12/16 17:39 This 66 yrs old Male presents to ER via EMS with complaints of Altered Mental jr8 Status, Fever. 17:39 The patient presents with confusion, decreased mental status. Onset: The jr8 symptoms/episode began/occurred acutely, today. Possible causes: unknown. Associated signs and symptoms: Pertinent positives: fever. Current symptoms: In the emergency department the patient's symptoms are unchanged from the initial presentation. Patient's baseline: Neuro: alert and fully oriented, Motor: no deficits, Ambulation: walks without assistance, Speech: normal. The patient has not experienced similar symptoms in the past. The patient has been recently seen by a physician:. Patients brother stated that he currently is undergoing treatment for myelodysplastic disorder. Had chemotherapy about 2 weeks ago and a blood and platelet transfusion 1 week ago. Today had acute onset of fever, weakness, and AMS. EMS brought patient in and was noted to be tachycardic and hypotensive . Historical: - Allergies: 15:39 NKA; sg - Home Meds: 15:39 [place] 7.5-325 mg Oral tab [Active]; sg - PMHx: 15:39 Anemia; Hypertension; Leukemia; Myocardial infarction; sg - Immunization history:: Adult Immunizations unknown. - Social history:: Smoking status: unknown. ROS: 17:39 Eyes: Negative for injury, pain, redness, and discharge, ENT: Negative for injury, jr8 pain, and discharge, Neck: Negative for injury, pain, and swelling, Cardiovascular: Negative for chest pain, palpitations, and edema, Abdomen/GI: Negative for abdominal pain, nausea, vomiting, diarrhea, and constipation, Back: Negative for injury and pain, MS/Extremity: Negative for injury and deformity, Skin: Negative for injury, rash, and discoloration. 17:39 Respiratory: Positive for cough, shortness of breath. 17:39 Neuro: Positive for altered mental status. Exam: 17:39 Head/Face: Normocephalic, atraumatic. Eyes: Pupils equal round and reactive to light, jr8 extra-ocular motions intact. Lids and lashes normal. Conjunctiva and sclera are non-icteric and not injected. Cornea within normal limits. Periorbital areas with no swelling, redness, or edema. ENT: Nares patent. No nasal discharge, no septal abnormalities noted. Tympanic membranes are normal and external auditory canals are clear. Oropharynx with no redness, swelling, or masses, exudates, or evidence of obstruction, uvula midline. Mucous membranes moist. Neck: Trachea midline, no thyromegaly or masses palpated, and no cervical lymphadenopathy. Supple, full range of motion without nuchal rigidity, or vertebral point tenderness. No Meningismus. Abdomen/GI: Soft, non-tender, with normal bowel sounds. No distension or tympany. No guarding or rebound. No evidence of tenderness throughout. Back: No spinal tenderness. No costovertebral tenderness. Full range of motion. Skin: Warm, dry with normal turgor. Normal color with no rashes, no lesions, and no evidence of cellulitis. MS/ Extremity: Pulses equal, no cyanosis. Neurovascular intact. Full, normal range of motion. Neuro: Awake and alert, GCS 15, oriented to person, place, time, and situation. Cranial nerves II-XII grossly intact. Motor strength 5/5 in all extremities. Sensory grossly intact. Cerebellar exam normal. Normal gait. 17:39 Cardiovascular: Rate: tachycardic, Rhythm: regular, Pulses: Pulses are 1+ in right radial artery and left radial artery. Heart sounds: normal, normal S1and S2, no S3 or S4, no murmur, no rub, no gallop, Edema: is not appreciated. 17:39 Respiratory: mild respiratory distress is noted, Respirations: labored breathing, tachypnea, Breath sounds: decreased breath sounds, that are mild, are located in both bases. Vital Signs: 15:33 BP 79 / 51 LA Supine (auto/reg); Pulse 153 MON; Resp 20 S; Temp 102.1; Pulse Ox 78% on sg R/A; 16:30 BP 101 / 62; Pulse 132 MON; Resp 21; Pulse Ox 100% on BiPAP; aj1 16:37 Weight 60 kg; aj1 17:00 BP 90 / 55; Pulse 127 MON; Resp 20 S; Pulse Ox 100% on BiPAP; sg 17:44 BP 88 / 61; Pulse 125; Resp 18; Pulse Ox 97% on 100% Simple Mask; sg 18:39 BP 86 / 61; Pulse 120 MON; Resp 18; Temp 100.1; Pulse Ox 100% on 50% Simple Mask; sg 19:00 BP 90 / 58; Pulse 119; Resp 22 S; Pulse Ox 97% on 4 lpm NC; bb 19:15 BP 83 / 51; Pulse 116; Resp 23 S; Pulse Ox 97% on 4 lpm NC; bb 19:30 BP 93 / 66; Pulse 117; Resp 20 S; Temp 97.4(O); Pulse Ox 95% on 4 lpm NC; bb 18:39 Sinus tachycardia sg MDM: 15:29 Patient medically screened. jr8 17:42 Data reviewed: vital signs, nurses notes, lab test result(s), EKG, radiologic studies, jr8 plain films, and as a result, I will admit patient. Data interpreted: Pulse oximetry: on room air is 88 %. Interpretation: hypoxia. 17:43 Sepsis 6 hour Focused Exam: Focused Assessment performed: December 16, 2017 at 17:44 jr8 Heart: S1,S2 auscultated. Tachycardia noted. Lungs: Decreased breath sounds noted. Capillary refill examination performed. Capillary refill noted to be < 2 seconds. Peripheral pulse evaluation performed. Radial Peripheral pulses noted to be 2+ slightly diminished. Skin examination performed. Skin noted to be pink. Current vital signs reviewed: Yes. Neuro: Neurological examination improved from previous exam. Cardio: Cardiovascular examination improved from previous exam. Heart rate and blood pressure have improved. Respiratory: Respiratory exam improved from previous exam. Counseling: I had a detailed discussion with the patient and/or guardian regarding: the historical points, exam findings, and any diagnostic results supporting the discharge/admit diagnosis, lab results, radiology results, the need to transfer to another facility, for higher level of care, [facility] does not immediately have the required specialist. Response to treatment: the patient's symptoms have mildly improved after treatment. 12/16 15:28 Order name: Amylase, Serum dm5 12/16 15:28 Order name: Basic Metabolic Panel dm5 12/16 15:28 Order name: Blood Culture Adult (2) dm5 12/16 15:28 Order name: BNP; Complete Time: 16:32 dm5 12/16 15:28 Order name: C-Reactive Protein 12/16 15:28 Order name: CBC with Diff; Complete Time: 17:16 12/16 15:28 Order name: Ckmb; Complete Time: 16:49 12/16 15:28 Order name: CPK; Complete Time: 16:49 12/16 15:28 Order name: Lactate; Complete Time: 16:49 12/16 15:28 Order name: LFT's; Complete Time: 16:49 [facility] 12/16 15:28 Order name: Lipase; Complete Time: 16:49 12/16 15:28 Order name: Procalcitonin; Complete Time: 17:04 12/16 15:28 Order name: Protime (+inr); Complete Time: 16:32 12/16 15:28 Order name: Ptt, Activated; Complete Time: 16:32 12/16 15:28 Order name: Sed Rate; Complete Time: 17:16 12/16 15:28 Order name: Troponin (emerg Dept Use Only); Complete Time: 16:32 12/16 15:28 Order name: Chest Single View XRAY; Complete Time: 16:32 12/16 15:29 Order name: Amylase Level; Complete Time: 16:49 [facility] 12/16 15:29 Order name: Basic Metabolic Panel; Complete Time: 16:49 [facility] 12/16 15:29 Order name: Blood Culture [facility] 12/16 15:29 Order name: C-Reactive Protein; Complete Time: 16:49 [facility] 12/16 15:30 Order name: ABG; Complete Time: 16:49 [facility] 12/16 15:30 Order name: BIPAP [facility] 12/16 16:14 Order name: CBC Smear Scan; Complete Time: 17:16 [facility] 12/16 17:05 Order name: Urine Culture [facility] 12/16 17:07 Order name: Urine Dipstick--Ancillary (enter results); Complete Time: 17:16 bd 12/16 17:32 Order name: TS bd 12/16 17:32 Order name: Bb Add On bd 12/16 18:05 Order name: Platelets, Leukored Pheresis [facility] 12/16 15:28 Order name: Accucheck; Complete Time: 16:17 12/16 15:28 Order name: Cardiac monitoring; Complete Time: 16:17 12/16 15:28 Order name: EKG - Nurse/Tech; Complete Time: 16:17 12/16 15:28 Order name: IV Saline Lock - Large Bore; Complete Time: 16:17 12/16 15:28 Order name: Labs collected and sent; Complete Time: 16:17 12/16 15:28 Order name: O2 Per Protocol; Complete Time: 16:17 12/16 15:28 Order name: O2 Sat Monitoring; Complete Time: 16:17 12/16 15:28 Order name: Urine Dipstick-Ancillary (obtain specimen); Complete Time: 17:39 12/16 17:32 Order name: EKG Electrocardiogram EDMS Administered Medications: 16:10 Drug: NS 0.9% (30 ml/kg) 30 ml/kg Route: IV; Rate: bolus; Site: left forearm; sg 17:10 Follow up: Response: No adverse reaction; IV Status: Completed infusion; IV Intake: sg 2000ml 16:30 Drug: Tylenol Suppository 650 mg Route: LA; aj1 18:20 Follow up: Response: No adverse reaction; Temperature is decreased sg 16:45 Drug: Cefepime 1 grams Route: IVPB; Rate: 200 ml/hr; Infused Over: 30 mins; Site: left sg forearm; 17:35 Follow up: Response: No adverse reaction; IV Status: Completed infusion sg 16:50 Drug: Potassium Chloride 20 mEq Route: IV; Rate: calculated rate; Site: left forearm; sg 18:30 Follow up: Response: No adverse reaction; IV Status: Completed infusion sg 17:20 Drug: vancoMYCIN 1 grams Route: IVPB; Infused Over: 2 hrs; Site: left forearm; sg 19:23 Follow up: IV Status: Completed infusion; IV Intake: 250ml bb Disposition: 12/16/17 17:48 Transfer ordered to [facility]. Diagnosis are Neutropenia, Sepsis, Pneumonia due to other specified bacteria. - Reason for transfer: Higher level of care. - Accepting physician is Dr. Krishnamurthy. - Condition is Fair. - Problem is new. - Symptoms have improved. Addendum: 12/20/2017 19:15 Co-signature as Attending Physician, Shakeel Hinojosa MD. g s Signatures: Dispatcher [employer] EDPR Nina Hernandez RN RN aj1 Hortencia Hernandez, RN RN dm5 See Handy, RN RN Hedy Bueno RN RN Ming Winter PA PA jr8 Shakeel Hinojosa MD MD gs Corrections: (The following items were deleted from the chart) 12/16 17:45 17:42 Data interpreted: Pulse oximetry: on room air is 100 %. Interpretation: normal. jr8 jr8 18:04 17:43 TYPE AND SCREEN+BB.LAB.BRZ ordered. [facility] EDPR 19:46 17:48 12/16/2017 17:48 Transfer ordered to [facility]. Diagnosis is bb Neutropenia; Sepsis; Pneumonia due to other specified bacteria. Reason for transfer: Higher level of care. Accepting physician is Dr. Krishnamurthy. Condition is Fair. Problem is new. Symptoms have improved. jr8
--- NOTE | 2017-12-16 17:48 | ER ---
Nurse's Notes [facility] Name: Dani Combs Age: 66 yrs Sex: Male : 1950 Arrival Date: 12/16/2017 Time: 15:28 Bed 2 Private MD: Diagnosis: Neutropenia;Sepsis;Pneumonia due to other specified bacteria Presentation: 12/16 15:30 Presenting complaint: EMS states: pt was weak and fell last night, pt family reports sg this morning he was confused and not acting right, now he is not speaking and very confused. Transition of care: patient was not received from another setting of care. Onset of symptoms was December 16, 2017. Initial Sepsis Screen: Does the patient meet any 2 criteria? RR > 20 per min. Temp <36.0*C (96.8*F)) or > 38.3*C (100.4*F). Systolic BP < 90 mmHg. Altered Mental Status. HR > 90 bpm. Yes Does the patient have a suspected source of infection? No. Patient's initial sepsis screen is negative. Care prior to arrival: Medication(s) given: Normal saline infusion, 500 mL, IV initiated. 22 GA, in the left wrist, Glucose check: 111. 15:30 Method Of Arrival: EMS: [facility] sg 15:30 Acuity: RAEGAN 2 sg Historical: - Allergies: 15:39 NKA; sg - Home Meds: 15:39 [place] 7.5-325 mg Oral tab [Active]; sg - PMHx: 15:39 Anemia; Hypertension; Leukemia; Myocardial infarction; sg - Immunization history:: Adult Immunizations unknown. - Social history:: Smoking status: unknown. Screenin:43 The patient has not been NPO before screening. The patient is not alert, or is unable sg to follow commands. Bedside swallow screening discontinued. Patient kept NPO until cleared by Speech Therapy or Physician. The patient failed the bedside swallow screening. The patient will be kept NPO until cleared by Speech Therapy or Physician. 15:55 Abuse screen: Denies threats or abuse. Denies injuries from another. Nutritional sg screening: No deficits noted. Tuberculosis screening: No symptoms or risk factors identified. Never had TB. Fall Risk None identified. Assessment: 15:40 General: Appears in no apparent distress. ill, slender, well groomed, well developed, sg well nourished, Behavior is calm, unresponsive. pt in bed, eyes open but unable to answer questions, not speaking at this time. Pain: Unable to use pain scale. Neuro: Level of Consciousness is awake, lethargic, unresponsive, Oriented to person, place, time, Plastic Products Sales Representative are equal bilaterally Speech is normal, Facial symmetry appears normal. Cardiovascular: Heart tones S1 S2 present Capillary refill is brisk in bilateral fingers Patient's skin is warm and dry. Chest pain is denied. Respiratory: Airway is patent Respiratory effort is even, unlabored, Respiratory pattern is regular, symmetrical. GI: No signs and/or symptoms were reported involving the gastrointestinal system. : No signs and/or symptoms were reported regarding the genitourinary system. EENT: No signs and/or symptoms were reported regarding the EENT system. Derm: Skin is intact, Skin is dusky, pale, Skin temperature is warm. Musculoskeletal: No signs and/or symptoms reported regarding the musculoskeletal system. Circulation, motion, and sensation intact. Range of motion: intact in all extremities. 15:40 Cardiovascular: Edema is 3+ to left ankle, left foot, right ankle and right foot sg pitting to left ankle, left foot, right ankle and right foot. 15:44 Reassessment: pt placed to BiPap at this time. sg 16:00 Reassessment: Patient appears in no apparent distress at this time. Patient and/or sg family updated on plan of care and expected duration. Pain level reassessed. orders received for a gordon at this time, pt updated on POC, pt given a thumbs up motion at this time, pt brother at bedside with pt at this time. 16:30 Reassessment: Patient appears in no apparent distress at this time. Patient and/or sg family updated on plan of care and expected duration. Pain level reassessed. pt brother in lobby at this time, while gordon catheter is placed Patient states symptoms have not improved. 17:10 Reassessment: Patient appears in no apparent distress at this time. Patient states sg symptoms have not improved. 17:46 Reassessment: Patient appears in no apparent distress at this time. Patient and/or sg family updated on plan of care and expected duration. Pain level reassessed. pt and pt brother updated on POC and need for transfer to receiving facility, pt brother translated, pt stated understanding, will continue to monitor. 18:38 Reassessment: Patient appears in no apparent distress at this time. Patient and/or sg family updated on plan of care and expected duration. Pain level reassessed. pt speaking in estonian with pt family at this time, awaiting pt transport to receiving facility, [facility], Patient states symptoms have improved. 18:55 Reassessment: Patient appears in no apparent distress at this time. Ming PALMER order to sg keep pt MAP 60-70, administer 500 mL NS bolus as needed. 19:10 Reassessment: Patient appears in no apparent distress at this time. Patient and/or sg family updated on plan of care and expected duration. Pain level reassessed. awaiting transport to [facility], pt family remains at bedside at this time Patient states symptoms have improved. 19:10 Reassessment: report given to Hedy SAMUELS. sg 19:20 Reassessment: pt resting quietly, IV sites patent, intact with fluids infusing, gordon bb catheter in place, pt is A\T\O x 2, resp unlabored, EMS at bedside for transport to [facility], awaiting initiation of platelets as ordered, consent signed. 19:40 Reassessment: Pt placed on EMS stretcher, no distress noted, platelets infusing. bb Vital Signs: 15:33 BP 79 / 51 LA Supine (auto/reg); Pulse 153 MON; Resp 20 S; Temp 102.1; Pulse Ox 78% on sg R/A; 16:30 BP 101 / 62; Pulse 132 MON; Resp 21; Pulse Ox 100% on BiPAP; aj1 16:37 Weight 60 kg; aj1 17:00 BP 90 / 55; Pulse 127 MON; Resp 20 S; Pulse Ox 100% on BiPAP; sg 17:44 BP 88 / 61; Pulse 125; Resp 18; Pulse Ox 97% on 100% Simple Mask; sg 18:39 BP 86 / 61; Pulse 120 MON; Resp 18; Temp 100.1; Pulse Ox 100% on 50% Simple Mask; sg 19:00 BP 90 / 58; Pulse 119; Resp 22 S; Pulse Ox 97% on 4 lpm NC; bb 19:15 BP 83 / 51; Pulse 116; Resp 23 S; Pulse Ox 97% on 4 lpm NC; bb 19:30 BP 93 / 66; Pulse 117; Resp 20 S; Temp 97.4(O); Pulse Ox 95% on 4 lpm NC; bb 18:39 Sinus tachycardia sg ED Course: 15:28 Patient arrived in ED. dm5 15:29 Ming Sidhu PA is PHCP. jr8 15:29 Shakeel Hinojosa MD is Attending Physician. jr8 15:32 See Handy, RN is Primary Nurse. sg 15:36 EKG done, by metallurgy laboratory technician. reviewed by Ming PALMER. at1 15:38 Triage completed. sg 15:40 Missed attempt(s): 18 gauge in right forearm. Bleeding controlled, band aid applied, sg catheter tip intact. 15:40 Inserted saline lock: 22 gauge in left antecubital area, using aseptic technique. Blood sg collected. Maintain EMS IV. Dressing intact. Site clean \T\ dry. Gauge \T\ site: 22 G LFA. 15:40 Arm band placed on. sg 15:40 Patient has correct armband on for positive identification. Placed in gown. Bed in low sg position. Call light in reach. Side rails up X2. environmental monitoring technician on. Pulse ox on. NIBP on. 15:50 Initial lab(s) drawn, by ED staff, sent to lab. T\T\S collected, blood band applied to sg patient. 15:55 X-ray completed. Portable x-ray completed in exam room. Patient tolerated procedure ml well. 15:56 Chest Single View XRAY In Process Unspecified. EDMS 16:20 Coud inserted, using sterile technique, 14 Fr. To gravity drainage. Urine specimen sg collected. Patient tolerated well. 16:20 IV is patent, is intact, with fluids infusing freely, with good blood return. sg 16:48 Notified Nurse Practitioner and/or Physician Pricing Director of a critical lab result(s), WBC dm5 0.8, Platelets 14. 18:00 No provider procedures requiring assistance completed. sg 18:20 Patient transferred, IV remains in place. intact, No redness/swelling at site. sg 19:21 Primary Nurse role handed off by See Handy, RN sg 19:36 One-on-one care X 180 minutes. sg 19:37 Hedy Cleary, ARVIND is Primary Nurse. bb Administered Medications: 16:10 Drug: NS 0.9% (30 ml/kg) 30 ml/kg Route: IV; Rate: bolus; Site: left forearm; sg 17:10 Follow up: Response: No adverse reaction; IV Status: Completed infusion; IV Intake: sg 2000ml 16:30 Drug: Tylenol Suppository 650 mg Route: OH; aj1 18:20 Follow up: Response: No adverse reaction; Temperature is decreased sg 16:45 Drug: Cefepime 1 grams Route: IVPB; Rate: 200 ml/hr; Infused Over: 30 mins; Site: left sg forearm; 17:35 Follow up: Response: No adverse reaction; IV Status: Completed infusion sg 16:50 Drug: Potassium Chloride 20 mEq Route: IV; Rate: calculated rate; Site: left forearm; sg 18:30 Follow up: Response: No adverse reaction; IV Status: Completed infusion sg 17:20 Drug: vancoMYCIN 1 grams Route: IVPB; Infused Over: 2 hrs; Site: left forearm; sg 19:23 Follow up: IV Status: Completed infusion; IV Intake: 250ml bb Intake: 17:10 IV: 2000ml; Total: 2000ml. sg 19:23 IV: 250ml; Total: 2250ml. bb Outcome: 17:48 ER care complete, transfer ordered by . anthony 18:10 Transferred by ground EMS to [facility], Transfer form completed. Note: report given to Erica John RN at [facility] 18:10 Condition: stable 18:10 Instructed on the need for transfer, safety practices, Demonstrated understanding of instructions. 19:46 Patient left the ED. bb Addendum: 12/22/2017 09:07 Addendum: Culture Results: Positive urine culture. Phone call Attempt #1 culture report s s faxed to [facility] ATTN hardy at [phone]. Signatures: Dispatcher [employer] EDMS Nina Hernandez RN RN aj1 Hortencia Hernandez RN RN ariel5 See Handy RN RN sg Ballard, Brenda, RN RN bb Lopez, Melissa ml Smirch, Shelby, RN RN ss Roszak, Josh, PA PA jr8 Taylor castorena, tight barrel inspector EKG Tat1 Corrections: (The following items were deleted from the chart) 12/16 17:47 16:30 Reassessment: Patient appears in no apparent distress at this time. Patient sg and/or family updated on plan of care and expected duration. Pain level reassessed. pt brother in lobby at this time, while gordon catheter is in place Patient states symptoms have not improved. sg 12/17 07:43 12/16 15:40 Musculoskeletal: No signs and/or symptoms reported regarding the sg musculoskeletal system. sg
[2017-12-16] MEDS ORDERED: NA CHLORIDE 0.9% 100 ML IV ONE (19:28)
[2017-12-16 20:09] VITALS: BP 93/66; TEMP 97.4; O2SAT 95
--- NOTE | 2017-12-16 21:25 | EKG ---
Test Date: 2017-12-16 Test Time: 15:26:12 Six Sigma Project Manager: JESSICA MEASUREMENT RESULTS: Intervals: Rate: 152 CA: 116 QRSD: 90 QT: 348 QTc: 553 [place]: P: 60 CA: 116 QRS: 67 T: 59 INTERPRETIVE STATEMENTS: Sinus tachycardia Otherwise normal ECG Compared to ECG 08/13/2017 12:16:00 Myocardial infarct finding no longer present Electronically Signed On 12-16-17 21:24:41 CDT by Antwon Blancas
== END 2017-12-16 19:46 | disposition short-term general hospital (02) ==
LOC: ER 15:25
PROC: 30233R1 Transfusion of Nonautologous Platelets into Peripheral Vein, Percutaneous Approach (ICD-10-PCS; principal; 2017-12-16)
DX: D70.9 Neutropenia, unspecified (principal); J15.8 Pneumonia due to other specified bacteria; A41.9 Sepsis, unspecified organism; I10 Essential (primary) hypertension; I25.2 Old myocardial infarction; Z85.6 Personal history of leukemia
CPT/HCPCS: 36415; 71045; 80048; 80076; 81003; 82150; 82550; 82553; 82805; 83605; 83690; 83880; 84145; 84484; 85025; 85610; 85652; 85730; 86140; 86850; 86900; 86901; 87040; 87077; 87086; 87088; 87186; 93005; 94660; 96365; 96367; 99285; J0692; J3370; J7030; P9035